=== PATIENT | female | born 1950 | race Caucasian/White ===

== ENCOUNTER 2017-12-12 14:57 | Inpatient (IN) | payer MEDICARE ==
[~2017-12-12] VITALS: Ht 177.8 cm; Wt 127.1 kg
[~2017-12-12 14:57] MED LIST: ACET325 PO; ACYC400 PO; ALBU90OI61 INH; ASPI81CH PO; ASPI81EC PO; Amlodipine Bes2.5 MG PO; CENTRUM MULTIV1 EACH PO; CHOL10002; CITRACAL-VIT D1 EACH PO; Coreg12.5 MG PO; FLUSAL5005 INH; FLUT220OIA INH; FURO40 PO; GABA300 PO; GLUCAGEN IJ; Humalog100 UNIT/1 SC; INSLI100I SC; INSULANPEN SC; LEVOXYL; LEVSOD75 PO; LISHYD2025 PO; MENTAX; METO100 PO; METO100ER PO; MULVIT PO; OLME20; OLME20 PO; OLME5TAB PO; ONDA4 PO; POTCHL10ER PO; PRAV20 PO; PRAVASTATIN SODIUM PO; SIMV40 PO; Zithromax250 MG PO
[2017-12-12 16:00] LABS: BASOPHILS ABSOLUTE AUTO 0.01 K/mm3 (0.00-0.23); BASOPHILS PERCENT AUTO 0 % (0-2); EOSINOPHILS PERCENT AUTO 2 % (0-6); Hematocrit 37.9 % (33.0-51.0); Hemoglobin 11.9 g/dL (11.5-16.0); IMMATURE GRAN ABSOLUTE AUTO 0.02 K/mm3 (0.00-0.10); IMMATURE GRAN PERCENT AUTO 0 % (0-1); LYMPHOCYTES ABSOLUTE AUTO 1.62 K/mm3 (0.84-5.20); LYMPHOCYTES PERCENT AUTO 28 % (21-46); MONOCYTES ABSOLUTE AUTO 0.55 K/mm3 (0.16-1.47); MONOCYTES PERCENT AUTO 9 % (4-13); Mean Corpuscular HGB 28.9 pg (26.0-34.0); Mean Corpuscular HGB Conc 31.4 g/dL (31.5-36.5); Mean Corpuscular Volume 92 fL (80-100); Mean Platelet Volume 10.8 fL (9.1-12.4); NEUTROPHILS ABSOLUTE AUTO 3.58 K/mm3 (1.96-9.15); NEUTROPHILS PERCENT AUTO 61 % (41-73); Platelet Count 150 K/mm3 (150-400); RDW Coefficient Variation 14.5 % (11.7-14.2); RDW Standard Deviation 49.3 fL (35.1-46.3); Red Blood Cell Count 4.12 M/mm3 (3.80-5.20); White Blood Cell Count 5.88 K/mm3 (4.00-11.30)
[2017-12-12 16:17] LABS: Alanine Aminotransfer (ALT/SGP 44 U/L (12-78); Albumin, Blood 3.1 g/dL (3.4-5.0); Albumin/Globulin Ratio 0.8 (0.8-1.8); Alk Phos 158 U/L (50-136); Anion Gap 6 mmol/L (6-16); Aspartate Aminotrans (AST/SGOT 43 U/L (12-37); Bilirubin, Total 0.2 mg/dL (0.1-1.0); Blood Urea Nitrogen 16 mg/dL (8-24); Bun/Creatinine Ratio 21.5 (12.0-20.0); CO2, Blood 27 mmol/L (21-32); Calcium, Blood 7.9 mg/dL (8.5-10.1); Chloride, Blood 106 mmol/L (98-108); Creatinine, Blood 0.74 mg/dL (0.40-1.00); Glomerular Filtration Rate >60 (60-); Glucose, Blood 259 mg/dL (70-99); Potassium, Blood 4.3 mmol/L (3.5-5.5); Sodium, Blood 139 mmol/L (136-145); Total Protein, Blood 7.1 g/dL (6.4-8.2); Troponin I <0.015 ng/mL (0.000-0.040)
[2017-12-12] MEDS ORDERED: FLUT1DIS5 INH (16:21)
[2017-12-12] MEDS ORDERED: ASPI81CH PO (16:33)
[2017-12-12 20:08] LABS: Influenza A Negative (NEGATIVE); Influenza B Negative (NEGATIVE)
[2017-12-13 03:49] LABS: BASOPHILS ABSOLUTE AUTO 0.02 K/mm3 (0.00-0.23); BASOPHILS PERCENT AUTO 0 % (0-2); EOSINOPHILS ABSOLUTE AUTO 0.02 K/mm3 (0.00-0.68); EOSINOPHILS PERCENT AUTO 0 % (0-6); Hematocrit 37.3 % (33.0-51.0); Hemoglobin 11.7 g/dL (11.5-16.0); IMMATURE GRAN ABSOLUTE AUTO 0.03 K/mm3 (0.00-0.10); IMMATURE GRAN PERCENT AUTO 1 % (0-1); LYMPHOCYTES ABSOLUTE AUTO 1.41 K/mm3 (0.84-5.20); LYMPHOCYTES PERCENT AUTO 22 % (21-46); MONOCYTES ABSOLUTE AUTO 0.25 K/mm3 (0.16-1.47); MONOCYTES PERCENT AUTO 4 % (4-13); Mean Corpuscular HGB 28.8 pg (26.0-34.0); Mean Corpuscular HGB Conc 31.4 g/dL (31.5-36.5); Mean Corpuscular Volume 92 fL (80-100); NEUTROPHILS PERCENT AUTO 73 % (41-73); Platelet Count 147 K/mm3 (150-400); RDW Coefficient Variation 14.6 % (11.7-14.2); RDW Standard Deviation 49.8 fL (35.1-46.3); Red Blood Cell Count 4.06 M/mm3 (3.80-5.20); White Blood Cell Count 6.43 K/mm3 (4.00-11.30)
[2017-12-13 04:13] LABS: Anion Gap 8 mmol/L (6-16); Blood Urea Nitrogen 19 mg/dL (8-24); Bun/Creatinine Ratio 27.1 (12.0-20.0); CO2, Blood 25 mmol/L (21-32); Calcium, Blood 8.3 mg/dL (8.5-10.1); Chloride, Blood 104 mmol/L (98-108); Glomerular Filtration Rate >60 (60-); Glucose, Blood 127 mg/dL (70-99); Sodium, Blood 137 mmol/L (136-145)
[2017-12-16] MEDS ORDERED: CARV25 PO (11:19)
[2017-12-16] MEDS ORDERED: ALBU90OI INH (11:21)
[2017-12-16] MEDS ORDERED: BENZ100A PO (11:22)
[2017-12-16] MEDS ORDERED: Q-Tussin100 MG/5 M PO (11:24)
[2017-12-16] MEDS ORDERED: AZIT250 PO (11:25)
[2017-12-16] MEDS ORDERED: PRED10 PO (11:28)
== END 2017-12-16 12:15 | disposition home or self-care (01) | DRG 202 ==
LOC: ER 14:57 → PCU 17:11 → MEDS 12-14 13:49
PROVIDERS: Emergency Medicine; Internal Medicine
DX: J45.901 Unspecified asthma with (acute) exacerbation (principal); I16.1 Hypertensive emergency; E11.40 Type 2 diabetes mellitus with diabetic neuropathy, unspecified; I11.0 Hypertensive heart disease with heart failure; I50.9 Heart failure, unspecified; I25.110 Atherosclerotic heart disease of native coronary artery with unstable angina pectoris; I73.9 Peripheral vascular disease, unspecified; E11.65 Type 2 diabetes mellitus with hyperglycemia; E78.5 Hyperlipidemia, unspecified; G47.33 Obstructive sleep apnea (adult) (pediatric); Z95.2 Presence of prosthetic heart valve; Z79.4 Long term (current) use of insulin; Z79.82 Long term (current) use of aspirin; Z96.41 Presence of insulin pump (external) (internal); Z98.1 Arthrodesis status
CPT/HCPCS: 36415; 71046; 80048; 80053; 82947; 84484; 85025; 87070; 87205; 87804; 93005; 93010; 94640; 94660; 94762; 96374; 96375; 96376; 99285; J0360; J1650; J2920; J2930

== ENCOUNTER 2018-05-13 20:12 | Emergency (ER) | payer MEDICARE ==
[~2018-05-13] VITALS: Ht 180.3 cm; Wt 126.1 kg
[~2018-05-13 20:12] MED LIST changes: +ALBU2.5V5 NEB; +AZIT250 PO; +BENZ100A PO; +CARV25 PO; +FLUT1DIS5 INH; +PRED10 PO; +Q-Tussin100 MG/5 M PO
== END 2018-05-13 22:49 | disposition home or self-care (01) ==
LOC: ER 20:12
DX: E11.649 Type 2 diabetes mellitus with hypoglycemia without coma (principal); R55 Syncope and collapse; T38.3X5A Adverse effect of insulin and oral hypoglycemic [antidiabetic] drugs, initial encounter; I10 Essential (primary) hypertension; Z88.0 Allergy status to penicillin; Z88.2 Allergy status to sulfonamides; Z91.040 Latex allergy status; Z88.5 Allergy status to narcotic agent; Z88.1 Allergy status to other antibiotic agents; Z79.4 Long term (current) use of insulin; Z79.899 Other long term (current) drug therapy; Z79.82 Long term (current) use of aspirin; Z79.2 Long term (current) use of antibiotics
CPT/HCPCS: 36415; 82947; 93005; 93010; 99284-25

== ENCOUNTER 2018-05-29 11:04 | Inpatient (IN) | payer MEDICARE ==
[~2018-05-29] VITALS: Ht 180.3 cm; Wt 121.6 kg
[~2018-05-29 11:04] MED LIST changes: -ALBU2.5V5 NEB; +ALBU90OI INH
[2018-05-29 11:45] LABS: BASOPHILS ABSOLUTE AUTO 0.03 K/mm3 (0.00-0.23); BASOPHILS PERCENT AUTO 0 % (0-2); EOSINOPHILS ABSOLUTE AUTO 0.03 K/mm3 (0.00-0.68); EOSINOPHILS PERCENT AUTO 0 % (0-6); Hematocrit 39.5 % (33.0-51.0); Hemoglobin 13.1 g/dL (11.5-16.0); IMMATURE GRAN ABSOLUTE AUTO 0.02 K/mm3 (0.00-0.10); IMMATURE GRAN PERCENT AUTO 0 % (0-1); LYMPHOCYTES ABSOLUTE AUTO 1.14 K/mm3 (0.84-5.20); LYMPHOCYTES PERCENT AUTO 14 % (21-46); MONOCYTES ABSOLUTE AUTO 0.23 K/mm3 (0.16-1.47); MONOCYTES PERCENT AUTO 3 % (4-13); Mean Corpuscular HGB 29.4 pg (26.0-34.0); Mean Corpuscular HGB Conc 33.2 g/dL (31.5-36.5); Mean Corpuscular Volume 89 fL (80-100); Mean Platelet Volume 11.2 fL (9.1-12.4); NEUTROPHILS ABSOLUTE AUTO 6.45 K/mm3 (1.96-9.15); NEUTROPHILS PERCENT AUTO 82 % (41-73); Platelet Count 177 K/mm3 (150-400); RDW Coefficient Variation 14.3 % (11.7-14.2); RDW Standard Deviation 45.9 fL (35.1-46.3); Red Blood Cell Count 4.45 M/mm3 (3.80-5.20)
[2018-05-29 12:08] LABS: Alanine Aminotransfer (ALT/SGP 25 U/L (12-78); Albumin, Blood 3.4 g/dL (3.4-5.0); Albumin/Globulin Ratio 0.9 (0.8-1.8); Alk Phos 86 U/L (50-136); Anion Gap 25 mmol/L (6-16); Aspartate Aminotrans (AST/SGOT 14 U/L (12-37); Bilirubin, Total 0.5 mg/dL (0.1-1.0); Blood Urea Nitrogen 28 mg/dL (8-24); CO2, Blood 15 mmol/L (21-32); Chloride, Blood 89 mmol/L (98-108); Creatinine, Blood 1.27 mg/dL (0.40-1.00); Globulin, Blood 3.8 g/dL (2.2-4.0); Glomerular Filtration Rate 45 (60-); Glucose, Blood 474 mg/dL (70-99); Potassium, Blood 3.9 mmol/L (3.5-5.5); Sodium, Blood 129 mmol/L (136-145); Total Protein, Blood 7.2 g/dL (6.4-8.2); Troponin I <0.015 ng/mL (0.000-0.040)
[2018-05-29 12:46] LABS: Base Excess Venous -7.1 mmol/L; Bicarbonate Venous 19.1 mmol/L (24.0-30.0); PO2 Venous 98.8 mmHg (38-42)
[2018-05-29 13:32] LABS: Source, Urine Clean Catch
[2018-05-29 13:36] LABS: Bilirubin, Urine Neg (Neg); Blood, Urine Neg (Neg); Glucose Qualitative, Urine 4+ (Neg); Ketones, Urine 4+ (Neg); Leukocyte Esterase, Urine Neg (Neg); Nitrite, Urine Neg (Neg); Protein, Urine Neg (Neg); Urobilinogen, Urine NORM (Normal)
[2018-05-29 13:57] LABS: Appearance, Urine Hazy (Clear); Color, Urine Yellow (P-Yellow)
[2018-05-29 13:59] LABS: Bacteria Few /hpf; Granular Casts 0-2 /lpf (0); Hyaline Casts 0-2 /lpf (0-2); Red Blood Cells, Urine 0-2 /hpf (0-2); Squamous Epithelial Cells Mod /hpf (Few); White Blood Cells, Urine 0-2 /hpf (0-5)
[2018-05-29 14:00] LABS: Epithelial Cell Casts 0-2 /lpf (0)
[2018-05-29] MEDS ORDERED: INSULANPEN SC (14:51)
[2018-05-29] MEDS ORDERED: Humalog100 UNIT/1 SC ×2 (14:57→15:00)
[2018-05-29 15:39] LABS: Bun/Creatinine Ratio 23.4 (12.0-20.0); Calcium, Blood 9.3 mg/dL (8.5-10.1); Creatinine, Blood 1.11 mg/dL (0.40-1.00); Potassium, Blood 3.7 mmol/L (3.5-5.5)
[2018-05-29 19:11] LABS: Bun/Creatinine Ratio 22.6 (12.0-20.0); Calcium, Blood 9.4 mg/dL (8.5-10.1); Creatinine, Blood 1.06 mg/dL (0.40-1.00); Potassium, Blood 3.7 mmol/L (3.5-5.5)
[2018-05-30 06:19] LABS: Anion Gap 10 mmol/L (6-16); Blood Urea Nitrogen 21 mg/dL (8-24); Bun/Creatinine Ratio 22.3 (12.0-20.0); CO2, Blood 25 mmol/L (21-32); Calcium, Blood 8.8 mg/dL (8.5-10.1); Chloride, Blood 99 mmol/L (98-108); Creatinine, Blood 0.94 mg/dL (0.40-1.00); Glomerular Filtration Rate >60 (60-); Glucose, Blood 315 mg/dL (70-99); Potassium, Blood 4.1 mmol/L (3.5-5.5); Sodium, Blood 134 mmol/L (136-145)
[2018-05-30 14:03] LABS: Albumin, Blood 2.8 g/dL (3.4-5.0); Anion Gap 8 mmol/L (6-16); Blood Urea Nitrogen 22 mg/dL (8-24); CO2, Blood 25 mmol/L (21-32); Calcium, Blood 7.9 mg/dL (8.5-10.1); Chloride, Blood 101 mmol/L (98-108); Creatinine, Blood 0.88 mg/dL (0.40-1.00); Glomerular Filtration Rate >60 (60-); Glucose, Blood 388 mg/dL (70-99); Phosphorus, Blood 1.8 mg/dL (2.5-4.9); Potassium, Blood 3.9 mmol/L (3.5-5.5); Sodium, Blood 134 mmol/L (136-145)
[2018-05-31 05:54] LABS: Albumin, Blood 2.9 g/dL (3.4-5.0); Anion Gap 10 mmol/L (6-16); Blood Urea Nitrogen 21 mg/dL (8-24); Bun/Creatinine Ratio 24.6 (12.0-20.0); CO2, Blood 25 mmol/L (21-32); Calcium, Blood 8.5 mg/dL (8.5-10.1); Chloride, Blood 103 mmol/L (98-108); Creatinine, Blood 0.85 mg/dL (0.40-1.00); Glomerular Filtration Rate >60 (60-); Glucose, Blood 212 mg/dL (70-99); Magnesium, Blood 2.1 mg/dL (1.6-2.4); Phosphorus, Blood 2.9 mg/dL (2.5-4.9); Potassium, Blood 4.1 mmol/L (3.5-5.5); Sodium, Blood 138 mmol/L (136-145)
== END 2018-05-31 11:38 | disposition home or self-care (01) | DRG 638 ==
LOC: ER 11:04 → ICUW 13:38 → MEDS 14:20 → ICUW 14:35 → MEDS 05-30 18:51 → ENPENDDIS 05-31 09:38 → MEDS 05-31 11:38
PROVIDERS: Hospitalist; Internal Medicine; Physician Assistant
DX: E10.10 Type 1 diabetes mellitus with ketoacidosis without coma (principal); E87.1 Hypo-osmolality and hyponatremia; E11.65 Type 2 diabetes mellitus with hyperglycemia; E83.39 Other disorders of phosphorus metabolism; E10.40 Type 1 diabetes mellitus with diabetic neuropathy, unspecified; I25.10 Atherosclerotic heart disease of native coronary artery without angina pectoris; E10.51 Type 1 diabetes mellitus with diabetic peripheral angiopathy without gangrene; G47.33 Obstructive sleep apnea (adult) (pediatric); J44.9 Chronic obstructive pulmonary disease, unspecified; E03.9 Hypothyroidism, unspecified; E78.5 Hyperlipidemia, unspecified; I11.0 Hypertensive heart disease with heart failure; E66.9 Obesity, unspecified; Z68.38 Body mass index [BMI] 38.0-38.9, adult; Z95.5 Presence of coronary angioplasty implant and graft; Z99.89 Dependence on other enabling machines and devices; I25.2 Old myocardial infarction; Z88.0 Allergy status to penicillin; Z88.2 Allergy status to sulfonamides; Z88.8 Allergy status to other drugs, medicaments and biological substances; Z88.1 Allergy status to other antibiotic agents; Z91.040 Latex allergy status; Z79.82 Long term (current) use of aspirin; Z79.4 Long term (current) use of insulin; Z79.51 Long term (current) use of inhaled steroids; Z79.52 Long term (current) use of systemic steroids; Z79.899 Other long term (current) drug therapy
CPT/HCPCS: 36415; 71046; 80048; 80053; 80069; 81001; 82010; 82803; 82947; 83690; 83735; 84484; 85025; 93005; 93010; 94640; 94660; 94760; 94762; 96361; 96374; 99285-25; C9113; J1650; J1815; J2405; J7030; J7042; J7060; P9612

== ENCOUNTER 2019-04-08 12:57 | Emergency (ER) | payer MEDICARE ==
[~2019-04-08] VITALS: Ht 180.3 cm; Wt 130.6 kg
[2019-04-08 13:42] LABS: BASOPHILS ABSOLUTE AUTO 0.04 K/mm3 (0.00-0.23); BASOPHILS PERCENT AUTO 1 % (0-2); EOSINOPHILS ABSOLUTE AUTO 0.26 K/mm3 (0.00-0.68); EOSINOPHILS PERCENT AUTO 4 % (0-6); Hematocrit 35.9 % (33.0-51.0); Hemoglobin 11.3 g/dL (11.5-16.0); IMMATURE GRAN ABSOLUTE AUTO 0.02 K/mm3 (0.00-0.10); IMMATURE GRAN PERCENT AUTO 0 % (0-1); LYMPHOCYTES ABSOLUTE AUTO 1.94 K/mm3 (0.84-5.20); LYMPHOCYTES PERCENT AUTO 28 % (21-46); MONOCYTES ABSOLUTE AUTO 0.65 K/mm3 (0.16-1.47); MONOCYTES PERCENT AUTO 9 % (4-13); Mean Corpuscular HGB 29.4 pg (26.0-34.0); Mean Corpuscular HGB Conc 31.5 g/dL (31.5-36.5); Mean Corpuscular Volume 94 fL (80-100); Mean Platelet Volume 10.8 fL (9.1-12.4); NEUTROPHILS ABSOLUTE AUTO 4.03 K/mm3 (1.96-9.15); NEUTROPHILS PERCENT AUTO 58 % (41-73); Platelet Count 193 K/mm3 (150-400); RDW Coefficient Variation 14.8 % (11.7-14.2); RDW Standard Deviation 50.4 fL (35.1-46.3); Red Blood Cell Count 3.84 M/mm3 (3.80-5.20); White Blood Cell Count 6.94 K/mm3 (4.00-11.30)
[2019-04-08 13:54] LABS: Alanine Aminotransfer (ALT/SGP 27 U/L (12-78); Albumin, Blood 3.3 g/dL (3.4-5.0); Albumin/Globulin Ratio 1.2 (0.8-1.8); Alk Phos 85 U/L (50-136); Anion Gap 1 mmol/L (6-16); Aspartate Aminotrans (AST/SGOT 20 U/L (12-37); Bilirubin, Total 0.3 mg/dL (0.1-1.0); Blood Urea Nitrogen 21 mg/dL (8-24); Bun/Creatinine Ratio 23.5 (12.0-20.0); CO2, Blood 34 mmol/L (21-32); Calcium, Blood 8.7 mg/dL (8.5-10.1); Chloride, Blood 106 mmol/L (98-108); Creatinine, Blood 0.89 mg/dL (0.40-1.00); Ethanol (Alcohol), Blood, Med <3 mg/dL; Globulin, Blood 2.8 g/dL (2.2-4.0); Glomerular Filtration Rate >60 (60-); Glucose, Blood 129 mg/dL (70-99); Potassium, Blood 3.9 mmol/L (3.5-5.5); Sodium, Blood 141 mmol/L (136-145); Total Protein, Blood 6.1 g/dL (6.4-8.2)
== END 2019-04-08 16:30 | disposition home or self-care (01) ==
LOC: ER 12:57
PROVIDERS: Emergency Medicine
DX: E11.9 Type 2 diabetes mellitus without complications (principal); Z88.0 Allergy status to penicillin; Z88.2 Allergy status to sulfonamides; Z88.5 Allergy status to narcotic agent; Z91.040 Latex allergy status; Z88.1 Allergy status to other antibiotic agents; Z79.899 Other long term (current) drug therapy; Z79.82 Long term (current) use of aspirin; Z79.4 Long term (current) use of insulin; I11.0 Hypertensive heart disease with heart failure; I50.9 Heart failure, unspecified; J45.909 Unspecified asthma, uncomplicated; E78.5 Hyperlipidemia, unspecified
CPT/HCPCS: 36415; 80053; 85025; 93005; 93010; 99285-25; G0480

== ENCOUNTER 2019-04-21 04:57 | Emergency (ER) | payer MEDICARE ==
[~2019-04-21] VITALS: Ht 180.3 cm; Wt 130.6 kg
[2019-04-21 06:38] LABS: Bun/Creatinine Ratio 29.2 (12.0-20.0); Calcium, Blood 9.4 mg/dL (8.5-10.1); Creatinine, Blood 0.99 mg/dL (0.40-1.00); Potassium, Blood 3.6 mmol/L (3.5-5.5)
== END 2019-04-21 08:52 | disposition home or self-care (01) ==
LOC: ER 04:57
PROVIDERS: Emergency Medicine
DX: E11.649 Type 2 diabetes mellitus with hypoglycemia without coma (principal); T80.89XA Other complications following infusion, transfusion and therapeutic injection, initial encounter; M79.89 Other specified soft tissue disorders; E11.51 Type 2 diabetes mellitus with diabetic peripheral angiopathy without gangrene; I11.0 Hypertensive heart disease with heart failure; I50.9 Heart failure, unspecified; I25.10 Atherosclerotic heart disease of native coronary artery without angina pectoris; Z88.0 Allergy status to penicillin; Z88.2 Allergy status to sulfonamides; Z88.5 Allergy status to narcotic agent; Z91.040 Latex allergy status; Z88.1 Allergy status to other antibiotic agents; Z79.899 Other long term (current) drug therapy; Z79.4 Long term (current) use of insulin
CPT/HCPCS: 36415; 80048; 82947; 99284

== ENCOUNTER 2021-05-04 07:04 | Inpatient (IN) | payer MEDICARE ==
[~2021-05-04] VITALS: Ht 180.3 cm; Wt 127.6 kg
[~2021-05-04 07:04] MED LIST changes: +AMLO5 PO; -Amlodipine Bes2.5 MG PO
[2021-05-04 07:39] LABS: Base Excess Venous 5.6 mmol/L; Bicarbonate Venous 28.2 mmol/L (24.0-30.0); PCO2 Venous 58.9 mmHg (38-42); pH Blood Venous 7.34 (7.34-7.37)
[2021-05-04 07:44] LABS: BASOPHILS ABSOLUTE AUTO 0.05 K/mm3 (0.00-0.23); BASOPHILS PERCENT AUTO 1 % (0-2); EOSINOPHILS ABSOLUTE AUTO 0.07 K/mm3 (0.00-0.68); EOSINOPHILS PERCENT AUTO 1 % (0-6); Hematocrit 36.7 % (33.0-51.0); Hemoglobin 11.5 g/dL (11.5-16.0); IMMATURE GRAN ABSOLUTE AUTO 0.02 K/mm3 (0.00-0.10); IMMATURE GRAN PERCENT AUTO 0 % (0-1); LYMPHOCYTES ABSOLUTE AUTO 0.79 K/mm3 (0.84-5.20); LYMPHOCYTES PERCENT AUTO 9 % (21-46); MONOCYTES ABSOLUTE AUTO 0.74 K/mm3 (0.16-1.47); MONOCYTES PERCENT AUTO 9 % (4-13); Mean Corpuscular HGB 28.7 pg (26.0-34.0); Mean Corpuscular HGB Conc 31.3 g/dL (31.5-36.5); Mean Corpuscular Volume 92 fL (80-100); NEUTROPHILS ABSOLUTE AUTO 7.04 K/mm3 (1.96-9.15); NEUTROPHILS PERCENT AUTO 81 % (41-73); Platelet Count 198 K/mm3 (150-400); RDW Coefficient Variation 14.7 % (11.7-14.2); RDW Standard Deviation 49.3 fL (35.1-46.3); Red Blood Cell Count 4.01 M/mm3 (3.80-5.20); White Blood Cell Count 8.71 K/mm3 (4.00-11.30)
[2021-05-04 07:54] LABS: Alanine Aminotransfer (ALT/SGP 79 U/L (12-78); Albumin, Blood 3.5 g/dL (3.4-5.0); Alk Phos 120 U/L (50-136); Anion Gap 2 mmol/L (6-16); Aspartate Aminotrans (AST/SGOT 39 U/L (12-37); Bilirubin, Total 0.5 mg/dL (0.1-1.0); Blood Urea Nitrogen 20 mg/dL (8-24); Bun/Creatinine Ratio 25.3 (12.0-20.0); CO2, Blood 31 mmol/L (21-32); Calcium, Blood 9.1 mg/dL (8.5-10.1); Chloride, Blood 108 mmol/L (98-108); Creatinine, Blood 0.79 mg/dL (0.40-1.00); Globulin, Blood 3.6 g/dL (2.2-4.0); Glomerular Filtration Rate >60 (60-); Glucose, Blood 208 mg/dL (70-99); Potassium, Blood 4.1 mmol/L (3.5-5.5); Sodium, Blood 141 mmol/L (136-145); Total Protein, Blood 7.1 g/dL (6.4-8.2); Troponin I <0.015 ng/mL (0.000-0.040)
[2021-05-04 08:56] LABS: SARS-Cov-2 (COVID-19) PCR, MMC NEGATIVE (NEGATIVE)
[2021-05-04] MEDS ORDERED: Isosorbide Mono30 MG PO (15:18)
[2021-05-04] MEDS ORDERED: Crestor40 MG PO (15:18)
[2021-05-04] MEDS ORDERED: PROAIR DIGIHAL90 MCG INH (15:19)
[2021-05-04] MEDS ORDERED: FLUT1DIS5 INH (15:19)
[2021-05-04] MEDS ORDERED: LOSA50 PO (15:20)
[2021-05-04] MEDS ORDERED: BUME2 PO (15:22)
[2021-05-04 15:57] LABS: CPK Creatine Kinase 83 U/L (26-193); Troponin I <0.015 ng/mL (0.000-0.040)
[2021-05-04 18:18] LABS: Source, Urine Catheter
--- NOTE | 2021-05-04 18:22 | NUR ---
SHIFT SUMMARY PT ARRIVED TO PCU THIS AFTERNOON. PT HAS A NONPRODUCTIVE COUGH AND HAS BEEN WHEEZING, HER SATURATION IS MAINTAINED ON 5L O2 VIA OXYMIZER. PT ARRIVED TO PCU ON BIPAP 12/6 AND 40%. PT HAS BEEN ABLE TO EAT AND MAINTAIN SATURATION ABOVE 92% WITH THE OXYMIZER. PT RECEIVED 1 DOSE OF PRN APRESOLINE HER BP WAS ELEVATED BUT THAT WAS IMPROVED AT THE RECHECK. PT HAS BEEN VOIDING FREQUENTLY AND A UA WAS SENT TO LAB THIS EVENING. PT IS A SBA TO THE BSC, ALERT AND ORIENTED. PT IS RESTING IN BED WATCHING TV AT THIS TIME
[2021-05-04 18:35] LABS: Appearance, Urine Clear (Clear); Bilirubin, Urine Neg (Neg); Blood, Urine 2+ (Neg); Color, Urine Yellow (P-Yellow); Glucose Qualitative, Urine 3+ (Neg); Ketones, Urine 2+ (Neg); Leukocyte Esterase, Urine Neg (Neg); Nitrite, Urine Neg (Neg); Protein, Urine 3+ (Neg); Urobilinogen, Urine NORM (Normal)
[2021-05-04 18:46] LABS: Bacteria Mod /hpf; Red Blood Cells, Urine 0-2 /hpf (0-2); Squamous Epithelial Cells Rare /hpf (Few); White Blood Cells, Urine 0-2 /hpf (0-5)
[2021-05-04 23:18] LABS: CPK Creatine Kinase 66 U/L (26-193); Troponin I <0.015 ng/mL (0.000-0.040)
[2021-05-05 04:20] LABS: BASOPHILS PERCENT AUTO 0 % (0-2); EOSINOPHILS PERCENT AUTO 0 % (0-6); Hematocrit 35.5 % (33.0-51.0); Hemoglobin 11.1 g/dL (11.5-16.0); IMMATURE GRAN ABSOLUTE AUTO 0.02 K/mm3 (0.00-0.10); IMMATURE GRAN PERCENT AUTO 0 % (0-1); LYMPHOCYTES ABSOLUTE AUTO 0.69 K/mm3 (0.84-5.20); LYMPHOCYTES PERCENT AUTO 10 % (21-46); MONOCYTES ABSOLUTE AUTO 0.57 K/mm3 (0.16-1.47); MONOCYTES PERCENT AUTO 8 % (4-13); Mean Corpuscular HGB 29.1 pg (26.0-34.0); Mean Corpuscular HGB Conc 31.3 g/dL (31.5-36.5); Mean Corpuscular Volume 93 fL (80-100); Mean Platelet Volume 10.8 fL (9.1-12.4); NEUTROPHILS ABSOLUTE AUTO 5.89 K/mm3 (1.96-9.15); NEUTROPHILS PERCENT AUTO 82 % (41-73); Platelet Count 207 K/mm3 (150-400); RDW Coefficient Variation 14.8 % (11.7-14.2); RDW Standard Deviation 50.7 fL (35.1-46.3); Red Blood Cell Count 3.81 M/mm3 (3.80-5.20); White Blood Cell Count 7.17 K/mm3 (4.00-11.30)
[2021-05-05 04:44] LABS: Albumin, Blood 3.1 g/dL (3.4-5.0); Albumin/Globulin Ratio 0.9 (0.8-1.8); Bilirubin, Total 0.4 mg/dL (0.1-1.0); Bun/Creatinine Ratio 27.7 (12.0-20.0); Calcium, Blood 8.8 mg/dL (8.5-10.1); Creatinine, Blood 0.94 mg/dL (0.40-1.00); Globulin, Blood 3.3 g/dL (2.2-4.0); Potassium, Blood 4.1 mmol/L (3.5-5.5); Total Protein, Blood 6.4 g/dL (6.4-8.2)
--- NOTE | 2021-05-05 06:15 | NUR ---
SHIFT SUMMARY PATIENT A&OX4, FORGETFUL WITH GEN WEAKNESS. ON 2-5L NC WHEN AWAKE AND BIPAP MOST OF THE NIGHT. COUGHING SPELLS MADE THIS DIFFICULT AT TIMES AND PRN COUGH SYRUP HELPING WITH THIS. DESATS WITH EXERTION BUT RECOVERS RATEHR QUICKLY. HR STABLE BUT BP ELEVATED THIS AM. GAVE IV APRESOLINE X1 WITH GOOD RELIEF. ALSO GOT PATIENTS HOME MEDS REORDERED SO THOSE SHOULD START HELPING THIS AM. NO PAIN OR DISTRESS NOTED UPON ASSESSMENT. UP WITH ONE ASSIST TO BSC. URINARY FREQUENCY NOTED. TOLERATING ADA DIET. NO ACUTE CONCERNS AT THIS TIME. WILL CONTINUE TO MONITOR UNTIL REPORT GIVEN TO DAYSHIFT RN.
--- NOTE | 2021-05-05 17:20 | NUR ---
SHIFT SUMMARY PT HAS BEEN COUGHING FREQUENTLY TODAY WITH LITTLE TO NO RELIEF WITH THE ROBUTISSIN. PT CONTINUES TO NEED 3-5L VIA OXYMIZER TO MAINTAIN SATURATION ABOVE 90%. PT HAS INCREASED SOB AND WORK OF BREATHING WITH ACTIVITY. PT'S CBG HAVE BEEN ELEVATED SINCE STEROIDS HAVE BEEN STARTED, INSULIN HAS BEEN ADJUSTED. PT IS ABLE TO USE BSC WITH CANE SBA. PT IS RESTING IN BED AT THIS TIME
--- NOTE | 2021-05-06 05:41 | NUR ---
PATIENT IS ALERT AND ORIENTATED, RESTING COMFORTABLY ON 5L OXIMIZER AND/OR BIPAP AT 40% FIO2, AROUND 0500 PATIENT BEGAN COUGHING UNABLE TO CONTROL GAVE PRN ROBITUSSIN AND TESSALON PERILS, BP 206/97 HR 95, HYDRAYLZINE 10ML IVP BP 179/85 HR 98 CALLED NO NEW ORDERS AT THIS TIME. PATIENT IS GETTING SOME RELIEF WITH COUGH MEDICINE COUGHING THIN WHITE LOOSE SPUTUM.
--- NOTE | 2021-05-06 10:30 | NUR ---
PT ALERT AND ORIENTED X4. ON 5L OXYMIZER SATING MID 90'S. USING CPAP WHEN SLEEPING. AT TIMES EXPIRATORY WHEEZE HEARD. TELE SHOWING SINUS TACH AT THIS TIME WITH HR 101. BP ELEVATED THIS AM. MORNING MEDS GIVEN WILL CONTINUE TO REASSESS. BOWEL TONES HEARD. PT USING BSC WITH 1 PERSON SBA. USES CANE AT BASELINE. PUPILS ROUND, EQUAL, AND REACTIVE. BLE 2+ EDEMA WITH REDNESS/DRYNESS TO LOWER CALVES. YUNG HOSE IN PLACE. CALL LIGHT IN REACH. WILL CONTINUE TO MONITOR.
--- NOTE | 2021-05-06 12:27 | NUR ---
BP REMAINS HIGH. PRN MEDS GIVEN. BP TRENDING DOWN. WILL CONTINUE TO MONITOR. PT UP TO BSC WITH CANE. MONITORING URINE OUTPUT. DENIES NEEDS AT THIS TIME. WILL CONTINUE TO MONITOR.
--- NOTE | 2021-05-06 19:19 | NUR ---
SHIFT SUMMARY: NO ACUTE CHANGES, SEE PREVIOUS NOTE. BP TRENDING IN RIGHT DIRECTION. PT DENIES NEEDS AT THIS TIME. DRY COUGH, PRN COUGH MEDS GIVEN. REPORTED OFF TO ONCOMING RN.
[2021-05-07 03:38] LABS: Base Excess Venous 14.1 mmol/L; Bicarbonate Venous 36.4 mmol/L (24.0-30.0); PCO2 Venous 45.7 mmHg (38-42); PO2 Venous 119 mmHg (38-42); pH Blood Venous 7.52 (7.34-7.37)
[2021-05-07 04:16] LABS: BASOPHILS ABSOLUTE AUTO 0.01 K/mm3 (0.00-0.23); BASOPHILS PERCENT AUTO 0 % (0-2); EOSINOPHILS PERCENT AUTO 0 % (0-6); Hematocrit 36.6 % (33.0-51.0); Hemoglobin 11.3 g/dL (11.5-16.0); IMMATURE GRAN ABSOLUTE AUTO 0.02 K/mm3 (0.00-0.10); IMMATURE GRAN PERCENT AUTO 0 % (0-1); LYMPHOCYTES ABSOLUTE AUTO 1.23 K/mm3 (0.84-5.20); LYMPHOCYTES PERCENT AUTO 12 % (21-46); MONOCYTES PERCENT AUTO 11 % (4-13); Mean Corpuscular HGB 28.7 pg (26.0-34.0); Mean Corpuscular HGB Conc 30.9 g/dL (31.5-36.5); Mean Corpuscular Volume 93 fL (80-100); Mean Platelet Volume 10.8 fL (9.1-12.4); NEUTROPHILS ABSOLUTE AUTO 7.68 K/mm3 (1.96-9.15); NEUTROPHILS PERCENT AUTO 76 % (41-73); Platelet Count 219 K/mm3 (150-400); RDW Coefficient Variation 15.1 % (11.7-14.2); RDW Standard Deviation 51.8 fL (35.1-46.3); Red Blood Cell Count 3.94 M/mm3 (3.80-5.20); White Blood Cell Count 10.04 K/mm3 (4.00-11.30)
[2021-05-07 04:35] LABS: Bun/Creatinine Ratio 38.1 (12.0-20.0); Calcium, Blood 8.8 mg/dL (8.5-10.1); Creatinine, Blood 0.94 mg/dL (0.40-1.00); Potassium, Blood 3.8 mmol/L (3.5-5.5)
--- NOTE | 2021-05-07 06:04 | NUR ---
SHIFT SUMMARY PT A&O X4. VSS. MONITOR SHOWING SB-SR, HR 50's-80's. SPO2 > 92% ON 5L OXYMIZER WHILE AWAKE. PT WEARING BIPAP: 09/07 FIO2 35% MAJORITY OF NIGHT FOR SLEEP. PT DENIES JAW PAIN OR ANY OTHER DISCOMFORT. BLE SWOLLEN, PT KEEPING BLE ELEVATED ON PILLOW WHILE IN BED. NO EVENTS OVER NIGHT.
--- NOTE | 2021-05-07 09:43 | NUR ---
ALERT AND ORIENTED X4. NEURO WNL. PUPILS EQUAL, ROUND AND REACTIVE. TITRATED DOWN TO 2L OXYMIZER THIS AM FROM 5L. LUNGS SOUNDING COARSE. DRY, HARSH, HACKING COUGH. PRN COUGH MEDICATIONS GIVEN. BREATHING TREATMENT DONE THIS AM. TELE SHOWING SINUS WITH HR 70-80'S. DENIES CHEST PAIN/PRESSURE. BP ELEVATED THIS AM, MORNING MEDS GIVEN. BOWEL TONES PRESENT. USING BSC WITH SBA. MONITORING OUTPUT. ACHS BLOOD SUGARS IN PLACE. DENIES NEEDS AT THIS TIME. CALL LIGHT IN REACH. WILL CONTINUE TO MONITOR.
[2021-05-07 11:50] LABS: SARS-Cov-2 (COVID-19) PCR, MMC NEGATIVE (NEGATIVE)
[2021-05-07 11:57] LABS: Source, Urine Catheter
[2021-05-07 12:22] LABS: Appearance, Urine Clear (Clear); Bilirubin, Urine Neg (Neg); Blood, Urine Neg (Neg); Glucose Qualitative, Urine Neg (Neg); Ketones, Urine Neg (Neg); Leukocyte Esterase, Urine Neg (Neg); Nitrite, Urine Neg (Neg); Protein, Urine Neg (Neg); Urobilinogen, Urine NORM (Normal)
[2021-05-07 13:23] LABS: Color, Urine Pale Yellow (P-Yellow)
--- NOTE | 2021-05-07 17:33 | NUR ---
SHIFT SUMMARY: NO ACUTE CHANGES. BP STABLE. TELE REMAINS UNCHANGED. DOWN TO 2L OXYMIZER AND SATING MID 90'S. UP TO BSC WITH GOOD OUTPUT. NEW URINE SAMPLE OBTAINED VIA STRAIGHT CATH. CONTINUES TO HAVE DRY COUGH, PRN COUGH MEDS GIVEN. CALL LIGHT IN REACH. EATING DINNER AT THIS TIME. DENIES NEEDS. WILL CONTINUE TO MONITOR AND REPORT OFF.
[2021-05-08 04:56] LABS: Anion Gap 3 mmol/L (6-16); Blood Urea Nitrogen 26 mg/dL (8-24); Bun/Creatinine Ratio 29.3 (12.0-20.0); CO2, Blood 39 mmol/L (21-32); Calcium, Blood 8.8 mg/dL (8.5-10.1); Chloride, Blood 97 mmol/L (98-108); Creatinine, Blood 0.89 mg/dL (0.40-1.00); Glomerular Filtration Rate >60 (60-); Glucose, Blood 112 mg/dL (70-99); Potassium, Blood 3.3 mmol/L (3.5-5.5); Sodium, Blood 139 mmol/L (136-145)
--- NOTE | 2021-05-08 05:32 | NUR ---
SHIFT SUMMARY PT A&O X4. BP REMAINS ELEVATED, TREATED PER EMAR. TELEMETRY READING SR, HR 60'S. SPO2 HAS REMAINED >90% ON 2L OXYMIZER. PT ON BIPAP WITH 2L O2 WHILE SLEEPING, TOLERATED WELL. PT COUGH BECAME PRODUCTIVE DURING NIGHT AND C/O CHEST/AIRWAY PAIN FROM COUGH, PRN MEDS GIVEN FOR COUGH PER EMAR. NO OTHER SIGNIFICANT CHANGES NOTED.
--- NOTE | 2021-05-08 08:05 | NUR ---
PT SLEEPY STATED SHE DOES NOT FEEL WELL THIS MORNING SOB AT REST AND MILD NAUSEA NO EMESIS
--- NOTE | 2021-05-08 11:17 | NUR ---
DR COLE BY TO SEE PT
--- NOTE | 2021-05-08 12:50 | NUR ---
meds given as sched cough prn meds also given pt reported loose stool stated she had some the day before admission
--- NOTE | 2021-05-08 18:46 | NUR ---
report given transport via to [facility]
--- NOTE | 2021-05-09 04:23 | NUR ---
SHIFT SUMMARY ADMITTED FOR HYPOXIC RESPIRATORY FAILURE. FULL CODE. NEW DIAGNOSIS OF CHF. WE ARE DIURESING HER. SHE HAD A LARGE COUGHING FIT THIS SHIFT WHICH CAUSED HER TO VOMIT. PRN COUGHING MEDS GIVEN. SHE IS ON 2 LPM O2. WE ARE USING BIPAP HERE AT [facility], SHE USES CPAP AT HOME. DURING THE DAY SHE IS ON RA @ HOME. SHE IS ACHS CHEMSTICKS. SHE HAS A COURSE AND SEVERE COUGH. SHE IS INDEPENDENT TO C, SHE USES A CANE.
[2021-05-09 05:29] LABS: Base Excess Venous 14.2 mmol/L; PCO2 Venous 52.8 mmHg (38-42); PO2 Venous 149 mmHg (38-42); pH Blood Venous 7.46 (7.34-7.37)
[2021-05-09 06:13] LABS: Anion Gap 2 mmol/L (6-16); Blood Urea Nitrogen 23 mg/dL (8-24); Bun/Creatinine Ratio 25.6 (12.0-20.0); CO2, Blood 37 mmol/L (21-32); Calcium, Blood 8.9 mg/dL (8.5-10.1); Chloride, Blood 97 mmol/L (98-108); Glomerular Filtration Rate >60 (60-); Glucose, Blood 179 mg/dL (70-99); Potassium, Blood 3.4 mmol/L (3.5-5.5); Sodium, Blood 136 mmol/L (136-145)
--- NOTE | 2021-05-09 18:02 | NUR ---
SHIFT SUMMARY. A&OX4, INDEPENDENT TO BSC, PLEASANT AND COOPERATIVE WITH CARE. PT DENIES PAIN, SOB, N/V. LUNGS CLEAR ALTHOUGH DIM. CONTINUES TO REQUIRE 1-2 LPM NC AT REST TO MAINTAIN SPO2 GREATER THAN 90%. NO NEW CHANGES OR CONCERNS.
--- NOTE | 2021-05-10 04:50 | NUR ---
Rn summary: Patient has rested well and heavily this shift. She has gotten up to the BSC independantly using a cane. Pt is on 1 L per NC and O2 sats have been > than 90%. Pt has had a non productive cough this am. Lung sounds are diminished in the upper lobes with expiratory courseness in the bases. Pt has a skin abrasion to left outer godfrey. Pt has trace edema to ankles. Pt has had no c/o pain. Call light is in reach.
--- NOTE | 2021-05-10 05:07 | NUR ---
update on RN summary: Patient has been on 2 liters O2 tonight.
[2021-05-10 06:21] LABS: Bun/Creatinine Ratio 28.9 (12.0-20.0); Calcium, Blood 9.3 mg/dL (8.5-10.1); Creatinine, Blood 1.14 mg/dL (0.40-1.00); Potassium, Blood 3.8 mmol/L (3.5-5.5)
--- NOTE | 2021-05-10 17:40 | NUR ---
SHIFT SUMMARY. A&OX4, INDEPENDNENT TO BSC, PLEASANT AND COOPERATIVE WITH CARE. PT DENIES PAIN, N/V. PT REPORTS MILD SOB WITH EXERTION THAT SUBSIDES QUICKLY WITH REST. LUNGS CLEAR, 2L O2 NC, MILD EDEMA TO BLE. RENAL FUNCTION DECREASED TODAY, DR. COLE NOTIFIED, MEDICATION REGIMEN ADJUSTED BY MD. NO OTHER CHANGES OR CONCERNS.
--- NOTE | 2021-05-11 04:56 | NUR ---
Rn summary: Patient is alert and oriented. She is able to get up to the BSC independantly. Lung sounds continue with expiratory courseness casey bases, no crackles or wheezing noted. Pt remains on 2 liters via NC or Bipap while sleeping. Pt continues to have a loud harsh dry cough. Medicated with tesselon pearls x2 with some relief. Pt has a heart murmur. Call light in reach. No c/o pain or other needs this am.
[2021-05-11 05:01] LABS: BASOPHILS ABSOLUTE AUTO 0.07 K/mm3 (0.00-0.23); BASOPHILS PERCENT AUTO 1 % (0-2); EOSINOPHILS ABSOLUTE AUTO 0.55 K/mm3 (0.00-0.68); EOSINOPHILS PERCENT AUTO 7 % (0-6); Hematocrit 41.8 % (33.0-51.0); Hemoglobin 12.8 g/dL (11.5-16.0); IMMATURE GRAN ABSOLUTE AUTO 0.03 K/mm3 (0.00-0.10); IMMATURE GRAN PERCENT AUTO 0 % (0-1); LYMPHOCYTES ABSOLUTE AUTO 1.75 K/mm3 (0.84-5.20); LYMPHOCYTES PERCENT AUTO 21 % (21-46); MONOCYTES ABSOLUTE AUTO 0.83 K/mm3 (0.16-1.47); MONOCYTES PERCENT AUTO 10 % (4-13); Mean Corpuscular HGB 28.9 pg (26.0-34.0); Mean Corpuscular HGB Conc 30.6 g/dL (31.5-36.5); Mean Corpuscular Volume 94 fL (80-100); Mean Platelet Volume 10.8 fL (9.1-12.4); NEUTROPHILS PERCENT AUTO 61 % (41-73); Platelet Count 166 K/mm3 (150-400); RDW Coefficient Variation 14.4 % (11.7-14.2); RDW Standard Deviation 49.6 fL (35.1-46.3); Red Blood Cell Count 4.43 M/mm3 (3.80-5.20); White Blood Cell Count 8.33 K/mm3 (4.00-11.30)
[2021-05-11 05:14] LABS: Bun/Creatinine Ratio 31.1 (12.0-20.0); Calcium, Blood 9.2 mg/dL (8.5-10.1); Creatinine, Blood 1.06 mg/dL (0.40-1.00); Potassium, Blood 4.1 mmol/L (3.5-5.5)
[2021-05-11] MEDS ORDERED: LASIX20 M2 PO (16:02)
[2021-05-11] MEDS ORDERED: BENZ100A PO (16:07)
[2021-05-11] MEDS ORDERED: HUMULIN R100 UNIT/2 SC (16:09)
[2021-05-11] MEDS ORDERED: METO25 PO (16:12)
[2021-05-11] MEDS ORDERED: IPRAT-ALBUT 0.5-3 ML INH (16:12)
[2021-05-11] MEDS ORDERED: SPIR25 PO (16:14)
--- NOTE | 2021-05-11 16:54 | NUR ---
Mateusz FROM DR. MORELAND TO CANCEL PRESCRIPTION FOR METOPROLOL AND HUMULIN R. RESUME PATIENTS HOME MEDICATIONS OF CARVEDILOL AND HUMALOG KWIKPEN HIGH SLIDING SCALE TID WITH MEALS.
--- NOTE | 2021-05-11 17:54 | NUR ---
PATIENT D/C'D BACK TO [facility]. RX MEDICATIONS FA[facility]ED TO [facility] [place]. AR INSTRUCTIONS AND EDUCATION DISCUSSED WITH PATIENT AND COPY PROVIDED. PATIENT WILL HAVE HOME HEALTH, MESSAGE LEFT WITH BENCH HAND TO F/U WITH PATIENT TOMORROW ABOUT HOME HEALTH PREFERENCE. PATIENT DENIES ANY FURTHER QUESTIONS OR CONCERNS.
== END 2021-05-11 17:50 | disposition home health service (06) | DRG 291 ==
LOC: ER 07:04 → PCU 07:05 → MEDS 05-08 18:48
PROVIDERS: Emergency Medicine; Internal Medicine; ADMIT Internal Medicine
DX: I13.0 Hypertensive heart and chronic kidney disease with heart failure and stage 1 through stage 4 chronic kidney disease, or unspecified chronic kidney disease (principal); J96.01 Acute respiratory failure with hypoxia; I50.31 Acute diastolic (congestive) heart failure; J96.02 Acute respiratory failure with hypercapnia; N17.9 Acute kidney failure, unspecified; E11.22 Type 2 diabetes mellitus with diabetic chronic kidney disease; M19.90 Unspecified osteoarthritis, unspecified site; Z20.822 Contact with and (suspected) exposure to COVID-19; G47.33 Obstructive sleep apnea (adult) (pediatric); E11.65 Type 2 diabetes mellitus with hyperglycemia; E66.01 Morbid (severe) obesity due to excess calories; N18.30 Chronic kidney disease, stage 3 unspecified; I27.20 Pulmonary hypertension, unspecified; E87.6 Hypokalemia; N18.2 Chronic kidney disease, stage 2 (mild); D63.1 Anemia in chronic kidney disease; Z91.040 Latex allergy status; Z99.89 Dependence on other enabling machines and devices; Z98.1 Arthrodesis status; Z90.49 Acquired absence of other specified parts of digestive tract; Z95.5 Presence of coronary angioplasty implant and graft; Z95.2 Presence of prosthetic heart valve; Z88.0 Allergy status to penicillin; Z88.2 Allergy status to sulfonamides; Z88.5 Allergy status to narcotic agent; Z88.6 Allergy status to analgesic agent; Z79.82 Long term (current) use of aspirin; Z79.899 Other long term (current) drug therapy
CPT/HCPCS: 36415; 71045; 80048; 80053; 81001; 81003; 82550; 82803; 82947; 83036; 83880; 84145; 84484; 85025; 87070; 87077; 87086; 87186; 87205; 93005; 93010; 93308; 93321; 94640; 94660; 94664; 94761; 94762; 96374; 96375; 99285-25; A9270; J0360; J1650; J1940; J2930; U0004

== ENCOUNTER 2021-05-26 12:26 | Observation (INO) | payer MEDICARE ==
[~2021-05-26] VITALS: Ht 180.3 cm; Wt 123.2 kg
[~2021-05-26 12:26] MED LIST changes: +BUME2 PO; +Crestor40 MG PO; +HUMULIN R100 UNIT/2 SC; +IPRAT-ALBUT 0.5-3 ML INH; +Isosorbide Mono30 MG PO; +LASIX20 M2 PO; +LOSA50 PO; +METO25 PO; +PROAIR DIGIHAL90 MCG INH; +SPIR25 PO
[2021-05-26 13:21] LABS: BASOPHILS ABSOLUTE AUTO 0.05 K/mm3 (0.00-0.23); BASOPHILS PERCENT AUTO 1 % (0-2); EOSINOPHILS ABSOLUTE AUTO 0.35 K/mm3 (0.00-0.68); EOSINOPHILS PERCENT AUTO 5 % (0-6); Hematocrit 39.6 % (33.0-51.0); Hemoglobin 12.4 g/dL (11.5-16.0); IMMATURE GRAN ABSOLUTE AUTO 0.02 K/mm3 (0.00-0.10); IMMATURE GRAN PERCENT AUTO 0 % (0-1); LYMPHOCYTES ABSOLUTE AUTO 1.58 K/mm3 (0.84-5.20); LYMPHOCYTES PERCENT AUTO 23 % (21-46); MONOCYTES ABSOLUTE AUTO 0.56 K/mm3 (0.16-1.47); MONOCYTES PERCENT AUTO 8 % (4-13); Mean Corpuscular HGB 28.6 pg (26.0-34.0); Mean Corpuscular HGB Conc 31.3 g/dL (31.5-36.5); Mean Corpuscular Volume 91 fL (80-100); Mean Platelet Volume 10.2 fL (9.1-12.4); NEUTROPHILS ABSOLUTE AUTO 4.46 K/mm3 (1.96-9.15); NEUTROPHILS PERCENT AUTO 64 % (41-73); Platelet Count 262 K/mm3 (150-400); RDW Coefficient Variation 14.4 % (11.7-14.2); RDW Standard Deviation 48.5 fL (35.1-46.3); Red Blood Cell Count 4.34 M/mm3 (3.80-5.20); White Blood Cell Count 7.02 K/mm3 (4.00-11.30)
[2021-05-26 13:30] LABS: Alanine Aminotransfer (ALT/SGP 28 U/L (12-78); Albumin, Blood 3.4 g/dL (3.4-5.0); Albumin/Globulin Ratio 0.8 (0.8-1.8); Alk Phos 86 U/L (50-136); Anion Gap 6 mmol/L (6-16); Aspartate Aminotrans (AST/SGOT 16 U/L (12-37); Bilirubin, Total 0.4 mg/dL (0.1-1.0); Blood Urea Nitrogen 36 mg/dL (8-24); Bun/Creatinine Ratio 30.5 (12.0-20.0); CO2, Blood 30 mmol/L (21-32); Calcium, Blood 9.7 mg/dL (8.5-10.1); Chloride, Blood 99 mmol/L (98-108); Creatinine, Blood 1.18 mg/dL (0.40-1.00); Globulin, Blood 4.1 g/dL (2.2-4.0); Glomerular Filtration Rate 45 (60-); Glucose, Blood 365 mg/dL (70-99); Potassium, Blood 5.1 mmol/L (3.5-5.5); Sodium, Blood 135 mmol/L (136-145); Total Protein, Blood 7.5 g/dL (6.4-8.2); Troponin I <0.015 ng/mL (0.000-0.040)
[2021-05-26 16:55] LABS: Prothrombin Time Results 10.8 Sec (9.7-11.5)
--- NOTE | 2021-05-26 19:44 | NUR ---
PT ARRIVED TO ROOM VIA GURNEY FROM ED AT 1800. TRANSFERRED SELF TO BED AND SETTLED IN. ADMISSION COMPLETED AND DINNER SERVED. REPORTED TO ONCOMINNG SHIFT CURRENT CONDITION. HEPARIN DRIP INFUSING.
--- NOTE | 2021-05-27 00:50 | NUR ---
BLOOD GLUCOSE PT BG IN THE 300'S WITH 21O0 CHECK AND THEN AGAIN WITH REPEATED CHECK AT MIDNIGHT. PT DID NOT HAVE HS INSULIN ORDERED AND PT DID NOT RECEIVE ANY INSULIN EARLIER SHE DID NOT REQUIRE COVERAGE PER SCALE PT REPORTS THAT SHE HAD A LARGE PASTA DINNER. DR. YARBROUGH CALLED AND NOTIFIED OF PT BLOOD SUGAR. RECEIVED ORDER TO CHANGE FROM LOW TO MEDIUM SCAE AND TO COVER PER SLDING SCALE NOW.
--- NOTE | 2021-05-27 04:34 | NUR ---
SHIFT SUMMARY NO ACUTE CHANGES OVERNIGHT. PT DENIES CHEST PAIN THIS SHIFT, TROPONIN'S ARE WNL. HEPARIN GTT INFUSING ORDERED. PT SBA TO THE BSC. A/OX4, MAKES NEEDS KNOWN. PT HAS RESTED MOST OF THE NIGHT. BED IN LOWEST POSITION, CALL LIGHT WITHIN REACH.
[2021-05-27 05:11] LABS: Hematocrit 37.5 % (33.0-51.0); Hemoglobin 11.7 g/dL (11.5-16.0); Mean Corpuscular HGB 28.8 pg (26.0-34.0); Mean Corpuscular HGB Conc 31.2 g/dL (31.5-36.5); Mean Corpuscular Volume 92 fL (80-100); Mean Platelet Volume 10.3 fL (9.1-12.4); Platelet Count 232 K/mm3 (150-400); RDW Coefficient Variation 14.3 % (11.7-14.2); RDW Standard Deviation 48.6 fL (35.1-46.3); Red Blood Cell Count 4.06 M/mm3 (3.80-5.20)
[2021-05-27 05:43] LABS: Anion Gap 6 mmol/L (6-16); Blood Urea Nitrogen 28 mg/dL (8-24); Bun/Creatinine Ratio 25.5 (12.0-20.0); CO2, Blood 29 mmol/L (21-32); Calcium, Blood 9.3 mg/dL (8.5-10.1); Chloride, Blood 102 mmol/L (98-108); Glomerular Filtration Rate 49 (60-); Glucose, Blood 279 mg/dL (70-99); Potassium, Blood 4.5 mmol/L (3.5-5.5); Sodium, Blood 137 mmol/L (136-145); Troponin I <0.015 ng/mL (0.000-0.040)
--- NOTE | 2021-05-27 16:00 | NUR ---
SHIFT SUMMARY PATIENT DENIES CHEST PAIN THIS SHIFT. PATIENT DENIES NAUSEA AND SHORTNESS OF BREATH. PATIENT EATING AND DRINKING WELL. PATIENT IS A SBA TO A COMMODE. DR. SCOTT CONSULTED THIS SHIFT. ANGIOGRAM IS SCHEDULED FOR TOMORROW. NEW ORDERS PLACED FOR NPO AFTER MIDNIGHT. HEPERIN DRIP DISCONTINUED PER DR. MARTIN ORDERS. PATIENT IS PLEASANT AND COOPERTIVE WITH CARE.
--- NOTE | 2021-05-28 04:10 | NUR ---
SHIFT SUMMARY PATIENT HAD NO ACUTE CHANGES OBSERVED. AXOX 4 AND SBA TO BR. DENIES CHEST PAIN, SOB, AND N/V. NPO FOR PROCEDURE TODAY. PIV REMAINS INTACT. MOTEL MANAGER REPORTS NSR 85. CBG 328. VSS/AFEBRILE. CALL LIGHT IN REACH. BED IN LOWEST POSITION. WILL CONTINUE TO MONITOR UNTIL DAY SHIFT NURSE ASSUMES CARE.
[2021-05-28 05:48] LABS: Hematocrit 39.8 % (33.0-51.0); Mean Corpuscular HGB 29.2 pg (26.0-34.0); Mean Corpuscular HGB Conc 32.7 g/dL (31.5-36.5); Mean Corpuscular Volume 89 fL (80-100); Mean Platelet Volume 10.3 fL (9.1-12.4); Platelet Count 235 K/mm3 (150-400); RDW Coefficient Variation 14.1 % (11.7-14.2); RDW Standard Deviation 46.9 fL (35.1-46.3); Red Blood Cell Count 4.45 M/mm3 (3.80-5.20); White Blood Cell Count 6.54 K/mm3 (4.00-11.30)
[2021-05-28 06:24] LABS: Bun/Creatinine Ratio 22.3 (12.0-20.0); Calcium, Blood 8.7 mg/dL (8.5-10.1); Creatinine, Blood 0.99 mg/dL (0.40-1.00); Potassium, Blood 4.6 mmol/L (3.5-5.5)
[2021-05-28 08:55] LABS: SARS-Cov-2 (COVID-19) PCR, MMC NEGATIVE (NEGATIVE)
--- NOTE | 2021-05-28 15:11 | NUR ---
PT TO HEART CENTER RECOVERY RM WITH R FEMORAL VEIN ACCESS AND R RADIAL TR BAND IN PLACE. NO BLEEDING OR HEMATOMA AT SITES. NADN. VSS. PT WILL RECOVER IN HEART CENTER AND THEN BE TRANSFERRED BACK TO [facility] RM #[id number]. CALL LIGHT WITHIN REACH. CONTINUOUS MONITORING IN PLACE.
--- NOTE | 2021-05-28 15:40 | NUR ---
DR ARANDA IN ROOM DISCUSSING PLAN OF CARE. VSS. NADN. SITES REMAIN CLEAR. PT BEING CONSENTED FOR PABLO FOR TOMORROW (Tuesday05/31/21)
--- NOTE | 2021-05-28 16:09 | NUR ---
PT TR BAND FULLY DEFLATED. NO BLEEDING OR HEMATOMA NOTED. DOT DRESSING APPLIED WITH SPLINT. PT R FEMORAL SITE REMAINS CLEAR. NO BLEEDING OR HEMATOMA NOTED. VSS. PT EATING LUNCH AT THIS TIME.
--- NOTE | 2021-05-28 16:14 | NUR ---
REPORT GIVEN TO REUBEN HAN [facility] FOR CONTINUATION OF CARE.
--- NOTE | 2021-05-29 03:32 | NUR ---
SHIFT SUMMARY PATIENT HAD NO ACUTE CHANGES OBSERVED. NPO FOR PROCEDURE TODAY. AXOX 3 AND SBA TO BR. PIV REMAINS INTACT. NS INFUSED AT 75mL/HR X ONE BAG COMPLETE. PATIENT ANXIOUS T/O SHIFT. EMERGENCY PREPAREDNESS COORDINATOR REPORTS NSR 73. SPLINT TO RIGHT WRIST IN PLACE FROM ANGIOGRAM. VSS/AFEBRILE. DENIES PAIN, SOB, AND N/V. CALL LIGHT IN REACH. BED IN LOWEST POSITION. WCTM.
--- NOTE | 2021-05-29 18:05 | NUR ---
SHIFT SUMMARY DROWSY POST PABLO. SLEPT WITH NO COMPLAINTS. NO PO INTAKE FOR LUNCH. GOOD INTAKE FOR DINNER. PATIENT STATES, "I NEED TO GET A NEW VALVE IN [place] AND THERE ARE NO BUSES THAT GOT THERE FROM [place]". THIS RN LEFT MESSAGE WITH RN GASTROENTEROLOGY TO ADDRESS TOMORROW.
--- NOTE | 2021-05-30 04:24 | NUR ---
TRUCK TERMINAL MANAGER SUMMARY ADMITTED FOR JAW/CHEST PAIN OBSERVATION. PT IS FULL CODE. PT WAS MEDICATED FOR HEADACHE X1 WITH IMPROVEMENT. PT WAS SINUS IN THE 80S ON TELE. CONTINUES TO SLEEP WITH CPAP AT [facility]. NO OTHER CONCERNS AT THIS TIME. CALL LIGHT WITHIN REACH.
--- NOTE | 2021-05-30 18:21 | NUR ---
PT WAS DISCHARGED ALERT X4 AND ORIENTED WITH BELONGINGS AT SIDE. PT MADE NO COMPLAINTS AT THE TIME OF DC. PT WAS EDUCATED ON FU APPOINTMENTS NEEDED AND WAS ABLE TO VERBALIZE UNDERSTANDING. PT LEFT VIA WHEELCHAIR AND MET AT THE ER EXIT WITH FAMILY.
== END 2021-05-30 16:00 | disposition home or self-care (01) ==
LOC: ER 12:26 → PCU 12:27 → MEDS 12:27
PROVIDERS: Internal Medicine; Pharmacist; Physician Assistant; ADMIT Internal Medicine
DX: I25.110 Atherosclerotic heart disease of native coronary artery with unstable angina pectoris (principal); I13.0 Hypertensive heart and chronic kidney disease with heart failure and stage 1 through stage 4 chronic kidney disease, or unspecified chronic kidney disease; E11.22 Type 2 diabetes mellitus with diabetic chronic kidney disease; N17.9 Acute kidney failure, unspecified; N18.30 Chronic kidney disease, stage 3 unspecified; I50.32 Chronic diastolic (congestive) heart failure; I25.2 Old myocardial infarction; I35.0 Nonrheumatic aortic (valve) stenosis; G47.33 Obstructive sleep apnea (adult) (pediatric); E03.9 Hypothyroidism, unspecified; J44.9 Chronic obstructive pulmonary disease, unspecified; E11.40 Type 2 diabetes mellitus with diabetic neuropathy, unspecified; Z79.4 Long term (current) use of insulin; T82.09XA Other mechanical complication of heart valve prosthesis, initial encounter; Z95.2 Presence of prosthetic heart valve; Z95.5 Presence of coronary angioplasty implant and graft; Z87.891 Personal history of nicotine dependence; Z88.5 Allergy status to narcotic agent; Z88.0 Allergy status to penicillin; Z88.2 Allergy status to sulfonamides; Z88.8 Allergy status to other drugs, medicaments and biological substances; Z88.1 Allergy status to other antibiotic agents; Z91.040 Latex allergy status; Z20.822 Contact with and (suspected) exposure to COVID-19
CPT/HCPCS: 36415; 71046; 76937; 80048; 80053; 82947; 84145; 84484; 85025; 85027; 85347; 85610; 85730; 93005; 93010; 93312; 93325; 93460; 94640; 94660; 94762; 96374; 96375; 99152; 99153; 99285-25; A9270; C1760; C1769; C1894; G0378; J1200; J1644; J1720; J2250; J2405; J3010; J7030; J7050; Q9967; U0004

== ENCOUNTER 2021-07-05 13:02 | Emergency (ER) | payer MEDICARE ==
[~2021-07-05] VITALS: Ht 180.3 cm; Wt 120.7 kg
[~2021-07-05 13:02] MED LIST changes: +Aspir 8181 MG PO
[2021-07-05 13:36] LABS: BASOPHILS ABSOLUTE AUTO 0.04 K/mm3 (0.00-0.23); BASOPHILS PERCENT AUTO 1 % (0-2); EOSINOPHILS ABSOLUTE AUTO 0.08 K/mm3 (0.00-0.68); EOSINOPHILS PERCENT AUTO 1 % (0-6); Hematocrit 35.4 % (33.0-51.0); Hemoglobin 11.2 g/dL (11.5-16.0); IMMATURE GRAN ABSOLUTE AUTO 0.03 K/mm3 (0.00-0.10); IMMATURE GRAN PERCENT AUTO 0 % (0-1); LYMPHOCYTES ABSOLUTE AUTO 1.39 K/mm3 (0.84-5.20); LYMPHOCYTES PERCENT AUTO 17 % (21-46); MONOCYTES ABSOLUTE AUTO 0.62 K/mm3 (0.16-1.47); MONOCYTES PERCENT AUTO 8 % (4-13); Mean Corpuscular HGB 29.3 pg (26.0-34.0); Mean Corpuscular HGB Conc 31.6 g/dL (31.5-36.5); Mean Corpuscular Volume 93 fL (80-100); Mean Platelet Volume 10.7 fL (9.1-12.4); NEUTROPHILS ABSOLUTE AUTO 6.05 K/mm3 (1.96-9.15); NEUTROPHILS PERCENT AUTO 74 % (41-73); Platelet Count 200 K/mm3 (150-400); RDW Coefficient Variation 14.5 % (11.7-14.2); RDW Standard Deviation 48.3 fL (35.1-46.3); Red Blood Cell Count 3.82 M/mm3 (3.80-5.20); White Blood Cell Count 8.21 K/mm3 (4.00-11.30)
[2021-07-05 13:52] LABS: Alanine Aminotransfer (ALT/SGP 25 U/L (12-78); Albumin, Blood 3.3 g/dL (3.4-5.0); Albumin/Globulin Ratio 0.8 (0.8-1.8); Alk Phos 91 U/L (50-136); Anion Gap 14 mmol/L (6-16); Aspartate Aminotrans (AST/SGOT 19 U/L (12-37); Bilirubin, Total 0.5 mg/dL (0.1-1.0); Blood Urea Nitrogen 61 mg/dL (8-24); Bun/Creatinine Ratio 37.9 (12.0-20.0); CO2, Blood 24 mmol/L (21-32); Calcium, Blood 8.3 mg/dL (8.5-10.1); Chloride, Blood 91 mmol/L (98-108); Creatinine, Blood 1.61 mg/dL (0.40-1.00); Glomerular Filtration Rate 32 (60-); Glucose, Blood 583 mg/dL (70-99); Potassium, Blood 5.4 mmol/L (3.5-5.5); Sodium, Blood 129 mmol/L (136-145); Total Protein, Blood 7.3 g/dL (6.4-8.2)
[2021-07-05] MEDS ORDERED: ONDA4ODT MM (17:00)
[2021-07-05] MEDS ORDERED: INSULANI SC (17:00)
[2021-07-08] MEDS ORDERED: BASAGLAR K100 UNIT/3 SC (15:38)
== END 2021-07-05 17:50 | disposition home or self-care (01) ==
LOC: ER 13:02
PROVIDERS: Emergency Medicine
DX: E11.65 Type 2 diabetes mellitus with hyperglycemia (principal); I13.0 Hypertensive heart and chronic kidney disease with heart failure and stage 1 through stage 4 chronic kidney disease, or unspecified chronic kidney disease; E11.22 Type 2 diabetes mellitus with diabetic chronic kidney disease; N18.30 Chronic kidney disease, stage 3 unspecified; I50.31 Acute diastolic (congestive) heart failure; J44.9 Chronic obstructive pulmonary disease, unspecified; E03.9 Hypothyroidism, unspecified; Z88.0 Allergy status to penicillin; Z88.2 Allergy status to sulfonamides; Z88.5 Allergy status to narcotic agent; Z91.040 Latex allergy status; Z91.048 Other nonmedicinal substance allergy status; Z88.1 Allergy status to other antibiotic agents; Z79.82 Long term (current) use of aspirin; Z79.4 Long term (current) use of insulin; Z79.899 Other long term (current) drug therapy
CPT/HCPCS: 36415; 80053; 82947; 83690; 85025; 93005; 93010; 96374; 96376; 99284-25; J1815; J2405; J7030

== ENCOUNTER 2021-07-08 12:05 | Inpatient (IN) | payer MEDICARE ==
[~2021-07-08] VITALS: Ht 180.3 cm; Wt 122.8 kg
[~2021-07-08 12:05] MED LIST changes: +INSULANI SC; +ONDA4ODT MM
[2021-07-08 12:57] LABS: BASOPHILS ABSOLUTE AUTO 0.06 K/mm3 (0.00-0.23); BASOPHILS PERCENT AUTO 1 % (0-2); EOSINOPHILS ABSOLUTE AUTO 0.02 K/mm3 (0.00-0.68); EOSINOPHILS PERCENT AUTO 0 % (0-6); Hematocrit 32.4 % (33.0-51.0); Hemoglobin 10.4 g/dL (11.5-16.0); IMMATURE GRAN ABSOLUTE AUTO 0.12 K/mm3 (0.00-0.10); IMMATURE GRAN PERCENT AUTO 1 % (0-1); LYMPHOCYTES ABSOLUTE AUTO 1.15 K/mm3 (0.84-5.20); LYMPHOCYTES PERCENT AUTO 11 % (21-46); MONOCYTES ABSOLUTE AUTO 0.54 K/mm3 (0.16-1.47); MONOCYTES PERCENT AUTO 5 % (4-13); Mean Corpuscular HGB 29.3 pg (26.0-34.0); Mean Corpuscular HGB Conc 32.1 g/dL (31.5-36.5); Mean Corpuscular Volume 91 fL (80-100); NEUTROPHILS ABSOLUTE AUTO 9.04 K/mm3 (1.96-9.15); NEUTROPHILS PERCENT AUTO 83 % (41-73); NRBC ABSOLUTE 0.04 K/mm3 (0.00-0.02); NRBC Auto 0.4 /100 WBC (0.0-0.2); RDW Coefficient Variation 14.6 % (11.7-14.2); Red Blood Cell Count 3.55 M/mm3 (3.80-5.20); White Blood Cell Count 10.93 K/mm3 (4.00-11.30)
[2021-07-08 12:58] LABS: Albumin/Globulin Ratio 0.8 (0.8-1.8); Bilirubin, Total 0.5 mg/dL (0.1-1.0); Bun/Creatinine Ratio 39.4 (12.0-20.0); Calcium, Blood 7.5 mg/dL (8.5-10.1); Creatinine, Blood 1.65 mg/dL (0.40-1.00); Potassium, Blood 5.2 mmol/L (3.5-5.5)
[2021-07-08 13:19] LABS: Platelet Count 189 K/mm3 (150-400)
[2021-07-08 15:12] LABS: SARS-Cov-2 (COVID-19) PCR, MMC NEGATIVE (NEGATIVE)
[2021-07-08] MEDS ORDERED: FUROSEMIDE20 MG PO (15:38)
[2021-07-08] MEDS ORDERED: BASAGLAR K100 UNIT/6 SC (15:38)
[2021-07-08] MEDS ORDERED: HUMALOG KW100 UNIT/1 SC (15:38)
[2021-07-08] MEDS ORDERED: SPIRONOLACTONE25 MG PO (15:38)
[2021-07-08] MEDS ORDERED: BUME2 PO (15:52)
[2021-07-08] MEDS ORDERED: BENADRYL25 MG PO (15:53)
[2021-07-08] MEDS ORDERED: LOSARTAN POTAS100 M1 PO (15:53)
[2021-07-08] MEDS ORDERED: EZET10 PO (15:53)
[2021-07-08 18:44] LABS: Glucose, Blood 571 mg/dL (70-99)
--- NOTE | 2021-07-08 19:00 | NUR ---
ASSUMED CARE RECEIVED REPORT FROM REUBEN BEE. PT RESTING, IN NAD. NO ACUTE NEEDS ASSESSED AT THIS TIME. CALL LIGHT, POSSESSIONS IN REACH, BED IN LOW AND LOCKED POSITION WITH ALARMS ON.
--- NOTE | 2021-07-08 19:00 | NUR ---
ASSUMED CARE RECEIVED REPORT FROM REUBEN ARNOLD. PT RESTING, IN NAD. NO ACUTE NEEDS ASSESSED AT THIS TIME. CALL LIGHT, POSSESSIONS IN REACH, BED IN LOW AND LOCKED POSITION WITH ALARMS ON.
--- NOTE | 2021-07-08 19:58 | NUR ---
Shift Summery, The patient is A/OX4 to person, place, time and event. She is pleasent and cooperative with her care. She came to this unit around 1700 and she was dry heaving, thursty and urinated multiple times. The patient's blood glucose was >[address] Robert was notified and she gave verbal orders to this nurse to give 12 Humulin R. The patient stated that she does not have good glucose control at home because she does not have enough insulin. The patient denied any sob/chest pain, she was on 4lpm o2 via NC. She had deminished bilat lower lobes. The patient had nausea and was given zofran and she stopped dry heaving and stated the medication helped. The patient was placed on tele and was normal sinus rhythm 84bpm. She is a 1 prsn stand by assist to the C R/T HX OF fall. She needs 3 side rales up becuase she has hx of rolling off the bed. The patient is currenly resting in bed.
[2021-07-08 21:23] LABS: Glucose, Blood 573 mg/dL (70-99)
--- NOTE | 2021-07-08 23:00 | NUR ---
SPOKE TO DR. HERNANDEZ REGARDING PT'S CBG OF 573 AND INSULIN COVERAGE PER CORRECTION SCALE. ORDERS RECEIVED.
--- NOTE | 2021-07-09 04:40 | NUR ---
SHIFT SUMMARY PT ASLEEP, IN NAD. PT APPEARED TO SLEEP WELL OVERNIGHT. CBGS CONTROLLED WITH INSULIN ORDERED, STABILIZING. VS REVIEWED,WNL; O2 SATS STABLE ON 5L/NC. PT DENIES SOB, DYSPNEA. NO ACUTE CONCERNS TO REPORT OVERNIGHT. PT SBA TO BSC; IMPULSIVE. PT DENIES NEEDS AT THIS TIME. CALL LIGHT, POSSESSIONS IN REACH, BED IN LOW AND LOCKED POSITION WITH ALARMS ON. WILL CONTINUE TO PROVIDE CARE NEEDED UNTIL REPORT GIVEN TO ONCOMING RN.
[2021-07-09 05:04] LABS: BASOPHILS ABSOLUTE AUTO 0.04 K/mm3 (0.00-0.23); BASOPHILS PERCENT AUTO 1 % (0-2); EOSINOPHILS ABSOLUTE AUTO 0.15 K/mm3 (0.00-0.68); EOSINOPHILS PERCENT AUTO 2 % (0-6); Hematocrit 28.1 % (33.0-51.0); Hemoglobin 9.5 g/dL (11.5-16.0); IMMATURE GRAN ABSOLUTE AUTO 0.13 K/mm3 (0.00-0.10); IMMATURE GRAN PERCENT AUTO 2 % (0-1); LYMPHOCYTES ABSOLUTE AUTO 1.43 K/mm3 (0.84-5.20); LYMPHOCYTES PERCENT AUTO 17 % (21-46); MONOCYTES ABSOLUTE AUTO 0.87 K/mm3 (0.16-1.47); MONOCYTES PERCENT AUTO 10 % (4-13); Mean Corpuscular HGB 29.5 pg (26.0-34.0); Mean Corpuscular HGB Conc 33.8 g/dL (31.5-36.5); Mean Corpuscular Volume 87 fL (80-100); Mean Platelet Volume 10.7 fL (9.1-12.4); NEUTROPHILS ABSOLUTE AUTO 5.96 K/mm3 (1.96-9.15); NEUTROPHILS PERCENT AUTO 70 % (41-73); NRBC ABSOLUTE 0.08 K/mm3 (0.00-0.02); NRBC Auto 0.9 /100 WBC (0.0-0.2); Platelet Count 152 K/mm3 (150-400); RDW Coefficient Variation 14.6 % (11.7-14.2); RDW Standard Deviation 46.5 fL (35.1-46.3); Red Blood Cell Count 3.22 M/mm3 (3.80-5.20); White Blood Cell Count 8.58 K/mm3 (4.00-11.30)
[2021-07-09 05:16] LABS: Albumin, Blood 2.6 g/dL (3.4-5.0); Albumin/Globulin Ratio 0.7 (0.8-1.8); Bilirubin, Total 0.5 mg/dL (0.1-1.0); Bun/Creatinine Ratio 41.5 (12.0-20.0); Calcium, Blood 7.3 mg/dL (8.5-10.1); Creatinine, Blood 1.47 mg/dL (0.40-1.00); Globulin, Blood 3.5 g/dL (2.2-4.0); Potassium, Blood 4.6 mmol/L (3.5-5.5); Total Protein, Blood 6.1 g/dL (6.4-8.2)
--- NOTE | 2021-07-09 17:45 | NUR ---
PATIENT IS ALERT AND ORIENTED WITH SOME FORGETFULLNESS. SHE WILL STAND UP ON THE SIDE OF THE BED TO TRANSFER TO THE BSC AND SET THE BEDALARM OFF. ON 5L O2 VIA NC. NO C/O PAIN. WILL CONTINUE TO MONITOR
--- NOTE | 2021-07-09 19:00 | NUR ---
ASSUMED CARE RECEIVED REPORT FROM REUBEN AYERS. PT RESTING, IN NAD. NO ACUTE NEEDS ASSESSED AT THIS TIME. CALL LIGHT, POSSESSIONS IN REACH, BED IN LOW AND LOCKED POSITION WITH ALARMS ON.
--- NOTE | 2021-07-10 03:59 | NUR ---
SHIFT SUMMARY PT RESTING, IN NAD. APPEARS TO BE SLEEPING COMFORTABLY. PT VOICED C/O CP X1, RELIEVED BY REPOSITIONING AND 02 AT 5L/NC. MEDICATED X 1 FOR C/O NAUSEA, AND GIVEN PEPPERMINT TEA, WITH GOOD EFFECT. NO OTHER ACUTE CONCERNS TO REPORT OVERNIGHT. NO ACUTE NEEDS ASSESSED AT THIS TIME. CALL LIGHT, POSSESSIONS IN REACH, BED IN LOW AND LOCKED POSITION WITH ALARMS ON. WILL CONTINUE TO PROVIDE CARE UNTIL REPORT GIVEN TO ONCOMING RN.
[2021-07-10 06:02] LABS: BASOPHILS ABSOLUTE AUTO 0.03 K/mm3 (0.00-0.23); BASOPHILS PERCENT AUTO 0 % (0-2); EOSINOPHILS ABSOLUTE AUTO 0.29 K/mm3 (0.00-0.68); EOSINOPHILS PERCENT AUTO 3 % (0-6); Hematocrit 27.2 % (33.0-51.0); Hemoglobin 8.7 g/dL (11.5-16.0); IMMATURE GRAN ABSOLUTE AUTO 0.04 K/mm3 (0.00-0.10); IMMATURE GRAN PERCENT AUTO 1 % (0-1); LYMPHOCYTES ABSOLUTE AUTO 1.31 K/mm3 (0.84-5.20); LYMPHOCYTES PERCENT AUTO 15 % (21-46); MONOCYTES ABSOLUTE AUTO 0.73 K/mm3 (0.16-1.47); MONOCYTES PERCENT AUTO 8 % (4-13); Mean Corpuscular HGB 30.1 pg (26.0-34.0); Mean Platelet Volume 10.1 fL (9.1-12.4); NEUTROPHILS ABSOLUTE AUTO 6.27 K/mm3 (1.96-9.15); NEUTROPHILS PERCENT AUTO 72 % (41-73); NRBC ABSOLUTE 0.04 K/mm3 (0.00-0.02); NRBC Auto 0.5 /100 WBC (0.0-0.2); Platelet Count 196 K/mm3 (150-400); RDW Coefficient Variation 15.1 % (11.7-14.2); RDW Standard Deviation 50.4 fL (35.1-46.3); Red Blood Cell Count 2.89 M/mm3 (3.80-5.20); White Blood Cell Count 8.67 K/mm3 (4.00-11.30)
[2021-07-10 06:08] LABS: Mean Corpuscular Volume 94 fL (80-100)
[2021-07-10 06:26] LABS: Bun/Creatinine Ratio 41.9 (12.0-20.0); Calcium, Blood 7.3 mg/dL (8.5-10.1); Creatinine, Blood 1.24 mg/dL (0.40-1.00); Percent Saturation 15.2 % (15.0-50.0); Potassium, Blood 4.3 mmol/L (3.5-5.5)
--- NOTE | 2021-07-10 18:40 | NUR ---
PATIENT IS ALERT AND ORIENTED AND COOPERATIVE WITH CARE. RT NOTIFIED OF CPAP ORDERED. NO NAUSEA THIS SHIFT. PATIENT HAS GOOD OUTPUT TODAY. IPA TO THE BSC. ON 5L O2 VIA NC. 1,500ML FLUID RESTRICTION. WILL CONTINUE TO MONITOR
--- NOTE | 2021-07-11 04:26 | NUR ---
SHIFT SUMMARY- PT. A&O, NO COMPLAINTS DURING THE NIGHT. ON 4L NC, CPAP @HS. RESTED QUIETLY IN BED T/O THE NIGHT, NO APPARENT DISTRESS NOTED, VSS. CALL LIGHT WITHIN REACH AND SIDE RAILS UPX2. WILL CONT TO MONITOR.
[2021-07-11 06:02] LABS: Bun/Creatinine Ratio 34.2 (12.0-20.0); Calcium, Blood 7.7 mg/dL (8.5-10.1); Creatinine, Blood 1.11 mg/dL (0.40-1.00)
--- NOTE | 2021-07-11 18:39 | NUR ---
SUMM- PT A/O, BEDREST WITH BSC INDEPENDANT. STEADY ON FEET SHORT DISTANCES. GEN DECONDITIONED RELATED TO ILLNESS. TOLERATING FOOD AND FLUID. DIURESING AND KEEPING STRICT I/O. DEBRA CBG'S AND COVERING WITH SSRI. VSS. WILL REPORT TO NOC SHIFT.
[2021-07-12 05:10] LABS: Bun/Creatinine Ratio 30.3 (12.0-20.0); Calcium, Blood 8.5 mg/dL (8.5-10.1); Creatinine, Blood 1.09 mg/dL (0.40-1.00); Potassium, Blood 3.9 mmol/L (3.5-5.5)
--- NOTE | 2021-07-12 05:40 | NUR ---
SHIFT SUMMARY- NO ACUTE EVENTS OVERNIGHT. PT. REMAINS ON 4L NC WHILE AWAKE, CPAP IN PLACE @HS. NO COMPLAINTS T/O THE NIGHT, RESTED QUIETLY. CALL LIGHT WITHIN REACH AND SIDE RAILS UPX2. WILL CONT TO MONITOR.
--- NOTE | 2021-07-12 17:25 | NUR ---
SUMMARY- PT A/O X3-4, FORGETFUL TO SOME DETAILS. CONTINUES TO DIURESIS AND FOLLOWING FLUID RESTRICTION. GET'S UP AND USES BSC TO VOID. AMBULATED TO SHOWER THIS AFTERNOON, TOLERATED ACTIVITY BREIFLY WITHOUT OXYGEN BUT TIRED WITHIN 10 MIN, RECOVERED QUICKLY, SAT UP IN CHAIR THE REST OF THE AFTERNOON THROUTH DINNER. HAS RED PINPOINT RASH ON BACK, WILL DEBRA. VVS, SATS 96% 4L, LUNGS CONT TO HAVE FAINT CX IN BASES AND +1 LE EDEMA, LESS THAN YESTERDAY. HAS LOST CLOSE TO 10 LBS ACCORDING TO BED WEIGHT. WILL REPORT TO NOC'S
[2021-07-13 05:07] LABS: Bun/Creatinine Ratio 24.5 (12.0-20.0); Creatinine, Blood 1.06 mg/dL (0.40-1.00); Potassium, Blood 4.3 mmol/L (3.5-5.5)
--- NOTE | 2021-07-13 05:49 | NUR ---
SHIFT SUMMARY- NO ACUTE EVENTS OVERNIGHT. PT. AMBULATING W/WALKER IN ROOM W/O DIFFICULTY. CONTS ON 4L NC WITH CPAP @HS. NO COMPLAINTS OF PAIN, VSS. PT. ANTICIPATING DISCHARGE. CALL LIGHT WITHIN REACH AND SIDE RAILS UPX. WILL CONT TO MONITOR.
--- NOTE | 2021-07-13 15:24 | NUR ---
PT IS A&O, PLEASANT AND CO-OP. ADMITTED FOR RLL PNM AND CHF EXAC. PT ON STRICT I&O'S AND IS TRYING TO BE VERY COMPLIANT. PT ON RA AT START OF SHIFT. PER REPORT, PT WAS USING 4L O2 WITH CPAP AT HS. PT HAS BEEN INDEPENDENT IN AND TO [facility] EMERGENCY DEPARTMENT. NO C/O. DR HERNANDEZ IN TO SEE PT AND DISCUSS PLAN OF CARE. PT TO BE D/C'D TODAY, BUT F/U WITH CARDIOLOGY OUTPT. PT VERBALIZED UNDERSTANDING. PT'S NOTIFIED OF PT'S D/C. D/C INSTRUCTIONS REVIEWED WITH PT. CALLED PT A TAXI TO BRING HER HOME TO [facility]. PT ASSISTED OUT VIA W/C TO TAXI.
== END 2021-07-13 16:13 | disposition home health service (06) | DRG 291 ==
LOC: ER 12:05 → MEDS 15:27 → ENPENDDIS 07-13 11:33 → MEDS 07-13 16:13
PROVIDERS: Emergency Medicine; Internal Medicine; ADMIT Internal Medicine
DX: I13.0 Hypertensive heart and chronic kidney disease with heart failure and stage 1 through stage 4 chronic kidney disease, or unspecified chronic kidney disease (principal); I50.33 Acute on chronic diastolic (congestive) heart failure; J96.01 Acute respiratory failure with hypoxia; E87.1 Hypo-osmolality and hyponatremia; N17.9 Acute kidney failure, unspecified; Z20.822 Contact with and (suspected) exposure to COVID-19; N18.30 Chronic kidney disease, stage 3 unspecified; E11.42 Type 2 diabetes mellitus with diabetic polyneuropathy; E66.01 Morbid (severe) obesity due to excess calories; Z68.37 Body mass index [BMI] 37.0-37.9, adult; E11.22 Type 2 diabetes mellitus with diabetic chronic kidney disease; I25.10 Atherosclerotic heart disease of native coronary artery without angina pectoris; E11.65 Type 2 diabetes mellitus with hyperglycemia; G47.33 Obstructive sleep apnea (adult) (pediatric); I27.21 Secondary pulmonary arterial hypertension; E06.3 Autoimmune thyroiditis; E04.2 Nontoxic multinodular goiter; D63.1 Anemia in chronic kidney disease; J44.9 Chronic obstructive pulmonary disease, unspecified; Z88.0 Allergy status to penicillin; Z88.2 Allergy status to sulfonamides; Z88.5 Allergy status to narcotic agent; Z88.1 Allergy status to other antibiotic agents; Z91.040 Latex allergy status; Z88.8 Allergy status to other drugs, medicaments and biological substances; Z79.899 Other long term (current) drug therapy; Z79.4 Long term (current) use of insulin; Z95.5 Presence of coronary angioplasty implant and graft; Z79.82 Long term (current) use of aspirin; Z90.49 Acquired absence of other specified parts of digestive tract; Z90.710 Acquired absence of both cervix and uterus; Z95.2 Presence of prosthetic heart valve
CPT/HCPCS: 36415; 71045; 80048; 80053; 82728; 82947; 83540; 83550; 83605; 83880; 85025; 85379; 87040; 87070; 87205; 93005; 93010; 93308; 93321; 94640; 94660; 94664; 94760; 94761; 94762; 96365; 99285-25; A9270; J1650; J1815; J1940; J1956; J2405; J7030; U0004

== ENCOUNTER 2021-07-31 14:15 | Inpatient (IN) | payer MEDICARE ==
[~2021-07-31] VITALS: Ht 180.3 cm; Wt 116.6 kg
[~2021-07-31 14:15] MED LIST changes: +BASAGLAR K100 UNIT/6 SC; +BENADRYL25 MG PO; +EZET10 PO; +FUROSEMIDE20 MG PO; +HUMALOG KW100 UNIT/1 SC; +LOSARTAN POTAS100 M1 PO; +SPIRONOLACTONE25 MG PO
[2021-07-31] MEDS ORDERED: FISH OIL 1,2001 EAC7 PO (14:41)
[2021-07-31] MEDS ORDERED: EUTHYROX88 MCG PO (14:41)
[2021-07-31] MEDS ORDERED: ACET500 PO (14:43)
[2021-07-31] MEDS ORDERED: EZET10 PO (14:43)
[2021-07-31] MEDS ORDERED: LOSA50 PO (14:44)
[2021-07-31] MEDS ORDERED: INSULANI SC (14:44)
[2021-07-31 15:42] LABS: BASOPHILS ABSOLUTE AUTO 0.04 K/mm3 (0.00-0.23); BASOPHILS PERCENT AUTO 1 % (0-2); EOSINOPHILS ABSOLUTE AUTO 0.21 K/mm3 (0.00-0.68); EOSINOPHILS PERCENT AUTO 4 % (0-6); Hematocrit 29.3 % (33.0-51.0); Hemoglobin 8.6 g/dL (11.5-16.0); IMMATURE GRAN ABSOLUTE AUTO 0.02 K/mm3 (0.00-0.10); IMMATURE GRAN PERCENT AUTO 0 % (0-1); LYMPHOCYTES ABSOLUTE AUTO 1.66 K/mm3 (0.84-5.20); LYMPHOCYTES PERCENT AUTO 30 % (21-46); MONOCYTES ABSOLUTE AUTO 0.44 K/mm3 (0.16-1.47); MONOCYTES PERCENT AUTO 8 % (4-13); Mean Corpuscular HGB 27.1 pg (26.0-34.0); Mean Corpuscular HGB Conc 29.4 g/dL (31.5-36.5); Mean Corpuscular Volume 92 fL (80-100); NEUTROPHILS ABSOLUTE AUTO 3.22 K/mm3 (1.96-9.15); NEUTROPHILS PERCENT AUTO 58 % (41-73); Platelet Count 228 K/mm3 (150-400); RDW Coefficient Variation 15.4 % (11.7-14.2); RDW Standard Deviation 51.8 fL (35.1-46.3); Red Blood Cell Count 3.17 M/mm3 (3.80-5.20); White Blood Cell Count 5.59 K/mm3 (4.00-11.30)
[2021-07-31 16:00] LABS: Albumin, Blood 2.8 g/dL (3.4-5.0); Albumin/Globulin Ratio 0.7 (0.8-1.8); Bilirubin, Total 0.3 mg/dL (0.1-1.0); Bun/Creatinine Ratio 22.5 (12.0-20.0); Calcium, Blood 8.2 mg/dL (8.5-10.1); Creatinine, Blood 1.02 mg/dL (0.40-1.00); Globulin, Blood 3.8 g/dL (2.2-4.0); Potassium, Blood 5.8 mmol/L (3.5-5.5); Total Protein, Blood 6.6 g/dL (6.4-8.2); Troponin I 0.134 ng/mL (0.000-0.040)
[2021-07-31] MEDS ORDERED: Aspir 8181 MG PO (21:49)
[2021-07-31] MEDS ORDERED: FURO20 PO (21:59)
--- NOTE | 2021-08-01 04:07 | NUR ---
SUMMARY PT ARRIVED TO FLOOR IN NO DISTRESS. PT HAS SOME SOB W/ EXERTION. PT PROVIDED W/ CPAP. PT CURRENTLY SLEEPING IN NO DISTRESS. CALL LIGHT ON AND BED ALARM ON.
[2021-08-01 05:29] LABS: Hematocrit 29.2 % (33.0-51.0); Hemoglobin 9.1 g/dL (11.5-16.0); Mean Corpuscular HGB 27.5 pg (26.0-34.0); Mean Corpuscular HGB Conc 31.2 g/dL (31.5-36.5); Mean Corpuscular Volume 88 fL (80-100); Mean Platelet Volume 9.9 fL (9.1-12.4); Platelet Count 279 K/mm3 (150-400); RDW Coefficient Variation 15.1 % (11.7-14.2); RDW Standard Deviation 48.5 fL (35.1-46.3); Red Blood Cell Count 3.31 M/mm3 (3.80-5.20); White Blood Cell Count 6.64 K/mm3 (4.00-11.30)
[2021-08-01 05:59] LABS: Ferritin, Serum 19 ng/mL (8-252); Iron Serum 25 ug/dL (50-170); Percent Saturation 5.3 % (15.0-50.0); Total Iron Binding Capacity 470 ug/dL (250-450)
[2021-08-01 06:02] LABS: Anion Gap 3 mmol/L (6-16); Blood Urea Nitrogen 16 mg/dL (8-24); Bun/Creatinine Ratio 17.9 (12.0-20.0); CO2, Blood 29 mmol/L (21-32); Calcium, Blood 8.7 mg/dL (8.5-10.1); Chloride, Blood 105 mmol/L (98-108); Glomerular Filtration Rate >60 (60-); Glucose, Blood 142 mg/dL (70-99); Sodium, Blood 137 mmol/L (136-145)
[2021-08-01 06:17] LABS: Potassium, Blood 3.7 mmol/L (3.5-5.5)
[2021-08-01] MEDS ORDERED: Vitamin D1000 UNI1 PO (11:54)
[2021-08-01] MEDS ORDERED: MIRALAX17 GM PO (11:54)
[2021-08-01] MEDS ORDERED: Acerola C500 MG PO (11:56)
[2021-08-01] MEDS ORDERED: FERSU300 PO (11:57)
--- NOTE | 2021-08-01 15:35 | NUR ---
PT IS A&O, INDEPENDENT IN . HX OF CHF. PT ADMITTED FOR FLUID OVERLOAD D/T NOT TAKING HER DIURETICS AT HOME. ADMITTED ON THE FOR THE SAME THING. LASIX GIVEN, PT IMPROVED. DR MORELAND IN TO SEE PT, DISCUSSED PLAN OF CARE. PT TO D/C'D BACK TO HOME. MEDS FAXED TO PHARMACY, PER PT REQUEST. PT INSTRUCTED TO TAKE LASIX DIRECTED AND NOT TO MISS HER DOSES AT HOME. D/C INSTRUCTIONS REVIEWED WITH PT; VERBALIZED UNDERSTANDING. PT REQUESTED CAB TO BE CALLED TO TAKE HER HOME TO [facility]. PT TAKEN OUT VIA W/C. DENIED FURTHER NEEDS.
== END 2021-08-01 13:35 | disposition home or self-care (01) | DRG 280 ==
LOC: ER 14:15 → MEDS 20:49
PROVIDERS: Emergency Medicine; ADMIT Internal Medicine
DX: I13.0 Hypertensive heart and chronic kidney disease with heart failure and stage 1 through stage 4 chronic kidney disease, or unspecified chronic kidney disease (principal); I50.33 Acute on chronic diastolic (congestive) heart failure; I21.A1 Myocardial infarction type 2; E11.22 Type 2 diabetes mellitus with diabetic chronic kidney disease; N18.30 Chronic kidney disease, stage 3 unspecified; I27.20 Pulmonary hypertension, unspecified; D63.1 Anemia in chronic kidney disease; E03.9 Hypothyroidism, unspecified; I25.10 Atherosclerotic heart disease of native coronary artery without angina pectoris; E66.9 Obesity, unspecified; J44.9 Chronic obstructive pulmonary disease, unspecified; G47.33 Obstructive sleep apnea (adult) (pediatric); E04.2 Nontoxic multinodular goiter; Z88.0 Allergy status to penicillin; Z68.37 Body mass index [BMI] 37.0-37.9, adult; Z88.2 Allergy status to sulfonamides; Z88.5 Allergy status to narcotic agent; Z88.1 Allergy status to other antibiotic agents; Z88.8 Allergy status to other drugs, medicaments and biological substances; Z91.041 Radiographic dye allergy status; Z95.5 Presence of coronary angioplasty implant and graft; Z90.49 Acquired absence of other specified parts of digestive tract; Z98.890 Other specified postprocedural states; Z90.710 Acquired absence of both cervix and uterus; Z79.4 Long term (current) use of insulin; Z98.1 Arthrodesis status; Z95.2 Presence of prosthetic heart valve; Z79.82 Long term (current) use of aspirin; Z79.899 Other long term (current) drug therapy
CPT/HCPCS: 36415; 71045; 80048; 80053; 82728; 82947; 83540; 83550; 83880; 84443; 84484; 85025; 85027; 93005; 93010; 94660; 94760; 94762; 96374; 97110; 97161; 99285-25; A9270; J1815; J1940

== ENCOUNTER 2021-09-03 20:27 | Inpatient (IN) | payer MEDICARE ==
[~2021-09-03] VITALS: Ht 180.3 cm; Wt 115.7 kg
[~2021-09-03 20:27] MED LIST changes: +ACET500 PO; +Acerola C500 MG PO; +EUTHYROX88 MCG PO; +FERSU300 PO; +FISH OIL 1,2001 EAC7 PO; +FURO20 PO; +MIRALAX17 GM PO; +Vitamin D1000 UNI1 PO
[2021-09-03 21:10] LABS: Glucose, Blood 594 mg/dL (70-99)
[2021-09-03 21:39] LABS: BASOPHILS ABSOLUTE AUTO 0.04 K/mm3 (0.00-0.23); BASOPHILS PERCENT AUTO 1 % (0-2); EOSINOPHILS ABSOLUTE AUTO 0.03 K/mm3 (0.00-0.68); EOSINOPHILS PERCENT AUTO 0 % (0-6); Hematocrit 31.2 % (33.0-51.0); IMMATURE GRAN ABSOLUTE AUTO 0.01 K/mm3 (0.00-0.10); IMMATURE GRAN PERCENT AUTO 0 % (0-1); LYMPHOCYTES ABSOLUTE AUTO 1.37 K/mm3 (0.84-5.20); LYMPHOCYTES PERCENT AUTO 19 % (21-46); MONOCYTES ABSOLUTE AUTO 0.47 K/mm3 (0.16-1.47); MONOCYTES PERCENT AUTO 7 % (4-13); Mean Corpuscular HGB 25.6 pg (26.0-34.0); Mean Corpuscular HGB Conc 32.1 g/dL (31.5-36.5); Mean Corpuscular Volume 80 fL (80-100); Mean Platelet Volume 11.3 fL (9.1-12.4); NEUTROPHILS ABSOLUTE AUTO 5.32 K/mm3 (1.96-9.15); NEUTROPHILS PERCENT AUTO 74 % (41-73); Platelet Count 227 K/mm3 (150-400); RDW Coefficient Variation 15.2 % (11.7-14.2); RDW Standard Deviation 44.2 fL (35.1-46.3); White Blood Cell Count 7.24 K/mm3 (4.00-11.30)
[2021-09-03 21:59] LABS: Base Excess Venous 6.1 mmol/L; Bicarbonate Venous 28.6 mmol/L (24.0-30.0); PCO2 Venous 57.5 mmHg (38-42); PO2 Venous 45.5 mmHg (38-42); pH Blood Venous 7.35 (7.34-7.37)
[2021-09-03 22:36] LABS: Albumin, Blood 3.5 g/dL (3.4-5.0); Albumin/Globulin Ratio 0.9 (0.8-1.8); Beta-hydroxybutyrate 32.3 mg/dL (0.2-2.8); Bilirubin, Direct 0.1 mg/dL (0.0-0.3); Bilirubin, Indirect 0.3 mg/dL (0.1-0.7); Bilirubin, Total 0.4 mg/dL (0.1-1.0); Bun/Creatinine Ratio 30.6 (12.0-20.0); Calcium, Blood 8.9 mg/dL (8.5-10.1); Creatinine, Blood 2.19 mg/dL (0.40-1.00); Globulin, Blood 3.7 g/dL (2.2-4.0); Magnesium, Blood 2.6 mg/dL (1.6-2.4); Potassium, Blood 4.3 mmol/L (3.5-5.5); Total Protein, Blood 7.2 g/dL (6.4-8.2)
[2021-09-03 22:44] LABS: Influenza A, PCR NEGATIVE (NEGATIVE); Influenza B, PCR NEGATIVE (NEGATIVE); Resp Syncytial Virus, PCR NEGATIVE (NEGATIVE); SARS-Cov-2 (COVID-19) PCR, MMC NEGATIVE (NEGATIVE)
[2021-09-04 01:16] LABS: Source, Urine Clean Catch
[2021-09-04 01:26] LABS: Bilirubin, Urine Neg (Neg); Blood, Urine Neg (Neg); Glucose Qualitative, Urine 4+ (Neg); Ketones, Urine 1+ (Neg); Leukocyte Esterase, Urine Neg (Neg); Nitrite, Urine Neg (Neg); Protein, Urine 1+ (Neg); Specific Gravity, Urine 1.015 (1.003-1.022); Urobilinogen, Urine NORM (Normal)
[2021-09-04 01:28] LABS: Glucose, Blood 368 mg/dL (70-99)
[2021-09-04 01:31] LABS: Appearance, Urine Clear (Clear); Color, Urine Yellow (P-Yellow)
--- NOTE | 2021-09-04 04:20 | NUR ---
Patients BS 432, notified operational risk consultant hospitalist. Recieved order to dose per sliding scale. Notified MD also of BP 90/41, P 93, sat 93% on 3.5L. Receiving LR 100ml/hr, will continue to monitor.
[2021-09-04 04:51] LABS: BASOPHILS ABSOLUTE AUTO 0.04 K/mm3 (0.00-0.23); BASOPHILS PERCENT AUTO 0 % (0-2); EOSINOPHILS ABSOLUTE AUTO 0.16 K/mm3 (0.00-0.68); EOSINOPHILS PERCENT AUTO 1 % (0-6); Hematocrit 29.9 % (33.0-51.0); Hemoglobin 9.6 g/dL (11.5-16.0); IMMATURE GRAN ABSOLUTE AUTO 0.05 K/mm3 (0.00-0.10); IMMATURE GRAN PERCENT AUTO 1 % (0-1); LYMPHOCYTES ABSOLUTE AUTO 1.83 K/mm3 (0.84-5.20); LYMPHOCYTES PERCENT AUTO 17 % (21-46); MONOCYTES ABSOLUTE AUTO 0.78 K/mm3 (0.16-1.47); MONOCYTES PERCENT AUTO 7 % (4-13); Mean Corpuscular HGB 25.5 pg (26.0-34.0); Mean Corpuscular HGB Conc 32.1 g/dL (31.5-36.5); Mean Corpuscular Volume 79 fL (80-100); Mean Platelet Volume 10.7 fL (9.1-12.4); NEUTROPHILS ABSOLUTE AUTO 8.21 K/mm3 (1.96-9.15); NEUTROPHILS PERCENT AUTO 74 % (41-73); Platelet Count 203 K/mm3 (150-400); RDW Coefficient Variation 15.3 % (11.7-14.2); RDW Standard Deviation 44.1 fL (35.1-46.3); Red Blood Cell Count 3.77 M/mm3 (3.80-5.20); White Blood Cell Count 11.07 K/mm3 (4.00-11.30)
[2021-09-04 05:45] LABS: Albumin, Blood 3.3 g/dL (3.4-5.0); Albumin/Globulin Ratio 1.1 (0.8-1.8); Bilirubin, Total 0.4 mg/dL (0.1-1.0); Bun/Creatinine Ratio 30.3 (12.0-20.0); Calcium, Blood 8.4 mg/dL (8.5-10.1); Creatinine, Blood 2.01 mg/dL (0.40-1.00); Total Protein, Blood 6.3 g/dL (6.4-8.2)
[2021-09-04 10:32] LABS: Bun/Creatinine Ratio 29.8 (12.0-20.0); Calcium, Blood 8.2 mg/dL (8.5-10.1); Creatinine, Blood 1.98 mg/dL (0.40-1.00); Magnesium, Blood 2.7 mg/dL (1.6-2.4); Phosphorus, Blood 3.6 mg/dL (2.5-4.9); Potassium, Blood 4.1 mmol/L (3.5-5.5)
[2021-09-04 14:40] LABS: Bun/Creatinine Ratio 28.4 (12.0-20.0); Calcium, Blood 8.1 mg/dL (8.5-10.1); Creatinine, Blood 1.9 mg/dL (0.40-1.00)
[2021-09-04 19:25] LABS: Bun/Creatinine Ratio 28.1 (12.0-20.0); Calcium, Blood 8.3 mg/dL (8.5-10.1); Creatinine, Blood 1.85 mg/dL (0.40-1.00)
[2021-09-04 23:16] LABS: Bun/Creatinine Ratio 25.9 (12.0-20.0); Calcium, Blood 8.2 mg/dL (8.5-10.1); Creatinine, Blood 1.89 mg/dL (0.40-1.00); Potassium, Blood 4.2 mmol/L (3.5-5.5)
[2021-09-05 03:01] LABS: BASOPHILS ABSOLUTE AUTO 0.05 K/mm3 (0.00-0.23); BASOPHILS PERCENT AUTO 1 % (0-2); EOSINOPHILS ABSOLUTE AUTO 0.34 K/mm3 (0.00-0.68); EOSINOPHILS PERCENT AUTO 4 % (0-6); Hematocrit 31.5 % (33.0-51.0); IMMATURE GRAN ABSOLUTE AUTO 0.01 K/mm3 (0.00-0.10); IMMATURE GRAN PERCENT AUTO 0 % (0-1); LYMPHOCYTES ABSOLUTE AUTO 1.87 K/mm3 (0.84-5.20); LYMPHOCYTES PERCENT AUTO 23 % (21-46); MONOCYTES ABSOLUTE AUTO 0.67 K/mm3 (0.16-1.47); MONOCYTES PERCENT AUTO 8 % (4-13); Mean Corpuscular HGB 25.8 pg (26.0-34.0); Mean Corpuscular HGB Conc 31.7 g/dL (31.5-36.5); Mean Corpuscular Volume 81 fL (80-100); Mean Platelet Volume 10.1 fL (9.1-12.4); NEUTROPHILS ABSOLUTE AUTO 5.13 K/mm3 (1.96-9.15); NEUTROPHILS PERCENT AUTO 64 % (41-73); Platelet Count 182 K/mm3 (150-400); RDW Coefficient Variation 15.4 % (11.7-14.2); RDW Standard Deviation 44.9 fL (35.1-46.3); Red Blood Cell Count 3.88 M/mm3 (3.80-5.20); White Blood Cell Count 8.07 K/mm3 (4.00-11.30)
[2021-09-05 03:26] LABS: Albumin, Blood 3.2 g/dL (3.4-5.0); Albumin/Globulin Ratio 0.9 (0.8-1.8); Bilirubin, Total 0.2 mg/dL (0.1-1.0); Bun/Creatinine Ratio 25.6 (12.0-20.0); C-REACTIVE PROTEIN, EXT RANGE 1.05 mg/dL (0.000-0.300); Calcium, Blood 8.4 mg/dL (8.5-10.1); Creatinine, Blood 1.8 mg/dL (0.40-1.00); Globulin, Blood 3.6 g/dL (2.2-4.0); Magnesium, Blood 2.6 mg/dL (1.6-2.4); Total Protein, Blood 6.8 g/dL (6.4-8.2)
--- NOTE | 2021-09-05 05:53 | NUR ---
ALERT AND ORIENTED X'S 4. COMPLAINS OF SOME DISCOMFORT TO LLE WHEN REPOSITIONS SELF. REFUSED TO WEAR CPAP, STATES SHE FEELS LIKE SHES BEING SUFFICATED. HAD 02@3L. UP THROUGH NIGHT, STATES SHE'S USUALLY UP DURING NIGHT. CONTINUOUS PULSE OX IN PLACE, SATURATION SUSUTAINING ABOUT 93%. MEDICATED DUE TO ELEVATED BS PER SLIDING SCALE. SAFETY MAINTAINED, CALL BEVERLY IN REACH.
[2021-09-05 06:54] LABS: Calcium, Blood 8.5 mg/dL (8.5-10.1); Creatinine, Blood 1.64 mg/dL (0.40-1.00); Potassium, Blood 3.7 mmol/L (3.5-5.5)
--- NOTE | 2021-09-05 14:44 | NUR ---
DISCHARGE PATIENT DISCHARGED IN STABLE CONDITION HOME. DISCHARGE INSTRUCTIONS SIGNED BY PATIENT, PATIENT VERBALIZED UNDERSTANDING OF INSTRUCTIONS. PERIPHERAL IV REMOVED. PATIENT TAKEN TO [facility] VIA WHEELCHAIR WITH CAB AWAITING TO TAKE HOME
--- NOTE | 2021-09-08 09:34 | NUR ---
Received referral from nurse medicare nurse (Karlene Rose) today- 09/08/2021. Patient discharged over the weekend- 09/05/2021 with orders for home health. Per referral today, patient elected [facility]. As patient discharged over the weekend, this newspaper writer did not contact patient at home to confirm the above. All supporting documentation for referral (face sheet, face to face, med list, H&P, discharge summary, and most recent PT notes) was sent to [facility] for review. No further interventions required. Marily Rivera Referral Liaison
== END 2021-09-05 15:07 | disposition home or self-care (01) | DRG 638 ==
LOC: ER 20:27 → MEDS 09-04 01:06 → SURS 09-04 02:20
PROVIDERS: Family Medicine; Student in an Organized Health Care Education/Training Program; ADMIT Internal Medicine
PROC: 5A09357 Assistance with Respiratory Ventilation, Less than 24 Consecutive Hours, Continuous Positive Airway Pressure (ICD-10-PCS; principal; 2021-09-05)
DX: E11.65 Type 2 diabetes mellitus with hyperglycemia (principal); N17.9 Acute kidney failure, unspecified; I50.32 Chronic diastolic (congestive) heart failure; I13.0 Hypertensive heart and chronic kidney disease with heart failure and stage 1 through stage 4 chronic kidney disease, or unspecified chronic kidney disease; N18.30 Chronic kidney disease, stage 3 unspecified; I25.10 Atherosclerotic heart disease of native coronary artery without angina pectoris; E03.9 Hypothyroidism, unspecified; G47.33 Obstructive sleep apnea (adult) (pediatric); Z95.5 Presence of coronary angioplasty implant and graft; Z90.49 Acquired absence of other specified parts of digestive tract; Z90.710 Acquired absence of both cervix and uterus; Z91.14 Patient's other noncompliance with medication regimen; Z88.5 Allergy status to narcotic agent; Z88.0 Allergy status to penicillin; Z88.2 Allergy status to sulfonamides; Z91.040 Latex allergy status; Z95.2 Presence of prosthetic heart valve; Z98.890 Other specified postprocedural states; Z88.8 Allergy status to other drugs, medicaments and biological substances; Z79.899 Other long term (current) drug therapy; E66.9 Obesity, unspecified; Z68.35 Body mass index [BMI] 35.0-35.9, adult
CPT/HCPCS: 0241U; 36415; 51798; 71045; 80048; 80053; 80076; 82010; 82803; 82947; 83605; 83690; 83735; 84100; 84132; 85025; 86140; 93005; 93010; 93971; 94640; 94660; 94664; 94762; 97110; 97161; 99285-25; A9270; J1644; J1815; J1940; J7030; J7120

== ENCOUNTER 2021-10-25 16:08 | Inpatient (IN) | payer MEDICARE ==
[~2021-10-25] VITALS: Ht 180.3 cm; Wt 114.7 kg
[~2021-10-25 16:08] MED LIST changes: -ACET500 PO; -AMLO5 PO; -Aspir 8181 MG PO; -BENADRYL25 MG PO; -CARV25 PO; -Crestor40 MG PO; -FISH OIL 1,2001 EAC7 PO; -FURO20 PO; -HUMALOG KW100 UNIT/1 SC; -Isosorbide Mono30 MG PO; -PROAIR DIGIHAL90 MCG INH; -SPIRONOLACTONE25 MG PO
[2021-10-25 16:46] LABS: BASOPHILS ABSOLUTE AUTO 0.07 K/mm3 (0.00-0.23); BASOPHILS PERCENT AUTO 1 % (0-2); EOSINOPHILS ABSOLUTE AUTO 0.08 K/mm3 (0.00-0.68); EOSINOPHILS PERCENT AUTO 1 % (0-6); Hematocrit 33.3 % (33.0-51.0); Hemoglobin 10.2 g/dL (11.5-16.0); IMMATURE GRAN ABSOLUTE AUTO 0.02 K/mm3 (0.00-0.10); IMMATURE GRAN PERCENT AUTO 0 % (0-1); LYMPHOCYTES ABSOLUTE AUTO 1.53 K/mm3 (0.84-5.20); LYMPHOCYTES PERCENT AUTO 20 % (21-46); MONOCYTES ABSOLUTE AUTO 0.41 K/mm3 (0.16-1.47); MONOCYTES PERCENT AUTO 6 % (4-13); Mean Corpuscular HGB 24.4 pg (26.0-34.0); Mean Corpuscular HGB Conc 30.6 g/dL (31.5-36.5); Mean Corpuscular Volume 80 fL (80-100); Mean Platelet Volume 10.1 fL (9.1-12.4); NEUTROPHILS ABSOLUTE AUTO 5.41 K/mm3 (1.96-9.15); NEUTROPHILS PERCENT AUTO 72 % (41-73); Platelet Count 228 K/mm3 (150-400); RDW Coefficient Variation 16.9 % (11.7-14.2); RDW Standard Deviation 48.4 fL (35.1-46.3); Red Blood Cell Count 4.18 M/mm3 (3.80-5.20); White Blood Cell Count 7.52 K/mm3 (4.00-11.30)
[2021-10-25 17:09] LABS: Alanine Aminotransfer (ALT/SGP 16 U/L (12-78); Albumin, Blood 3.7 g/dL (3.4-5.0); Albumin/Globulin Ratio 1.1 (0.8-1.8); Alk Phos 69 U/L (50-136); Anion Gap 17 mmol/L (6-16); Aspartate Aminotrans (AST/SGOT 11 U/L (12-37); Bilirubin, Total 0.6 mg/dL (0.1-1.0); Blood Urea Nitrogen 51 mg/dL (8-24); Bun/Creatinine Ratio 35.9 (12.0-20.0); CO2, Blood 20 mmol/L (21-32); Calcium, Blood 8.7 mg/dL (8.5-10.1); Chloride, Blood 87 mmol/L (98-108); Creatinine, Blood 1.42 mg/dL (0.40-1.00); Globulin, Blood 3.3 g/dL (2.2-4.0); Glomerular Filtration Rate 37 (60-); Glucose, Blood 664 mg/dL (70-99); Potassium, Blood 5.2 mmol/L (3.5-5.5); Sodium, Blood 124 mmol/L (136-145)
[2021-10-25 17:43] LABS: Source, Urine Clean Catch
[2021-10-25 17:45] LABS: Appearance, Urine Clear (Clear); Bilirubin, Urine Neg (Neg); Blood, Urine Neg (Neg); Color, Urine Yellow (P-Yellow); Glucose Qualitative, Urine 4+ (Neg); Ketones, Urine 2+ (Neg); Leukocyte Esterase, Urine Neg (Neg); Nitrite, Urine Neg (Neg); Protein, Urine Neg (Neg); Specific Gravity, Urine 1.015 (1.003-1.022); Urobilinogen, Urine NORM (Normal)
[2021-10-25 19:05] LABS: Glucose, Blood 599 mg/dL (70-99)
[2021-10-25 19:23] LABS: Base Excess Venous -7.4 mmol/L; Bicarbonate Venous 18.1 mmol/L (24.0-30.0); PCO2 Venous 41.3 mmHg (38-42); PO2 Venous 32.1 mmHg (38-42); pH Blood Venous 7.28 (7.34-7.37)
--- NOTE | 2021-10-25 20:35 | NUR ---
Assumed care. Report received from ELECTRICAL ASSEMBLY TECHNICIAN. Pt arrived to ICU on room air, IV access in R/AC and R/forearm. IV pumps running NS 250 ml/hr, insulin .1 units/kg/hr. Pt alert and oriented, able to transfer self from ER bed to ICU bed with minimal assistance. Pt has cane with her but states she normally uses a walker at home. VS stable at time of transfer, will continue to assess and monitor.
[2021-10-25 23:39] LABS: Bun/Creatinine Ratio 37.8 (12.0-20.0); Calcium, Blood 8.2 mg/dL (8.5-10.1); Creatinine, Blood 1.35 mg/dL (0.40-1.00); Potassium, Blood 4.3 mmol/L (3.5-5.5)
[2021-10-26 05:41] LABS: Bun/Creatinine Ratio 37.3 (12.0-20.0); Creatinine, Blood 1.26 mg/dL (0.40-1.00); Potassium, Blood 3.9 mmol/L (3.5-5.5)
--- NOTE | 2021-10-26 06:36 | NUR ---
Shift summary. Pt rested in bed throughout shift. Alert and oriented, up to bedside commode several times during the night. Insulin currently at 5 units/hr, last BG 130. D5 1/2NS at 150/hr. VS stable throughout shift, see shift assessment for further details. Will continue to monitor and report off to dayshift RN.
--- NOTE | 2021-10-26 08:00 | NUR ---
ASSUMING PT CARE & HOSPITALIST UPDATE. PT RESTING IN BED, WATCHING TV, APPROPRIATELY INTERACTIVE. DENIES N/V. POC CBG 84. INSULIN gtt TITRATED TO 2u/hr. CALLED HOSPITALIST, SHALONDA, UPATED ON MOST RECENT LABS & PT IMPROVEMENT. ORDERS GIVEN TO ALLOW PT TO EAT & AFTERWARDS TO GIVE 1/2 HOME DOSE OF LANTUS. PLAN TO CONTINUE D5 1/2NS & INSULIN gtt FOR NOW & CONTINUE TO CHECK CBG Q1hr.
[2021-10-26] MEDS ORDERED: INSULANI SC (10:57)
[2021-10-26] MEDS ORDERED: FURO80 PO (10:58)
--- NOTE | 2021-10-26 11:09 | NUR ---
UPDATE: ISTRATE ROUNDING. HOSPITALIST @ BEDSIDE FOR INITIAL MORNING ROUNDS. PT IS A&O, DENIES N/V, & WAS ABLE TO EAT 100% OF BREAKFAST. ORDERS RECEIVED TO STOP D5 1/2 NS & INSULIN gtt. PT IS NOW MEDICAL STATUS, NO TELE. ORDERS FOR HOME DOSE OF INSULIN TO BE PLACED SHORTLY.
[2021-10-26] MEDS ORDERED: AMLO5 PO (11:23)
[2021-10-26] MEDS ORDERED: Aspir 8181 MG PO ×2 (11:24)
[2021-10-26] MEDS ORDERED: Crestor40 MG PO (11:25)
[2021-10-26] MEDS ORDERED: EUTHYROX88 MCG PO (11:25)
[2021-10-26] MEDS ORDERED: HUMALOG KW100 UNIT/1 SC (11:26)
[2021-10-26] MEDS ORDERED: SPIRONOLACTONE25 MG PO (11:27)
[2021-10-26] MEDS ORDERED: ACET500 PO (11:28)
[2021-10-26] MEDS ORDERED: BENADRYL25 MG PO (11:28)
[2021-10-26] MEDS ORDERED: PROAIR DIGIHAL90 MCG INH (11:30)
[2021-10-26] MEDS ORDERED: FLUT1DIS5 INH (11:30)
[2021-10-26] MEDS ORDERED: CARV25 PO (11:31)
[2021-10-26] MEDS ORDERED: FISH OIL 1,2001 EAC7 PO (11:31)
[2021-10-26] MEDS ORDERED: LOSA50 PO (11:36)
[2021-10-26] MEDS ORDERED: ACYC400 PO (11:42)
[2021-10-26] MEDS ORDERED: Isosorbide Mono30 MG PO (11:42)
--- NOTE | 2021-10-26 15:27 | NUR ---
Patient is lying in bed and alert. Patient immediately explains the circumstances that were the cause of her not staying current on her insulin and the poor results that followed. Patient then shares about her departure from the [employer] and her resisitance to discussing nondenominational at any level. We then talked at length about her life, her career in health care, her travels and her relationship ups and downs. She also talks about the pains of loosing her freedom and independence. I normalize her experience, remind her of her strengths and abilities to overcome in life and provide therapeutic listening and and gentle vocational rehabilitation counselor. Patient responds well and shows signs of an elevated mood and greater hopes for the future.
--- NOTE | 2021-10-26 15:45 | NUR ---
REPORT GIVEN TO REUBEN AMADOR ON SURGICAL FLOOR. PT TRANSPORTED VIA WC W/OUT INCIDENT.
--- NOTE | 2021-10-26 16:22 | NUR ---
PT ARRIVED TO UNIT AT APROX 1615 FROM ICU. PT A/O, ANSWERS QUESTIONS APPROPRIATLY. TRANSFERED INDEPENDENTLY TO BED FROM . VSS UPON ARRIVAL.
[2021-10-27 04:11] LABS: BASOPHILS ABSOLUTE AUTO 0.06 K/mm3 (0.00-0.23); BASOPHILS PERCENT AUTO 1 % (0-2); EOSINOPHILS ABSOLUTE AUTO 0.25 K/mm3 (0.00-0.68); EOSINOPHILS PERCENT AUTO 4 % (0-6); Hemoglobin 9.5 g/dL (11.5-16.0); IMMATURE GRAN ABSOLUTE AUTO 0.01 K/mm3 (0.00-0.10); IMMATURE GRAN PERCENT AUTO 0 % (0-1); LYMPHOCYTES ABSOLUTE AUTO 1.82 K/mm3 (0.84-5.20); LYMPHOCYTES PERCENT AUTO 30 % (21-46); MONOCYTES ABSOLUTE AUTO 0.53 K/mm3 (0.16-1.47); MONOCYTES PERCENT AUTO 9 % (4-13); Mean Corpuscular HGB 23.9 pg (26.0-34.0); Mean Corpuscular HGB Conc 29.7 g/dL (31.5-36.5); Mean Corpuscular Volume 81 fL (80-100); Mean Platelet Volume 10.7 fL (9.1-12.4); NEUTROPHILS ABSOLUTE AUTO 3.35 K/mm3 (1.96-9.15); NEUTROPHILS PERCENT AUTO 56 % (41-73); Platelet Count 211 K/mm3 (150-400); RDW Standard Deviation 49.9 fL (35.1-46.3); Red Blood Cell Count 3.97 M/mm3 (3.80-5.20); White Blood Cell Count 6.02 K/mm3 (4.00-11.30)
[2021-10-27 04:39] LABS: Magnesium, Blood 2.7 mg/dL (1.6-2.4)
[2021-10-27 04:40] LABS: Albumin, Blood 2.9 g/dL (3.4-5.0); Bilirubin, Total 0.3 mg/dL (0.1-1.0); Bun/Creatinine Ratio 29.4 (12.0-20.0); Calcium, Blood 8.6 mg/dL (8.5-10.1); Creatinine, Blood 1.26 mg/dL (0.40-1.00); Globulin, Blood 2.9 g/dL (2.2-4.0); Phosphorus, Blood 3.5 mg/dL (2.5-4.9); Potassium, Blood 4.8 mmol/L (3.5-5.5); Total Protein, Blood 5.8 g/dL (6.4-8.2)
--- NOTE | 2021-10-27 07:08 | NUR ---
PT VSS T/O NIGHT. CPAP ON WHEN SLEEPING, 2LO2 BLEED IN TO KEEP SATS >90% CBG ELEVATED THIS AM, PT ASYMPTOMATIC. PT UP OOB W/CANE AND SBA.
[2021-10-27 10:56] LABS: Source, Urine Clean Catch
[2021-10-27 11:03] LABS: Appearance, Urine Clear (Clear); Bilirubin, Urine Neg (Neg); Blood, Urine Neg (Neg); Color, Urine Yellow (P-Yellow); Glucose Qualitative, Urine 4+ (Neg); Ketones, Urine Neg (Neg); Leukocyte Esterase, Urine Neg (Neg); Nitrite, Urine Neg (Neg); Protein, Urine Neg (Neg); Urobilinogen, Urine NORM (Normal)
--- NOTE | 2021-10-27 22:34 | NUR ---
HS SNACK: PT COVERED W/LONG ACTING INSULIN PER EMAR. GIVEN 1 STRING CHEESE AND PACK OF CHARLEY CRACKERS FOR SNACK.
[2021-10-28 03:55] LABS: BASOPHILS ABSOLUTE AUTO 0.05 K/mm3 (0.00-0.23); BASOPHILS PERCENT AUTO 1 % (0-2); EOSINOPHILS ABSOLUTE AUTO 0.29 K/mm3 (0.00-0.68); EOSINOPHILS PERCENT AUTO 5 % (0-6); Hematocrit 32.5 % (33.0-51.0); Hemoglobin 9.9 g/dL (11.5-16.0); IMMATURE GRAN ABSOLUTE AUTO 0.01 K/mm3 (0.00-0.10); IMMATURE GRAN PERCENT AUTO 0 % (0-1); LYMPHOCYTES ABSOLUTE AUTO 2.09 K/mm3 (0.84-5.20); LYMPHOCYTES PERCENT AUTO 36 % (21-46); MONOCYTES ABSOLUTE AUTO 0.57 K/mm3 (0.16-1.47); MONOCYTES PERCENT AUTO 10 % (4-13); Mean Corpuscular HGB 24.3 pg (26.0-34.0); Mean Corpuscular HGB Conc 30.5 g/dL (31.5-36.5); Mean Corpuscular Volume 80 fL (80-100); Mean Platelet Volume 10.9 fL (9.1-12.4); NEUTROPHILS ABSOLUTE AUTO 2.87 K/mm3 (1.96-9.15); NEUTROPHILS PERCENT AUTO 49 % (41-73); Platelet Count 217 K/mm3 (150-400); RDW Coefficient Variation 17.2 % (11.7-14.2); Red Blood Cell Count 4.08 M/mm3 (3.80-5.20); White Blood Cell Count 5.88 K/mm3 (4.00-11.30)
[2021-10-28 04:27] LABS: Bun/Creatinine Ratio 31.3 (12.0-20.0); Calcium, Blood 9.2 mg/dL (8.5-10.1); Creatinine, Blood 1.15 mg/dL (0.40-1.00); Potassium, Blood 4.4 mmol/L (3.5-5.5); Thyroid Stimulating Hormone 0.837 uIU/mL (0.360-4.800)
--- NOTE | 2021-10-28 06:23 | NUR ---
MEETA BP MEDS HELD PER PT REQ (STATED HAS BEEN INSTRUCTED TO FOLD FOR <110/50) BP ELEVATED THIS AM, PT ASYMPTOMATIC. SNACK GIVEN W/HS LANTUS. CPAP W/2LO2 BLEED IN ON WHILE SLEEPING. PT REP SATS AND WOB AT BASELINE. PT AMB W/CANE AND SBA, ZARIA WELL.
[2021-10-28] MEDS ORDERED: DEXT40GEL PO (11:13)
--- NOTE | 2021-10-28 11:50 | NUR ---
Patient immediately tells me that she is feeling better and reminds me of the struggle she has each month to pay for her medications. She talks about her relational complications and spiritual distress. I provide therapeutic listening and and spiritual guidance. Patient responds well and shows signs of catharsis.
--- NOTE | 2021-10-28 12:38 | NUR ---
DISCHARGE INSTRUCTIONS DISCUSSED. [facility] CALLED & AWAITING APPROX TIME FOR TRANSPORT 1330.
--- NOTE | 2021-10-28 13:24 | NUR ---
ESCORTED OUT VIA W/C TO [facility] w/ BELONGINGS. CALLED & UPDATED.
== END 2021-10-28 13:25 | disposition home or self-care (01) | DRG 638 ==
LOC: ER 16:08 → ICUE 16:09 → ICUW 16:09 → ICUE 20:33 → SURS 10-26 16:20
PROVIDERS: Emergency Medicine; Family Medicine; Nurse Practitioner Acute Care; ADMIT Internal Medicine
PROC: 5A09357 Assistance with Respiratory Ventilation, Less than 24 Consecutive Hours, Continuous Positive Airway Pressure (ICD-10-PCS; principal; 2021-10-26)
DX: E10.11 Type 1 diabetes mellitus with ketoacidosis with coma (principal); I13.0 Hypertensive heart and chronic kidney disease with heart failure and stage 1 through stage 4 chronic kidney disease, or unspecified chronic kidney disease; I50.32 Chronic diastolic (congestive) heart failure; E10.22 Type 1 diabetes mellitus with diabetic chronic kidney disease; D63.1 Anemia in chronic kidney disease; Z68.38 Body mass index [BMI] 38.0-38.9, adult; E66.01 Morbid (severe) obesity due to excess calories; Z28.21 Immunization not carried out because of patient refusal; Z91.14 Patient's other noncompliance with medication regimen; N18.30 Chronic kidney disease, stage 3 unspecified; I25.10 Atherosclerotic heart disease of native coronary artery without angina pectoris; J44.9 Chronic obstructive pulmonary disease, unspecified; E03.9 Hypothyroidism, unspecified; G47.33 Obstructive sleep apnea (adult) (pediatric); Z88.0 Allergy status to penicillin; Z88.2 Allergy status to sulfonamides; Z79.4 Long term (current) use of insulin; Z95.2 Presence of prosthetic heart valve; Z79.82 Long term (current) use of aspirin; Z88.5 Allergy status to narcotic agent; Z91.040 Latex allergy status; Z88.1 Allergy status to other antibiotic agents; Z88.8 Allergy status to other drugs, medicaments and biological substances; Z79.899 Other long term (current) drug therapy; Z90.49 Acquired absence of other specified parts of digestive tract; Z95.5 Presence of coronary angioplasty implant and graft; Z90.710 Acquired absence of both cervix and uterus; Z98.890 Other specified postprocedural states
CPT/HCPCS: 36415; 71045; 80048; 80053; 81003; 82803; 82947; 83735; 84100; 84145; 84443; 85025; 94640; 94660; 94664; 94762; 96361; 96374; 99285-25; A9270; G0378; J1815; J2405; J7030; J7042; J7120

== ENCOUNTER 2022-06-01 19:38 | Inpatient (IN) | payer MEDICARE ==
[~2022-06-01] VITALS: Ht 180.3 cm; Wt 127.5 kg
[~2022-06-01 19:38] MED LIST changes: +ACET500 PO; +AMLO5 PO; +Aspir 8181 MG PO; +BENADRYL25 MG PO; +CARV25 PO; +Crestor40 MG PO; +DEXT40GEL PO; +FISH OIL 1,2001 EAC7 PO; +FURO80 PO; +HUMALOG KW100 UNIT/1 SC; +Isosorbide Mono30 MG PO; +PROAIR DIGIHAL90 MCG INH; +SPIRONOLACTONE25 MG PO
[2022-06-01 20:15] LABS: BASOPHILS ABSOLUTE AUTO 0.05 K/mm3 (0.00-0.23); BASOPHILS PERCENT AUTO 1 % (0-2); EOSINOPHILS ABSOLUTE AUTO 0.01 K/mm3 (0.00-0.68); EOSINOPHILS PERCENT AUTO 0 % (0-6); Hematocrit 38.1 % (33.0-51.0); Hemoglobin 11.4 g/dL (11.5-16.0); IMMATURE GRAN ABSOLUTE AUTO 0.02 K/mm3 (0.00-0.10); IMMATURE GRAN PERCENT AUTO 0 % (0-1); LYMPHOCYTES PERCENT AUTO 14 % (21-46); MONOCYTES ABSOLUTE AUTO 0.33 K/mm3 (0.16-1.47); MONOCYTES PERCENT AUTO 5 % (4-13); Mean Corpuscular HGB 27.4 pg (26.0-34.0); Mean Corpuscular HGB Conc 29.9 g/dL (31.5-36.5); Mean Corpuscular Volume 92 fL (80-100); Mean Platelet Volume 10.5 fL (9.1-12.4); NEUTROPHILS PERCENT AUTO 81 % (41-73); Platelet Count 185 K/mm3 (150-400); RDW Coefficient Variation 16.7 % (11.7-14.2); Red Blood Cell Count 4.16 M/mm3 (3.80-5.20); White Blood Cell Count 7.31 K/mm3 (4.00-11.30)
[2022-06-01 20:16] LABS: Base Excess Venous -12.1 mmol/L; Bicarbonate Venous 15.6 mmol/L (24.0-30.0); PCO2 Venous 35.4 mmHg (38-42)
[2022-06-01 20:17] LABS: pH Blood Venous 7.24 (7.34-7.37)
[2022-06-01 20:48] LABS: Source, Urine Straight Cath
[2022-06-01 20:57] LABS: Albumin, Blood 3.9 g/dL (3.4-5.0); Albumin/Globulin Ratio 1.1 (0.8-1.8); Beta-hydroxybutyrate 98.1 mg/dL (0.2-2.8); Bilirubin, Total 0.6 mg/dL (0.1-1.0); Bun/Creatinine Ratio 26.8 (12.0-20.0); Creatinine, Blood 1.38 mg/dL (0.40-1.00); Globulin, Blood 3.4 g/dL (2.2-4.0); Potassium, Blood 5.8 mmol/L (3.5-5.5); Total Protein, Blood 7.3 g/dL (6.4-8.2)
[2022-06-01 20:58] LABS: Bilirubin, Urine Neg (Neg); Blood, Urine 1+ (Neg); Glucose Qualitative, Urine 4+ (Neg); Ketones, Urine 2+ (Neg); Leukocyte Esterase, Urine Neg (Neg); Nitrite, Urine Neg (Neg); Protein, Urine 2+ (Neg); Urobilinogen, Urine NORM (Normal)
[2022-06-01 20:59] LABS: Appearance, Urine Clear (Clear); Color, Urine Pale Yellow (P-Yellow)
[2022-06-01 21:07] LABS: Mucus Light (0-Heavy); Squamous Epithelial Cells Many /hpf (Few)
[2022-06-01 21:09] LABS: Bacteria Mod /hpf; Granular Casts 0-2 /lpf (0); Red Blood Cells, Urine 0-2 /hpf (0-2); Renal Epithelial Rare /hpf (0-Rare)
[2022-06-01 23:55] LABS: Glucose, Blood 756 mg/dL (70-99)
[2022-06-02] MEDS ORDERED: Imdur30 MG PO (01:06)
[2022-06-02 01:17] LABS: Glucose, Blood 719 mg/dL (70-99)
[2022-06-02 02:19] LABS: Bun/Creatinine Ratio 25.3 (12.0-20.0); Calcium, Blood 8.6 mg/dL (8.5-10.1); Creatinine, Blood 1.82 mg/dL (0.40-1.00); Potassium, Blood 5.4 mmol/L (3.5-5.5)
[2022-06-02 03:51] LABS: Glucose, Blood 597 mg/dL (70-99)
[2022-06-02 08:12] LABS: BASOPHILS ABSOLUTE AUTO 0.03 K/mm3 (0.00-0.23); BASOPHILS PERCENT AUTO 0 % (0-2); EOSINOPHILS ABSOLUTE AUTO 0.05 K/mm3 (0.00-0.68); EOSINOPHILS PERCENT AUTO 1 % (0-6); Hemoglobin 10.8 g/dL (11.5-16.0); IMMATURE GRAN ABSOLUTE AUTO 0.08 K/mm3 (0.00-0.10); IMMATURE GRAN PERCENT AUTO 1 % (0-1); LYMPHOCYTES ABSOLUTE AUTO 1.38 K/mm3 (0.84-5.20); LYMPHOCYTES PERCENT AUTO 13 % (21-46); MONOCYTES ABSOLUTE AUTO 0.97 K/mm3 (0.16-1.47); MONOCYTES PERCENT AUTO 9 % (4-13); Mean Corpuscular HGB 27.5 pg (26.0-34.0); Mean Corpuscular HGB Conc 30.9 g/dL (31.5-36.5); Mean Corpuscular Volume 89 fL (80-100); Mean Platelet Volume 11.6 fL (9.1-12.4); NEUTROPHILS ABSOLUTE AUTO 7.93 K/mm3 (1.96-9.15); NEUTROPHILS PERCENT AUTO 76 % (41-73); Platelet Count 205 K/mm3 (150-400); RDW Coefficient Variation 16.9 % (11.7-14.2); RDW Standard Deviation 55.4 fL (35.1-46.3); Red Blood Cell Count 3.93 M/mm3 (3.80-5.20); White Blood Cell Count 10.44 K/mm3 (4.00-11.30)
[2022-06-02 08:28] LABS: Albumin, Blood 3.3 g/dL (3.4-5.0); Albumin/Globulin Ratio 1.1 (0.8-1.8); Bilirubin, Total 0.3 mg/dL (0.1-1.0); Bun/Creatinine Ratio 23.9 (12.0-20.0); Calcium, Blood 8.6 mg/dL (8.5-10.1); Creatinine, Blood 2.05 mg/dL (0.40-1.00); Potassium, Blood 4.7 mmol/L (3.5-5.5); Total Protein, Blood 6.3 g/dL (6.4-8.2)
[2022-06-02 09:20] LABS: Source, Urine Foley catheter
[2022-06-02 09:34] LABS: Appearance, Urine Hazy (Clear); Blood, Urine Neg (Neg); Color, Urine Yellow (P-Yellow); Glucose Qualitative, Urine 3+ (Neg); Ketones, Urine 1+ (Neg); Leukocyte Esterase, Urine Neg (Neg); Nitrite, Urine Neg (Neg); Protein, Urine 2+ (Neg); Urobilinogen, Urine 1+ (Normal)
[2022-06-02 10:17] LABS: Bilirubin, Urine 2+ (Neg)
[2022-06-02 10:22] LABS: Bacteria Mod /hpf; Red Blood Cells, Urine 0-2 /hpf (0-2); Squamous Epithelial Cells Many /hpf (Few); White Blood Cells, Urine 0-2 /hpf (0-5)
[2022-06-02 10:24] LABS: Mucus Light (0-Heavy)
[2022-06-02 10:26] LABS: Calcium Oxalate Crystals Rare /hpf
[2022-06-02 12:57] LABS: Albumin, Blood 3.1 g/dL (3.4-5.0); Albumin/Globulin Ratio 1.1 (0.8-1.8); Bilirubin, Total 0.4 mg/dL (0.1-1.0); Calcium, Blood 8.3 mg/dL (8.5-10.1); Creatinine, Blood 2.17 mg/dL (0.40-1.00); Globulin, Blood 2.7 g/dL (2.2-4.0); Potassium, Blood 4.2 mmol/L (3.5-5.5); Total Protein, Blood 5.8 g/dL (6.4-8.2)
[2022-06-02 20:11] LABS: Bun/Creatinine Ratio 23.1 (12.0-20.0); Calcium, Blood 8.2 mg/dL (8.5-10.1); Creatinine, Blood 2.16 mg/dL (0.40-1.00); Potassium, Blood 4.7 mmol/L (3.5-5.5)
[2022-06-03 01:30] LABS: Bun/Creatinine Ratio 25.6 (12.0-20.0); Calcium, Blood 8.2 mg/dL (8.5-10.1); Creatinine, Blood 2.03 mg/dL (0.40-1.00); Potassium, Blood 4.3 mmol/L (3.5-5.5)
[2022-06-04 04:26] LABS: Albumin, Blood 2.9 g/dL (3.4-5.0); Anion Gap 5 mmol/L (6-16); Blood Urea Nitrogen 44 mg/dL (8-24); Bun/Creatinine Ratio 39.3 (12.0-20.0); CO2, Blood 31 mmol/L (21-32); Chloride, Blood 97 mmol/L (98-108); Creatinine, Blood 1.12 mg/dL (0.40-1.00); Glomerular Filtration Rate 53 (60-); Glucose, Blood 288 mg/dL (70-99); Phosphorus, Blood 2.6 mg/dL (2.5-4.9); Potassium, Blood 4.1 mmol/L (3.5-5.5); Sodium, Blood 133 mmol/L (136-145)
[2022-06-05 09:01] LABS: Albumin, Blood 3.3 g/dL (3.4-5.0); Anion Gap 4 mmol/L (6-16); Blood Urea Nitrogen 25 mg/dL (8-24); Bun/Creatinine Ratio 30.9 (12.0-20.0); CO2, Blood 29 mmol/L (21-32); Calcium, Blood 9.1 mg/dL (8.5-10.1); Chloride, Blood 100 mmol/L (98-108); Creatinine, Blood 0.81 mg/dL (0.40-1.00); Glomerular Filtration Rate 78 (60-); Glucose, Blood 263 mg/dL (70-99); Phosphorus, Blood 1.8 mg/dL (2.5-4.9); Potassium, Blood 4.1 mmol/L (3.5-5.5); Sodium, Blood 133 mmol/L (136-145)
[2022-06-06 04:39] LABS: Albumin, Blood 2.5 g/dL (3.4-5.0); Anion Gap 1 mmol/L (6-16); Blood Urea Nitrogen 24 mg/dL (8-24); Bun/Creatinine Ratio 25.3 (12.0-20.0); CO2, Blood 35 mmol/L (21-32); Calcium, Blood 8.8 mg/dL (8.5-10.1); Chloride, Blood 101 mmol/L (98-108); Creatinine, Blood 0.95 mg/dL (0.40-1.00); Glomerular Filtration Rate 64 (60-); Glucose, Blood 172 mg/dL (70-99); Phosphorus, Blood 3.3 mg/dL (2.5-4.9); Potassium, Blood 4.8 mmol/L (3.5-5.5); Sodium, Blood 137 mmol/L (136-145)
[2022-06-06] MEDS ORDERED: ACET325 PO (12:45)
[2022-06-06] MEDS ORDERED: LOSA50 PO (12:55)
[2022-06-06] MEDS ORDERED: POTA10T PO (12:57)
== END 2022-06-06 17:38 | disposition home or self-care (01) | DRG 637 ==
LOC: ER 19:38 → ICUW 21:01 → PCU 06-02 10:51 → ICUW 06-02 10:51 → PCU 06-02 17:42
PROVIDERS: Internal Medicine; Student in an Organized Health Care Education/Training Program; ADMIT Internal Medicine
DX: E11.10 Type 2 diabetes mellitus with ketoacidosis without coma (principal); I50.33 Acute on chronic diastolic (congestive) heart failure; I13.0 Hypertensive heart and chronic kidney disease with heart failure and stage 1 through stage 4 chronic kidney disease, or unspecified chronic kidney disease; N17.9 Acute kidney failure, unspecified; I25.10 Atherosclerotic heart disease of native coronary artery without angina pectoris; E03.9 Hypothyroidism, unspecified; G47.33 Obstructive sleep apnea (adult) (pediatric); Z99.81 Dependence on supplemental oxygen; Z88.5 Allergy status to narcotic agent; Z88.0 Allergy status to penicillin; Z88.2 Allergy status to sulfonamides; Z91.040 Latex allergy status; Z88.8 Allergy status to other drugs, medicaments and biological substances; Z88.7 Allergy status to serum and vaccine; N18.30 Chronic kidney disease, stage 3 unspecified; E66.01 Morbid (severe) obesity due to excess calories; Z90.49 Acquired absence of other specified parts of digestive tract; Z90.710 Acquired absence of both cervix and uterus; Z95.2 Presence of prosthetic heart valve; Z95.5 Presence of coronary angioplasty implant and graft
CPT/HCPCS: 36415; 51702; 51703; 71045; 80048; 80053; 80069; 81001; 82010; 82803; 82947; 83036; 83880; 85025; 87086; 93005; 93010; 94640; 94660; 94664; 94761; 94762; 96361; 96374; 96375; 99285-25; A9270; C1751; G0378; J0360; J1815; J1940; J2405; J2765; J7030; J7042; J7060; J7120

== ENCOUNTER 2022-10-13 03:12 | Emergency (ER) | payer MEDICARE ==
[~2022-10-13] VITALS: Ht 175.3 cm; Wt 127.0 kg
[~2022-10-13 03:12] MED LIST changes: +Imdur30 MG PO; +POTA10T PO
[2022-10-13 03:41] LABS: Source, Urine Clean Catch
[2022-10-13 03:45] LABS: Bilirubin, Urine Neg (Neg); Blood, Urine Neg (Neg); Glucose Qualitative, Urine 4+ (Neg); Ketones, Urine Neg (Neg); Leukocyte Esterase, Urine Neg (Neg); Nitrite, Urine Neg (Neg); Protein, Urine Neg (Neg); Specific Gravity, Urine 1.005 (1.003-1.022); Urobilinogen, Urine NORM (Normal)
[2022-10-13 04:03] LABS: BASOPHILS ABSOLUTE AUTO 0.04 K/mm3 (0.00-0.23); BASOPHILS PERCENT AUTO 1 % (0-2); EOSINOPHILS ABSOLUTE AUTO 0.09 K/mm3 (0.00-0.68); EOSINOPHILS PERCENT AUTO 1 % (0-6); Hematocrit 36.2 % (33.0-51.0); IMMATURE GRAN ABSOLUTE AUTO 0.02 K/mm3 (0.00-0.10); IMMATURE GRAN PERCENT AUTO 0 % (0-1); LYMPHOCYTES ABSOLUTE AUTO 1.14 K/mm3 (0.84-5.20); LYMPHOCYTES PERCENT AUTO 16 % (21-46); MONOCYTES ABSOLUTE AUTO 0.82 K/mm3 (0.16-1.47); MONOCYTES PERCENT AUTO 11 % (4-13); Mean Corpuscular HGB 27.8 pg (26.0-34.0); Mean Corpuscular HGB Conc 33.1 g/dL (31.5-36.5); Mean Corpuscular Volume 84 fL (80-100); Mean Platelet Volume 11.6 fL (9.1-12.4); NEUTROPHILS ABSOLUTE AUTO 5.22 K/mm3 (1.96-9.15); NEUTROPHILS PERCENT AUTO 71 % (41-73); Platelet Count 168 K/mm3 (150-400); RDW Coefficient Variation 15.2 % (11.7-14.2); RDW Standard Deviation 46.9 fL (35.1-46.3); Red Blood Cell Count 4.32 M/mm3 (3.80-5.20); White Blood Cell Count 7.33 K/mm3 (4.00-11.30)
[2022-10-13 04:24] LABS: Albumin, Blood 3.4 g/dL (3.4-5.0); Albumin/Globulin Ratio 0.9 (0.8-1.8); Bilirubin, Total 0.4 mg/dL (0.1-1.0); Bun/Creatinine Ratio 25.7 (12.0-20.0); Calcium, Blood 8.9 mg/dL (8.5-10.1); Creatinine, Blood 1.05 mg/dL (0.40-1.00); Globulin, Blood 3.7 g/dL (2.2-4.0); Potassium, Blood 4.2 mmol/L (3.5-5.5); Total Protein, Blood 7.1 g/dL (6.4-8.2)
[2022-10-13 05:25] LABS: Appearance, Urine Clear (Clear); Color, Urine Pale Yellow (P-Yellow)
== END 2022-10-13 06:30 | disposition home or self-care (01) ==
LOC: ER 03:12
PROVIDERS: Emergency Medicine
DX: E11.65 Type 2 diabetes mellitus with hyperglycemia (principal); I13.0 Hypertensive heart and chronic kidney disease with heart failure and stage 1 through stage 4 chronic kidney disease, or unspecified chronic kidney disease; E11.22 Type 2 diabetes mellitus with diabetic chronic kidney disease; I50.32 Chronic diastolic (congestive) heart failure; N18.30 Chronic kidney disease, stage 3 unspecified; E03.9 Hypothyroidism, unspecified; Z88.0 Allergy status to penicillin; Z88.2 Allergy status to sulfonamides; Z88.5 Allergy status to narcotic agent; Z88.7 Allergy status to serum and vaccine; Z91.040 Latex allergy status; Z79.890 Hormone replacement therapy
CPT/HCPCS: 80053; 81003; 82947; 85025; J1815; J2765; J7030

== ENCOUNTER 2022-10-21 20:51 | Inpatient (IN) | payer MEDICARE ==
[~2022-10-21] VITALS: Ht 180.3 cm; Wt 110.2 kg
[2022-10-21 21:44] LABS: BASOPHILS ABSOLUTE AUTO 0.03 K/mm3 (0.00-0.23); BASOPHILS PERCENT AUTO 0 % (0-2); EOSINOPHILS ABSOLUTE AUTO 0.06 K/mm3 (0.00-0.68); EOSINOPHILS PERCENT AUTO 1 % (0-6); Hematocrit 40.1 % (33.0-51.0); Hemoglobin 13.6 g/dL (11.5-16.0); IMMATURE GRAN ABSOLUTE AUTO 0.08 K/mm3 (0.00-0.10); IMMATURE GRAN PERCENT AUTO 1 % (0-1); LYMPHOCYTES ABSOLUTE AUTO 1.31 K/mm3 (0.84-5.20); LYMPHOCYTES PERCENT AUTO 15 % (21-46); MONOCYTES ABSOLUTE AUTO 0.67 K/mm3 (0.16-1.47); MONOCYTES PERCENT AUTO 8 % (4-13); Mean Corpuscular HGB 27.8 pg (26.0-34.0); Mean Corpuscular HGB Conc 33.9 g/dL (31.5-36.5); Mean Corpuscular Volume 82 fL (80-100); Mean Platelet Volume 10.1 fL (9.1-12.4); NEUTROPHILS ABSOLUTE AUTO 6.75 K/mm3 (1.96-9.15); NEUTROPHILS PERCENT AUTO 76 % (41-73); Platelet Count 288 K/mm3 (150-400); RDW Coefficient Variation 15.3 % (11.7-14.2); RDW Standard Deviation 45.8 fL (35.1-46.3); Red Blood Cell Count 4.89 M/mm3 (3.80-5.20)
[2022-10-21 22:07] LABS: Beta-hydroxybutyrate 40.7 mg/dL (0.2-2.8)
[2022-10-21 22:18] LABS: Albumin, Blood 3.9 g/dL (3.4-5.0); Bilirubin, Total 0.5 mg/dL (0.1-1.0); Bun/Creatinine Ratio 39.6 (12.0-20.0); Creatinine, Blood 1.34 mg/dL (0.40-1.00); Globulin, Blood 3.9 g/dL (2.2-4.0); Potassium, Blood 4.2 mmol/L (3.5-5.5); Total Protein, Blood 7.8 g/dL (6.4-8.2)
[2022-10-21 22:18] LABS: Base Excess Venous 8.4 mmol/L; Bicarbonate Venous 31.2 mmol/L (24.0-30.0); pH Blood Venous 7.46 (7.34-7.37)
[2022-10-21 23:43] LABS: Source, Urine Clean Catch
[2022-10-21 23:50] LABS: Bilirubin, Urine Neg (Neg); Blood, Urine 1+ (Neg); Glucose Qualitative, Urine 4+ (Neg); Ketones, Urine 2+ (Neg); Leukocyte Esterase, Urine Neg (Neg); Nitrite, Urine Neg (Neg); Protein, Urine 2+ (Neg); Urobilinogen, Urine NORM (Normal)
[2022-10-22 00:39] LABS: Appearance, Urine Clear (Clear); Color, Urine Pale Yellow (P-Yellow)
[2022-10-22 00:40] LABS: Bacteria Rare /hpf; Hyaline Casts 0-2 /lpf (0-2); Red Blood Cells, Urine 0-2 /hpf (0-2); Squamous Epithelial Cells Few /hpf (Few); White Blood Cells, Urine 0-2 /hpf (0-5)
[2022-10-22] MEDS ORDERED: BASAGLAR K100 UNIT/3 SC (03:15)
[2022-10-22 04:45] LABS: Albumin, Blood 3.5 g/dL (3.4-5.0); Albumin/Globulin Ratio 0.9 (0.8-1.8); Bilirubin, Total 0.5 mg/dL (0.1-1.0); Bun/Creatinine Ratio 40.9 (12.0-20.0); Creatinine, Blood 1.15 mg/dL (0.40-1.00); Globulin, Blood 3.7 g/dL (2.2-4.0); Potassium, Blood 4.1 mmol/L (3.5-5.5); Thyroid Stimulating Hormone 3.13 uIU/mL (0.360-4.800); Total Protein, Blood 7.2 g/dL (6.4-8.2)
--- NOTE | 2022-10-22 06:51 | NUR ---
TOOL CLERK SUMMARY ADMITTED TODAY FOR NAUSEA AND VOMITING FOR THE PAST EIGHT DAYS. PT REPORTS NO DIARRHEA SINCE BEING IN THE ER. SHE IS ALERT AND ORIENTED X4, FOLLOWS COMMANDS. PT DENIES CHEST PAIN/PRESSURE. SHE BECAME NAUSEOUS ON DRINKING SMALL SIPS OF WATER AND VOMITED CLEAR LIQUID. MEDICATED WITH REGLAN AND PT REPORTS NO NAUSEA. MORNING LEVOTHYROXINE CHANGED TO IV DUE TO PT SENSITIVITY TO FLUIDS AND HER NAUSEA. PT AMBULATES WITH A CANE AT HOME AND IS SBA AND ABLE TO REPOSITION FREELY. SHE HAS BEEN SINUS ON TELE MONITOR SINCE ADMISSION. PT REQUIRED 2L OF OXYGEN BY NC DURING HER VOMITING SPELL BUT HAS BEEN ON CPAP WITHOUT BLEED IN THROUGHOUT THE NIGHT - SATURATIONS REMAIN >92%. HER LUNG SOUNDS ARE DIMINISHED BUT PT HAS HISTORY OF COPD AND ASTHMA. PT HAS BEEN SLEEPING FOR MOST OF THIS SHIFT. AWAITING PT TO GIVE STOOL SAMPLE FOR GI PANEL.
--- NOTE | 2022-10-22 11:06 | NUR ---
UPDATE PT GLUCOSE AT 1054 CAME BACK AT A CRITICAL HIGH >500. DR NOTIFIED AT 1100. STAT BASIC METABOLIC PANEL ORDERED.
[2022-10-22 11:44] LABS: Anion Gap 6 mmol/L (6-16); Blood Urea Nitrogen 47 mg/dL (8-24); Bun/Creatinine Ratio 39.5 (12.0-20.0); CO2, Blood 31 mmol/L (21-32); Calcium, Blood 8.4 mg/dL (8.5-10.1); Chloride, Blood 92 mmol/L (98-108); Creatinine, Blood 1.19 mg/dL (0.40-1.00); Glomerular Filtration Rate 49 (60-); Glucose, Blood 624 mg/dL (70-99); Potassium, Blood 4.3 mmol/L (3.5-5.5); Sodium, Blood 129 mmol/L (136-145)
--- NOTE | 2022-10-22 12:50 | NUR ---
NOTIFIED AT 1149 OF PT CRITICAL GLUCOSE OF 624. INSTRUCTED THIS RN TO GET UPDATED VITALS. NOTIFIED AT 1200 OF PT BP BEING 98/44 ON LEFT ARM AND 98/42 ON RIGHT ARM. INSTRUCTED THIS RN TO MAKE PT NPO, GIVE 1 LITER BOLUS, THEN GIVE 10 UNITS INSULIN R IV, AND RUN NS AT 125 MAINTENANCE. ORDERS PLACED.
--- NOTE | 2022-10-22 13:41 | NUR ---
PT A/OX4, BECAME DROWSY AROUND 1100. BP'S BECAME SOFT AND BLOOD SUGARS ELEVATED, SEE PREVIOUS NOTES. ENOC ALEXIS UPDATED TO TAKE OVER IN CARE.
--- NOTE | 2022-10-22 14:01 | NUR ---
CARE ASSUMPTION PT ALERT, ORIENTED, DROWSY. SP02>90% ON 2L NC. BP 124/54. CBG CHECKED- 456, DOWN FROM PREVIOUS 624. CALL PLACED TO MD GRAHAM. MD GRAHAM W/ ORDERS TO INCREASE NS INFUSION RATE TO 150 MLS/HR AND RECHECK CBG IN 2 HRS. WILL CALL WITH RESULT. PT RESTING IN ROOM.
--- NOTE | 2022-10-22 18:06 | NUR ---
SHIFT SUMMARY PT A&OX4. SP02>90% ON 2L NC. BP SOFT AT BEGINNING OF SHIFT, STABLE NOW. BLOOD SUGARS DECREASING STEADILY, TAKING CBG Q2H AND NOTIFYING MD GRAHAM. MOST RECENT, 383. PT DENIES PAIN. ABLE TO WORK W/ PT, UP TO BATHROOM W/ FWW. PT REMAINS NPO. MD GRAHAM W/ ORDERS FOR PT TO HAVE ADA DIET ONCE BLOOD SUGARS LESS THAN 250, SEE NURSE NOTIFY ORDER. NS INFUSING PER EMAR. PT CURRENLY RESTING IN BED. CALL LIGHT IN REACH.
--- NOTE | 2022-10-22 23:52 | NUR ---
FLUIDS DECREASED TO 100 ML/HR PER DR. GRAHAM'S INSTRUCTIONS.
[2022-10-23 04:12] LABS: BASOPHILS ABSOLUTE AUTO 0.04 K/mm3 (0.00-0.23); BASOPHILS PERCENT AUTO 1 % (0-2); EOSINOPHILS ABSOLUTE AUTO 0.26 K/mm3 (0.00-0.68); EOSINOPHILS PERCENT AUTO 4 % (0-6); Hematocrit 36.2 % (33.0-51.0); Hemoglobin 11.8 g/dL (11.5-16.0); IMMATURE GRAN ABSOLUTE AUTO 0.06 K/mm3 (0.00-0.10); IMMATURE GRAN PERCENT AUTO 1 % (0-1); LYMPHOCYTES ABSOLUTE AUTO 2.04 K/mm3 (0.84-5.20); LYMPHOCYTES PERCENT AUTO 29 % (21-46); MONOCYTES ABSOLUTE AUTO 0.61 K/mm3 (0.16-1.47); MONOCYTES PERCENT AUTO 9 % (4-13); Mean Corpuscular HGB 27.6 pg (26.0-34.0); Mean Corpuscular HGB Conc 32.6 g/dL (31.5-36.5); Mean Corpuscular Volume 85 fL (80-100); Mean Platelet Volume 10.1 fL (9.1-12.4); NEUTROPHILS ABSOLUTE AUTO 4.07 K/mm3 (1.96-9.15); NEUTROPHILS PERCENT AUTO 58 % (41-73); Platelet Count 225 K/mm3 (150-400); RDW Coefficient Variation 15.7 % (11.7-14.2); RDW Standard Deviation 48.5 fL (35.1-46.3); Red Blood Cell Count 4.27 M/mm3 (3.80-5.20); White Blood Cell Count 7.08 K/mm3 (4.00-11.30)
[2022-10-23 04:37] LABS: Albumin, Blood 2.9 g/dL (3.4-5.0); Anion Gap 8 mmol/L (6-16); Blood Urea Nitrogen 40 mg/dL (8-24); Bun/Creatinine Ratio 38.5 (12.0-20.0); CO2, Blood 29 mmol/L (21-32); Calcium, Blood 8.2 mg/dL (8.5-10.1); Chloride, Blood 99 mmol/L (98-108); Creatinine, Blood 1.04 mg/dL (0.40-1.00); Glomerular Filtration Rate 58 (60-); Glucose, Blood 197 mg/dL (70-99); Phosphorus, Blood 2.1 mg/dL (2.5-4.9); Potassium, Blood 3.6 mmol/L (3.5-5.5); Sodium, Blood 136 mmol/L (136-145)
--- NOTE | 2022-10-23 05:09 | NUR ---
SHIFT SUMMARY: PT A&OX4. ABLE TO MAKE NEEDS KNOWN AND FOLLOWS DIRECTIONS. CBG'S TENDING DOWN THROUGHOUT SHIFT. DR. GONZALES INFORMED WHEN CBG > 350, LONG ACTING INSULIN INCREASED FOR PM DOSE. PT CBG < 350 MAJORITY OF SHIFT. REMAINS ASYMPTOMATIC. STARTED ON ADA DIET WHEN CBG < [address] GRAHAM'S ORDERS, DECREASED FLUIDS WELL. PT HAS DENIES ANY SOB OR CHEST PAIN THROUGHOUT NIGHT. TOLERATING RA WITH O2 SATS > 92% OR CPAP WITH 2 LPM BLEED IN, PT REPORTS THIS IS BASLINE O2 USAGE. HR SR IN 80'S. UP TO BATHROOM WITH STAND BY ASSIST X 2 DURING SHIFT TO VOID CLEAR, YELLOW URINE. NO BM DURING THIS SHIFT. CALL LIGHT IN REACH, BED ALARM ON.
--- NOTE | 2022-10-23 18:01 | NUR ---
SHIFT SUMMARY NO ACUTE CHANGES THIS SHIFT. PT A&OX4, SP02>90% ON RA, CPAP WHILE SHE NAPPED. MD CHANGED TO MED NO TELE STATUS THIS SHIFT, VSS. UP TO BATHROOM TO VOID. NO BM THIS SHIFT, REGLAN GIVEN PER EMAR. PT REFUSED ENEMA. CBG'S COVERED W/ INSULIN PER EMAR. MOST RECENT: 186. pT EATING DINNER IN ROOM, CALL LIGHT IN REACH.
--- NOTE | 2022-10-24 04:54 | NUR ---
SHIFT SUMMARY: NO ACUTE CHANGES NOTED DURING THIS SHIFT. A&OX4. DENIES ANY SOB OR CHEST PAIN. 02 SATS > 92% ON RA WHEN AWAKE, ON CPAP WHEN SLEEPING. UP TO BATHROOM WITH STAND BY ASSIST. PT HAD FORMED BM DURING SHIFT.
--- NOTE | 2022-10-24 18:18 | NUR ---
SHIFT SUMMARY NO ACUTE CHANGES THIS SHIFT. PT A&OX4, VSS. PT DENIED PAIN. UP TO BATHROOM INDEPENDENTLY, ONE SMALL BM THIS SHIFT. PT NOT HAPPY WITH BRAT DIET. PT STATES, "IM NOT EATING THIS CRAP". PT DID EAT APPLESAUCE. CBG TAKEN Q4H W/ COVERAGE PER EMAR. CALL LIGHT IN REACH. PT STATES SHE WANTS TO GO HOME IN AM.
--- NOTE | 2022-10-25 04:14 | NUR ---
SHIFT SUMMARY: NOT ACUTE CHANGES DURING THIS SHIFT. PT A&OX4. DENIES ANY COMPLAINTS OF SOB OR CHEST PAIN. O2 SATS MAINTAING > 92% ON RA. CPAP WHEN SLEEPING. DENIES NAUSEA DURING THIS SHIFT. VOIDING WITHOUT DIFFICULTY. CALL LIGHT IN REACH. BED ALARM ON.
--- NOTE | 2022-10-25 07:30 | NUR ---
ASSUMED CARE: PT SITTING UPRIGHT IN BED, TALKING TO STAFF. DENIES NEEDS OR CONCERNS AT THIS TIME. NO ACUTE SIGNS OF DISTRESS.
[2022-10-25] MEDS ORDERED: METO5A PO (11:18)
--- NOTE | 2022-10-25 12:00 | NUR ---
DISCHARGE: PT'S IV DC'D WNL. PT GIVEN DISCHARGE INSTRUCTIONS REGARDING MEDICATION CHANGES AND FOLLOW UP APPOINTMENTS. ESCORTED OUT VIA WHEEL CHAIR AND COLLECTED BY [employer] BACK HOME TO ASSISTED. DENIED FURTHER NEEDS OR CONCERNS.
== END 2022-10-25 11:51 | disposition home or self-care (01) | DRG 74 ==
LOC: ER 20:51 → ERHOLD 10-22 00:15 → PCU 10-22 00:15
PROVIDERS: Family Medicine; Internal Medicine; Student in an Organized Health Care Education/Training Program; ADMIT Internal Medicine
PROC: 5A09357 Assistance with Respiratory Ventilation, Less than 24 Consecutive Hours, Continuous Positive Airway Pressure (ICD-10-PCS; principal; 2022-10-22)
DX: E11.43 Type 2 diabetes mellitus with diabetic autonomic (poly)neuropathy (principal); E87.1 Hypo-osmolality and hyponatremia; N17.9 Acute kidney failure, unspecified; I13.0 Hypertensive heart and chronic kidney disease with heart failure and stage 1 through stage 4 chronic kidney disease, or unspecified chronic kidney disease; I50.32 Chronic diastolic (congestive) heart failure; E11.65 Type 2 diabetes mellitus with hyperglycemia; K31.84 Gastroparesis; N18.30 Chronic kidney disease, stage 3 unspecified; E86.0 Dehydration; E11.22 Type 2 diabetes mellitus with diabetic chronic kidney disease; E03.9 Hypothyroidism, unspecified; G47.33 Obstructive sleep apnea (adult) (pediatric); R77.8 Other specified abnormalities of plasma proteins; I27.20 Pulmonary hypertension, unspecified; E78.5 Hyperlipidemia, unspecified; I25.10 Atherosclerotic heart disease of native coronary artery without angina pectoris; Z95.2 Presence of prosthetic heart valve; I25.2 Old myocardial infarction; Z95.5 Presence of coronary angioplasty implant and graft; Z90.49 Acquired absence of other specified parts of digestive tract; Z90.710 Acquired absence of both cervix and uterus; Z86.79 Personal history of other diseases of the circulatory system; Z99.81 Dependence on supplemental oxygen; Z79.82 Long term (current) use of aspirin; Z98.1 Arthrodesis status; Z79.4 Long term (current) use of insulin; Z79.01 Long term (current) use of anticoagulants; Z79.899 Other long term (current) drug therapy; Z79.51 Long term (current) use of inhaled steroids; Z91.040 Latex allergy status; Z91.041 Radiographic dye allergy status; Z88.1 Allergy status to other antibiotic agents; Z88.0 Allergy status to penicillin; Z88.2 Allergy status to sulfonamides; Z88.8 Allergy status to other drugs, medicaments and biological substances; Z88.5 Allergy status to narcotic agent; Z88.7 Allergy status to serum and vaccine
CPT/HCPCS: 36415; 71045; 80048; 80053; 80069; 81001; 82010; 82803; 82947; 83036; 84443; 84484; 85025; 93005; 93010; 94660; 94762; 96360; 96361; 97110; 97116; 97162; 97530; 99285-25; A9270; J1650; J1815; J2765; J7030

== ENCOUNTER 2022-11-09 09:08 | Inpatient (IN) | payer MEDICARE ==
[~2022-11-09] VITALS: Ht 180.3 cm; Wt 113.8 kg
[~2022-11-09 09:08] MED LIST changes: +BASAGLAR K100 UNIT/3 SC; +METO5A PO
[2022-11-09 09:35] LABS: BASOPHILS ABSOLUTE AUTO 0.08 K/mm3 (0.00-0.23); BASOPHILS PERCENT AUTO 1 % (0-2); EOSINOPHILS ABSOLUTE AUTO 0.08 K/mm3 (0.00-0.68); EOSINOPHILS PERCENT AUTO 1 % (0-6); Hematocrit 42.2 % (33.0-51.0); Hemoglobin 12.8 g/dL (11.5-16.0); IMMATURE GRAN ABSOLUTE AUTO 0.07 K/mm3 (0.00-0.10); IMMATURE GRAN PERCENT AUTO 1 % (0-1); LYMPHOCYTES ABSOLUTE AUTO 1.56 K/mm3 (0.84-5.20); LYMPHOCYTES PERCENT AUTO 19 % (21-46); MONOCYTES ABSOLUTE AUTO 0.31 K/mm3 (0.16-1.47); MONOCYTES PERCENT AUTO 4 % (4-13); Mean Corpuscular HGB 27.5 pg (26.0-34.0); Mean Corpuscular HGB Conc 30.3 g/dL (31.5-36.5); Mean Corpuscular Volume 91 fL (80-100); Mean Platelet Volume 11.4 fL (9.1-12.4); NEUTROPHILS ABSOLUTE AUTO 6.28 K/mm3 (1.96-9.15); NEUTROPHILS PERCENT AUTO 75 % (41-73); Platelet Count 239 K/mm3 (150-400); RDW Coefficient Variation 16.2 % (11.7-14.2); RDW Standard Deviation 53.6 fL (35.1-46.3); Red Blood Cell Count 4.65 M/mm3 (3.80-5.20); White Blood Cell Count 8.38 K/mm3 (4.00-11.30)
[2022-11-09 10:06] LABS: pH Blood Venous 7.24 (7.34-7.37)
[2022-11-09 10:07] LABS: Base Excess Venous -16.4 mmol/L; Bicarbonate Venous 13.1 mmol/L (24.0-30.0); PCO2 Venous 26.2 mmHg (38-42)
[2022-11-09 10:29] LABS: Albumin, Blood 3.1 g/dL (3.4-5.0); Albumin/Globulin Ratio 0.7 (0.8-1.8); Bilirubin, Total 0.6 mg/dL (0.1-1.0); Bun/Creatinine Ratio 42.4 (12.0-20.0); Calcium, Blood 10.2 mg/dL (8.5-10.1); Creatinine, Blood 1.39 mg/dL (0.40-1.00); Globulin, Blood 4.2 g/dL (2.2-4.0); Potassium, Blood 5.7 mmol/L (3.5-5.5); Total Protein, Blood 7.3 g/dL (6.4-8.2)
--- NOTE | 2022-11-09 13:34 | NUR ---
ADMIT PT ARRIVED TO ICU 9 VIA ER BED AT 1305. PT IS SOMNOLENT, BUT AROUSEABLE TO VERBAL STIMULI. PT ANSWERS QUESTIONS APPROPRIATELY, THEN QUICKLY FALLS BACK TO SLEEP. PT ON RA. VITAL SIGNS STABLE. INSULIN INFUSING AT 10 UNITS/HR AND LR BOLUS INFUSING. CBG HI AT THIS TIME. STAT DKA GLUCOSE LABS ORDERED. POWERGLIDE PLACEMENT IN PROGRESS AT THIS TIME. PT DENIES CHEST PAIN AT THIS TIME. PT COMPLAINS OF NEUROPATHY TO BLE'S. WILL CONTINUE TO MONITOR.
[2022-11-09 14:19] LABS: Bun/Creatinine Ratio 41.4 (12.0-20.0); Creatinine, Blood 1.57 mg/dL (0.40-1.00); Glucose, Blood 987 mg/dL (70-99); Potassium, Blood 5.3 mmol/L (3.5-5.5)
[2022-11-09 15:50] LABS: Glucose, Blood 824 mg/dL (70-99)
[2022-11-09 17:06] LABS: Glucose, Blood 747 mg/dL (70-99)
--- NOTE | 2022-11-09 17:13 | NUR ---
SHIFT SUMMARY NO ACUTE CHANGES THIS AFTERNOON. PT REMAINS SOMNOLENT, BUT AROUSEABLE TO VERBAL STIMULI. PT DENIES PAIN OR DISCOMFORT. NAUSEA HAS SUBSIDED AT THIS TIME. LR INFUSING AT 250 ML/HR AND INSULIN GTT AT 10 UNIT/HR. VITAL SIGNS STABLE. PT ON RA. NO FAMILY AT BEDSIDE. WILL CONTINUE TO MONITOR AND REPORT OFF TO ONCOMING RN.
[2022-11-09 18:31] LABS: Bun/Creatinine Ratio 42.8 (12.0-20.0); Creatinine, Blood 1.52 mg/dL (0.40-1.00); Glucose, Blood 661 mg/dL (70-99); Potassium, Blood 4.6 mmol/L (3.5-5.5)
[2022-11-09 18:31] LABS: Source, Urine Foley catheter
[2022-11-09 18:42] LABS: Appearance, Urine Clear (Clear); Bilirubin, Urine Neg (Neg); Blood, Urine Neg (Neg); Color, Urine Yellow (P-Yellow); Glucose Qualitative, Urine 4+ (Neg); Ketones, Urine 3+ (Neg); Leukocyte Esterase, Urine Neg (Neg); Nitrite, Urine Neg (Neg); Protein, Urine Neg (Neg); Specific Gravity, Urine 1.015 (1.003-1.022); Urobilinogen, Urine NORM (Normal)
[2022-11-09 19:20] LABS: Glucose, Blood 591 mg/dL (70-99)
[2022-11-09 22:17] LABS: Bun/Creatinine Ratio 41.3 (12.0-20.0); Calcium, Blood 9.6 mg/dL (8.5-10.1); Creatinine, Blood 1.43 mg/dL (0.40-1.00); Potassium, Blood 4.2 mmol/L (3.5-5.5)
[2022-11-10 01:42] LABS: Albumin, Blood 2.8 g/dL (3.4-5.0); Albumin/Globulin Ratio 0.8 (0.8-1.8); Bilirubin, Total 0.3 mg/dL (0.1-1.0); Calcium, Blood 9.4 mg/dL (8.5-10.1); Creatinine, Blood 1.35 mg/dL (0.40-1.00); Globulin, Blood 3.7 g/dL (2.2-4.0); Magnesium, Blood 2.7 mg/dL (1.6-2.4); Potassium, Blood 3.9 mmol/L (3.5-5.5); Total Protein, Blood 6.5 g/dL (6.4-8.2)
[2022-11-10 03:21] LABS: International Normalized Ratio 0.99; Prothrombin Time Results 10.4 Sec (9.7-11.5)
--- NOTE | 2022-11-10 06:42 | NUR ---
SHIFT SUMMARY: Insulin drip weaned down to 1unit/hr. Fluids running with D5, patient remains NPO. Several episodes of nausea overnight but no emesis. No complaints of chest pain, however troponins increased to over 1400, so heparin drip was started per Dr. Resendiz. Patient is drowsy but arousable and oriented.
[2022-11-10 09:16] LABS: pH Blood Venous 7.32 (7.34-7.37)
[2022-11-10 09:17] LABS: Bicarbonate Venous 29.3 mmol/L (24.0-30.0); PCO2 Venous 66.7 mmHg (38-42)
--- NOTE | 2022-11-10 10:00 | NUR ---
Assumed care for pt at 0700. She is on an insulin gtt @ 1 unit/hr, D5/NS gtt @ 125 ml/hr, and Heparin gtt @ 15 units/kg/hr. A&Ox4, and cooperative w/ care. On 2 lpm o2 via NC< advises she sleeps w/ a CPAP at home. Currently q1hr glucose checks.
--- NOTE | 2022-11-10 11:59 | NUR ---
Mancilla catheter replaced w/ new 16 Kazakh temp mancilla. New UA will be sent shortly to lab.
--- NOTE | 2022-11-10 13:27 | NUR ---
Echocardiogram completed.
--- NOTE | 2022-11-10 19:39 | NUR ---
Pt remains on insulin gtt @ 15 units/hr and D5 NS gtt @ 125 ml/hr. Powerglide removed from right upper arm and mancilla catheter removed earlier today, as it wasnt working.
[2022-11-11 04:58] LABS: BASOPHILS ABSOLUTE AUTO 0.04 K/mm3 (0.00-0.23); BASOPHILS PERCENT AUTO 0 % (0-2); EOSINOPHILS ABSOLUTE AUTO 0.19 K/mm3 (0.00-0.68); EOSINOPHILS PERCENT AUTO 2 % (0-6); Hematocrit 30.8 % (33.0-51.0); IMMATURE GRAN ABSOLUTE AUTO 0.06 K/mm3 (0.00-0.10); IMMATURE GRAN PERCENT AUTO 1 % (0-1); LYMPHOCYTES ABSOLUTE AUTO 1.89 K/mm3 (0.84-5.20); LYMPHOCYTES PERCENT AUTO 20 % (21-46); MONOCYTES ABSOLUTE AUTO 0.77 K/mm3 (0.16-1.47); MONOCYTES PERCENT AUTO 8 % (4-13); Mean Corpuscular HGB Conc 32.5 g/dL (31.5-36.5); Mean Platelet Volume 9.7 fL (9.1-12.4); NEUTROPHILS ABSOLUTE AUTO 6.72 K/mm3 (1.96-9.15); NEUTROPHILS PERCENT AUTO 70 % (41-73); Platelet Count 216 K/mm3 (150-400); RDW Coefficient Variation 16.7 % (11.7-14.2); RDW Standard Deviation 53.1 fL (35.1-46.3); Red Blood Cell Count 3.57 M/mm3 (3.80-5.20); White Blood Cell Count 9.67 K/mm3 (4.00-11.30)
[2022-11-11 05:17] LABS: Mean Corpuscular Volume 86 fL (80-100)
[2022-11-11 05:38] LABS: Bun/Creatinine Ratio 45.7 (12.0-20.0); Calcium, Blood 8.6 mg/dL (8.5-10.1); Creatinine, Blood 1.4 mg/dL (0.40-1.00); Potassium, Blood 3.9 mmol/L (3.5-5.5)
--- NOTE | 2022-11-11 06:14 | NUR ---
SHIFT SUMMARY NO ACUTE CHANGES DURING NOC. SLEPT VERY LITTLE. CONTINUES WITH FREQUENT NPC. ALSO OCCASIONALLY DRY HEAVES AFTER COUGHING. ALERT AND ORIENTED, BUT IS FORGETGUL. COOPERATIVE WITH CARE. MONITOR SHOWS NSR, RATE 70s. BP STABLE. AFEBRILE. 02 2L NC, RESPIRATIONS EVEN AND UNLABORED. USES BEDPAN TO VOID, BUT WAS INCONTINENT X 1. POWERGLIDE PLACED TO MEGAN. INSULIN GTT TITRATED T/O NOC- NOW INFUSING AT 1UNIT/HR. D5NS INFUSING AT 125MLS/HR PER ORDER. HEPARIN GTT NOW AT 16UNITS/KG/HR PER PHARMACY- NEXT PTT AT 1200. TOLERATING SIPS OF WATER. WILL REPORT TO ONCOMING RN WHEN AVAILABLE.
--- NOTE | 2022-11-11 09:44 | NUR ---
Assumed care for pt at 0700. Insulin gtt @ 1 unit/hr, D5NS @ 125 ml/hr and Heparin gtt @ 16 units/kg/hr, repeat PTT @ 1200. SCDs remain in place. Pt has Powerglide left upper arm and peripheral IV right wrist. Pt A&Ox4, and cooperative w/ care. Reports nausea is "not as bad as yesterday."
--- NOTE | 2022-11-11 12:44 | NUR ---
Insulin gtt 6 units/hr after BGL 254.
--- NOTE | 2022-11-11 13:09 | NUR ---
Heparin gtt turned off. Pt being started on Lovenox treatment.
--- NOTE | 2022-11-11 19:26 | NUR ---
Pt remains on Insulin gtt @ 4 units/hr and D5 @ 125 ml/hr. Started transition this morning w/ Lantus and sliding scale. Heparin gtt stopped this afternoon and pt administered Lovenox. Pt remains on 2 lpm o2 via NC. Pt reports decreased nausea after receiving Compazine this afternoon.
--- NOTE | 2022-11-11 21:14 | NUR ---
ASSUMED CARE ASSUMED CARE AT 1900. PT A/O X 4. COOPERATIVE WITH CARE, MAKES NEEDS KNOWN. SR, RATE 70'S. SBP 140'S. VSS. ON 1.5L NC. SPO2 GREATER THAN 90%. INSULIN GTT AND D5 1/2NS INFUSING. SEE FLOWSHEET FOR TITRATIONS. DENIES CHEST PAIN OR SOB. DENIES N/V AT THIS TIME. CBG 160-170S THIS PM. NO SS INSULIN COVERAGE INDICATED. CALL TO HOSP REGARDING POSSIBLE NIGHTTIME LONG ACTING INSULIN TO TRANSITION PT OFF INSULIN GTT AND REPEAT CHEM 8 PANEL. ORDER RECEIVED FOR CHEM 8 PANEL. CALL LIGHT IN REACH.
[2022-11-11 22:37] LABS: Bun/Creatinine Ratio 43.3 (12.0-20.0); Calcium, Blood 8.3 mg/dL (8.5-10.1); Creatinine, Blood 1.27 mg/dL (0.40-1.00); Potassium, Blood 4.6 mmol/L (3.5-5.5)
--- NOTE | 2022-11-12 00:56 | NUR ---
CALL TO MD CALL TO HOSP REGARDING PT CBG, INSULIN GTT, AND D5WNS GTT. CBGS RANGED 170-120 SINCE 1900. ORDER TO D/C INSULIN AND D5WNS GTTS. PLAN TO MONITOR CBG T/O NIGHT AND FOR PT TO GET LONG ACTING INSULIN IN AM W/ SS.
[2022-11-12 03:58] LABS: Albumin, Blood 2.6 g/dL (3.4-5.0); Anion Gap 2 mmol/L (6-16); Blood Urea Nitrogen 52 mg/dL (8-24); Bun/Creatinine Ratio 48.1 (12.0-20.0); CO2, Blood 32 mmol/L (21-32); Calcium, Blood 8.8 mg/dL (8.5-10.1); Chloride, Blood 104 mmol/L (98-108); Creatinine, Blood 1.08 mg/dL (0.40-1.00); Glomerular Filtration Rate 55 (60-); Glucose, Blood 167 mg/dL (70-99); Phosphorus, Blood 2.9 mg/dL (2.5-4.9); Potassium, Blood 4.5 mmol/L (3.5-5.5); Sodium, Blood 138 mmol/L (136-145)
--- NOTE | 2022-11-12 04:16 | NUR ---
CALL TO HOSP CALL TO HOSP REGARDING HTN. SBP 170'S. ORDER TO GIVE 0900 COREG AND 0900 COZAAR EARLY AND HE WILL PUT IN PRN. MEDICATED PER EMAR.
--- NOTE | 2022-11-12 05:54 | NUR ---
SHIFT SUMMARY PT OFF INSULIN AND D5WNS, SEE PREVIOUS NOTES. CBG 170'S THIS AM. SR, RATE 70'S. VSS. SBP NOW 150'S. ON 1.5L NC. PT WORE CPAP APPROX 4 HOURS T/O NIGHT. PT C/O NAUSEA ONCE AND MEDICATED PER EMAR W/ GOOD EFFECTS. PT USING BEDPAN TO VIOD. C/O URGENCY WITH VIODING. CALL LIGHT IN REACH. WILL REPORT OFF TO ONCOMING RN.
[2022-11-12 07:03] LABS: Hematocrit 35.3 % (33.0-51.0)
[2022-11-12 13:52] LABS: Influenza A, PCR NEGATIVE (NEGATIVE); Influenza B, PCR NEGATIVE (NEGATIVE); Resp Syncytial Virus, PCR NEGATIVE (NEGATIVE); SARS-Cov-2 (COVID-19) PCR, MMC NEGATIVE (NEGATIVE)
[2022-11-12] MEDS ORDERED: HUMALOG KW100 UNIT/1 SC (14:06)
[2022-11-12] MEDS ORDERED: ONDA4ODT MM (14:13)
--- NOTE | 2022-11-12 16:33 | NUR ---
DISCHARGE REIVEWED ALL DISCHARGE INFO WITH PT. PT VERBALIZED UNDERSTANDING OF INSTRUCTIONS AND MEDS. PT TO BE TRANSFERED BY EMS TO [facility]. PT LEFT THE ROOM AT 1630 VIA WHEELCHAIR WITH EMS. ALL PT BELONGINGS SENT WITH PT.
== END 2022-11-12 16:30 | DRG 637 ==
LOC: ER 09:08 → ICUW 12:12
PROVIDERS: Family Medicine; Internal Medicine; Nurse Practitioner Acute Care; Physician Assistant; Student in an Organized Health Care Education/Training Program; ADMIT Internal Medicine
PROC: 4A133R1 Monitoring of Arterial Saturation, Peripheral, Percutaneous Approach (ICD-10-PCS; principal; 2022-11-09)
DX: E11.10 Type 2 diabetes mellitus with ketoacidosis without coma (principal); G92.8 Other toxic encephalopathy; I21.A1 Myocardial infarction type 2; I13.0 Hypertensive heart and chronic kidney disease with heart failure and stage 1 through stage 4 chronic kidney disease, or unspecified chronic kidney disease; I50.32 Chronic diastolic (congestive) heart failure; Z91.14 Patient's other noncompliance with medication regimen; I25.10 Atherosclerotic heart disease of native coronary artery without angina pectoris; Z20.822 Contact with and (suspected) exposure to COVID-19; N18.30 Chronic kidney disease, stage 3 unspecified; E11.22 Type 2 diabetes mellitus with diabetic chronic kidney disease; F03.90 Unspecified dementia, unspecified severity, without behavioral disturbance, psychotic disturbance, mood disturbance, and anxiety; G47.33 Obstructive sleep apnea (adult) (pediatric); E03.9 Hypothyroidism, unspecified; I35.0 Nonrheumatic aortic (valve) stenosis; E87.5 Hyperkalemia; E66.01 Morbid (severe) obesity due to excess calories; Z68.30 Body mass index [BMI] 30.0-30.9, adult; Z95.4 Presence of other heart-valve replacement; Z99.89 Dependence on other enabling machines and devices; Z95.5 Presence of coronary angioplasty implant and graft; Z90.49 Acquired absence of other specified parts of digestive tract; Z90.710 Acquired absence of both cervix and uterus; Z98.1 Arthrodesis status; Z88.0 Allergy status to penicillin; Z88.2 Allergy status to sulfonamides; Z88.5 Allergy status to narcotic agent; Z88.7 Allergy status to serum and vaccine; Z88.6 Allergy status to analgesic agent; Z88.1 Allergy status to other antibiotic agents; Z88.8 Allergy status to other drugs, medicaments and biological substances; Z91.040 Latex allergy status; Z79.4 Long term (current) use of insulin; Z79.82 Long term (current) use of aspirin; Z79.899 Other long term (current) drug therapy
CPT/HCPCS: 0241U; 36415; 51702; 71046; 80048; 80053; 80069; 81003; 82010; 82803; 82947; 83735; 83880; 83930; 84100; 84443; 84484; 85014; 85018; 85025; 85610; 85730; 93005; 93010; 93306; 94660; 96374; 96375; 97110; 97162; 97165; 97530; 99285-25; A9270; C1751; J0780; J1644; J1650; J1790; J1815; J2405; J2765; J7030; J7042; J7120

== ENCOUNTER 2022-12-06 20:38 | Inpatient (IN) | payer MEDICARE ==
[~2022-12-06] VITALS: Ht 180.3 cm; Wt 107.0 kg
[2022-12-06 21:06] LABS: BASOPHILS ABSOLUTE AUTO 0.06 K/mm3 (0.00-0.23); BASOPHILS PERCENT AUTO 1 % (0-2); EOSINOPHILS ABSOLUTE AUTO 0.15 K/mm3 (0.00-0.68); EOSINOPHILS PERCENT AUTO 2 % (0-6); Hematocrit 36.4 % (33.0-51.0); Hemoglobin 11.4 g/dL (11.5-16.0); IMMATURE GRAN ABSOLUTE AUTO 0.04 K/mm3 (0.00-0.10); IMMATURE GRAN PERCENT AUTO 0 % (0-1); LYMPHOCYTES ABSOLUTE AUTO 2.04 K/mm3 (0.84-5.20); LYMPHOCYTES PERCENT AUTO 22 % (21-46); MONOCYTES ABSOLUTE AUTO 0.42 K/mm3 (0.16-1.47); MONOCYTES PERCENT AUTO 5 % (4-13); Mean Corpuscular HGB 28.1 pg (26.0-34.0); Mean Corpuscular HGB Conc 31.3 g/dL (31.5-36.5); Mean Corpuscular Volume 90 fL (80-100); NEUTROPHILS PERCENT AUTO 71 % (41-73); Platelet Count 258 K/mm3 (150-400); RDW Coefficient Variation 15.1 % (11.7-14.2); RDW Standard Deviation 48.8 fL (35.1-46.3); Red Blood Cell Count 4.06 M/mm3 (3.80-5.20); White Blood Cell Count 9.31 K/mm3 (4.00-11.30)
[2022-12-06 21:22] LABS: Albumin, Blood 3.1 g/dL (3.4-5.0); Albumin/Globulin Ratio 0.7 (0.8-1.8); Bilirubin, Total 0.6 mg/dL (0.1-1.0); Bun/Creatinine Ratio 37.7 (12.0-20.0); Calcium, Blood 9.5 mg/dL (8.5-10.1); Creatinine, Blood 1.3 mg/dL (0.40-1.00); Globulin, Blood 4.4 g/dL (2.2-4.0); Potassium, Blood 5.2 mmol/L (3.5-5.5); Total Protein, Blood 7.5 g/dL (6.4-8.2)
[2022-12-06 22:15] LABS: Magnesium, Blood 2.5 mg/dL (1.6-2.4)
[2022-12-06 23:15] LABS: Beta-hydroxybutyrate 89.7 mg/dL (0.2-2.8)
[2022-12-07 00:44] LABS: Base Excess Venous -14.5 mmol/L; Bicarbonate Venous 13.9 mmol/L (24.0-30.0); PCO2 Venous 39.4 mmHg (38-42); pH Blood Venous 7.16 (7.34-7.37)
[2022-12-07 01:05] LABS: Glucose, Blood 976 mg/dL (70-99)
[2022-12-07 01:36] LABS: Influenza A, PCR NEGATIVE (NEGATIVE); Influenza B, PCR NEGATIVE (NEGATIVE); Resp Syncytial Virus, PCR NEGATIVE (NEGATIVE); SARS-Cov-2 (COVID-19) PCR, MMC NEGATIVE (NEGATIVE)
--- NOTE | 2022-12-07 02:00 | NUR ---
ADMIT NOTE PT ARRIVED TO ICU 14 VIA STRETCHER FROM ED. SHE IS ALERT AND ORIENTED X3 W/GENERALIZED WEAKNESS. SHE HAS LEVOPHED, NS W/KCL, AND INSULIN GTT INFUSING UPON ARRIVAL. MAP IS STILL LESS THAN 65, WILL TITRATE LEVOPHED TO EFFECT. PT IS ON ROOM AIR AT THIS TIME W/OXYGEN SAT >90%. NO N/V AT THIS TIME. DUE TO MEDICATIONS INFUSING AND POOR VENOUS ACCESS I WILL NOTIFY DR YARBROUGH FOR CVL CONSIDERATION. PT DENIES ACUTE PAIN AT THIS TIME, JUST GENERAL SORENESS. SHE IS AFEBRILE AND IN NO ACUTE CARDIAC OR RESP DISTRESS. SHE CAN REPOSITION HERSELF IN BED. LABS WERE DRAWN AND SENT.
[2022-12-07 02:36] LABS: Bun/Creatinine Ratio 32.5 (12.0-20.0); Calcium, Blood 8.3 mg/dL (8.5-10.1); Creatinine, Blood 1.69 mg/dL (0.40-1.00); Potassium, Blood 4.9 mmol/L (3.5-5.5)
[2022-12-07 03:47] LABS: Glucose, Blood 709 mg/dL (70-99)
[2022-12-07 05:55] LABS: Base Excess Venous -3.7 mmol/L; Bicarbonate Venous 21.2 mmol/L (24.0-30.0); PCO2 Venous 49.9 mmHg (38-42)
[2022-12-07 05:56] LABS: pH Blood Venous 7.27 (7.34-7.37)
[2022-12-07 06:13] LABS: Glucose, Blood 653 mg/dL (70-99)
--- NOTE | 2022-12-07 06:30 | NUR ---
CRITICAL VBG PH CALLED TO DR YARBROUGH. PT IS ALERT AND ORIENTED AND VALUE HAS IMPROVED, INSTRUCTIONS FROM MD TO MONITOR FOR CHANGE IN MENTAL STATUS AND TO NOTIFY ATTENDING PHYSICIAN OF ANY DECLINE. WILL PASS ONTO ONCOMING RN.
--- NOTE | 2022-12-07 06:36 | NUR ---
SHIFT SUMMERY PT IS ALERT AND ORIENTED X3. SHE IS SR ON THE CAE ENGINEER. RIJ CVL WAS PLACED EARLIER IN THE SHIFT BY DR YARBROUGH AND TO THAT LEVOPHED, NS, AND INSULIN GTTS ARE INFUSING. PT IS VOIDING IN THE BEDPAN AND WAS GIVEN TYLENOL FOR COMPLAINTS OF VAGINAL HERPATIC PAIN. SHE IS ON 2LNC WHILE SLEEPING AND WEARS THAT AT HOME AT NIGHT WELL WITH HER CPAP. SHE HAS HAD NO COMPLAINTS OF N/V SINCE COMING TO ICU. SHE HAS TOLERATED ICE WATER WITHOUT ISSUE. LAST BLOOD GLUCOSE WAS 502 VIA ISTAT AT 0638. PT HAS BEEN IN NO ACUTE DISTRESS THIS SHIFT.
[2022-12-07 06:45] LABS: Glucose (ISTAT POC) 502 mg/dL (70-99)
[2022-12-07 07:28] LABS: Bun/Creatinine Ratio 35.3 (12.0-20.0); Calcium, Blood 8.5 mg/dL (8.5-10.1); Creatinine, Blood 1.53 mg/dL (0.40-1.00); Potassium, Blood 4.2 mmol/L (3.5-5.5)
[2022-12-07 11:42] LABS: Bun/Creatinine Ratio 35.6 (12.0-20.0); Calcium, Blood 7.9 mg/dL (8.5-10.1); Creatinine, Blood 1.46 mg/dL (0.40-1.00); Potassium, Blood 3.8 mmol/L (3.5-5.5)
--- NOTE | 2022-12-07 16:59 | NUR ---
Pt. is awake and welcomes my visit. Pt. is unsettled about the prospects of D/C to a SNF. Listen with empathy and a calming presence. Pt. displayed evidence of angagement and awareness. Facilitated a short life review. Though Pt. denies any current popeye commitments, she welcomes prayer. Prayed with Pt. Pt. verbalized gratitude for the spiritual care visit and welcomed this floor representative to return.
--- NOTE | 2022-12-07 17:43 | NUR ---
SUMMARY PT A/O X4. DENIES PAIN. DOES HAVE SOME DISCOMFORT IN VAGINAL AREA. PT STATES SHE HAS A HERPES OUTBREAK AND HAS BEEN OFF ANTIVIRALS. PROVIDED BARRIER CREAM WHICH GAVE RELIEF FROM BURNING AND CALLED DR. SNYDER WHO ORDERED ANTIVIRAL. OFF INSULIN GTT TODAY ANION GAP AND CO2 CORRECTED. TOLERATING MEALS WITHOUT N/V. STILL ON LEVOPHED. ATTEMPTED TO TITRATE OFF BUT MAP DROPS BELOW 60. NO OTHER CHANGES THIS SHIFT, USES CALL LIGHT APPROPRIATELY.
[2022-12-08 05:37] LABS: BASOPHILS ABSOLUTE AUTO 0.05 K/mm3 (0.00-0.23); BASOPHILS PERCENT AUTO 1 % (0-2); EOSINOPHILS ABSOLUTE AUTO 0.68 K/mm3 (0.00-0.68); EOSINOPHILS PERCENT AUTO 6 % (0-6); Hematocrit 32.2 % (33.0-51.0); Hemoglobin 10.5 g/dL (11.5-16.0); IMMATURE GRAN ABSOLUTE AUTO 0.04 K/mm3 (0.00-0.10); IMMATURE GRAN PERCENT AUTO 0 % (0-1); LYMPHOCYTES ABSOLUTE AUTO 2.35 K/mm3 (0.84-5.20); LYMPHOCYTES PERCENT AUTO 21 % (21-46); MONOCYTES ABSOLUTE AUTO 0.69 K/mm3 (0.16-1.47); MONOCYTES PERCENT AUTO 6 % (4-13); Mean Corpuscular HGB 28.2 pg (26.0-34.0); Mean Corpuscular HGB Conc 32.6 g/dL (31.5-36.5); Mean Corpuscular Volume 87 fL (80-100); Mean Platelet Volume 10.3 fL (9.1-12.4); NEUTROPHILS ABSOLUTE AUTO 7.28 K/mm3 (1.96-9.15); NEUTROPHILS PERCENT AUTO 66 % (41-73); Platelet Count 243 K/mm3 (150-400); RDW Coefficient Variation 15.3 % (11.7-14.2); RDW Standard Deviation 48.2 fL (35.1-46.3); Red Blood Cell Count 3.72 M/mm3 (3.80-5.20); White Blood Cell Count 11.09 K/mm3 (4.00-11.30)
--- NOTE | 2022-12-08 06:05 | NUR ---
SHIFT SUMMERY PT IS ALERT AND ORIENTED X4, AFEBRILE. SR ON THE WIRE LATHER. LEVOPHED WAS WEANED OFF OVERNIGHT, PT IS MAINTAINING BP WELL W/OUT SUPPORT. SHE HAS HAD NO COMPLAINTS OTHER THAN DISCOMFORT FOR HERPATIC VAGINAL OUTBREAK THAT SHE WAS STARTED ON ANTI-VIRALS FOR YESTERDAY. SHE VOIDS IN THE BEDPAN, NO BM LAST NIGHT. SHE IS SALINE LOCKED. SHE WEARS 2L NC WHILE SLEEPING. NO ACUTE CHANGES OR EVENTS OVERNIGHT.
[2022-12-08 06:36] LABS: Albumin, Blood 2.5 g/dL (3.4-5.0); Anion Gap 4 mmol/L (6-16); Blood Urea Nitrogen 45 mg/dL (8-24); Bun/Creatinine Ratio 34.6 (12.0-20.0); CO2, Blood 29 mmol/L (21-32); Chloride, Blood 100 mmol/L (98-108); Glomerular Filtration Rate 44 (60-); Glucose, Blood 270 mg/dL (70-99); Magnesium, Blood 2.4 mg/dL (1.6-2.4); Phosphorus, Blood 2.4 mg/dL (2.5-4.9); Potassium, Blood 3.8 mmol/L (3.5-5.5); Sodium, Blood 133 mmol/L (136-145)
--- NOTE | 2022-12-08 11:22 | NUR ---
EVERT SAYS THAT SHE MAY HAVE TRANSPORTATION FOR TOMORROW TO GET TO PHARMACY. OUR KNOT TIER JUST PROVIDED A EVELINA AND TEST STRIPS. SHE BELIEVES SHE HAS ENOUGH INSULIN TO GET THROUGH THE MONTH. ATTEMPTS TO GET PATIENT IN TO DR. WILDE AT [facility]. EVERT IS UP IN THE CHAIR, DOING WELL AND WITHOUT COMPLAINT. SHE IS ABLE TO COMMUNICATE HER NEEDS AND IS TRYING TO MAKE PLANS FOR DISCHARGE.
--- NOTE | 2022-12-08 13:06 | NUR ---
EVERT IS GETTING DRESSED, ASSISTED BY THE PCT. SHE IS EXCITED TO BE GOING HOME. SHE HAS BEEN GIVEN DISCHARGE INSTRUCTIONS AND AN APPT FOR FOLLOW UP ON DECEMBER 22 @ 1030 WITH AT [facility]. SHE IS AWARE OF THIS TIME AND IT IS PRINTED IN HER INSTRUCTIONS. A CAB HAS BEEN ORDERED FOR PICKUP AT 2PM WITH A RIDE TO HER FACILITY, [facility].
--- NOTE | 2022-12-08 14:06 | NUR ---
EVERT WHEELED TO THE FRONT OF THE HOSPITAL IN THE WHEELCHAIR WITH THE CPT. SHE TRANSFERS WELL TO THE CAB AND IS TAKEN TO HER HOME DIRECTED TO THE CAB BY THIS RN. DISCHARGED 1400
== END 2022-12-08 14:00 | disposition home or self-care (01) | DRG 637 ==
LOC: ER 20:38 → ICUW 12-07 01:25
PROVIDERS: Emergency Medicine; Internal Medicine; Student in an Organized Health Care Education/Training Program; ADMIT Internal Medicine
PROC: 3E033XZ Introduction of Vasopressor into Peripheral Vein, Percutaneous Approach (ICD-10-PCS; principal; 2022-12-07)
PROC: 4A133R1 Monitoring of Arterial Saturation, Peripheral, Percutaneous Approach (ICD-10-PCS; 2022-12-07)
PROC: 5A09357 Assistance with Respiratory Ventilation, Less than 24 Consecutive Hours, Continuous Positive Airway Pressure (ICD-10-PCS; 2022-12-07)
DX: E11.10 Type 2 diabetes mellitus with ketoacidosis without coma (principal); R57.1 Hypovolemic shock; I13.0 Hypertensive heart and chronic kidney disease with heart failure and stage 1 through stage 4 chronic kidney disease, or unspecified chronic kidney disease; I50.32 Chronic diastolic (congestive) heart failure; E87.1 Hypo-osmolality and hyponatremia; E78.5 Hyperlipidemia, unspecified; E03.9 Hypothyroidism, unspecified; A60.09 Herpesviral infection of other urogenital tract; N18.30 Chronic kidney disease, stage 3 unspecified; D63.1 Anemia in chronic kidney disease; E11.22 Type 2 diabetes mellitus with diabetic chronic kidney disease; G47.33 Obstructive sleep apnea (adult) (pediatric); D72.829 Elevated white blood cell count, unspecified; E11.65 Type 2 diabetes mellitus with hyperglycemia; I25.10 Atherosclerotic heart disease of native coronary artery without angina pectoris; E11.43 Type 2 diabetes mellitus with diabetic autonomic (poly)neuropathy; K31.84 Gastroparesis; E86.9 Volume depletion, unspecified; E66.01 Morbid (severe) obesity due to excess calories; I27.20 Pulmonary hypertension, unspecified; Z20.822 Contact with and (suspected) exposure to COVID-19; Z95.2 Presence of prosthetic heart valve; Z99.81 Dependence on supplemental oxygen; Z95.5 Presence of coronary angioplasty implant and graft; Z90.49 Acquired absence of other specified parts of digestive tract; Z90.710 Acquired absence of both cervix and uterus; Z98.1 Arthrodesis status; Z88.0 Allergy status to penicillin; Z88.2 Allergy status to sulfonamides; Z88.5 Allergy status to narcotic agent; Z88.7 Allergy status to serum and vaccine; Z88.8 Allergy status to other drugs, medicaments and biological substances; Z91.041 Radiographic dye allergy status; Z91.040 Latex allergy status; Z88.1 Allergy status to other antibiotic agents; Z79.01 Long term (current) use of anticoagulants; Z79.82 Long term (current) use of aspirin; Z79.899 Other long term (current) drug therapy; Z79.51 Long term (current) use of inhaled steroids; Z79.4 Long term (current) use of insulin; Z68.32 Body mass index [BMI] 32.0-32.9, adult; Z91.14 Patient's other noncompliance with medication regimen
CPT/HCPCS: 0241U; 36415; 36556; 71045; 80048; 80053; 80069; 82010; 82803; 82947; 83735; 83930; 84484; 85025; 93005; 93010; 96361; 96365; 96368; 96375; 99285-25; A9270; C1751; J1650; J1815; J2405; J3480; J7030; J7060

== ENCOUNTER 2023-01-28 04:16 | Observation (INO) | payer MEDICARE ==
[~2023-01-28] VITALS: Ht 180.3 cm; Wt 109.8 kg
[2023-01-28 04:50] LABS: BASOPHILS ABSOLUTE AUTO 0.08 K/mm3 (0.00-0.23); BASOPHILS PERCENT AUTO 1 % (0-2); EOSINOPHILS PERCENT AUTO 5 % (0-6); Hematocrit 38.2 % (33.0-51.0); Hemoglobin 11.6 g/dL (11.5-16.0); IMMATURE GRAN ABSOLUTE AUTO 0.02 K/mm3 (0.00-0.10); IMMATURE GRAN PERCENT AUTO 0 % (0-1); LYMPHOCYTES ABSOLUTE AUTO 1.98 K/mm3 (0.84-5.20); LYMPHOCYTES PERCENT AUTO 27 % (21-46); MONOCYTES ABSOLUTE AUTO 0.72 K/mm3 (0.16-1.47); MONOCYTES PERCENT AUTO 10 % (4-13); Mean Corpuscular HGB 26.4 pg (26.0-34.0); Mean Corpuscular HGB Conc 30.4 g/dL (31.5-36.5); Mean Corpuscular Volume 87 fL (80-100); Mean Platelet Volume 10.1 fL (9.1-12.4); NEUTROPHILS ABSOLUTE AUTO 4.27 K/mm3 (1.96-9.15); NEUTROPHILS PERCENT AUTO 57 % (41-73); Platelet Count 278 K/mm3 (150-400); RDW Coefficient Variation 14.5 % (11.7-14.2); RDW Standard Deviation 46.5 fL (35.1-46.3); Red Blood Cell Count 4.39 M/mm3 (3.80-5.20); White Blood Cell Count 7.47 K/mm3 (4.00-11.30)
[2023-01-28 05:12] LABS: Albumin, Blood 3.4 g/dL (3.4-5.0); Albumin/Globulin Ratio 0.9 (0.8-1.8); Bilirubin, Total 0.2 mg/dL (0.1-1.0); Bun/Creatinine Ratio 34.3 (12.0-20.0); Calcium, Blood 8.6 mg/dL (8.5-10.1); Creatinine, Blood 1.08 mg/dL (0.40-1.00); Globulin, Blood 3.6 g/dL (2.2-4.0); Potassium, Blood 3.8 mmol/L (3.5-5.5)
[2023-01-28] MEDS ORDERED: ACYCLOVIR400 MG PO (05:49)
[2023-01-28] MEDS ORDERED: FURO80 PO (05:49)
[2023-01-28] MEDS ORDERED: CARVEDILOL25 M9 PO (05:50)
[2023-01-28 08:17] VITALS: BP 157/55
[2023-01-28 11:03] LABS: Source, Urine Clean Catch
[2023-01-28 11:10] LABS: Appearance, Urine Clear (Clear); Bilirubin, Urine Neg (Neg); Blood, Urine Neg (Neg); Color, Urine Yellow (P-Yellow); Glucose Qualitative, Urine 4+ (Neg); Ketones, Urine Neg (Neg); Leukocyte Esterase, Urine Neg (Neg); Nitrite, Urine Neg (Neg); Protein, Urine Neg (Neg); Specific Gravity, Urine 1.015 (1.003-1.022); Urobilinogen, Urine NORM (Normal)
--- NOTE | 2023-01-28 12:20 | NUR ---
NOTIFIED DR. UPTON OF PT'S BG SINCE ADMITTING TO THE FLOOR. MD SAID SHE WOULD PLACE INSULIN ORDERS SOON.
--- NOTE | 2023-01-28 15:28 | NUR ---
RN NOTIFIED DR. UPTON OF BG = [phone]. SAID SHE WILL PLACE 10 UNITS OF LANTUS A X1 ORDER NOW.
[2023-01-28 16:06] VITALS: BP 123/63
[2023-01-28 16:20] VITALS: BP 130/53
--- NOTE | 2023-01-28 18:33 | NUR ---
SUMMARY- PT'S BLOOD GLUCOSE HAS BEEN IN THE 300-400'S ALL SHIFT. DR. UPTON NOTIFIED AND AWARE. PT HAS BEEN ASYMPTOMATIC. PT TOOK HALF OF COREG ORDERED TONIGHT. PT TAKES 6.25MG BID AND 25MG BID WAS ORDERED AT THE HOSPITAL. DR. UPTON CALLED, BUT NO CALL BACK. PT CALLS APPROPRIATELY. PEYTON Mcgregor/PINA.
[2023-01-28 19:53] VITALS: BP 115/55
--- NOTE | 2023-01-28 21:00 | NUR ---
NOTIFIED DR. VALLES OF PTS BS BEING 455. PER DR. VALLES GIVE PT A ONE TIME DOSE OF 10 UNITS HUMULIN R RATHER THAN HER 5 UNITS BASED OFF HER MEDIUN SLIDING SCALE.
[2023-01-29 03:40] VITALS: BP 119/47
--- NOTE | 2023-01-29 04:55 | NUR ---
SHIFT SUMMARY; NO ACUTE CHANGES OVERNIGHT. THE PT IS AXO X4 AND INDEPENDENT IN THE ROOM. AN ORDER WAS OBTAINED TO HAVE RT SET UP A CPAP FOR THE PT. THE PT USES A CPAP AT HOME WITH 2L BLEED IN, SO THAT IS WHAT WE DID HERE. THE PTS O2 SATS HAVE BEEN >95% WHILE ON THE CPAP WITH 2L BLEED IN. THE PT HAS BEEN SLEEPING IN HER BED FOR THE MAJORITY OF THE NIGHT. THE PT DENIES ANY SOB, CHEST PAIN/PRESSURE, PAIN, OR N/V. CURRENTLY THE PT IS SLEEPING IN BED WITH THE BED IN THE LOWEST POSITION AND THE CALL LIGHT AT BEDSIDE.
[2023-01-29 05:55] LABS: BASOPHILS ABSOLUTE AUTO 0.05 K/mm3 (0.00-0.23); BASOPHILS PERCENT AUTO 1 % (0-2); EOSINOPHILS PERCENT AUTO 6 % (0-6); Hematocrit 34.6 % (33.0-51.0); Hemoglobin 10.7 g/dL (11.5-16.0); IMMATURE GRAN ABSOLUTE AUTO 0.01 K/mm3 (0.00-0.10); IMMATURE GRAN PERCENT AUTO 0 % (0-1); LYMPHOCYTES ABSOLUTE AUTO 2.03 K/mm3 (0.84-5.20); LYMPHOCYTES PERCENT AUTO 37 % (21-46); MONOCYTES ABSOLUTE AUTO 0.56 K/mm3 (0.16-1.47); MONOCYTES PERCENT AUTO 10 % (4-13); Mean Corpuscular HGB 26.6 pg (26.0-34.0); Mean Corpuscular HGB Conc 30.9 g/dL (31.5-36.5); Mean Corpuscular Volume 86 fL (80-100); Mean Platelet Volume 10.7 fL (9.1-12.4); NEUTROPHILS ABSOLUTE AUTO 2.51 K/mm3 (1.96-9.15); NEUTROPHILS PERCENT AUTO 46 % (41-73); Platelet Count 254 K/mm3 (150-400); RDW Coefficient Variation 14.4 % (11.7-14.2); RDW Standard Deviation 45.3 fL (35.1-46.3); Red Blood Cell Count 4.03 M/mm3 (3.80-5.20); White Blood Cell Count 5.46 K/mm3 (4.00-11.30)
[2023-01-29 06:39] LABS: Albumin, Blood 3.1 g/dL (3.4-5.0); Bilirubin, Total 0.4 mg/dL (0.1-1.0); Bun/Creatinine Ratio 37.6 (12.0-20.0); Creatinine, Blood 1.01 mg/dL (0.40-1.00); Total Protein, Blood 6.1 g/dL (6.4-8.2)
[2023-01-29 07:09] VITALS: BP 158/74
[2023-01-29 14:59] VITALS: BP 123/55
--- NOTE | 2023-01-29 16:21 | NUR ---
SHIFT SUMMARY PATIENT IS ALERT AND ORIENTED. PATIENT HAS HAD NO ACUTE EVENTS THIS SHIFT. VITAL SIGNS REVIEWED. PATIENTS BLOOD SUGAR HAS BEEN ELEVATED MOST OF SHIFT. AWARE AND NEW ORDERS ADDED. PATIENT HAS NOT COMPLAINED OF PAIN, NAUSEA, SOB OR VOMITTING. PATIENT HAS BEEN IND IN ROOM ALL SHIFT. BED IN LOCKED AND LOWEST POSITION. CALL LIGHT IN PLACE. WILL MONITOR UNTIL SHIFT CHANGE.
[2023-01-29 20:14] VITALS: BP 128/50
--- NOTE | 2023-01-30 05:04 | NUR ---
A&Ox4. PLEASANT AND COOPERATIVE WITH CARE. CALLS APPROPRIATELY AND IS ABLE TO COMMUNICATE NEEDS EFFECTIVELY. AMBULATES TO BATHROOM, INDEPENDENTLY, WITH THE USE OF HER FRONT-WHEEL WALKER. CPAP w/ 2L/min BLEED-IN. ROUTINE LANTUS ADMINISTERED; COVERAGE WITH NOVOLOG NOT INDICATED. NO ACUTE CONCERNS T/O THE NIGHT. WILL REPORT TO ONCOMING RN.
[2023-01-30 05:49] LABS: Hematocrit 34.6 % (33.0-51.0); Hemoglobin 10.6 g/dL (11.5-16.0); Mean Corpuscular HGB 26.2 pg (26.0-34.0); Mean Corpuscular HGB Conc 30.6 g/dL (31.5-36.5); Mean Corpuscular Volume 86 fL (80-100); Mean Platelet Volume 10.7 fL (9.1-12.4); Platelet Count 252 K/mm3 (150-400); RDW Coefficient Variation 14.3 % (11.7-14.2); RDW Standard Deviation 44.7 fL (35.1-46.3); Red Blood Cell Count 4.04 M/mm3 (3.80-5.20); White Blood Cell Count 5.78 K/mm3 (4.00-11.30)
[2023-01-30 06:18] LABS: Albumin, Blood 3.1 g/dL (3.4-5.0); Bilirubin, Total 0.4 mg/dL (0.1-1.0); Bun/Creatinine Ratio 39.9 (12.0-20.0); Calcium, Blood 9.1 mg/dL (8.5-10.1); Creatinine, Blood 0.93 mg/dL (0.40-1.00); Globulin, Blood 3.2 g/dL (2.2-4.0); Potassium, Blood 4.3 mmol/L (3.5-5.5); Total Protein, Blood 6.3 g/dL (6.4-8.2)
[2023-01-30 06:25] VITALS: BP 175/62
[2023-01-30 07:22] VITALS: BP 155/68
[2023-01-30 15:45] VITALS: BP 145/67
--- NOTE | 2023-01-30 16:05 | NUR ---
SHIFT SUMMARY PATIENT IS ALERT AND ORIENTED. PATIENT HAS HAD NO ACUTE EVENTS THIS SHIFT. VITAL SIGNS REVIEWED. PATIENT HAS NOT COMPLAINED OF PAIN, NAUSEA, SOB OR VOMITTING. PATIENT HAS HAD RELATIVELY STABLE BLOOD SUGAR. INSULIN DOSAGE WAS INCREASED WITH MILD RESULT. BED IN LOCKED AND LOWEST POSITION.
[2023-01-30 20:02] VITALS: BP 122/46
--- NOTE | 2023-01-31 04:03 | NUR ---
SHIFT SUMMARY; NO ACUTE CHANGES OVERNIGHT. THE PT IS AXO X4 AND INDEPENDENT IN THE ROOM. THE PT IS ON RA DURING THE DAY AND USES A CPAP W/ 2L BLEED IN AT NIGHT. CPAP IS PRESENTLY IN PLACE WITH O2 SATS >92%. THE PT DENIES ANY PAIN, SOB, CHEST PAIN/PRESSURE OR N/V THIS SHIFT. THE PT IS EAGER TO HOPEFULLY D/C THIS AM. CURRENTLY THE PT IS RESTING IN BED WITH THE BED IN THE LOWEST POISTION AND THE CALL LIGHT AT BEDSIDE.
[2023-01-31 04:25] VITALS: BP 154/60
[2023-01-31 07:36] VITALS: BP 148/58
--- NOTE | 2023-01-31 11:49 | NUR ---
DISCHARGE SUMMARY PATIENT IS ALERT AND ORIENTED. PATIENT HAS HAD NO ACUTE EVENTS THIS SHIFT. VITAL SIGNS REVIEWED. PATIENTS CBG HAS NOT NEEDED SHORT ACTING INSULIN COVERAGE. PATIENT IS BEING DISCHARGED BACK TO HER HOME WITH THE [employer] TRANSPORTATION TAKING HER BACK. DISCHARGE INFORMATION AND DISCHARGE MEDICATIONS WERE READ AND FAXED TO PHARMACY OF PATIENTS CHOOSING.
== END 2023-01-31 15:55 | disposition home or self-care (01) ==
LOC: ER 04:16 → MEDS 04:17 → ENPENDDIS 01-31 09:40 → MEDS 01-31 15:55
PROVIDERS: Internal Medicine; Student in an Organized Health Care Education/Training Program; ADMIT Internal Medicine
DX: E11.649 Type 2 diabetes mellitus with hypoglycemia without coma (principal); I13.0 Hypertensive heart and chronic kidney disease with heart failure and stage 1 through stage 4 chronic kidney disease, or unspecified chronic kidney disease; E11.22 Type 2 diabetes mellitus with diabetic chronic kidney disease; N18.30 Chronic kidney disease, stage 3 unspecified; I50.30 Unspecified diastolic (congestive) heart failure; E03.9 Hypothyroidism, unspecified; E78.5 Hyperlipidemia, unspecified; I25.10 Atherosclerotic heart disease of native coronary artery without angina pectoris; G47.33 Obstructive sleep apnea (adult) (pediatric); E66.9 Obesity, unspecified; Z88.5 Allergy status to narcotic agent; Z88.0 Allergy status to penicillin; Z88.2 Allergy status to sulfonamides; Z88.1 Allergy status to other antibiotic agents; Z88.7 Allergy status to serum and vaccine; Z79.84 Long term (current) use of oral hypoglycemic drugs; Z79.890 Hormone replacement therapy; Z79.899 Other long term (current) drug therapy
CPT/HCPCS: 36415; 80053; 81003; 82947; 83880; 85025; 85027; 94660; 94762; 96361; 96372; 96374; 99285-25; A9270; G0378; J1610; J1650; J1815

== ENCOUNTER 2023-04-25 11:33 | Emergency (ER) | payer MEDICARE ==
[~2023-04-25] VITALS: Ht 180.3 cm; Wt 111.1 kg
[~2023-04-25 11:33] MED LIST changes: +ACYCLOVIR400 MG PO; +CARVEDILOL25 M9 PO
[2023-04-25 12:52] LABS: Albumin, Blood 3.9 g/dL (3.4-5.0); Bilirubin, Total 0.3 mg/dL (0.1-1.0); Bun/Creatinine Ratio 35.8 (12.0-20.0); Calcium, Blood 10.1 mg/dL (8.5-10.1); Creatinine, Blood 1.2 mg/dL (0.40-1.00); Potassium, Blood 4.8 mmol/L (3.5-5.5); Total Protein, Blood 7.9 g/dL (6.4-8.2)
[2023-04-25 13:00] LABS: BASOPHILS ABSOLUTE AUTO 0.07 K/mm3 (0.00-0.23); BASOPHILS PERCENT AUTO 1 % (0-2); EOSINOPHILS ABSOLUTE AUTO 0.34 K/mm3 (0.00-0.68); EOSINOPHILS PERCENT AUTO 5 % (0-6); Hematocrit 42.3 % (33.0-51.0); Hemoglobin 12.9 g/dL (11.5-16.0); IMMATURE GRAN ABSOLUTE AUTO 0.01 K/mm3 (0.00-0.10); IMMATURE GRAN PERCENT AUTO 0 % (0-1); LYMPHOCYTES ABSOLUTE AUTO 1.59 K/mm3 (0.84-5.20); LYMPHOCYTES PERCENT AUTO 24 % (21-46); MONOCYTES PERCENT AUTO 11 % (4-13); Mean Corpuscular HGB 26.2 pg (26.0-34.0); Mean Corpuscular HGB Conc 30.5 g/dL (31.5-36.5); Mean Corpuscular Volume 86 fL (80-100); NEUTROPHILS ABSOLUTE AUTO 3.84 K/mm3 (1.96-9.15); NEUTROPHILS PERCENT AUTO 59 % (41-73); NRBC ABSOLUTE 0.04 K/mm3 (0.00-0.02); NRBC Auto 0.6 /100 WBC (0.0-0.2); Platelet Count 223 K/mm3 (150-400); RDW Coefficient Variation 18.3 % (11.7-14.2); RDW Standard Deviation 57.3 fL (35.1-46.3); Red Blood Cell Count 4.93 M/mm3 (3.80-5.20); White Blood Cell Count 6.55 K/mm3 (4.00-11.30)
[2023-04-25 14:30] VITALS: BP 155/76
== END 2023-04-25 14:48 | disposition home or self-care (01) ==
LOC: ER 11:33
PROVIDERS: Family Medicine
DX: E10.649 Type 1 diabetes mellitus with hypoglycemia without coma (principal); R06.02 Shortness of breath; R60.0 Localized edema; I11.0 Hypertensive heart disease with heart failure; I50.9 Heart failure, unspecified; J45.909 Unspecified asthma, uncomplicated; Z88.0 Allergy status to penicillin; Z88.2 Allergy status to sulfonamides; Z88.8 Allergy status to other drugs, medicaments and biological substances; Z88.5 Allergy status to narcotic agent; Z88.7 Allergy status to serum and vaccine; Z91.040 Latex allergy status; Z88.1 Allergy status to other antibiotic agents; Z79.4 Long term (current) use of insulin; Z79.899 Other long term (current) drug therapy; Z87.891 Personal history of nicotine dependence
CPT/HCPCS: 80053; 82947; 85025; 99285; A9270

== ENCOUNTER 2023-07-25 16:52 | Emergency (ER) | payer MEDICARE ==
[~2023-07-25] VITALS: Ht 180.3 cm; Wt 115.7 kg
[2023-07-25 20:45] VITALS: BP 187/85
== END 2023-07-25 20:48 | disposition home or self-care (01) ==
LOC: ER 16:52
DX: T38.3X1A Poisoning by insulin and oral hypoglycemic [antidiabetic] drugs, accidental (unintentional), initial encounter (principal); E10.649 Type 1 diabetes mellitus with hypoglycemia without coma; I13.0 Hypertensive heart and chronic kidney disease with heart failure and stage 1 through stage 4 chronic kidney disease, or unspecified chronic kidney disease; E10.22 Type 1 diabetes mellitus with diabetic chronic kidney disease; N18.30 Chronic kidney disease, stage 3 unspecified; I50.32 Chronic diastolic (congestive) heart failure; I25.10 Atherosclerotic heart disease of native coronary artery without angina pectoris; G47.33 Obstructive sleep apnea (adult) (pediatric); E03.9 Hypothyroidism, unspecified; Z88.0 Allergy status to penicillin; Z88.2 Allergy status to sulfonamides; Z88.8 Allergy status to other drugs, medicaments and biological substances; Z88.5 Allergy status to narcotic agent; Z88.7 Allergy status to serum and vaccine; Z88.1 Allergy status to other antibiotic agents; Z91.040 Latex allergy status; Z79.4 Long term (current) use of insulin; Z79.899 Other long term (current) drug therapy
CPT/HCPCS: 82947; 99285; A9270

== ENCOUNTER 2023-08-25 20:18 | Inpatient (IN) | payer MEDICARE ==
[~2023-08-25] VITALS: Ht 170.2 cm; Wt 122.7 kg
[~2023-08-25 20:18] MED LIST changes: -CARVEDILOL25 M9 PO; +CARVEDILOL25 M9 PT
[2023-08-25 20:54] LABS: BASOPHILS ABSOLUTE AUTO 0.05 K/mm3 (0.00-0.23); BASOPHILS PERCENT AUTO 0 % (0-2); EOSINOPHILS ABSOLUTE AUTO 0.01 K/mm3 (0.00-0.68); EOSINOPHILS PERCENT AUTO 0 % (0-6); Hematocrit 32.5 % (33.0-51.0); Hemoglobin 9.6 g/dL (11.5-16.0); IMMATURE GRAN ABSOLUTE AUTO 0.19 K/mm3 (0.00-0.10); IMMATURE GRAN PERCENT AUTO 1 % (0-1); LYMPHOCYTES ABSOLUTE AUTO 1.73 K/mm3 (0.84-5.20); LYMPHOCYTES PERCENT AUTO 10 % (21-46); MONOCYTES ABSOLUTE AUTO 1.16 K/mm3 (0.16-1.47); MONOCYTES PERCENT AUTO 7 % (4-13); Mean Corpuscular HGB 28.5 pg (26.0-34.0); Mean Corpuscular HGB Conc 29.5 g/dL (31.5-36.5); Mean Corpuscular Volume 96 fL (80-100); Mean Platelet Volume 11.6 fL (9.1-12.4); NEUTROPHILS PERCENT AUTO 81 % (41-73); Platelet Count 275 K/mm3 (150-400); RDW Coefficient Variation 13.7 % (11.7-14.2); RDW Standard Deviation 48.2 fL (35.1-46.3); Red Blood Cell Count 3.37 M/mm3 (3.80-5.20); White Blood Cell Count 16.74 K/mm3 (4.00-11.30)
[2023-08-25 20:54] LABS: Source, Urine Voided
[2023-08-25 20:56] LABS: Base Excess Venous -18.5 mmol/L; Bicarbonate Venous 11.5 mmol/L (24.0-30.0)
[2023-08-25 20:59] LABS: pH Blood Venous 7.15 (7.34-7.37)
[2023-08-25 21:05] LABS: Bilirubin, Urine Neg (Neg); Blood, Urine Neg (Neg); Glucose Qualitative, Urine 4+ (Neg); Ketones, Urine 2+ (Neg); Leukocyte Esterase, Urine Neg (Neg); Nitrite, Urine Neg (Neg); Protein, Urine Neg (Neg); Specific Gravity, Urine 1.015 (1.003-1.022); Urobilinogen, Urine NORM (Normal)
[2023-08-25 21:33] LABS: U Amphetamine Screen Not Detected; U Barbituate Screen Not Detected; U Benzodiazapine Screen Not Detected; U Cocaine Screen Not Detected; U Methadone Screen Not Detected; U Methamphetamine Screen Not Detected; U Opiates Screen Not Detected
[2023-08-25 21:34] LABS: Influenza A, PCR NEGATIVE (NEGATIVE); Influenza B, PCR NEGATIVE (NEGATIVE); Resp Syncytial Virus, PCR NEGATIVE (NEGATIVE); SARS-Cov-2 (COVID-19) PCR, MMC NEGATIVE (NEGATIVE); U Buprenorphine Screen Not Detected; U Cannabinoids Screen Not Detected; U Oxycodone Screen Not Detected; U Phencyclidine Screen Not Detected
[2023-08-25 21:40] LABS: Appearance, Urine Clear (Clear); Color, Urine Yellow (P-Yellow)
[2023-08-25 21:49] LABS: International Normalized Ratio 1.05
[2023-08-25 21:56] LABS: Magnesium, Blood 2.9 mg/dL (1.6-2.4)
[2023-08-25 22:26] LABS: Alanine Aminotransfer (ALT/SGP 25 U/L (12-78); Albumin, Blood 3.2 g/dL (3.4-5.0); Albumin/Globulin Ratio 0.9 (0.8-1.8); Alk Phos 90 U/L (50-136); Anion Gap 35 mmol/L (6-16); Aspartate Aminotrans (AST/SGOT 30 U/L (12-37); Bilirubin, Total 0.4 mg/dL (0.1-1.0); Blood Urea Nitrogen 81 mg/dL (8-24); Bun/Creatinine Ratio 31.6 (12.0-20.0); CO2, Blood 12 mmol/L (21-32); Calcium, Blood 8.8 mg/dL (8.5-10.1); Chloride, Blood 75 mmol/L (98-108); Creatinine, Blood 2.56 mg/dL (0.40-1.00); Globulin, Blood 3.4 g/dL (2.2-4.0); Glomerular Filtration Rate 19 (60-); Glucose, Blood 1258 mg/dL (70-99); Potassium, Blood 7.6 mmol/L (3.5-5.5); Sodium, Blood 122 mmol/L (136-145); Total Protein, Blood 6.6 g/dL (6.4-8.2)
[2023-08-25 22:30] LABS: PCO2 Arterial 38.4 mmHg (35-45); PO2 Arterial 240 mmHg (80-100)
[2023-08-25 22:31] LABS: pH Blood Arterial 7.11 (7.35-7.45)
[2023-08-25 22:34] LABS: Beta-hydroxybutyrate >138.0 mg/dL (0.2-2.8)
[2023-08-25 23:01] LABS: BASOPHILS ABSOLUTE AUTO 0.11 K/mm3 (0.00-0.23); BASOPHILS PERCENT AUTO 1 % (0-2); EOSINOPHILS ABSOLUTE AUTO 0.06 K/mm3 (0.00-0.68); EOSINOPHILS PERCENT AUTO 0 % (0-6); Hematocrit 37.1 % (33.0-51.0); Hemoglobin 11.1 g/dL (11.5-16.0); IMMATURE GRAN ABSOLUTE AUTO 0.77 K/mm3 (0.00-0.10); IMMATURE GRAN PERCENT AUTO 4 % (0-1); LYMPHOCYTES PERCENT AUTO 16 % (21-46); MONOCYTES ABSOLUTE AUTO 1.26 K/mm3 (0.16-1.47); MONOCYTES PERCENT AUTO 6 % (4-13); Mean Corpuscular HGB 28.1 pg (26.0-34.0); Mean Corpuscular HGB Conc 29.9 g/dL (31.5-36.5); Mean Corpuscular Volume 94 fL (80-100); Mean Platelet Volume 12.1 fL (9.1-12.4); NEUTROPHILS ABSOLUTE AUTO 16.31 K/mm3 (1.96-9.15); NEUTROPHILS PERCENT AUTO 74 % (41-73); NRBC ABSOLUTE 0.03 K/mm3 (0.00-0.02); NRBC Auto 0.1 /100 WBC (0.0-0.2); Platelet Count 225 K/mm3 (150-400); RDW Coefficient Variation 13.7 % (11.7-14.2); RDW Standard Deviation 47.4 fL (35.1-46.3); Red Blood Cell Count 3.95 M/mm3 (3.80-5.20); White Blood Cell Count 22.11 K/mm3 (4.00-11.30)
[2023-08-25 23:15] LABS: Calcium, Ionized (POC) 1.03 mmol/L (1.10-1.46); Chloride (POC) 111 mmol/L (98-108); Creatinine (POC) 1.2 mg/dL (0.6-1.0); Glucose (ISTAT POC) 609 mg/dL (70-99); Hemoglobin (POC) 6.8 g/dL (12.0-16.0); Potassium (POC) 3.5 mmol/L (3.5-5.5); Sodium (POC) 140 mmol/L (135-148); Total CO2 (POC) 11 mmol/L (21-32)
[2023-08-25 23:15] LABS: Calcium, Ionized (POC) >2.50 mmol/L (1.10-1.46); Chloride (POC) 107 mmol/L (98-108); Creatinine (POC) 2.5 mg/dL (0.6-1.0); Glucose (ISTAT POC) >700 mg/dL (70-99); Hemoglobin (POC) 11.2 g/dL (12.0-16.0); Potassium (POC) 6.8 mmol/L (3.5-5.5); Sodium (POC) 123 mmol/L (135-148); Total CO2 (POC) 19 mmol/L (21-32)
[2023-08-25 23:23] LABS: Alanine Aminotransfer (ALT/SGP 92 U/L (12-78); Albumin, Blood 3.2 g/dL (3.4-5.0); Albumin/Globulin Ratio 0.9 (0.8-1.8); Alk Phos 102 U/L (50-136); Anion Gap 19 mmol/L (6-16); Aspartate Aminotrans (AST/SGOT 182 U/L (12-37); Bilirubin, Total 0.5 mg/dL (0.1-1.0); Blood Urea Nitrogen 76 mg/dL (8-24); CO2, Blood 15 mmol/L (21-32); Chloride, Blood 93 mmol/L (98-108); Globulin, Blood 3.4 g/dL (2.2-4.0); Glomerular Filtration Rate 22 (60-); Glucose, Blood 1105 mg/dL (70-99); Potassium, Blood 7.1 mmol/L (3.5-5.5); Sodium, Blood 127 mmol/L (136-145); Total Protein, Blood 6.6 g/dL (6.4-8.2)
[2023-08-25 23:38] LABS: Calcium, Blood >30.0 mg/dL (8.5-10.1)
[2023-08-26] VITALS (95 sets, daily range): BP systolic 104–188; BP diastolic 35–94
[2023-08-26 01:23] LABS: Base Excess Venous -13.4 mmol/L; Bicarbonate Venous 14.2 mmol/L (24.0-30.0); PCO2 Venous 47.8 mmHg (38-42)
[2023-08-26 01:24] LABS: pH Blood Venous 7.13 (7.34-7.37)
[2023-08-26 02:10] LABS: Anion Gap 26 mmol/L (6-16); Blood Urea Nitrogen 72 mg/dL (8-24); Bun/Creatinine Ratio 31.7 (12.0-20.0); CO2, Blood 18 mmol/L (21-32); Chloride, Blood 86 mmol/L (98-108); Creatinine, Blood 2.27 mg/dL (0.40-1.00); Glomerular Filtration Rate 23 (60-); Glucose, Blood 1041 mg/dL (70-99); Phosphorus, Blood 8.7 mg/dL (2.5-4.9); Sodium, Blood 130 mmol/L (136-145)
[2023-08-26 02:11] LABS: Potassium, Blood 5.1 mmol/L (3.5-5.5)
[2023-08-26 02:12] LABS: Calcium, Blood 9.3 mg/dL (8.5-10.1)
[2023-08-26 03:06] LABS: Glucose, Blood 1005 mg/dL (70-99)
[2023-08-26 03:36] LABS: BASOPHILS ABSOLUTE AUTO 0.07 K/mm3 (0.00-0.23); BASOPHILS PERCENT AUTO 0 % (0-2); EOSINOPHILS ABSOLUTE AUTO 0.04 K/mm3 (0.00-0.68); EOSINOPHILS PERCENT AUTO 0 % (0-6); Hematocrit 35.5 % (33.0-51.0); Hemoglobin 11.4 g/dL (11.5-16.0); IMMATURE GRAN ABSOLUTE AUTO 0.37 K/mm3 (0.00-0.10); IMMATURE GRAN PERCENT AUTO 2 % (0-1); LYMPHOCYTES ABSOLUTE AUTO 2.14 K/mm3 (0.84-5.20); LYMPHOCYTES PERCENT AUTO 9 % (21-46); MONOCYTES PERCENT AUTO 8 % (4-13); Mean Corpuscular HGB 28.1 pg (26.0-34.0); Mean Corpuscular HGB Conc 32.1 g/dL (31.5-36.5); Mean Platelet Volume 11.4 fL (9.1-12.4); NEUTROPHILS ABSOLUTE AUTO 20.35 K/mm3 (1.96-9.15); NEUTROPHILS PERCENT AUTO 81 % (41-73); Platelet Count 266 K/mm3 (150-400); RDW Coefficient Variation 13.4 % (11.7-14.2); RDW Standard Deviation 42.6 fL (35.1-46.3); Red Blood Cell Count 4.06 M/mm3 (3.80-5.20); White Blood Cell Count 24.97 K/mm3 (4.00-11.30)
[2023-08-26 03:39] LABS: Mean Corpuscular Volume 87 fL (80-100)
[2023-08-26 03:50] LABS: Base Excess Venous -6.7 mmol/L; Bicarbonate Venous 18.8 mmol/L (24.0-30.0); PCO2 Venous 48.4 mmHg (38-42); pH Blood Venous 7.24 (7.34-7.37)
[2023-08-26 03:56] LABS: Magnesium, Blood 2.8 mg/dL (1.6-2.4)
[2023-08-26 04:02] LABS: Albumin/Globulin Ratio 0.9 (0.8-1.8); Bilirubin, Total 0.5 mg/dL (0.1-1.0); Bun/Creatinine Ratio 31.4 (12.0-20.0); Calcium, Blood 9.1 mg/dL (8.5-10.1); Creatinine, Blood 2.23 mg/dL (0.40-1.00); Globulin, Blood 3.3 g/dL (2.2-4.0); Phosphorus, Blood 6.6 mg/dL (2.5-4.9); Potassium, Blood 4.9 mmol/L (3.5-5.5); Total Protein, Blood 6.3 g/dL (6.4-8.2)
[2023-08-26 05:52] LABS: Glucose, Blood 939 mg/dL (70-99)
[2023-08-26 06:31] LABS: Glucose, Blood 864 mg/dL (70-99)
--- NOTE | 2023-08-26 06:46 | NUR ---
ER ADMIT TO ICU 6: PT ARRIVED TO THE UNIT AT 0001. PT ADMITTED POST CARDIAC ARREST AND INTUBATED IN THE ER. PT ARRIVED INTUBATED WITH SETTINGS AC/VC 18/400/10/50. PT ON MULTIPLE PRESSERS UPON ARRIVAL: LIBBY @ 30 MCG, DOPAMINE @ 2 MCG AND VASO @ 0.04 UNITS. PT HYPERGLYCEMIC WHEN ARRIVED TO THE ER AND STARTED ON INSULIN DRIP BEFORE ARRIVAL TO THE UNIT; WHEN PT ARRIVED TO UNIT PT ON INSULIN GTT @ 8 UNITS/HR. DR WAGONER AT BEDSIDE WHEN PT ARRIVED TO THE UNIT AND RIJ CENTRAL LINE PLACED; ALL DRIPS TRANSFERRED TO LINE AFTER VERIFICATION FROM CXR. PT INTIATED ON PROPOFOL DURING PROCEDURE FOR VENT COMPLIANCE AND CURRENTLY PROPOFOL GTT @ 30 MCG. PT RESPONSIVE TO PAIN STIMULI BUT WITHDRAWING FROM PAIN STIMULI BUT DOES NOT OPEN EYES OR FOLLOW COMMANDS AT THIS TIME. PT TOLERATING VENT BUT STARTED TO DESAT DOWN TO THE LOW 80'S AROUND 0300 AND RT IN ROOM TO SUCTION PT; MODERATE AMOUNTS OF BLOOD SUCTIONED OUT FROM ETT. AT THIS TIME PT TOLERATING VENT WELL AND OXYGENATION HAS SINCE IMPROVED. OGT UNSUCCEFFULLY PLACED X TWO ATTEMPTS; PT STILL NEEDING OGT PLACEMENT. PRITCHARD PLACED IN ER; PATENT AND DRAINING TO GRAVITY WITH LIGHT YELLOW URINE. SKIN OVERALL INTACT WITH EDEMA NOTED TO EXTREMITIES; SOME SKIN ISSUES OBSERVED, SEE CHART FOR PICTURES. PT'S LIFE PARTNER, [place], CALLED THE UNIT AND UPDATED BY DR WAGONER ON EVENTS THAT TOOK PLACE IN THE ER AND EVERYTHING SINCE ARRIVAL TO THE UNIT. PT'S LIFE PARTNER STATES THAT HE HAS A COLD AND DOES NOT PLAN ON COMING INTO THE HOSPITAL TODAY. PT HAS IO TO L. TIBIA THAT WAS REMOVED BY THIS RN AFTER RIJ CENTRAL LINE PLACEMENT AND CLEAR TEGADERM AND ESTRADA COVERING SITE. PT HAS A R. FEMORAL SINGLE LUMEN CENTRAL LINE IN PLACE THAT FLUSHES AND DRAWS EASILY THAT IS SALINE LOCKED. PIV X 3 TO LEFT AND RIGHT FOREARMS THAT ARE ALL SALINE LOCKED; ALL MEDICATIONS INFUSING THROUGH CENTRAL LINE AT THIS TIME. PT RECEIVED COMPLETE CHG BED BATH AND LINEN CHANGE THIS SHIFT. BEDSIDE REPORT GIVEN TO LEATHA ALEXIS AND SHAHANA ALEXIS.
--- NOTE | 2023-08-26 07:00 | NUR ---
ASSUMPTION OF CARE: PATIENT RESTING IN BED CALMLY. NO SIGNS OF PAIN AND TOLERATING THE VENT AT THIS TIME. VENT SETTINGS: AC/VC 18/400/10/80%. SPO2 98%. VASOPRESSON AND DOPAMINE ON STANDBY. LEVOPHED GTT AT 14 MCG/KG/MIN. INSULIN GTT AT 8 UNITS. PROPOFOL AT 30 MGC/MIN. MAPS IN THE LOW 70S. PRITCHARD IN PLACE AND DRAINING FREELY. LIGHT YELLOW URINE IN THE BAG.
[2023-08-26 08:04] LABS: Glucose, Blood 771 mg/dL (70-99)
[2023-08-26 08:06] LABS: Albumin, Blood 2.9 g/dL (3.4-5.0); Anion Gap 15 mmol/L (6-16); Blood Urea Nitrogen 67 mg/dL (8-24); Bun/Creatinine Ratio 32.8 (12.0-20.0); CO2, Blood 27 mmol/L (21-32); Calcium, Blood 8.9 mg/dL (8.5-10.1); Chloride, Blood 91 mmol/L (98-108); Creatinine, Blood 2.04 mg/dL (0.40-1.00); Glomerular Filtration Rate 26 (60-); Glucose, Blood 774 mg/dL (70-99); Phosphorus, Blood 4.9 mg/dL (2.5-4.9); Potassium, Blood 4.4 mmol/L (3.5-5.5); Sodium, Blood 133 mmol/L (136-145)
[2023-08-26 08:59] LABS: Glucose, Blood 763 mg/dL (70-99)
[2023-08-26 09:41] LABS: Glucose, Blood 669 mg/dL (70-99)
[2023-08-26 11:03] LABS: Glucose, Blood 642 mg/dL (70-99)
[2023-08-26 12:27] LABS: Glucose, Blood 562 mg/dL (70-99)
[2023-08-26 13:00] LABS: Glucose, Blood 493 mg/dL (70-99)
[2023-08-26 15:31] LABS: Albumin, Blood 2.8 g/dL (3.4-5.0); Anion Gap 9 mmol/L (6-16); Blood Urea Nitrogen 64 mg/dL (8-24); Bun/Creatinine Ratio 34.6 (12.0-20.0); CO2, Blood 32 mmol/L (21-32); Calcium, Blood 8.7 mg/dL (8.5-10.1); Chloride, Blood 97 mmol/L (98-108); Creatinine, Blood 1.85 mg/dL (0.40-1.00); Glomerular Filtration Rate 29 (60-); Glucose, Blood 428 mg/dL (70-99); Phosphorus, Blood 3.1 mg/dL (2.5-4.9); Potassium, Blood 3.9 mmol/L (3.5-5.5); Sodium, Blood 138 mmol/L (136-145)
--- NOTE | 2023-08-26 18:28 | NUR ---
SHIFT SUMMARY: NEURO: THROUGHOUT THE SHIFT, INCLUDING DURING SEDATION INTERRUPTION, PATIENT WITHDRAWING FROM NOXIOUS STIMULI IN ALL 4 EXTREMITIES. CORNEAL REFLEX PRESENT. PUPILS EQUAL AND REACTIVE TO LIGHT. NO PURPOSEFUL MOVEMENT NOTED OR FOLLOWING OF DIRECTIONS. PROPOFOL AT 15 MCG/KG/MIN TO PREVENT AGITATION AND INTOLERANCE TO VENT. CORE TEMPERATURE STAYED BELOW 100.0. RESPIRATORY: PATIENT TOLERANT OF THE VENT WITH SEDATION. 7.5 ETT NOTED AT 23.0 CM AT THE TEETH. VENT SETTINGS 18/400/10/50%. SPO2 >98%. CARDIAC: ABLE TO TITRATE LEVOPHED TO 8 MCG/MIN TO MAINTAIN MAPS >65. DOPAMINE AND VASOPRESSON CONTINUE TO BE ON STANDBY. HR STAYED IN THE 60S-70S. CRITICAL TROPONIN TODAY. HEPARIN DRIP INITIATED PER PHARMACY. NORMAL SINUS RHYTHM THROUGHOUT THE SHIFT. GI/: INSULIN GTT TO LOWER BLOOD SUGARS DURING THE SHIFT. PATIENT DOWN TO CBG OF 301. BOWEL SOUNDS ACTIVE. NO BOWEL MOVEMENT. OGT PLACED TODAY- DARK OUTPUT NOTED. PRITCHARD IN PLACE AND DRAINING FREELY. URINE IS YELLOW WITHOUT SEDIMENT NOTED. PSYCHSOCIAL: PATIENT'S SO UPDATED DURING THE SHIFT. HE REPORTED THAT HE IS UNWELL AND DID NOT WANT TO COME IN AND EXPOSE OTHERS TO HIS ILLNESS.
--- NOTE | 2023-08-26 18:41 | NUR ---
PT'S RINGS Two rings removed from right hand and one ring removed from left hand. Rings remove due to edematous fingers and potential for circulation impairment if edema progresses. One ring has clear gem, one ring has blue gem, one ring is in shape of whale. These rings placed in specimen cup and locked in medication box. Plan to send these home with family; pt has not had any visitors today. Spouse reports that he is feeling unwell and will not be visiting as a result.
[2023-08-26 19:24] LABS: Bun/Creatinine Ratio 33.1 (12.0-20.0); Calcium, Blood 8.9 mg/dL (8.5-10.1); Creatinine, Blood 1.78 mg/dL (0.40-1.00); Potassium, Blood 3.6 mmol/L (3.5-5.5)
--- NOTE | 2023-08-26 21:22 | NUR ---
ASSUMPTION OF CARE: RECEIVED REPORT FROM LEATHA RN AND SHAHANA RN. PT INTUBATED AND SEDATED. PROPOFOL TURNED DOWN FOR ASSESSMENT. PT NOT WAKING UP OR FOLLOWING COMMANDS. WITHDRAWS TO PAINFUL STIMULI. APPEARS RESTLESS AND AGGITATED WHEN PROPOFOL TURNED DOWN. PROPOFOL CURRENTLY AT 15 MCG/KG/MIN FOR COMFORT AND VENT COMPLIANCE. DISTANCE LEARNING PROGRAM COORDINATOR IN PLACE, SR WITH RATE 70'S. LEVOPHED DRIP AT 7 MCG/MIN, TITRATED TO MAINTAIN MAP >65. VENT SETTINGS AC/VC 18/400/8/50%. SPO2 >95%. HEPARIN DRIP AT 15 UNITS/KG/HR. CENTRAL LINE TO RIJ, PATENT AND INFUSING. PIV'S C/D/I. PRITCHARD IN PLACE, PATENT AND DRAINING TO GRAVITY. INSULIN DRIP TITRATED TO SB CURRENTLY. TRANSITONED TO [facility] AND HUMALOG PER DR. VALLES. OGT CLAMPED.
[2023-08-27] VITALS (99 sets, daily range): BP systolic 89–169; BP diastolic 36–75
[2023-08-27 05:36] LABS: BASOPHILS ABSOLUTE AUTO 0.03 K/mm3 (0.00-0.23); BASOPHILS PERCENT AUTO 0 % (0-2); EOSINOPHILS PERCENT AUTO 0 % (0-6); Hematocrit 33.4 % (33.0-51.0); Hemoglobin 11.3 g/dL (11.5-16.0); IMMATURE GRAN ABSOLUTE AUTO 0.13 K/mm3 (0.00-0.10); IMMATURE GRAN PERCENT AUTO 1 % (0-1); LYMPHOCYTES ABSOLUTE AUTO 1.17 K/mm3 (0.84-5.20); LYMPHOCYTES PERCENT AUTO 6 % (21-46); MONOCYTES ABSOLUTE AUTO 1.13 K/mm3 (0.16-1.47); MONOCYTES PERCENT AUTO 6 % (4-13); Mean Corpuscular HGB 28.5 pg (26.0-34.0); Mean Corpuscular HGB Conc 33.8 g/dL (31.5-36.5); Mean Corpuscular Volume 84 fL (80-100); Mean Platelet Volume 10.9 fL (9.1-12.4); NEUTROPHILS ABSOLUTE AUTO 15.99 K/mm3 (1.96-9.15); NEUTROPHILS PERCENT AUTO 87 % (41-73); Platelet Count 212 K/mm3 (150-400); RDW Coefficient Variation 13.6 % (11.7-14.2); Red Blood Cell Count 3.97 M/mm3 (3.80-5.20); White Blood Cell Count 18.45 K/mm3 (4.00-11.30)
[2023-08-27 05:58] LABS: International Normalized Ratio 1.12; Prothrombin Time Results 11.7 Sec (9.7-11.5)
--- NOTE | 2023-08-27 06:09 | NUR ---
SHIFT SUMMARY: PT REMAINS INTUBATED AND SEDATED T/O THE SHIFT. PROPOFOL AT 20 MCG/KG/MIN FOR COMFORT AND VENT COMPLIANCE. VENT SETTINGS AC/VC 18/400/8/50%. PT WAKENS TO VERBAL STIMULI, OPENS EYES AND NODS HEAD YES/NO. ABLE TO FOLLOW COMMANDS. BECOMES AGGITATED WITH MOVEMENT. PT SHAKES HEAD YES WHEN ASKED ABOUT PAIN, MEDICATED PER MAR WITH RELIEF. HEPARIN DECREASED TO 14 UNITS/KG/HR PER PHARMACY. LEVOPHED AT 6 MCG/MIN, TITRATED TO MAINTAIN MAP >65. SR WITH HR 70'S. PRITCHARD REMAINS PATENT AND DRAINING TO GRAVITY. NO BM THIS SHIFT. SUCTIONING THICK, [place] SECRETIONS FROM ET [employer]UBE. OGT CLAMPED. BLOOD GLUCOSE LEVELS TRENDING UP, CALL PLACED TO DR. VALLES WITH ORDERS TO RESTART INSULIN DRIP AND START LR AT 100 ML/HR. CENTRAL LINE REMAINS PATENT AND INFUSING. PIV'S INTACT, CLEAN AND DRY.
[2023-08-27 06:18] LABS: Albumin, Blood 2.5 g/dL (3.4-5.0); Albumin/Globulin Ratio 0.8 (0.8-1.8); Bilirubin, Total 0.4 mg/dL (0.1-1.0); Bun/Creatinine Ratio 33.9 (12.0-20.0); Calcium, Blood 8.4 mg/dL (8.5-10.1); Creatinine, Blood 1.68 mg/dL (0.40-1.00); Magnesium, Blood 2.6 mg/dL (1.6-2.4); Phosphorus, Blood 3.7 mg/dL (2.5-4.9); Potassium, Blood 3.8 mmol/L (3.5-5.5); Total Protein, Blood 5.5 g/dL (6.4-8.2)
--- NOTE | 2023-08-27 07:20 | NUR ---
ASSUMPTION OF CARE: ASSUMED CARE OF PATIENT WITH DRISS WALKER COUNTS. PATIENT RESTING IN BED. PATIENT TOLERATING VENT. ETT OF 7.5 CURRENTLY AT 23.0 CM AT THE TEETH. VENT SETTINGS AC/VC 18/400/5/40%. SPO2 98%. LEVOPHED GTT INFUSING AT 5 MCG/MIN. INSULIN RESTARTED AT 5 UNITS/HR. HEPARIN INFUSING AT 14 UNITS/KG/HR. PROPOFOL AT 20 MCG/KG/MIN. PRITCHARD IN PLACE AND DRAINING FREELY. YELLOW URINE WITHOUT SEDIMENT IN THE COLLECTION BAG.
--- NOTE | 2023-08-27 11:38 | NUR ---
BLISTER AND SKIN ALTERATIONS ON LEFT UPPER ARM: NOTED THAT PATIENT'S LEFT ARM IS MORE SWOLLEN THAN THE RIGHT, IN FOREARM AND UPPER ARM. ON THE LEFT UPPER ARM IS A INTACT BLISTER ABOUT 4X5CM SURROUNDING BY A WHITE RING OF TISSUE AND A RED RING OF TISSUE. NOTIFIED DR. WAGONER AND PHARMACY PATIENT DID HAVE AN IV THAT INFILTRATED OVER 24 HOURS AGO. PER BOTH, CONTINUE TO MONITOR. MEPITEL ONE DRESSING IN PLACE. PHOTOS TAKEN AND IN CHART.
--- NOTE | 2023-08-27 12:30 | NUR ---
LEFT AC: upon reviewing code documentation, it appears the epi infiltrated the left AC IV in ED. This was discussed with Dr Fairbanks in pharmacy. Will apply 1inch nitro paste to blanched area and reassess. See photo documentation in chart.
--- NOTE | 2023-08-27 12:54 | NUR ---
SPONTANEOUS BREATHING TRIAL: PLACED ON SPONTANEOUS BREATHING TRIAL PER DR. WAGONER. NOTIFIED RT BLANCA. PATIENT RR 18-20S. SPO2 93-94%. PRESSURES 10/5 WITH FIO2 40%.
[2023-08-27 15:23] LABS: Bun/Creatinine Ratio 32.3 (12.0-20.0); Calcium, Blood 8.2 mg/dL (8.5-10.1); Creatinine, Blood 1.64 mg/dL (0.40-1.00); Potassium, Blood 3.2 mmol/L (3.5-5.5)
[2023-08-27 17:22] LABS: Bun/Creatinine Ratio 32.2 (12.0-20.0); Calcium, Blood 8.1 mg/dL (8.5-10.1); Creatinine, Blood 1.49 mg/dL (0.40-1.00); Potassium, Blood 3.2 mmol/L (3.5-5.5)
--- NOTE | 2023-08-27 18:39 | NUR ---
SHIFT SUMMARY: NEURO: PATIENT NODDING HEAD IN RESPONSE TO SOME QUESTIONS TODAY (SUCH "ARE YOU IN PAIN"). IT SEEMS THAT PATIENT ATTEMPTED TO SQUEEZE HANDS. PATIENT MOVING ALL 4 EXTREMITIES PURPOSEFULLY AND WITHDRAWING FROM PAIN. PATIENT MEDICATED FOR PAIN TWICE (EACH TIME, PATIENT ABLE TO NOD HEAD TO CONFIRM THAT SHE WAS PAINFUL). RESPIRATORY: ATTEMPTED SPONTANEOUS BREATHING TRIAL WITH PATIENT. PATIENT BECAME INCREASINGLY UNCOMFORTABLE, COUGHING WITH THE VENT, AND SHAKING HER HEAD STRONGLY FROM SIDE TO SIDE. OTHERWISE, PATIENT TOLERATED THE VENT TODAY. SPO2 93-98% DURING THE DAY. CARDIAC: LEVOPHED GTT TITRATED DOWN TO 3 MCG/KG/MIN. MAPS >65. SBP IN THE 110S-150S. PATIENT CONTINUES TO HAVE DEPENDENT EDEMA. SINUS RHYTHM THROUGHOUT THE SHIFT. GI/: TUBE FEED PIVOT INITIATED NEAR THE END OF SHIFT AT 10MLS/HR WITH FLUSH. INSULIN GTT THROUGHOUT THE DAY. PATIENT'S ANION GAP CLOSED THIS AFTERNOON AND TRANSITION TO SQ INSULIN STARTED AT 1800. PATIENT HAD A SMALL, FORMED BOWEL MOVEMENT TODAY. PRITCHARD CATHETER IN PLACE AND DRAINING YELLOW URINE FREELY. INTEGUMENTARY: PATIENT NOTED TO HAVE A LARGE BLISTER ON MEGAN. AFTER DISCUSSING WITH DR. WAGONER AND PRECEPTOR, IT WAS DETERMINED TO MOST LIKELY BE RELATED TO INFILTRATED IV. DISCUSSED WITH PHARMACY AND ORDERS PLACED. BLISTER REMAINS INTACT, BUT HAS INCREASED SLIGHTLY IN SIZE. COLOR AROUND THE BLISTER HAS IMPROVED FROM THE BLANCHED SKIN INITIALLY NOTED. PHOTOS IN THE CHART.
[2023-08-27 21:09] LABS: Bun/Creatinine Ratio 32.4 (12.0-20.0); Calcium, Blood 8.2 mg/dL (8.5-10.1); Creatinine, Blood 1.36 mg/dL (0.40-1.00); Potassium, Blood 3.7 mmol/L (3.5-5.5)
--- NOTE | 2023-08-27 21:33 | NUR ---
ASSUMPTION OF CARE: RECEIVED REPORT FROM SHAHANA RN AND DRISS RN. PT INTUBATED AND SEDATED. ABLE TO OPEN EYES TO VERBAL STIMULI AND WITHDRAW FROM PAIN. SHAKES HEAD YES AND NO TO SIMPLE QUESTIONS AND FOLLOWS COMMANDS. PT ENDORSES PAIN, IS RESTLESS AND AGGITATED. MEDICATED PER MAR WITH LITTLE RELIEF. PROPOFOL TITRATED UP TO 50 MCG/KG/MIN FOR VENT COMPLIANCE. VENT SETTINGS AC/VC 18/400/5/40%. SPO2 >95%. SMALL THICK SECRETIONS SUCTIONED FROM ET TUBE. LEVOPHED AT 2 MCG/MIN FOR MAP >65. SR WITH HR 80'S. HEPARIN DRIP AT 14.5 UNITS/KG/HR. TUBE FEED AT 10 ML/HR THROUGH OGT. PRITCHARD PATENT AND DRAINING TO GRAVITY. PIV'S C/D/I. CENTRAL LINE TO RIJ, C/D/I AND INFUSING. Q4 BS CHECKS.
[2023-08-27 22:23] LABS: Anti-Xa UFH, PHA Monitoring 0.75 IU/mL
[2023-08-28] VITALS (94 sets, daily range): BP systolic 85–190; BP diastolic 37–85
[2023-08-28 00:43] LABS: Bun/Creatinine Ratio 32.8 (12.0-20.0); Calcium, Blood 8.2 mg/dL (8.5-10.1); Creatinine, Blood 1.25 mg/dL (0.40-1.00); Potassium, Blood 3.5 mmol/L (3.5-5.5)
[2023-08-28 04:53] LABS: BASOPHILS ABSOLUTE AUTO 0.02 K/mm3 (0.00-0.23); BASOPHILS PERCENT AUTO 0 % (0-2); EOSINOPHILS ABSOLUTE AUTO 0.16 K/mm3 (0.00-0.68); EOSINOPHILS PERCENT AUTO 1 % (0-6); Hematocrit 29.9 % (33.0-51.0); Hemoglobin 9.8 g/dL (11.5-16.0); IMMATURE GRAN ABSOLUTE AUTO 0.09 K/mm3 (0.00-0.10); IMMATURE GRAN PERCENT AUTO 1 % (0-1); LYMPHOCYTES ABSOLUTE AUTO 0.99 K/mm3 (0.84-5.20); LYMPHOCYTES PERCENT AUTO 9 % (21-46); MONOCYTES ABSOLUTE AUTO 0.84 K/mm3 (0.16-1.47); MONOCYTES PERCENT AUTO 7 % (4-13); Mean Corpuscular HGB 28.4 pg (26.0-34.0); Mean Corpuscular HGB Conc 32.8 g/dL (31.5-36.5); Mean Corpuscular Volume 87 fL (80-100); Mean Platelet Volume 11.3 fL (9.1-12.4); NEUTROPHILS ABSOLUTE AUTO 9.22 K/mm3 (1.96-9.15); NEUTROPHILS PERCENT AUTO 82 % (41-73); Platelet Count 159 K/mm3 (150-400); RDW Coefficient Variation 13.9 % (11.7-14.2); RDW Standard Deviation 42.5 fL (35.1-46.3); Red Blood Cell Count 3.45 M/mm3 (3.80-5.20); White Blood Cell Count 11.32 K/mm3 (4.00-11.30)
[2023-08-28 05:16] LABS: Albumin, Blood 2.4 g/dL (3.4-5.0); Albumin/Globulin Ratio 0.9 (0.8-1.8); Bilirubin, Total 0.3 mg/dL (0.1-1.0); Bun/Creatinine Ratio 34.8 (12.0-20.0); Creatinine, Blood 1.15 mg/dL (0.40-1.00); Globulin, Blood 2.8 g/dL (2.2-4.0); Magnesium, Blood 2.5 mg/dL (1.6-2.4); Phosphorus, Blood 2.2 mg/dL (2.5-4.9); Potassium, Blood 3.4 mmol/L (3.5-5.5); Total Protein, Blood 5.2 g/dL (6.4-8.2)
--- NOTE | 2023-08-28 06:10 | NUR ---
SHIFT SUMMARY: NO ACUTE EVENTS T/O THE NIGHT. PT REMAINS INTUBATED AND SEDATED. PROPOFOL TITRATED TO 50 MCG/KG/MIN FOR VENT COMPLIANCE AND RESTLESSNESS/AGGITATION. VENT SETTINGS AC/VC 18/400/5/40%. SPO2 >95%. THICK, JACKSON SECRETIONS SUCTIONED FROM ET TUBE T/O THE SHIFT. LEVOPHED TITRATED TO SB THIS SHIFT. MAP REMAINS >65. REHAB ASSISTANT IN PLACE, SR WITH HR 80'S. HEPARIN DRIP AT 14.5 UNITS/KG/HR. TUBE FEED AT GOAL THROUGH OGT. POTASSIUM 3.4 THIS AM, REPLACED. CENTRAL LINE TO RIJ C/D/I, INFUSING. PIV'S C/D/I, SALINE LOCKED. SMALL BM THIS SHIFT. Q4 BS CHECKS T/O THE SHIFT. PT ABLE TO RESPOND TO VERBAL STIMULI, OPENS EYES, NODS HEAD YES AND NO. FOLLOWS SIMPLE COMMANDS. BED LOW AND LOCKED
--- NOTE | 2023-08-28 07:20 | NUR ---
ASSUMPTION OF CARE: ASSUMED CARE OF PATIENT WITH DIRSS WALKER COUNTS. PATIENT RESTING CALMLY IN BED. NO SIGNS OF PAIN AT THIS TIME. VENT SETTINGS AC/VC 16/400/5/40%. SPO2 AT 94%. THE INSULIN GTT CONTINUED ON STANDBY. LEVOPHED AT 2 MCG/MIN. HEPARIN AT 14.5. PROPOFOL AT 50. MAPS >65. HR IN THE 70S. PRITCHARD IN PLACE AND DRAINING FREELY.
--- NOTE | 2023-08-28 10:07 | NUR ---
FAMILY UPDATE: Pt's SO updated via telephone by Dr Kolb.
[2023-08-28 13:11] LABS: Bun/Creatinine Ratio 32.2 (12.0-20.0); Calcium, Blood 7.8 mg/dL (8.5-10.1); Creatinine, Blood 1.15 mg/dL (0.40-1.00); Potassium, Blood 4.1 mmol/L (3.5-5.5)
--- NOTE | 2023-08-28 16:42 | NUR ---
SEDATION INTERRUPTION AND SBT: PROPOFOL TURNED TO 15 MCG/KG/MIN AT 1540 AND THEN TO 5 MCG/KG/MIN AT 1620 FOR SEDATION INTERRUPTION AND SBT (STARTED AT 1620). PATIENT TOLERATING WELL. PATIENT NODS HEAD THAT SHE HAS PAIN, BUT CLEARLY SHAKES HER HEAD NO WHEN ASKED IF SHE WANTS PAIN MEDICATION. PATIENT MOVING LEGS INDEPENDENTLY AND AGREED WITH RN THAT IT FEELS NICE TO BE ABLE TO MOVE LEGS. SPO2 95-96%. RR 20-25 BREATHS PER MINUTE. PATIENT SQUEEZING THE NURSE'S HAND ON COMMAND AND ABLE TO OPEN EYES ON COMMAND.
--- NOTE | 2023-08-28 19:13 | NUR ---
SHIFT SUMMARY: NEURO: DURING SEDATION INTERRUPTION, PATIENT ABLE TO NOD AND SHAKE HEAD IN RESPONSE TO THE PATIENT'S QUESTIONS. PATIENT ABLE TO OPEN HER EYES ON COMMAND. PATIENT ABLE TO MOVE HER LEGS INDEPENDENTLY. RESPIRATORY: PATIENT TOLERATED HER SPONTANEOUS BREATHING TRIAL WELL TODAY. SHE WAS ON SPONTANEOUS FOR ABOUT 1.5-2 HOURS. VENT SETTINGS STAYED THE SAME BEFORE AND AFTER THE SBP: AC/VC 16/400/5/40%. CARDIAC: ATTEMPTED TO TITRATE PATIENT OFF OF LEVOPHED TWICE TODAY. PATIENT REQUIRED 1 MCG/MIN OF LEVOPHED TO MAINTAIN MAPS >65. HR IN THE 70S-80S. GI/: PATIENT PASSING GAS WITH SMEARS PRESENT . TUBE FEED CONTINUES AT 20MLS/HR WITH H2O FLUSHES. PRITCHARD IN PLACE AND DRAINING FREELY. THE DAY PROGRESSED, PATIENT MOVED TOWARDS PRODUCING 60 MLS EVERY [address] WAGONER. PATIENT RECEIVED A 250ML FLUID CHALLENGE/BOLUS THIS EVENING. PASSED ON TO JEET ALEXIS. PSYCHSOCIAL: DR. WAGONER UPDATED THE PATIENT'S SIGNIFICANT OTHER, [place]. HE REPORTED THAT HE WAS WALKING PNEUMONIA AND PER THE [facility] IS UNABLE TO VISIT UNTIL TUESDAY.
[2023-08-29] VITALS (73 sets, daily range): BP systolic 96–174; BP diastolic 41–73
[2023-08-29 05:18] LABS: BASOPHILS ABSOLUTE AUTO 0.03 K/mm3 (0.00-0.23); BASOPHILS PERCENT AUTO 0 % (0-2); EOSINOPHILS ABSOLUTE AUTO 0.55 K/mm3 (0.00-0.68); EOSINOPHILS PERCENT AUTO 6 % (0-6); Hemoglobin 8.9 g/dL (11.5-16.0); IMMATURE GRAN ABSOLUTE AUTO 0.17 K/mm3 (0.00-0.10); IMMATURE GRAN PERCENT AUTO 2 % (0-1); LYMPHOCYTES ABSOLUTE AUTO 1.59 K/mm3 (0.84-5.20); LYMPHOCYTES PERCENT AUTO 16 % (21-46); MONOCYTES ABSOLUTE AUTO 0.76 K/mm3 (0.16-1.47); MONOCYTES PERCENT AUTO 8 % (4-13); Mean Corpuscular HGB 28.3 pg (26.0-34.0); Mean Corpuscular HGB Conc 31.8 g/dL (31.5-36.5); Mean Corpuscular Volume 89 fL (80-100); Mean Platelet Volume 11.6 fL (9.1-12.4); NEUTROPHILS ABSOLUTE AUTO 6.99 K/mm3 (1.96-9.15); NEUTROPHILS PERCENT AUTO 69 % (41-73); NRBC ABSOLUTE 0.02 K/mm3 (0.00-0.02); NRBC Auto 0.2 /100 WBC (0.0-0.2); Platelet Count 124 K/mm3 (150-400); RDW Coefficient Variation 14.1 % (11.7-14.2); RDW Standard Deviation 45.5 fL (35.1-46.3); Red Blood Cell Count 3.14 M/mm3 (3.80-5.20); White Blood Cell Count 10.09 K/mm3 (4.00-11.30)
[2023-08-29 05:37] LABS: PCO2 Venous 46.6 mmHg (38-42); pH Blood Venous 7.46 (7.34-7.37)
[2023-08-29 05:38] LABS: Base Excess Venous 9.6 mmol/L; Bicarbonate Venous 32.2 mmol/L (24.0-30.0)
[2023-08-29 05:46] LABS: Bun/Creatinine Ratio 32.1 (12.0-20.0); Calcium, Blood 7.7 mg/dL (8.5-10.1); Creatinine, Blood 1.06 mg/dL (0.40-1.00); Magnesium, Blood 2.5 mg/dL (1.6-2.4); Phosphorus, Blood 2.6 mg/dL (2.5-4.9); Potassium, Blood 3.7 mmol/L (3.5-5.5)
--- NOTE | 2023-08-29 06:31 | NUR ---
SHIFT SUMMERY PT IS INTUBATED, ETT INTACT AND PATENT TO THE VENT. OXYGEN SAT >95%. NO ACUTE RESP DISTRESS OVERNIGHT. SR ON THE ELIGIBILITY ANALYST. BP LABILE, LEVOPHED INFUSING AT 1MCG/MIN. PROPOFOL INFUSING FOR SEDATION, SEE FLOWSHEET. HEPARIN GTT INFUSING PER MD ORDER. PRITCHARD INTACT AND DRAINING TO GRAVITY. TF INFUSING VIA OG TUBE. PT HAD NO EPISODES OF ACUTE DISTRESS OR CHANGES OVERNIGHT.
--- NOTE | 2023-08-29 11:40 | NUR ---
DR CABRERA: PROVIDER AT BEDSIDE THIS AM TO EVAL PT. HE HAS ORDERED A CT PE STUDY TO BE COMPLETED & WOULD LIKE THE PT TO REMAIN COMFORTABLY SEDATED W/ GOAL RASS 0/-2 UNTIL THAT TIME. DEPENDING ON TIME CT IS COMPLETED, SBT MAY OCCUR AFTERWARDS. ADY RT, AT BEDSIDE & HAS UPDATED THE PROVIDER ON PT's NEW BLOOD STREAKED SPUTUM THIS AM. HE STS CONTINUE TO MONITOR, MAY DISCONTINUE HEPARIN DRIP DEPENDING ON CT RESULTS. NO OTHER CHANGES AT THIS TIME.
--- NOTE | 2023-08-29 16:00 | NUR ---
TUBE FEEDING: FORMULA & RATE HAVE BEEN ADJUSTED PER DIETARY, SEE ORDERS. VITAL HP NOW INFUSING AT INITIAL RATE OF 25 ML/HR, PT TOLERATING WELL W/ NO S/SX INTOLERANCE NOTED AT THIS TIME.
--- NOTE | 2023-08-29 17:51 | NUR ---
SHIFT SUMMARY: NO ACUTE CHANGES SINCE PRIOR UPDATES. PT REMAINS SEDATED W/ PROPOFOL, INTUBATED & VENTILATED. PALMA, FOLLOWS SIMPLE DIRECTIONS AT TIMES W/ SEDATION LOWERED, OTHERWISE RESTING QUIETLY THIS SHIFT. LS OCCASIONALLY COARSE, RESOLVES W/ ETT SUCTIONING. VENT SETTINGS: AC/VC 16/400/5/40% W/ O2 SATS > 92%. MONITOR SHOWS SR W/ HR 70s, BP STABLE. OGT IN PLACE W/ TUBE FEEDS INFUSING AT INITIAL RATE PER ORDERS, NO S/SX INTOLERANCE NOTED THUS FAR. NO BM THIS SHIFT. PRITCHARD PATENT/ DRAINING YELLOW URINE W/ ADEQUATE OUTPUT - IN PLACE FOR STRICT I&O MONITORING. SKIN CONDITION OVERALL FRAGILE, ECCHYMOTIC. Q2H REPOSITIONING TO MAINTAIN SKIN INTEGRITY. WILL CONTINUE TO MONITOR & REPORT OFF TO ONCOMING RN.
[2023-08-30] VITALS (55 sets, daily range): BP systolic 108–170; BP diastolic 45–112
[2023-08-30 03:37] LABS: BASOPHILS ABSOLUTE AUTO 0.05 K/mm3 (0.00-0.23); BASOPHILS PERCENT AUTO 0 % (0-2); EOSINOPHILS ABSOLUTE AUTO 0.57 K/mm3 (0.00-0.68); EOSINOPHILS PERCENT AUTO 5 % (0-6); Hematocrit 28.4 % (33.0-51.0); Hemoglobin 9.2 g/dL (11.5-16.0); IMMATURE GRAN ABSOLUTE AUTO 0.32 K/mm3 (0.00-0.10); IMMATURE GRAN PERCENT AUTO 3 % (0-1); LYMPHOCYTES ABSOLUTE AUTO 1.56 K/mm3 (0.84-5.20); LYMPHOCYTES PERCENT AUTO 14 % (21-46); MONOCYTES ABSOLUTE AUTO 0.99 K/mm3 (0.16-1.47); MONOCYTES PERCENT AUTO 9 % (4-13); Mean Corpuscular HGB 28.8 pg (26.0-34.0); Mean Corpuscular HGB Conc 32.4 g/dL (31.5-36.5); Mean Corpuscular Volume 89 fL (80-100); Mean Platelet Volume 11.6 fL (9.1-12.4); NEUTROPHILS ABSOLUTE AUTO 8.05 K/mm3 (1.96-9.15); NEUTROPHILS PERCENT AUTO 70 % (41-73); NRBC ABSOLUTE 0.15 K/mm3 (0.00-0.02); NRBC Auto 1.3 /100 WBC (0.0-0.2); Platelet Count 157 K/mm3 (150-400); RDW Coefficient Variation 14.3 % (11.7-14.2); RDW Standard Deviation 45.6 fL (35.1-46.3); Red Blood Cell Count 3.19 M/mm3 (3.80-5.20); White Blood Cell Count 11.54 K/mm3 (4.00-11.30)
[2023-08-30 03:57] LABS: Albumin, Blood 2.1 g/dL (3.4-5.0); Albumin/Globulin Ratio 0.6 (0.8-1.8); Bilirubin, Total 0.3 mg/dL (0.1-1.0); Bun/Creatinine Ratio 31.1 (12.0-20.0); Calcium, Blood 7.6 mg/dL (8.5-10.1); Creatinine, Blood 0.87 mg/dL (0.40-1.00); Globulin, Blood 3.5 g/dL (2.2-4.0); Magnesium, Blood 2.7 mg/dL (1.6-2.4); Phosphorus, Blood 2.6 mg/dL (2.5-4.9); Potassium, Blood 3.6 mmol/L (3.5-5.5); Total Protein, Blood 5.6 g/dL (6.4-8.2)
--- NOTE | 2023-08-30 06:18 | NUR ---
SHIFT SUMMERY PT HAS HAD NO ACUTE CHANAGES OVERNIGHT. HEPARIN GTT INFUSING PER MD ORDER, PROPOFOL FOR SEDATION. VS WNL, INTUBATED. SR ON THE CARDIAC MONTIOR, BP WNL. PRITCHARD INTACT AND DRAINING TO GRAVITY.
--- NOTE | 2023-08-30 08:30 | NUR ---
ASSUMED CARE / SPONTANEOUS BREATHING TRIAL: REPORT RECEIVED FROM MACKENZIE Rivera RN. ASSUMED CARE OF THIS PT AT APPROX 0700. ON ASSESSMENT, THE PT IS RESTING QUIETLY, SEDATED W/ PROPOFOL AT 30 MCG/KG/MIN. LS COARSE, CLEARING SOME W/ ETT SUCTIONING. VENT SETTINGS: AC/VC 16/400/5/40% W/ O2 SATS > 92% ON AVG. MONITOR SHOWS SR W/ HR 70-80s, BP STABLE. OGT IN PLACE W/ TUBE FEEDS INCREASED TO GOAL RATE THIS AM, PT TOLERATING WELL SO FAR W/ NO S/SX INTOLERANCE NOTED. PRITCHARD PATENT/ DRAINING YELLOW URINE - IN PLACE FOR STRICT I&O MONITORING. SKIN OVERALL INTACT, FRAGILE, ECCHYMOTIC. Q2H REPOSITIONING TO MAINTAIN SKIN INTEGRITY. SBT COMPLETED THIS AM FOR APPROX 10 MINS W/ SEDATION TITRATED DOWN NOTED IN FLOWSHEET. THE PT IS UNABLE TO TAKE IN ADEQUATE TIDAL VOLUMES DESPITE INCREASED PRESSURE SUPPORT TO 15, O2 SATS DECREASED TO MID 80s DESPITE INCREASED FIO2 TO 100%. ADY LLOYD, AT BEDSIDE DURING THIS TIME & HAS CHANGED THE PT BACK TO PRIOR AC/VC SETTINGS. DR CABRERA MADE AWARE. WILL CONTINUE TO MONITOR & UPDATE NEEDED.
[2023-08-30 09:09] LABS: Vancomycin, Random 16.6 ug/mL
--- NOTE | 2023-08-30 11:44 | NUR ---
Pt resting in bed, intubated, and sedated. Spoke with Primary RN Hawa, Dr Harmon, and discussed case. Family may benefit from code status discussion. Pt not and lives with a life partner at [facility]. Concerns discussed regarding events leading up to Pt's hospital stay and delay of life partner call EMS. Attempted to call Pt's life partner Grupo. Left message on [employer] with request for a return phone call. Called and spoke with Pt's sister Eri. Eri reports being unaware of Pt being in the hospital. Eri reports living in [place]. Provided update and reviewed plan of care. Eri is unaware if Pt completed an advanced directive. She reports Pt has one living son who has not been involved in Pt's life for years. Both parents are . Engaged in therapeutic discussion regarding Pt's code status. Educated on life sustaining measures including risks and implications to CPR. Eri reports believing Pt would not want to experience CPR again. Eri reports Pt would want to continue current plan of care but does not want CPR. Relayed information to Primary RN Hawa. Hawa will relay this to Dr Harmon. Palliative Care will remain available
--- NOTE | 2023-08-30 17:28 | NUR ---
SHIFT SUMMARY: NO ACUTE CHANGES SINCE PRIOR UPDATES. PT REMAINS LIGHTLY SEDATED W/ PROPOFOL INFUSING AT 15 MCG/KG/MIN. SHE AWAKENS TO VERBAL STIMULI & IS ABLE TO NOD HEAD IN ANSWER TO YES/ NO QUESTIONS. SHE IS FOLLOWING DIRECTIONS WELL & PALMA. LS DIM, VENT SETTINGS: AC/VC 16/400/8/40% W/ O2 SATS > 92%. SMALL AMNT THICK JACKSON SECRETIONS SUCTIONED THROUGH ETT THIS EVENING. MONITOR SHOWS SR W/ HR 80s, BP STABLE. OGT IN PLACE W/ TUBE FEEDS INFUSING AT GOAL RATE, NO S/SX INTOLERANCE NOTED. NO BM THIS SHIFT. PRITCHARD PATENT/ DRAINING YELLOW URINE - IN PLACE FOR STRICT I&O MONITORING. SKIN CONDITION OVERALL INTACT, FRAGILE. Q2H REPOSITIONING TO MAINTAIN SKIN INTEGRITY. DEJA, PICC RNs, AT BEDSIDE TO PLACE PICC LINE CURRENTLY W/ INTENT TO REMOVE RIGHT IJ CENTRAL LINE AFTER NEW ACCESS IS OBTAINED. WILL CONTINUE TO MONITOR & REPORT OFF TO ONCOMING RN.
[2023-08-31] VITALS (45 sets, daily range): BP systolic 107–173; BP diastolic 40–70
[2023-08-31 04:14] LABS: BASOPHILS ABSOLUTE AUTO 0.04 K/mm3 (0.00-0.23); BASOPHILS PERCENT AUTO 0 % (0-2); EOSINOPHILS ABSOLUTE AUTO 0.46 K/mm3 (0.00-0.68); EOSINOPHILS PERCENT AUTO 5 % (0-6); Hematocrit 27.5 % (33.0-51.0); Hemoglobin 8.6 g/dL (11.5-16.0); IMMATURE GRAN ABSOLUTE AUTO 0.29 K/mm3 (0.00-0.10); IMMATURE GRAN PERCENT AUTO 3 % (0-1); LYMPHOCYTES ABSOLUTE AUTO 1.31 K/mm3 (0.84-5.20); LYMPHOCYTES PERCENT AUTO 13 % (21-46); MONOCYTES ABSOLUTE AUTO 0.93 K/mm3 (0.16-1.47); MONOCYTES PERCENT AUTO 9 % (4-13); Mean Corpuscular HGB 28.3 pg (26.0-34.0); Mean Corpuscular HGB Conc 31.3 g/dL (31.5-36.5); Mean Corpuscular Volume 91 fL (80-100); Mean Platelet Volume 11.3 fL (9.1-12.4); NEUTROPHILS ABSOLUTE AUTO 6.99 K/mm3 (1.96-9.15); NEUTROPHILS PERCENT AUTO 70 % (41-73); NRBC ABSOLUTE 0.15 K/mm3 (0.00-0.02); NRBC Auto 1.5 /100 WBC (0.0-0.2); Platelet Count 183 K/mm3 (150-400); RDW Coefficient Variation 14.5 % (11.7-14.2); RDW Standard Deviation 47.4 fL (35.1-46.3); Red Blood Cell Count 3.04 M/mm3 (3.80-5.20); White Blood Cell Count 10.02 K/mm3 (4.00-11.30)
[2023-08-31 04:41] LABS: Anion Gap 4 mmol/L (6-16); Blood Urea Nitrogen 27 mg/dL (8-24); Bun/Creatinine Ratio 33.2 (12.0-20.0); CO2, Blood 31 mmol/L (21-32); Calcium, Blood 7.9 mg/dL (8.5-10.1); Chloride, Blood 105 mmol/L (98-108); Creatinine, Blood 0.81 mg/dL (0.40-1.00); Glomerular Filtration Rate 78 (60-); Glucose, Blood 280 mg/dL (70-99); Magnesium, Blood 3.1 mg/dL (1.6-2.4); Phosphorus, Blood 2.6 mg/dL (2.5-4.9); Potassium, Blood 3.9 mmol/L (3.5-5.5); Sodium, Blood 140 mmol/L (136-145)
--- NOTE | 2023-08-31 06:41 | NUR ---
SHIFT SUMMERY PT CONTINUES TO BE VENTILATED VIA ETT, AC 18/400/40/8. PROPOFOL IS CURRENTLY INFUSING AT 15 VIA ANTONIO PICC. PRITCHARD INTACT PATENT AND DRAINING TO GRAVITY. TF INFUSING AT CURRENT GOAL W/OUT DIFFICULTY. PT HAS BEEN SR ON THE CARDIAC MONTIOR. NO ACUTE CHANGES/DISTRESS OVERNIGHT.
--- NOTE | 2023-08-31 07:15 | NUR ---
ASSUMPTION OF CARE: ASSUMED CARE OF PATIENT WITH DRISS WALKER COUNTS. PATIENT RESTING CALMLY IN THE BED. TOLERATING VENTILATOR. SETTINGS AC/VC 18/400/8/40%. SPO2 80-100%. HR IN THE 80S. MAPS >65. PROPOFOL GTT AT 15 MCG/KG/MIN. PATIENT OPENING EYES WHEN CUED. ABLE TO GRASP HAND AND MOVE FEET WHEN REQUESTED. PRITCHARD IN PLACE AND DRAINING DARK YELLOW URINE.
[2023-08-31 08:34] LABS: Vancomycin, Trough 17.8 ug/mL (5.0-10.0)
--- NOTE | 2023-08-31 10:28 | NUR ---
Spiritual Care Visit. Pt. is intubated and mostly not respnsive. SO is present and welcomes my visit. Faciliatted a short life review of Pt. Listened with empathy and a calming presence. Prayed for Pt. and SO. SO verbalized gratitude for the spiritual care visit. Will remain available to Pt. and SO.
--- NOTE | 2023-08-31 11:15 | NUR ---
SPONTANEOUS BREATHING TRIAL: SPONTANEOUS BREATHING TRIAL INITATED AROUND 10:15 THIS MORNING. PATIENT TOLERATING WITHOUT AGITATION. RESPIRATIONS ARE 28-30. SPO2 92-94%. VOLUMES IN LOW 300S AND RESPIRATIONS 25-30. PATIENT TOLERATED WELL FOR ABOUT AN HOUR. ETCO2 INCREASED TO 44. THIS DID NOT RESOLVE WITH INCREASED PRESSURE SUPPORT BY RT. PATIENT TRANSITIONED BACK TO AC/VC 18/400/8/35%.
--- NOTE | 2023-08-31 18:19 | NUR ---
SHIFT SUMMARY: NEURO: PATIENT NODDING HEAD APPROPRIATELY TO YES AND NO QUESTIONS. PATIENT ABLE TO FOLLOW COMMANDS. PATIENT ABLE TO PARTICIPATE IN SOME ROM (ABLE TO POINT TOES AND BEND KNEES). PATIENT FULLY OPENING EYES TO CUES AND TRACKING RN. PROPROFOL AT 10 MCG/KG/MIN. RESPIRATORY: PATIENT TOLERATED SPONTANEOUS BREATHING TRIAL FOR ABOUT ONE HOUR THIS MORNING. PATIENT NEEDED TO GO BACK TO AC/VC 18/400/8/35% RELATED TO INCREASED RR (HIGH 30S), INCREASED ETCO2 (46), AND DECREASED TIDAL VOLUMES (200-250). PATIENT UP TO THE CHAIR FOR ABOUT 3 HOURS. DURING THIS TIME, PATIENT RECEIVED CPT - TOLERATED FOR ABOUT 10 MINUTES. SPO2 94-98%. CARDIAC: BLOOD PRESSURES STABLE THROUGHOUT THE DAY. HR IN THE 70S-80S. SBPS IN THE 120-160S. GI/: PATIENT CONTINUES TO TOLERATE TUBE FEED. TF RUNNING AT GOAL OF 45 MLS/HR. PRN BOWEL CARE GIVEN. PRITCHARD IN PLACE AND DRAINING FREELY DARK, YELLOW URINE. SOME SEDIMENT/CLOUDINESS NOTED. INTEGUMENTARY/MUSCULOSKELETAL: DECREASED REDNESS SURROUNDING BLISTER IN LEFT UPPER ARM. DECREASED SWELLING IN LEFT ARM. RIGHT FEMORAL DRESSING CHANGED. THIS CONTINUES TO LEAK SEROSANGINOUS DRAINAGE. LARGE CLOT FORMED AT THE INCISION SITE. PATIENT UP TO CHAIR FOR ABOUT 3 HOURS THIS AFTERNOON USING THE LIFT. REPOSITIONED Q2HR.
--- NOTE | 2023-08-31 21:00 | NUR ---
ASSUMED CARE AT 1900 PT INTUBATED AND SEDATED AT SHIFT CHANGE. SHE IS MINIMALLY SEDATED WITH PORPOFOL INFUSING AT 10MCG/KG/MIN; SHE IS ABLE TO NOD TO Y/N QUESTIONS AND FOLLOW DIRECTIONS; DENIES PAIN AT THIS TIME. VENT SETTINGS AC/VC 18/400/8/35%; SMALL AMOUNT OF RED SPUTUM FROM ETT. AFEBRILE. HR 80'S. SBP 100-110; MAP 65-70. VHP INFUSING VIA OG AT 45ML/HR (GOAL) WITH 30ML FLUSHES Q4HR. PRITCHARD IN PLACE AND DRAINING TO GRAVITY. PICC TO RUE PATENT AND DRAWING. SEE SHIFT ASSESSMENT FOR FULL ASSESSMENT.
[2023-09-01] VITALS (46 sets, daily range): BP systolic 101–162; BP diastolic 33–93
[2023-09-01 03:57] LABS: BASOPHILS ABSOLUTE AUTO 0.03 K/mm3 (0.00-0.23); BASOPHILS PERCENT AUTO 0 % (0-2); EOSINOPHILS ABSOLUTE AUTO 0.44 K/mm3 (0.00-0.68); EOSINOPHILS PERCENT AUTO 5 % (0-6); Hematocrit 27.5 % (33.0-51.0); Hemoglobin 8.4 g/dL (11.5-16.0); IMMATURE GRAN PERCENT AUTO 5 % (0-1); LYMPHOCYTES ABSOLUTE AUTO 1.53 K/mm3 (0.84-5.20); LYMPHOCYTES PERCENT AUTO 17 % (21-46); MONOCYTES PERCENT AUTO 11 % (4-13); Mean Corpuscular HGB 27.6 pg (26.0-34.0); Mean Corpuscular HGB Conc 30.5 g/dL (31.5-36.5); Mean Corpuscular Volume 91 fL (80-100); Mean Platelet Volume 10.9 fL (9.1-12.4); NEUTROPHILS ABSOLUTE AUTO 5.38 K/mm3 (1.96-9.15); NEUTROPHILS PERCENT AUTO 61 % (41-73); NRBC ABSOLUTE 0.08 K/mm3 (0.00-0.02); NRBC Auto 0.9 /100 WBC (0.0-0.2); Platelet Count 231 K/mm3 (150-400); RDW Coefficient Variation 14.8 % (11.7-14.2); RDW Standard Deviation 47.8 fL (35.1-46.3); Red Blood Cell Count 3.04 M/mm3 (3.80-5.20); White Blood Cell Count 8.78 K/mm3 (4.00-11.30)
[2023-09-01 04:12] LABS: Albumin, Blood 2.1 g/dL (3.4-5.0); Anion Gap 3 mmol/L (6-16); Blood Urea Nitrogen 32 mg/dL (8-24); Bun/Creatinine Ratio 41.8 (12.0-20.0); CO2, Blood 32 mmol/L (21-32); Calcium, Blood 7.9 mg/dL (8.5-10.1); Chloride, Blood 107 mmol/L (98-108); Creatinine, Blood 0.77 mg/dL (0.40-1.00); Glomerular Filtration Rate 82 (60-); Glucose, Blood 321 mg/dL (70-99); Magnesium, Blood 3.2 mg/dL (1.6-2.4); Potassium, Blood 3.8 mmol/L (3.5-5.5); Sodium, Blood 142 mmol/L (136-145)
--- NOTE | 2023-09-01 06:36 | NUR ---
END OF SHIFT SUMMARY NO ACUTE EVENTS OVERNIGHT. PT CONT TO BE INTUBATED WITH VENT SETTINGS AC/VC 18/400/8/45%; SMALL TO MODERATE AMOUNT OF RED ETT SECREATIONS NOTED T/O THE SHIFT. PT CONT TO BE ABLE TO FOLLOW DIRECTIONS AND ANSWER Y/N QUESTIONS; RASS 0 MOST OF THE SHIFT WITH PROPOFOL INFUSING AT 10MCG/KG/MIN; RASS UP TO +1 SO PROPOFOL TITRATED UP TO 15MCG/KG/MIN. MAX TEMP 100.6; FAN PLACED AND BLANKETS REMOVED HELPED BRING TEMP BACK DOWN. HR 80-90'S. SBP 100-140'S. VHP INFUSING AT GOAL VIA OG; NO BM THIS SHIFT. PRITCHARD IN PLACE AND DRAINING TO GRAVITY. PICC IN RUE PATENT; PHOS BEING REPLACED THIS AM. WILL REPORT TO AM RN WHEN AVAILABLE.
--- NOTE | 2023-09-01 07:00 | NUR ---
ASSUMPTION OF CARE: ASSUMED CARE OF PATIENT WITH DRISS WALKER COUNTS. PATIENT RESTING QUIETLY IN BED. PATIENT OPENS EYES TO VERBAL CUES. VENT SETTINGS AC/VC 18/400/8/45%. SPO2 >94%. PATIENT APPEARS COMFORTABLE. HR IN THE 70S-80S. MAPS >65. PRITCHARD CATHETER IN PLACE AND DRAINING FREELY. TUBE FEED INFUSING AT GOAL OF 45 ML/HR. PROPOFOL AT 15 MCG/KG/MIN.
--- NOTE | 2023-09-01 12:02 | NUR ---
SPONTANTEOUS BREATHING TRIAL: PATIENT STARTED SPONTANEOUS BREATHING TRIAL AT 09:45 THIS MORNING. PRESSURE SUPPORT OF 10/5. PATIENT TOLERATED WELL. SBT FINISHED AT 12:00 RELATED TO DECREASED TIDAL VOLUMES. PATIENT DENIED PAIN OR DISCOMFORT THROUGHOUT THE TRIAL. SPO2 >92% DURING THE TRIAL. PATIENT BACK TO PRIOR SETTINGS OF AC/VC 19/400/8/40%.
--- NOTE | 2023-09-01 19:30 | NUR ---
SHIFT SUMMARY: NEURO: PATIENT CONTINUES TO ANSWER YES/NO QUESTIONS BY NODDING AND SHAKING HER HEAD. PATIENT DENIED PAIN DURING THE SHIFT. PATIENT FOLLOWING DIRECTIONS. PATIENT OPENING EYES SPONTANEOUSLY WHEN STAFF IS IN THE ROOM. PATIENT MOVING ALL EXTREMITIES INDEPENDENTLY. PATIENT UP TO THE CHAIR FOR ABOUT 2 HOURS THIS AFTERNOON. RESPIRATORY: PATIENT CONTINUES TO BE ON AC/VC 18/400/8/40%. SPO2 >94%. PATIENT TOLERATED A SBT FROM 9:45-12:00. TRIAL ENDED DUE TO LOW TIDAL VOLUMES. CARDIAC: HR IN THE 70-80S. BLOOD PRESSURES STABLE. MAPS >65. SINUS RHYTHM DURING THE SHIFT. GI/: BOWEL CARE CONTINUES. PATIENT DENIES FEELING CONSTIPATED. TUBE FEED CONTINUES AT GOAL OF 45ML/HR. PRITCHARD IN PLACE AND CONTINUES TO DRAIN DARK YELLOW URINE. PSYCHSOCIAL: PATIENT'S SIGNIFICANT OTHER [place] AT THE BEDSIDE THIS MORNING. REPORTED THAT HE WOULD BE ABLE TO WAIT FOR CARE MANAGEMENT TO ROUND ON HIM. PATIENT LEFT BEFORE THEY WERE ABLE TO. UPDATED PATIENT'S SISTER AMAYA ON HER STATUS.
--- NOTE | 2023-09-01 22:43 | NUR ---
ASSUMTPION OF CARE PT RESTING IN BED, RESPONSIVE TO VERBAL STIMULI, FOLLOWS COMMANDS. PT ABLE TO SHAKE/NOD HEAD TO ANSWER SIMPLE QUESTIONS. INTUBATED AND SEDATED. HR 70-80'S NSR, MAP >65. VENT SETTINGS AC/VC 18/400/8/40%, OXYGEN SATURATION >95%. OG TUBE IN PLACE WITH VHP INFUSING AT GOAL RATE OF 45MLS/HR WITH 30ML FLUSH Q4. PRITCHARD IN PLACE PATENT DRAINING TO GRAVITY. PROPOFOL INFUSING AT 20MCG/KG/MIN, NS INFUSING TKO. BED IN LOWEST POSITION. CARE CONTINUES.
[2023-09-02] VITALS (30 sets, daily range): BP systolic 120–169; BP diastolic 49–99
[2023-09-02 03:59] LABS: BASOPHILS ABSOLUTE AUTO 0.03 K/mm3 (0.00-0.23); BASOPHILS PERCENT AUTO 0 % (0-2); EOSINOPHILS ABSOLUTE AUTO 0.49 K/mm3 (0.00-0.68); EOSINOPHILS PERCENT AUTO 7 % (0-6); Hematocrit 26.2 % (33.0-51.0); IMMATURE GRAN ABSOLUTE AUTO 0.25 K/mm3 (0.00-0.10); IMMATURE GRAN PERCENT AUTO 3 % (0-1); LYMPHOCYTES PERCENT AUTO 15 % (21-46); MONOCYTES ABSOLUTE AUTO 1.07 K/mm3 (0.16-1.47); MONOCYTES PERCENT AUTO 15 % (4-13); Mean Corpuscular HGB 27.8 pg (26.0-34.0); Mean Corpuscular HGB Conc 30.5 g/dL (31.5-36.5); Mean Corpuscular Volume 91 fL (80-100); Mean Platelet Volume 10.6 fL (9.1-12.4); NEUTROPHILS ABSOLUTE AUTO 4.37 K/mm3 (1.96-9.15); NEUTROPHILS PERCENT AUTO 60 % (41-73); NRBC ABSOLUTE 0.07 K/mm3 (0.00-0.02); Platelet Count 258 K/mm3 (150-400); RDW Coefficient Variation 14.8 % (11.7-14.2); RDW Standard Deviation 48.4 fL (35.1-46.3); Red Blood Cell Count 2.88 M/mm3 (3.80-5.20); White Blood Cell Count 7.31 K/mm3 (4.00-11.30)
[2023-09-02 04:17] LABS: Albumin, Blood 1.9 g/dL (3.4-5.0); Anion Gap 3 mmol/L (6-16); Blood Urea Nitrogen 34 mg/dL (8-24); Bun/Creatinine Ratio 41.7 (12.0-20.0); CO2, Blood 32 mmol/L (21-32); Chloride, Blood 107 mmol/L (98-108); Creatinine, Blood 0.82 mg/dL (0.40-1.00); Glomerular Filtration Rate 76 (60-); Glucose, Blood 223 mg/dL (70-99); Phosphorus, Blood 2.7 mg/dL (2.5-4.9); Sodium, Blood 142 mmol/L (136-145)
--- NOTE | 2023-09-02 06:01 | NUR ---
SHIFT SUMMARY PT RESTING IN BED, CONTINUES TO BE INTUBATED AND SEDATED. PT OPENS EYES TO VERBAL STIMULI AND FOLLOWS COMMANDS. HR 80'S NSR, MAP >65. VENT SETTINGS AC/VC 18/400/8/35%, OXYGEN SATURATION >95%. OG TUBE IN PLACE WITH VITAL HP INFUSING AT GOAL RATE OF 45MLS/HR WITH 30ML Q4 FLUSHES. PRITCHARD PATENT DRAINING TO GRACITY. PICC LINE IN PLACE TO ANTONIO. NS INFUISNG TKO, PROPFOL INFUSING AT 20MCG/KG/MIN. PT DENIES PAIN THIS SHIFT. BED IN LWOEST POSITION, CARE CONINTUES.
--- NOTE | 2023-09-02 17:10 | NUR ---
SHIFT SUMMARY NO ACUTE CHANGES THIS SHIFT. PT REMAINS INTUBATED. PROPOFOL REMAINS ON STANDBY SINCE THIS AM. PT HAS REMAINED CALM, FOLLOWS DIRECTIONS, AND NODS HEAD APPROPRIATELY TO QUESTIONS THROUGHOUT THE SHIFT. PT HAS DENIED PAIN OR DISCOMFORT AT REST. PT WITH SHORT SBT THIS AM. PT BECAME TACHYPNIC AND COMPLAINED OF SOB ON PRESSURE SUPPORT OF 15/8. PT HAS SINCE REMAINED ON AC 18, TV 400, PEEP 8, FIO2 35%. PT WITH MINIMAL ETT SECRETIONS THIS SHIFT. OGT REMAINS IN PLACE WITH TF INFUSING AT GOAL RATE. PICC TO ANTONIO REMAINS C/D/I WITH NS INFUSING TKO. PRITCHARD REMAINS IN PLACE WITH YELLOW URINE OUTPUT NOTED. PT WITH SMALL BM THIS SHIFT. VITAL SIGNS HAVE REMAINED STABLE. SBW RESTRAINTS REMAIN IN PLACE. PT SIGNIFICANT OTHER AT BEDSIDE FOR SHORT TIME THIS AFTERNOON. PT WOUNDS REMAIN UNCHANGED. WILL CONTINUE TO MONITOR AND REPORT OFF TO ONCOMING RN.
--- NOTE | 2023-09-02 20:53 | NUR ---
ASSUMED CARE AT 1900 PT LAYING IN BED INTUBATED AT SHIFT CHANGE. SHE IS NOT SEDATED BUT ALERT, CALM, AND COOPERATIVE; SHE QUICKLY FORGETS HER LIMITATIONS AND WILL REACH FOR THE ETT WHEN NOT IN RESTRAINTS; SHE FOLLOWS DIRECTIONS AND ANSWERS Y/N QUESTIONS APPROPRIATLY. ON VENT WITH SETTINGS AC/VC 18/400/8/35%; SMALL AMOUTN OF THICK JACKSON SECREATIONS FROM ETT. AFEBRILE. HR 80'S NSR. SBP 140'S; MAP >65. VHP INFUSING VIA OG AT 55ML/HR (GOAL) WITH 30ML WATER FLUSHES Q4HR. PRITCHARD IN PLACE AND DRAINING TO GRAVITY. PICC TO RUE PATENT AND INFUSING TKO. SEE SHIFT ASSESSMENT FOR FULL ASSESSMENT.
[2023-09-03] VITALS (24 sets, daily range): BP systolic 118–209; BP diastolic 50–121
[2023-09-03 04:49] LABS: BASOPHILS ABSOLUTE AUTO 0.03 K/mm3 (0.00-0.23); BASOPHILS PERCENT AUTO 0 % (0-2); EOSINOPHILS ABSOLUTE AUTO 0.41 K/mm3 (0.00-0.68); EOSINOPHILS PERCENT AUTO 5 % (0-6); Hematocrit 26.6 % (33.0-51.0); IMMATURE GRAN ABSOLUTE AUTO 0.18 K/mm3 (0.00-0.10); IMMATURE GRAN PERCENT AUTO 2 % (0-1); LYMPHOCYTES ABSOLUTE AUTO 1.16 K/mm3 (0.84-5.20); LYMPHOCYTES PERCENT AUTO 13 % (21-46); MONOCYTES ABSOLUTE AUTO 1.43 K/mm3 (0.16-1.47); MONOCYTES PERCENT AUTO 17 % (4-13); Mean Corpuscular HGB 27.6 pg (26.0-34.0); Mean Corpuscular HGB Conc 30.1 g/dL (31.5-36.5); Mean Corpuscular Volume 92 fL (80-100); Mean Platelet Volume 10.3 fL (9.1-12.4); NEUTROPHILS ABSOLUTE AUTO 5.47 K/mm3 (1.96-9.15); NEUTROPHILS PERCENT AUTO 63 % (41-73); NRBC ABSOLUTE 0.07 K/mm3 (0.00-0.02); NRBC Auto 0.8 /100 WBC (0.0-0.2); Platelet Count 302 K/mm3 (150-400); RDW Coefficient Variation 14.6 % (11.7-14.2); RDW Standard Deviation 49.1 fL (35.1-46.3); White Blood Cell Count 8.68 K/mm3 (4.00-11.30)
[2023-09-03 05:43] LABS: Creatinine, Blood 0.91 mg/dL (0.40-1.00); Magnesium, Blood 3.3 mg/dL (1.6-2.4); Potassium, Blood 3.9 mmol/L (3.5-5.5)
--- NOTE | 2023-09-03 06:52 | NUR ---
END OF SHIFT SUMMARY NO ACUTE EVENTS OVERNIGHT. PT DID NOT SLEEP LAST NIGHT. SHE CONT TO BE ABLE TO FOLLOW DIRECTIONS AND ANSWER Y/N QUESTIONS APPROPRIATLY. VENT SETTINGS AC/VC 18/400/8/35%; MODERATE AMOUNT OF THICK SECREATIONS FROM ETT. HR 80-90'S. SBP 120-150'S. VHP INFUSING AT GOAL VIA OG. PRITCHARD IN PLACE AND DRAINING TO GRAVITY. PICC TO RUE PATENT AND INFUSING. WILL REPORT TO AM RN WHEN AVAILABLE.
[2023-09-03 08:59] LABS: Vancomycin, Trough 24.1 ug/mL (5.0-10.0)
--- NOTE | 2023-09-03 16:12 | NUR ---
SHIFT SUMMARY PT REMAINS INTUBATED AND NOT SEDATED. PT HAS REMAINED ON PRESSURE SUPPORT 15/8, FIO2 35% THROUGHOUT THE SHIFT. PT WITH THICK BLOODY/JACKSON ETT SECRETIONS WITH SUCTION. PT REMAINS AWAKE, ALERT, AND ABLE TO FOLLOW SIMPLE COMMANDS. PT NODS HEAD TO QUESTIONS APPROPRIATELY. PT DENIES SOB. PT DENIES PAIN WHEN ASKED, BUT IS RESTLESS AND GRIMMACES WITH TURNS/CARE. OGT REMAINS IN PLACE WITH TF INFUSING AT GOAL RATE. PICC TO ANTONIO REMAINS C/D/I WITH NS INFUSING TKO. PRITCHARD REMAINS IN PLACE WITH YELLOW URINE OUTPUT NOTED. WOUNDS REMAIN UNCHANGED. SBW RESTRAINTS IN PLACE. VITAL SIGNS STABLE. PT SIGNIFICANT OTHER AT BEDSIDE THIS AFTERNOON. WILL CONTINUE TO MONITOR AND REPORT OFF TO ONCOMING RN.
[2023-09-04] VITALS (23 sets, daily range): BP systolic 123–182; BP diastolic 49–127
[2023-09-04 03:45] LABS: BASOPHILS ABSOLUTE AUTO 0.04 K/mm3 (0.00-0.23); BASOPHILS PERCENT AUTO 0 % (0-2); EOSINOPHILS ABSOLUTE AUTO 0.43 K/mm3 (0.00-0.68); EOSINOPHILS PERCENT AUTO 5 % (0-6); Hematocrit 25.7 % (33.0-51.0); Hemoglobin 7.9 g/dL (11.5-16.0); IMMATURE GRAN ABSOLUTE AUTO 0.16 K/mm3 (0.00-0.10); IMMATURE GRAN PERCENT AUTO 2 % (0-1); LYMPHOCYTES ABSOLUTE AUTO 1.16 K/mm3 (0.84-5.20); LYMPHOCYTES PERCENT AUTO 12 % (21-46); MONOCYTES ABSOLUTE AUTO 1.32 K/mm3 (0.16-1.47); MONOCYTES PERCENT AUTO 14 % (4-13); Mean Corpuscular HGB 28.1 pg (26.0-34.0); Mean Corpuscular HGB Conc 30.7 g/dL (31.5-36.5); Mean Corpuscular Volume 92 fL (80-100); Mean Platelet Volume 9.9 fL (9.1-12.4); NEUTROPHILS ABSOLUTE AUTO 6.37 K/mm3 (1.96-9.15); NEUTROPHILS PERCENT AUTO 67 % (41-73); NRBC ABSOLUTE 0.05 K/mm3 (0.00-0.02); NRBC Auto 0.5 /100 WBC (0.0-0.2); Platelet Count 299 K/mm3 (150-400); RDW Coefficient Variation 14.6 % (11.7-14.2); RDW Standard Deviation 49.2 fL (35.1-46.3); Red Blood Cell Count 2.81 M/mm3 (3.80-5.20); White Blood Cell Count 9.48 K/mm3 (4.00-11.30)
[2023-09-04 04:22] LABS: Anion Gap 4 mmol/L (6-16); Blood Urea Nitrogen 44 mg/dL (8-24); Bun/Creatinine Ratio 42.3 (12.0-20.0); CO2, Blood 31 mmol/L (21-32); Calcium, Blood 8.1 mg/dL (8.5-10.1); Chloride, Blood 107 mmol/L (98-108); Creatinine, Blood 1.04 mg/dL (0.40-1.00); Glomerular Filtration Rate 57 (60-); Glucose, Blood 206 mg/dL (70-99); Magnesium, Blood 3.2 mg/dL (1.6-2.4); Phosphorus, Blood 2.7 mg/dL (2.5-4.9); Potassium, Blood 3.7 mmol/L (3.5-5.5); Sodium, Blood 142 mmol/L (136-145); Vancomycin, Random 16.1 ug/mL
[2023-09-04 14:14] LABS: Potassium, Blood 3.9 mmol/L (3.5-5.5)
--- NOTE | 2023-09-04 16:51 | NUR ---
SHIFT SUMMARY PT WITH SMALL IMPROVEMENT TO RESPIRATORY STATUS THIS SHIFT. PT HAS REMAINED AWAKE, ALERT, AND FOLLOWING DIRECTIONS APPROPRIATELY. PT HAS BEEN ON PRESSURE SUPPORT SINCE THIS MORNING, WITH SLOW DECREASES IN PRESSURES BY RT. VENT SETTINGS CURRENTLY PS 12/8, FIO2 35%. PT CONTINUES TO HAVE THICK, BLOODY/JACKSON SECRETIONS WITH ETT SUCTION. PT HAS DENIED PAIN OR DISCOMFORT. PT ABLE TO NOD HEAD APPROPRIATELY TO QUESTIONS. OGT REMAINS IN PLACE WITH TF INFUSING AT GOAL RATE. PICC TO ANTONIO REMAINS C/D/I WITH NS INFUSING TKO. PRITCHARD REMAINS IN PLACE WITH YELLOW URINE OUTPUT NOTED. SBW RESTRAINTS REMAIN IN PLACE. VITAL SIGNS REMAIN STABLE. PT WITH SHORT RUN OF VTACH THIS AFTERNOON, DR WAGONER NOTIFIED, ELECTROLYTES REPEATED. PT SIGNIFICANT OTHER AT BEDSIDE MOST OF THIS SHIFT. WOUNDS REMAIN UNCHANGED FROM START OF SHIFT. WILL CONTINUE TO MONITOR AND REPORT OFF TO ONCOMING RN.
[2023-09-05] VITALS (37 sets, daily range): BP systolic 110–180; BP diastolic 47–98
[2023-09-05 04:00] LABS: BASOPHILS ABSOLUTE AUTO 0.07 K/mm3 (0.00-0.23); BASOPHILS PERCENT AUTO 1 % (0-2); EOSINOPHILS ABSOLUTE AUTO 0.48 K/mm3 (0.00-0.68); EOSINOPHILS PERCENT AUTO 5 % (0-6); Hematocrit 27.6 % (33.0-51.0); Hemoglobin 8.3 g/dL (11.5-16.0); IMMATURE GRAN ABSOLUTE AUTO 0.14 K/mm3 (0.00-0.10); IMMATURE GRAN PERCENT AUTO 1 % (0-1); LYMPHOCYTES ABSOLUTE AUTO 1.43 K/mm3 (0.84-5.20); LYMPHOCYTES PERCENT AUTO 14 % (21-46); MONOCYTES ABSOLUTE AUTO 1.24 K/mm3 (0.16-1.47); MONOCYTES PERCENT AUTO 12 % (4-13); Mean Corpuscular HGB 27.6 pg (26.0-34.0); Mean Corpuscular HGB Conc 30.1 g/dL (31.5-36.5); Mean Corpuscular Volume 92 fL (80-100); Mean Platelet Volume 10.1 fL (9.1-12.4); NEUTROPHILS ABSOLUTE AUTO 6.74 K/mm3 (1.96-9.15); NEUTROPHILS PERCENT AUTO 67 % (41-73); NRBC ABSOLUTE 0.04 K/mm3 (0.00-0.02); NRBC Auto 0.4 /100 WBC (0.0-0.2); Platelet Count 303 K/mm3 (150-400); RDW Coefficient Variation 14.8 % (11.7-14.2); RDW Standard Deviation 49.3 fL (35.1-46.3); Red Blood Cell Count 3.01 M/mm3 (3.80-5.20)
[2023-09-05 04:21] LABS: Calcium, Blood 8.5 mg/dL (8.5-10.1); Creatinine, Blood 1.02 mg/dL (0.40-1.00); Magnesium, Blood 3.3 mg/dL (1.6-2.4); Potassium, Blood 3.9 mmol/L (3.5-5.5)
--- NOTE | 2023-09-05 07:00 | NUR ---
ASSUMPTION OF CARE: ASSUMED CARE OF PATIENT WITH CALLIE VITALE. PATIENT UP IN CHAIR. PATIENT APPEARS CALM AND COMFORTABLE. 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 TF CONTINUES AT 55 MLS/HR. PRITCHARD IN PLACE AND DRAINING FREELY. RT MARCUS AT BEDSIDE ADJUSTING SETTINGS OF VENT. PATIENT ON PRESSURE SUPPORT 07/10/35%. TIDAL VOLUMES HIGH 200S TO LOW 300S. RR 26-32. SPO2 92-94%. PATIENT DOES NOT APPEAR TO BE IN ANY DISTRESS. MAPS >65.
--- NOTE | 2023-09-05 10:20 | NUR ---
PATIENT CPAP: CALLED PATIENTEz ALEJANDRA TO UPDATE ON POTENTIAL FOR EXTUBATION AND TO REQUEST THAT HE BRING IN HER CPAP MACHINE. HE REPORTED THAT THE CAB IS PICKING HIM UP AT 1 AND THAT HE WILL BE HERE FOR THE AFTERNOON.
--- NOTE | 2023-09-05 11:25 | NUR ---
EXTUBATION: PATIENT EXTUBATED AT 11:00. PATIENT INITIALLY TRANSITIONED TO NASAL CANNULA AT 3L O2. PATIENT REPORTED FEELING SHORT OF BREATH AND UNCOMFORTABLE. TRANSITIONED TO NIV BIPAP 102/7/35%. TIDAL VOLUMES ARE IN THE LOW 400S. RR IN THE HIGH 20S AND MINUTE VOLUMES 11-13L. SPO2 94-95%. ADY RT AWARE.
--- NOTE | 2023-09-05 18:44 | NUR ---
SHIFT SUMMARY: NEURO: PATIENT FOLLOWING DIRECTIONS THROUGHOUT THE SHIFT. PATIENT IS WEAK IN HER MOVEMENTS AND HER ABILITY TO HELP IS LIMITED. ONCE EXTUBATED, PATIENT HAD A WEAK AND MINIMAL VOICE. CONTINUED TO COMMUNICATE WITH NODDING AND SHAKING OF HER HEAD. PATIENT MOVING ALL 4 LIMBS INDEPENDENTLY. RESPIRATORY: PATIENT EXTUBATED TODAY AT 11:00. PATIENT INITIALLY EXTUBATED TO 4L VIA NC. PATIENT REPORTED SOB AND TRANSITIONED TO NIV BIPAP 12/7/35%. PATIENT TOLERATED A TRIAL ON 4L VIA NC LATER IN THE AFTERNOON. PATIENT TOLERATED FOR ABOUT 1.5-2 HOURS BEFORE REPORTING FATIGUE. PLACED BACK ON NIV BIPAP. PATIENT CONTINUED TO HAVE RR IN THE 30S AND INCREASING MINUTE VOLUMES. NOTIFIED DR. MARTIN. NEW ORDERS PLACED AND PATIENT ENDED THE SHIFT WITH PRESSURE SUPPORT OF 16/10. GIVEN ONE TIME ORDER OF IV LASIX. GI/: PRITCHARD IN PLACE AND DRAINING FREELY. BOWEL SOUNDS HYPOACTIVE. PATIENT DENIES FEELING CONSTIPATED. TUBE FEED DISCONTINUED WITH PULLING OF OGT. SWALLOW EVALUATION ORDER PLACED. PATIENT TOO FATIGUED AT THIS TIME TO SWALLOW SAFELY. PSYCHSOCIAL: PATIENT'S SO [place] AT BEDSIDE THIS AFTERNOON. HE WAS CALM AT THE BEDSIDE. HE WAS ABLE TO SPEAK WITH DR. MARTIN. HE REPORTS THAT HE WILL BE BACK TOMORROW AT 09:00. HE REPORTS APPRECIATION OF THE CARE PROVIDED.
[2023-09-05 18:56] LABS: PCO2 Arterial 50.7 mmHg (35-45); PO2 Arterial 60.9 mmHg (80-100); pH Blood Arterial 7.41 (7.35-7.45)
[2023-09-05 20:58] LABS: Vancomycin, Trough 22.5 ug/mL (5.0-10.0)
--- NOTE | 2023-09-05 21:23 | NUR ---
SHIFT ASSESSMENT: ASSUMED CARE OF PT. PT WILL OPEN EYES TO VERBAL STIMULI, BUT WILL NOT ANSWER QUESTIONS. [place] BILAT AT 4MM. LS COARSE T/O WITH BIOX 97% ON BIPAP 16/10 WITH FIO2 35%. HEART SOUNDS WITH MURMUR AUSCULTATED WITH MONITOR SHOWING SR WITH PVC WITH HR 83. SKIN PALE, WARM AND DRY. WOUND TO LEFT UPPER ARM PICTURED AND REDRESSED WITH PETROLEUM GAUZE DRESSING. PICC ANTONIO TRIPLE LUMEN WITH 0CM EXPOSED WHICH CONFORMS TO INSERTION RECORD. ALL CAPS CHANGED AND FLUSHED. ABD R/O WITH HYPO BTX4. PRITCHARD DRAINING CLEAR YELLOW URINE.
[2023-09-06] VITALS (39 sets, daily range): BP systolic 107–194; BP diastolic 45–88
[2023-09-06 04:01] LABS: BASOPHILS ABSOLUTE AUTO 0.05 K/mm3 (0.00-0.23); BASOPHILS PERCENT AUTO 1 % (0-2); EOSINOPHILS ABSOLUTE AUTO 0.53 K/mm3 (0.00-0.68); EOSINOPHILS PERCENT AUTO 6 % (0-6); Hematocrit 26.4 % (33.0-51.0); Hemoglobin 7.9 g/dL (11.5-16.0); IMMATURE GRAN ABSOLUTE AUTO 0.08 K/mm3 (0.00-0.10); IMMATURE GRAN PERCENT AUTO 1 % (0-1); LYMPHOCYTES ABSOLUTE AUTO 1.36 K/mm3 (0.84-5.20); LYMPHOCYTES PERCENT AUTO 15 % (21-46); MONOCYTES ABSOLUTE AUTO 1.04 K/mm3 (0.16-1.47); MONOCYTES PERCENT AUTO 12 % (4-13); Mean Corpuscular HGB 27.5 pg (26.0-34.0); Mean Corpuscular HGB Conc 29.9 g/dL (31.5-36.5); Mean Corpuscular Volume 92 fL (80-100); Mean Platelet Volume 9.6 fL (9.1-12.4); NEUTROPHILS ABSOLUTE AUTO 5.75 K/mm3 (1.96-9.15); NEUTROPHILS PERCENT AUTO 65 % (41-73); NRBC ABSOLUTE 0.02 K/mm3 (0.00-0.02); NRBC Auto 0.2 /100 WBC (0.0-0.2); Platelet Count 334 K/mm3 (150-400); RDW Coefficient Variation 14.7 % (11.7-14.2); RDW Standard Deviation 49.3 fL (35.1-46.3); Red Blood Cell Count 2.87 M/mm3 (3.80-5.20); White Blood Cell Count 8.81 K/mm3 (4.00-11.30)
[2023-09-06 04:19] LABS: Magnesium, Blood 3.1 mg/dL (1.6-2.4)
[2023-09-06 04:20] LABS: Albumin/Globulin Ratio 0.5 (0.8-1.8); Bilirubin, Total 0.5 mg/dL (0.1-1.0); Bun/Creatinine Ratio 47.5 (12.0-20.0); Calcium, Blood 8.3 mg/dL (8.5-10.1); Creatinine, Blood 1.01 mg/dL (0.40-1.00); Globulin, Blood 4.2 g/dL (2.2-4.0); Phosphorus, Blood 3.8 mg/dL (2.5-4.9); Potassium, Blood 3.7 mmol/L (3.5-5.5); Total Protein, Blood 6.2 g/dL (6.4-8.2)
--- NOTE | 2023-09-06 05:52 | NUR ---
SHIFT SUMMARY: PT HAS REMAINED ON BIPAP 16/10 FIO2 30% ALL NIGHT. LS COARSE WITH WHEEZES FROM TIME TO TIME THAT CLEARS UP WITH A WEAK COUGH. PT IS VERY WEAK BUT HAS HAD SLIGHT PROGRESSION THROUGH THE NIGHT; PT ABLE TO MOVE ARMS OFF BED AND ATTEMPT TO HELP WITH TURNS. PT TO HAVE A SWALLOW EVAL TODAY PT HAS BEEN NPO SINCE EXTUBATION YESTERDAY.
--- NOTE | 2023-09-06 09:45 | NUR ---
SHIFT ASSESSMENT ASSUMED CARE OF PT @ 0700, BEDSIDE REPORT RECEIVED FROM YANIV ALEXIS. PT A&OX3, FOLLOWING COMMANDS, WEAKLY PALMA. ON BIPAP 16/10 @ 30% C SATS>90%, GIVING BREAKS FROM BIPAP c 4LPM O2 VIA NC. PT BECOMING SOB RATHER QUICKLY WHILE OFF THE THE BIPAP. LIFT USED TO MOVE PT TO RECLINER, TOLERATED WELL. OT EVALUATED, PT TOO WEAK TO COMPLETE EXERCISES. SPEACH/ SWALLOW EVAL, PT FAILED, WILL REMAIN NPO. PT REPORTS ISSUES SWALLOWING AT HOME. PRITCHARD CATH PATENT, DRAINING STEPHANIE URINE.
--- NOTE | 2023-09-06 17:42 | NUR ---
SHIFT SUMMARY PT REMAINS A&O, FOLLOWING COMMANDS, PALMA. BIPAP ON FOR MOST OF THE DAY AT PREVIOUS SETTINGS. TITRATED NC UP TO 6LPM DURING BIPAP BREAKS. PT BECOMING HYPERTENSIVE THIS AFTERNOON, NEW ORDERS FOR PRN LABETOLOL. PT ALSO C/O GENERALIZED PAIN, MEDICATED c PRN FENTANYL, BP WNL & PAIN CONTROLLED AFTER ADMIN. PTS STRENGTH SLIGHTLY IMPROVING, MOVING MUCH MORE IN BED, STILL NOT ABLE TO HELP MUCH WITH TURNS. PRITCHARD CATH REMAINS PATENT, DRAINING STEPHANIE URINE. NO BM TODAY. NO OTHER ACUTE CHANGES.
[2023-09-07] VITALS (29 sets, daily range): BP systolic 104–196; BP diastolic 58–117
[2023-09-07 05:17] LABS: BASOPHILS ABSOLUTE AUTO 0.06 K/mm3 (0.00-0.23); BASOPHILS PERCENT AUTO 1 % (0-2); EOSINOPHILS ABSOLUTE AUTO 0.43 K/mm3 (0.00-0.68); EOSINOPHILS PERCENT AUTO 5 % (0-6); Hematocrit 26.6 % (33.0-51.0); IMMATURE GRAN ABSOLUTE AUTO 0.09 K/mm3 (0.00-0.10); IMMATURE GRAN PERCENT AUTO 1 % (0-1); LYMPHOCYTES ABSOLUTE AUTO 1.12 K/mm3 (0.84-5.20); LYMPHOCYTES PERCENT AUTO 14 % (21-46); MONOCYTES PERCENT AUTO 10 % (4-13); Mean Corpuscular HGB 27.4 pg (26.0-34.0); Mean Corpuscular HGB Conc 30.1 g/dL (31.5-36.5); Mean Corpuscular Volume 91 fL (80-100); Mean Platelet Volume 9.9 fL (9.1-12.4); NEUTROPHILS ABSOLUTE AUTO 5.79 K/mm3 (1.96-9.15); NEUTROPHILS PERCENT AUTO 70 % (41-73); Platelet Count 348 K/mm3 (150-400); RDW Coefficient Variation 14.6 % (11.7-14.2); Red Blood Cell Count 2.92 M/mm3 (3.80-5.20); White Blood Cell Count 8.29 K/mm3 (4.00-11.30)
--- NOTE | 2023-09-07 05:39 | NUR ---
SHIFT SUMMERY PT IS ALERT AND ORIENTED, ABLE TO MAKE NEEDS KNOWN. SHE HAS BEEN RESTLESS MOST OF THE NIGHT AND WAS ONLY ABLE TO TOLERATE A BREAK FROM BIPAP FOR ABOUT 5 MINUTES BEFORE ASKING TO BE PUT BACK ON BIPAP. SHE HAS COMPLAINED OF SORENESS/PAIN FROM CPR AND MEDICATED PER EMAR. SHE IS VERY WEAK W/A WEAK COUGH EFFORT. SHE IS ABLE TO PALMA. NO ACUTE CHANGES OVERNIGHT.
[2023-09-07 05:51] LABS: Albumin/Globulin Ratio 0.5 (0.8-1.8); Bilirubin, Total 0.5 mg/dL (0.1-1.0); Calcium, Blood 8.1 mg/dL (8.5-10.1); Creatinine, Blood 1.05 mg/dL (0.40-1.00); Globulin, Blood 4.3 g/dL (2.2-4.0); Phosphorus, Blood 3.4 mg/dL (2.5-4.9); Total Protein, Blood 6.3 g/dL (6.4-8.2)
--- NOTE | 2023-09-07 11:08 | NUR ---
Spiritual Care Visit. "Things We Care to Know" Pt. is awake and on Bi-pap, SO Grupo is at bedside. Rapport is re-established and Pt. agreed to respond to our Things We Care to Know survey. A News Agent will be made and posted in the Pts. room. Things We Care to KNow is a Spiritual Care fuel pilot engineer program designed to personalize the Pt./Staff relationship, particularly for the Pt. who has difficulty communicating for themselves.
--- NOTE | 2023-09-07 13:43 | NUR ---
WOUND CARE 5x5.2x0.2 EXTRAVASATION INJURY TO ANTERIOR LUE. PARTIAL TO FULL THICKNESS TISSUE LOSS NOTED. NEW PHOTO AND ASSESSMENT IN HARD CHART, WOUND CATRE ORDERS IN [facility]. DAIRY BACTERIOLOGIST WILL RETURN TUESDAY TO REASSESS AND CHANGE DRESSING.
--- NOTE | 2023-09-07 15:41 | NUR ---
UPDATE PROGRESS PATIENT WAS UP IN CHAIR FROM [phone]- [phone] TODAY. SHE RECIEVED A TYLENOL SUPP FOR PAIN IN HER CHEST TODAY. SHE STATED SHE DID NOT THINK IT WAS VERY HELPFUL ABOUT ANY HOUR POST GIVING IT. PATIENT IS ABLE TO DO SOME WHISPER TALKING. SHE IS GETTING STRONGER LIFTING HER LEGS AND ARMS ABOUT. SHE WAS UPSET AND SNAPPED APART HER BIPAP SHE HAD ON AFTER SHE WAS BACK TO BED. SHE SNAPPED " i HAVE TO POOP" SHE WAS PUT ON A BEDPAN. SHE WAS DID DESATURATED WHEN SHE DID THAT DOWN TO 78%... SHE HOWEVER DID RECOVER ONCE BIPAP WAS BACK ON, SAO2 UP O 96%. HER PICC LINE DRESSING WAS CHANGED ALONG WITH THE CAPS THIS AFTERNOON. SHE CONTINUES TO BE AFEBRILE TODAY.
--- NOTE | 2023-09-07 18:48 | NUR ---
END OF SHIFT REPORT PT HAS BEEN AWAKE ALL DAY TODAY. SHE HAS BEEN UP IN THE CHAIR FROM [phone] THEN BACK TO BED WITH BIPAP BACK ON. SHE DID HAVE 2 HR OF NC 6 L AND DID WELL ON IT BUT ONCE BACK TO BED SHE BECAME MORE ANXIOUS AND FRUSTRATED WITH THE BIPAP, ONCE EVEN RIPPING IT OFF. BUT ONCE PUT BACK ON SHE RECOVERED AND SETTLED DOWN A BIT. SHE STATED SHE NEEDS TO HAVE A BM BUT WHEN PUT ON THE BEDPAN SHE DID NOT GO. SHE GOT TYLENOL SUPP. TODAY AND AT END OF DAY SOME ATIVAN 1MG FOR ANXIETY. WHEN ASKED IF SHE WAS ANXIOUS OR HAD PAIN .. THUMBS UP FOR PAIN OR HAND FLAT FOR ANXIOUSNESS SHE DID HAND FLAT. SHE IS COMPREHENDING COMMUNICATION AND DOES HAVE A SOFT VOICE WHEN ABLE TO TALK OFF BIPAP. SHE HAS A COURSE COUGH BUT NONPRODUCTIVE. SHE HAS BEEN DOING HER OWN ORAL SWABBING WITH SPONGE... SHE FIGHTS US LESS THAT WAY. AND GETTING GEL FOR HER MOUTH. SHE HAD MODERATE OUTPUT FROM PRITCHARD TODAY, NOW DIURETICS WERE GIVEN TODAY. SHE IS STILL ON VANCOMYCIN IV HOWEVER. GOAL IS TO TRY SWALLOW EVAL TOMORROW IN HOPES SHE WILL BE STRONG ENOUGH TO PASS AND EAT TOMORROW. WILL CONTINUE CARE AND GIVE REPORT TO NEXT SHIFT TO RESUME CARE THUS AFTER.
[2023-09-07 21:06] LABS: Vancomycin, Trough 17.6 ug/mL (5.0-10.0)
--- NOTE | 2023-09-07 22:25 | NUR ---
PT WAS GIVEN A BREAK OFF OF BIPAP W/NC. SHE BECAME TACHYPNIC W/INCREASED WORK OF BREATHING NOTED ALMOST IMMEDIATLY. HER OXYGEN SAT DROPPED INTO THE 80S. PT WAS PLACED BACK ON BIPAP AT SAME SETTINGS. SHE CONTINUES TO HAVE A VERY WEAK, CONGESTED COUGH W/OUT BEING ABLE TO COUGH UP SECRETIONS AT THIS TIME. PT REPOSITIONED FOR COMFORT, STATED SHE WAS HAVING SOME ANXIETY AT THE CURRENT TIME. EARLIER IN THE SHIFT PT ALSO BECAME QUITE HYPERTENSIVE, W/SYSTOLIC IN THE 190S. PT WAS MEDICATED W/LABETOLOL PER EMAR. BP HAS RETURNED TO WNL AT THIS TIME.
[2023-09-08] VITALS (35 sets, daily range): BP systolic 117–186; BP diastolic 53–134
[2023-09-08 04:51] LABS: BASOPHILS PERCENT AUTO 1 % (0-2); EOSINOPHILS ABSOLUTE AUTO 0.31 K/mm3 (0.00-0.68); EOSINOPHILS PERCENT AUTO 3 % (0-6); Hematocrit 28.3 % (33.0-51.0); Hemoglobin 8.3 g/dL (11.5-16.0); IMMATURE GRAN ABSOLUTE AUTO 0.09 K/mm3 (0.00-0.10); IMMATURE GRAN PERCENT AUTO 1 % (0-1); LYMPHOCYTES ABSOLUTE AUTO 1.21 K/mm3 (0.84-5.20); LYMPHOCYTES PERCENT AUTO 12 % (21-46); MONOCYTES ABSOLUTE AUTO 0.66 K/mm3 (0.16-1.47); MONOCYTES PERCENT AUTO 7 % (4-13); Mean Corpuscular HGB 27.5 pg (26.0-34.0); Mean Corpuscular HGB Conc 29.3 g/dL (31.5-36.5); Mean Corpuscular Volume 94 fL (80-100); Mean Platelet Volume 9.9 fL (9.1-12.4); NEUTROPHILS ABSOLUTE AUTO 7.83 K/mm3 (1.96-9.15); NEUTROPHILS PERCENT AUTO 77 % (41-73); Platelet Count 365 K/mm3 (150-400); RDW Coefficient Variation 14.8 % (11.7-14.2); Red Blood Cell Count 3.02 M/mm3 (3.80-5.20)
[2023-09-08 05:47] LABS: Albumin, Blood 2.2 g/dL (3.4-5.0); Albumin/Globulin Ratio 0.5 (0.8-1.8); Bilirubin, Total 0.5 mg/dL (0.1-1.0); Bun/Creatinine Ratio 43.1 (12.0-20.0); Calcium, Blood 8.1 mg/dL (8.5-10.1); Creatinine, Blood 1.02 mg/dL (0.40-1.00); Globulin, Blood 4.4 g/dL (2.2-4.0); Phosphorus, Blood 3.8 mg/dL (2.5-4.9); Potassium, Blood 4.2 mmol/L (3.5-5.5); Total Protein, Blood 6.6 g/dL (6.4-8.2)
--- NOTE | 2023-09-08 06:17 | NUR ---
SHIFT SUMMERY PT HAS REQUIRED MEDICATION FOR PAIN,ANXIETY AND HYPERTENSION THROUGHOUT THE NIGHT-SEE EMAR. SHE WAS GIVEN TWO BREAKS OFF OF THE BIPAP TO NE AND DID NOT TOLERATE EITHER WELL. SHE HAS REQUIRED AN INCREASE IN FIO2 FROM 40 TO 60% DUE TO DECREASED OXYGEN SATURATION. SHE IS ABLE TO COMMUNICATE NEEDS AND FOLLOW COMMANDS. GENERALIZED WEAKNESS BUT PALMA. CONTINUED WEAK COUGH EFFORT. NPO DUE TO FAILED SWALLOW STUDY.
--- NOTE | 2023-09-08 10:43 | NUR ---
Assumed care of pt at 0700. Report received from Sera ALEXIS. Pt wearing BiPAP 16/10 and 40% FiO2. Awakens to gentle verbal stimulus but does not maintain alertness for very long. Able to follow directions and move all extremities on command. Provided 5 minute break from BiPAP to perform oral care. RR increased from 30s to 40s and sats decreased from high 90s to low 90s. Placed back on BiPAP and transferred to chair with ceiling lift. Remains in chair at this time.
--- NOTE | 2023-09-08 19:20 | NUR ---
SUMMARY Neuro/Musc/ADLs: A&O x 2. Answers questions, follows commands, verbalizes needs, however pt is slow to respond. Lethargic today. Discussed with Dr Calixto. Provider DCd fentanyl and ativan IV. Worked with OT, however could not maintain alertness. Up in chair for 8 hours today. Moves all ext with instruction, however is total care for all ADLs. Oral care Q4, repositioned Q2, and CHG bath done. Resp: Lungs coarse t/o. BiPAP 16/10 and 40% FiO2. RR 30s. Tolerates breaks for up to 25 minutes with 3 LPM NC. Cardiac: SR per monitor. Received one dose of labetalol PRN. GI: NPO. No BM. Per report, last BM 09/04. Discussed with Dr Calixto. No changes to plan of care. Discussed dobhoff for nutrition during interdisciplinary rounds. Plan to hold off and proceed with ST eval first thing tomorrow morning. Skin: Dr Velázquez consulted for extravastation injury to L AC. Changed dressing orders. Notified business insurance agent of changes made by surgeon. Psychosocial: Flat affect. Update given to pt's sister.
--- NOTE | 2023-09-08 19:30 | NUR ---
ASSUMPTION OF CARE BEDSIDE SHIFT REPORT RECEIVED FROM ABIMBOLA RN. PT RESTLESS IN BED, ALERT. PT ABLE TO FOLLOW SOME COMMANDS AND ANSWER SIMPLE QUESTIONS. PT ATTEMPTS TO GRAB AT AND REMOVE BIPAP MASK, EASILY REDIRECTABLE. PT MOVES ALL EXTREMITIES EQUALLY BILATERALLY. HR 90-100'S SINUS, MAP >65. PT ON BIPAP 16/10 40%, OXYGEN SATURATION >90%. PICC LINE IN PLACE TO ANTONIO INFUSING NS TKO. PRITCHARD IN PLACE PATENT DRAINING TO GRAVITY. BED IN LOWEST POSITION, CALL LIGHT WITHIN REACH. CARE CONTINUES.
--- NOTE | 2023-09-08 22:00 | NUR ---
PT UPDATE PT DESAT DOWN TO 60 WITH GOOD PLETH, THIS RN TO PT BEDSIDE. BIPAP MASK IN PLACE, 100% OXYGEN GIVEN. INSTRUCTED PT TO COUGH TO ATTEMPT TO MOVE SECRETIONS. PT HAS WEAK COUGH AND IS UNABLE TO MOVE SECRETIONS. RT CALLED. RT TO BEDSIDE TO EVALUATE PT. PT OXYGEN SATURATION INCREASED TO 90'S. SHORTLY AFTER PT DESATTED AGAIN DOWN TO 70'S. RT ATTEMPTED NT SUCTION WITH NO OUTPUT. PT DESATTED DOWN TO THE 40'S, BIPAP MASK REPLACED, 100% OXYGEN RESTARTED. BIPAP SETTING INCREASED FROM 16/10 40% TO 22/14 100%. PT CONTINUED TO SAT IN THE 70-80'S. STAT CHEST X-RAY ORDERED AND COMPLETED. CALL PLACED TO DR. MARTIN TO EVALUATE THE PT.
[2023-09-08 22:55] LABS: pH Blood Venous 7.37 (7.34-7.37)
[2023-09-08 22:56] LABS: Bicarbonate Venous 26.7 mmol/L (24.0-30.0); PCO2 Venous 49.9 mmHg (38-42)
[2023-09-08 22:57] LABS: Base Excess Venous 3.5 mmol/L
--- NOTE | 2023-09-08 23:31 | NUR ---
PT UPDATE PT BOOSTED IN BED. PT RECOVERED. DR. MARTIN TO PT BEDSIDE. DR. MARTIN ADJUSTED PT MASK, BIPAP SETTINGS CHANGED TO 22/14 40%, INSTRUCTED PT TO COUGH AND DEEP BREATH. PT OXYGEN SATURATION >95%. VBG COMPLETED. PT COLOR AND MENTATION HAS IMPROVED SINCE THE BEGINNING OF THIS SHIFT. MARIO BRASHER STATES THAT HER MENTATION IS WORSE THAN IT WAS WHEN HE SAW HER THIS AM. CARE CONTINUES.
[2023-09-09] VITALS (43 sets, daily range): BP systolic 126–183; BP diastolic 55–105
[2023-09-09 04:44] LABS: BASOPHILS ABSOLUTE AUTO 0.08 K/mm3 (0.00-0.23); BASOPHILS PERCENT AUTO 1 % (0-2); EOSINOPHILS ABSOLUTE AUTO 0.19 K/mm3 (0.00-0.68); EOSINOPHILS PERCENT AUTO 2 % (0-6); Hemoglobin 7.8 g/dL (11.5-16.0); IMMATURE GRAN ABSOLUTE AUTO 0.04 K/mm3 (0.00-0.10); IMMATURE GRAN PERCENT AUTO 1 % (0-1); LYMPHOCYTES ABSOLUTE AUTO 0.96 K/mm3 (0.84-5.20); LYMPHOCYTES PERCENT AUTO 11 % (21-46); MONOCYTES ABSOLUTE AUTO 0.52 K/mm3 (0.16-1.47); MONOCYTES PERCENT AUTO 6 % (4-13); Mean Corpuscular HGB 27.9 pg (26.0-34.0); Mean Corpuscular Volume 93 fL (80-100); Mean Platelet Volume 9.9 fL (9.1-12.4); NEUTROPHILS ABSOLUTE AUTO 7.03 K/mm3 (1.96-9.15); NEUTROPHILS PERCENT AUTO 80 % (41-73); Platelet Count 360 K/mm3 (150-400); RDW Coefficient Variation 14.6 % (11.7-14.2); RDW Standard Deviation 50.1 fL (35.1-46.3); White Blood Cell Count 8.82 K/mm3 (4.00-11.30)
[2023-09-09 05:12] LABS: Magnesium, Blood 3.2 mg/dL (1.6-2.4)
[2023-09-09 05:13] LABS: Bun/Creatinine Ratio 42.7 (12.0-20.0); Calcium, Blood 7.9 mg/dL (8.5-10.1); Creatinine, Blood 1.03 mg/dL (0.40-1.00); Phosphorus, Blood 2.9 mg/dL (2.5-4.9); Potassium, Blood 3.9 mmol/L (3.5-5.5)
--- NOTE | 2023-09-09 06:19 | NUR ---
SHIFT SUMMARY PT RESTING IN BED, ALERT. PT ABLE TO ASNWER QUESTIONS AND FOLLOW SOME COMMANDS. PT DOES ATTEMPT TO REPOSITION MASKS/ TRY TO REMOVE IT AT TIMES. EASILY REDIRECTABLE. PT MOVES ALL EXTREMITIES EQUALLY BILATERALLY. HR 70'S NSR, MAP >65, SBP 120'S. PT RECEIVED ONE DOSE OF LABETALOL THIS SHIFT PER EMAR. PT ON BIPAP MASK, SETTINGS 22/14 35%. PT DOES NOT TOLERATE BREAKS FROM THE VENT FOR MORE THAN A FEW MINUTES. OXYGEN SATURATION >90%. PRITCHARD PATENT DRAINING TO GRAVITY. PICC LINE TO ANTONIO INFUSING NS TKO. SITTER AT BEDSIDE TO HELP REDIRECT PATIENT. BED IN LOWEST POSITION, CARE CONTINUES.
--- NOTE | 2023-09-09 08:36 | NUR ---
Assumed care of pt at 0700. Bedside report received from Pia ALEXIS. Pt on BIPAP and 45% FiO2. SpO2 90% or greater. Pt in room, reaching for BiPAP mask 2x per minute. Clinical sitter at bedside, redirecting patient. Pt receptive to redirection. Asked pt if she would like to get up to chair and she nods head indicating yes. Lifted to recliner, pt cooperative and tolerated well. Much less restless once she was in the chair. Break from BiPAP started at 0740, placed on 6 LPM NC and pt remains off BiPAP at this time. Pt able to wash face with washcloth. Attempted to comb hair but could only gently comb front portions. Able to sit foward in recliner on instruction and hold this pose so this RN could comb her hair. Talking much more than she was yesterday. States she is in "[place]" and "hospital" when asked where she is. She also states "23" when asked the year. Does not know current month or season.
--- NOTE | 2023-09-09 18:46 | NUR ---
SUMMARY Neuro/Musc/ADLS: Pt A&O to self, place, and year. Pleasant and cooperative with care. Clinical sitter at bedside because pt requires frequent redirection for protection of support devices and anxiety management. 3 mm pupils, PERRL. Moves all extremities with equal range of motion. LUE subtly more weak what RUE per DOMESTIC MAID who worked with patient today. Lifted into recliner this AM and pt remained in recliner for 10 hours. Pt assisted with repositioning but was also noted to be adjusting hips forwards and backwards in chair. Pt sitting forward in chair, often appearing interested in standing but unable to move hips off of chair. Resp: Lungs coarse t/o. Loose, moist, weak, nonproductive cough persists. Cough does sound stronger than previous days per assessment of this RN and speech therapist. Pt on BiPAP 18/10 and 40% FiO2 for approx half of day. Alternatively has been on 6 LPM per NC or oxymask and has been tolerating breaks several hours long in duration. Switched from NC to oxymask when dobhoff placed as she was experiencing nare irration and was persistently removing NC despite verbal redirection. Cardiac: SR per monitor. BP high/normal. Required one dose of labetalol for hypertension earlier in shift. Hypertension later in shift was resolved with Coreg administered per dobhoff. GI: Dobhoff placed, pt tolerated well. Pt has been reaching for it, attempting to pull since placement, however. : Good urine output from mancilla catheter. Skin: Unchanged from initial assessment. Psychosocial: Pt's spouse in to visit today. Update provided.
[2023-09-09 20:46] LABS: Vancomycin, Trough 19.4 ug/mL (5.0-10.0)
--- NOTE | 2023-09-09 22:58 | NUR ---
ASSUMED CARE AT 1900 PT LAYING IN BED AT SHIFT CHANGE WATCHING TV. SHE IS MORE ALERT THAN PREVIOUS NIGHT; SHE IS ABLE TO ANSWER ORIENTATION QUESTIONS APPROPRIATLY BUT CONT TO EASILY FORGET LIMITATIONS; SHE NEEDS FREQUENT VERBAL REMINDERS TO NOT PULL AT BIPAP AND OTHER LINES, SITTER AT BEDSIDE. SHE STARTED OUT ON THE OXY MASK AT 13L; WHEN SHE WAS READY TO SLEEP, BIPAP MASK PLACED; QUICKLY DURING REPOSITIONING SHE DESAT DOWN INTO THE 70'S AND RECOVERED VERY SLOWLY; DURING THIS TIME BIPAP SETTINGS CHANGED BY RT, SETTINGS NOW , FIO2 100%; CONT TO HAVE VERY WEAK, MOIST, NONPRODUCTIVE COUGH. AFEBRILE. HR 70-80'S. SBP 140'S. DOBHOFF IN PLACE WITH JEVITY TF INFUSING AT 25ML/HR WITH 75ML WATER FLUSHES Q4RH; NO BM SINCE 09/04/23, BM MEDS GIVEN THIS PM. PRITCHARD IN PLACE AND DRAINING TO GRAVITY. DRESSING TO LUE C/D/I. PICC TO RUE PATENT AND INFUSING TKO. SEE SHIFT ASSESSMENT FOR FULL ASSESSMENT.
[2023-09-10] VITALS (43 sets, daily range): BP systolic 110–166; BP diastolic 40–141
--- NOTE | 2023-09-10 06:36 | NUR ---
END OF SHIFT SUMMARY PT DID NOT SLEEP FOR LONGER THAN ONE HOUR THREE TIMES T/O THE NIGHT; THE NIGHT WENT ON SHE WAS GETTING MORE FRUSTRATED WITH STAFF REMINDING HER TO NOT REMOVE HER BIPAP MASK; SITTER AT BEDSIDE CONSTANTLY GIVING REMINDERS TO NOT REMOVE BIPAP MASK. SHE WAS NOT ABLE TO TOLERATE BREAKS OFF OF BIPAP AFTER 0000, BIPAP SETTINGS ENDING THE SHIFT AT 22/14, FIO2 50%; CONT TO HAVE WEAK, MOIST, NONPRODUCTIVE COUGH. AFEBRILE. HR 80'S. SBP 130-150'S. DOBHOFF IN PLACE WITH JEVITY INFUSING AT GOAL (55ML/HR); NO BM THIS SHIFT. PRITCHARD IN PLACE WITH URINE OUTPUT DECREASING. DRESSING TO LUE C/D/I. PICC TO RUE PATENT AND INFUSING TKO. WILL REPORT TO AM RN WHEN AVAILABLE.
--- NOTE | 2023-09-10 07:00 | NUR ---
ASSUMPTION OF CARE BEDSIDE REPORT RECEIVED FROM RAHEEM ALEXIS. PT IS AWAKE, PARTICIPATES IN CONVERSATION AND CARE. SHE IS A&OX3 BUT FORGETFUL AND REQUIRES FREQUENT REDIRECTION. PT REPEATEDLY REACHING FOR BIPAP MASK. BIPAP SETTINGS /50%. PT HAS A WEAK/MOIST COUGH. NSR ON MONITOR WITH RATE IN 70S. SBP 150S. DOBHOFF IN PLACE WITH TUBE FEEDING INFUSING. BOWEL TONES ACTIVE, ABDOMEN SOFT. PRITCHARD PATENT AND DRAINING TO GRAVITY. SITTER AT BEDSIDE.
[2023-09-10 08:36] LABS: BASOPHILS PERCENT AUTO 1 % (0-2); EOSINOPHILS ABSOLUTE AUTO 0.43 K/mm3 (0.00-0.68); EOSINOPHILS PERCENT AUTO 5 % (0-6); Hematocrit 27.6 % (33.0-51.0); Hemoglobin 7.9 g/dL (11.5-16.0); IMMATURE GRAN ABSOLUTE AUTO 0.07 K/mm3 (0.00-0.10); IMMATURE GRAN PERCENT AUTO 1 % (0-1); LYMPHOCYTES ABSOLUTE AUTO 1.04 K/mm3 (0.84-5.20); LYMPHOCYTES PERCENT AUTO 13 % (21-46); MONOCYTES ABSOLUTE AUTO 0.61 K/mm3 (0.16-1.47); MONOCYTES PERCENT AUTO 8 % (4-13); Mean Corpuscular HGB 27.3 pg (26.0-34.0); Mean Corpuscular HGB Conc 28.6 g/dL (31.5-36.5); Mean Corpuscular Volume 96 fL (80-100); NEUTROPHILS ABSOLUTE AUTO 5.64 K/mm3 (1.96-9.15); NEUTROPHILS PERCENT AUTO 72 % (41-73); Platelet Count 364 K/mm3 (150-400); RDW Coefficient Variation 15.2 % (11.7-14.2); RDW Standard Deviation 52.6 fL (35.1-46.3); Red Blood Cell Count 2.89 M/mm3 (3.80-5.20); White Blood Cell Count 7.89 K/mm3 (4.00-11.30)
[2023-09-10 08:45] LABS: Bun/Creatinine Ratio 40.7 (12.0-20.0); Creatinine, Blood 1.08 mg/dL (0.40-1.00); Potassium, Blood 4.2 mmol/L (3.5-5.5)
--- NOTE | 2023-09-10 09:22 | NUR ---
UPDATE RT AT BEDSIDE. TRIALED BREAK FROM BIPAP WITH OXYMASK WITH 9L IN PLACE. PT TRANSFERRED TO CHAIR VIA CEILING LIFT. PT ENCOURAGED TO COUGH BUT CONTINUES TO HAVE WEAK, NONPRODUCTIVE COUGH. SPO2 FLUCTUATING 80S-90S AND PT APPEARS RESTLESS. BIPAP BACK IN PLACE WITH SETTINGS 22/14/45%. PT REMAINS IN RECLINER, SITTER AT BEDSIDE.
--- NOTE | 2023-09-10 13:41 | NUR ---
UPDATE PT CONTINUOUSLY FIGITING WITH BIPAP MASK. RT AT BEDSIDE AND TRANSITIONED PT TO AIRVO 60L/60%. PT TOLERATING WELL, SPO2 >90%. PT APPEARS MORE COMFORTABLE, NODS HEAD "YES" WHEN ASKED IF AIRVO MASK WAS MORE COMFORTABLE. PT TOLERATED WELL FOR ABOUT AN HOUR, THEN RAPIDLY BEGAN TO DESAT TO 50S-60S. ENCOURAGED PT TO COUGH BUT PT UNABLE TO PRODUCE A STRONG COUGH. BIPAP MASK BACK IN PLACE WITH 100% FIO2 AND RT NOTIFIED. SPO2 INCREASING AND MAINTAINING >95%, FIO2 ABLE TO BE TITRATED TO 50%.
--- NOTE | 2023-09-10 17:52 | NUR ---
SHIFT SUMMARY PT IS A&OX2-3, REQUIRES FREQUENT VERBAL REMINDERS TO NOT PULL AT MASK AND DOBHOFF. PT ANSWERS QUESTIONS VERBALLY BUT OCCASIONALLY JUST NODS/SHAKES HEAD TO ANSWER. THROUGHOUT THE DAY SHE HAS BEEN PULLING AT MASK DUE TO IT BEING UNCOMFORTABLE. SHE HAS HAD MULTIPLE BREAKS BY WEARING THE AIRVO MASK. SHE IS CURRENTLY ON BIPAP //50%. ENCOURAGED DEEP BREATHING AND STRONG COUGH BUT PT HAS DIFFICULTY TAKING DEEP BREATH AND UNABLE TO EXPELL MUCOUS. LUNGS ARE COARSE, DIMINISHED IN BASES. DOBHOFF INFUSING TUBE FEEDING AT GOAL RATE. BOWEL TONES ACTIVE. PT ATTEMPTED TO SIT ON BEDPAN TWICE THIS SHIFT BUT ONLY HAD GAS. DENIED SUPPOSITORY. PRITCHARD PATENT AND DRAINING CLOUDY YELLOW URINE TO GRAVITY. 300ML URINE OUTPUT THIS SHIFT. SUPERVISOR RESEARCH [employer] AWARE, ONE TIME DOSE OF LASIX GIVEN PER EMAR. SITTER REMAINS IN PLACE. AT BEDSIDE THIS AFTERNOON AND UPDATED.
[2023-09-11] VITALS (30 sets, daily range): BP systolic 121–197; BP diastolic 52–96
[2023-09-11 03:38] LABS: BASOPHILS ABSOLUTE AUTO 0.09 K/mm3 (0.00-0.23); BASOPHILS PERCENT AUTO 1 % (0-2); EOSINOPHILS ABSOLUTE AUTO 0.62 K/mm3 (0.00-0.68); EOSINOPHILS PERCENT AUTO 8 % (0-6); Hematocrit 26.9 % (33.0-51.0); Hemoglobin 7.8 g/dL (11.5-16.0); IMMATURE GRAN ABSOLUTE AUTO 0.04 K/mm3 (0.00-0.10); IMMATURE GRAN PERCENT AUTO 1 % (0-1); LYMPHOCYTES PERCENT AUTO 16 % (21-46); MONOCYTES ABSOLUTE AUTO 0.58 K/mm3 (0.16-1.47); MONOCYTES PERCENT AUTO 8 % (4-13); Mean Corpuscular HGB 27.7 pg (26.0-34.0); Mean Corpuscular Volume 95 fL (80-100); Mean Platelet Volume 10.4 fL (9.1-12.4); NEUTROPHILS ABSOLUTE AUTO 4.92 K/mm3 (1.96-9.15); NEUTROPHILS PERCENT AUTO 66 % (41-73); Platelet Count 366 K/mm3 (150-400); RDW Coefficient Variation 15.3 % (11.7-14.2); RDW Standard Deviation 51.8 fL (35.1-46.3); Red Blood Cell Count 2.82 M/mm3 (3.80-5.20); White Blood Cell Count 7.45 K/mm3 (4.00-11.30)
[2023-09-11 04:09] LABS: Albumin, Blood 2.3 g/dL (3.4-5.0); Anion Gap 0 mmol/L (6-16); Blood Urea Nitrogen 43 mg/dL (8-24); Bun/Creatinine Ratio 38.1 (12.0-20.0); CO2, Blood 34 mmol/L (21-32); Calcium, Blood 8.2 mg/dL (8.5-10.1); Chloride, Blood 116 mmol/L (98-108); Creatinine, Blood 1.13 mg/dL (0.40-1.00); Glomerular Filtration Rate 52 (60-); Glucose, Blood 272 mg/dL (70-99); Magnesium, Blood 3.6 mg/dL (1.6-2.4); Potassium, Blood 4.1 mmol/L (3.5-5.5); Sodium, Blood 150 mmol/L (136-145)
--- NOTE | 2023-09-11 07:15 | NUR ---
ASSUMPTION OF CARE: ASSUMED CARE OF PATIENT WITH DRISS WALKER COUNTS. PATIENT RESTING IN BED. PATIENT FOLLOWING COMMANDS (SQUEEZING HAND AND TRACKING WITH HIS EYES). GAGGING NOTED ON THE ETT. PRECEDEX INCREASED FOR SEDATION/COMFORT. MAPS >65, SBPS IN 80S. AMIO GTT AT 1MG/MIN, LEVOPHED AT 1 MCG/MIN, EPI AT 2 MCG/MIN, AND FENTANYL AT [address] VENT AC/VC 18/500/8/30%. SPO2 98%.
--- NOTE | 2023-09-11 10:00 | NUR ---
ASSUMED CARE: REPORT RECIEVED FROM REUBEN HARKINS. PT CURRENTLY ON AIRVO AT 50L, 85% FIO2. DOBHOFF IN PLACE WITH TF AT GOAL. PT C/O NEEDING BM AFTER USING LIFT TO GET INTO CHAIR. USED LIFT TO GET BACK TO BED. BM STARTED BUT STOOL HARD. STOOL SOFTENERS ORDERED. SITTER AT BEDSIDE. AWAITING [facility] FOR [facility] ORDERS.
[2023-09-11 10:21] LABS: Vancomycin, Trough 21.5 ug/mL (5.0-10.0)
--- NOTE | 2023-09-11 16:00 | NUR ---
PT SATTING AT 88% ON AIRVO AND UNABLE TO RECOVER TO ABOVE 90S%. RT NOTIFIED AND PLACED PT ON BIPAP. SETTINGS 14/8 AND 60% FIO2. RT AT BEDSIDE AT THIS TIME
--- NOTE | 2023-09-11 17:09 | NUR ---
PT BECOMING INCREASINGLY AGITATED SINCE BIPAP MASK PLACED. SITTER AT BEDSIDE ASSISTING TO PREVENT REMOVAL. CALL TO DR ELLIS FOR MEDICATION TO ASSIST WITH AGITATION. SEE NEW ORDERS.
--- NOTE | 2023-09-11 17:58 | NUR ---
SHIFT SUMMARY: PT ON BIPAP WITH SETTINGS 14/8 AND 85% FIO2. AGITATED AT TIMES AND ONE DOSE OF XANAX REQUIRED. TF PER NEW ORDERS FROM GROUP THERAPIST. PRITCHARD CATH IN PLACE, 1 DOSE OF DIURETIC GIVEN THIS SHIFT. UP IN CHAIR UNTIL BM NEEDED. STOOL SOFTENER ADMINSITERED TO ASSIST FURTHER. CLINICAL SITTER AT BEDSIDE DUE TO TRYING TO PULL MASK AND LINES WITH AGITATION AND CONFUSION. DESATURATES AND HAS DIFFICULTY RECOVERING WITH AGITATION AND ACTIVITY.
[2023-09-11 23:02] LABS: pH Blood Arterial 7.48 (7.35-7.45)
[2023-09-11 23:03] LABS: PO2 Arterial 50.7 mmHg (80-100)
--- NOTE | 2023-09-11 23:08 | NUR ---
CARE ASSUMPTION/INTUBATION DURING BEDSIDE SHIFT REPORT Meche LORD RN THE PT WAS SITTING IN BED W BIPAP MASK ON ATTEMPTING TO PULL IT OFF. BIPAP 14/8 W 85% FIO2. PT'S MONITOR SHOWING SR 80'S. PT NODDING HEAD TO ANSWER YES OR NO QUESTIONS BUT IS NOT USING WORDS TO MAKE HER NEEDS KNOWN. 1 ON 1 SITTER AT BEDSIDE KEEPING THE PT FROM REMOVING HER MASK. TF RUNNING AT GOAL RATE 40ML/HR W FREE WATER FLUSH OF 200ML/ Q4H. INTUBATION AFTER PT ATTEMPTING TO PULL OFF HER MASK NUMEROUS TIMES SHE WAS FINALLY AT REST WHEN HER SPO2 RAPIDLY DECLINED INTO THE 50'S. PT WAS SAT UPRIGHT AND PROMPTED TO COUGH SEVERAL TIMES W NO IMPROVEMENT TO SPO2. RT ROSS INTO THE ROOM AT THIS TIME CHANGING BIPAP SEETTINGS AND STILL NO IMPROVEMENT TO SPO2. DR. MONAE CALLED AND CAME TO ROOM INTUBATING THE PT FOLLOWED BY A BRONCHOSCOPY. PT INTUBATED AT 2200 W 7.5 24CM TO HER TEETH. VENT 18/400/8.0 W 60% FIO2.
[2023-09-12] VITALS (81 sets, daily range): BP systolic 95–171; BP diastolic 47–108
[2023-09-12 05:37] LABS: BASOPHILS ABSOLUTE AUTO 0.07 K/mm3 (0.00-0.23); BASOPHILS PERCENT AUTO 1 % (0-2); EOSINOPHILS ABSOLUTE AUTO 0.58 K/mm3 (0.00-0.68); EOSINOPHILS PERCENT AUTO 8 % (0-6); Hematocrit 26.5 % (33.0-51.0); Hemoglobin 7.7 g/dL (11.5-16.0); IMMATURE GRAN ABSOLUTE AUTO 0.07 K/mm3 (0.00-0.10); IMMATURE GRAN PERCENT AUTO 1 % (0-1); LYMPHOCYTES ABSOLUTE AUTO 1.39 K/mm3 (0.84-5.20); LYMPHOCYTES PERCENT AUTO 20 % (21-46); MONOCYTES ABSOLUTE AUTO 0.43 K/mm3 (0.16-1.47); MONOCYTES PERCENT AUTO 6 % (4-13); Mean Corpuscular HGB 27.5 pg (26.0-34.0); Mean Corpuscular HGB Conc 29.1 g/dL (31.5-36.5); Mean Corpuscular Volume 95 fL (80-100); Mean Platelet Volume 10.4 fL (9.1-12.4); NEUTROPHILS ABSOLUTE AUTO 4.36 K/mm3 (1.96-9.15); NEUTROPHILS PERCENT AUTO 63 % (41-73); Platelet Count 369 K/mm3 (150-400); RDW Coefficient Variation 15.5 % (11.7-14.2); RDW Standard Deviation 52.2 fL (35.1-46.3)
[2023-09-12 05:54] LABS: Calcium, Blood 8.2 mg/dL (8.5-10.1); Phosphorus, Blood 3.2 mg/dL (2.5-4.9); Potassium, Blood 4.2 mmol/L (3.5-5.5)
--- NOTE | 2023-09-12 06:21 | NUR ---
PAPERHANGER APPRENTICE SUMMARY PT WAS INTUBATED THIS SHIFT AFTER HER SPO2 DROPPED INTO THE 50'S AND DID NOT FULLY RECOVER. AFTER BEING INTUBATED THE PT REMAINED ON PROPOFOL GTT AT 30MCG/KG/HR AND TOLERATED THE VENTILATOR WELL. AFETR INTUBATED THIS RN WAS ABLE TO SUCTION LARGE MUCOUS PLUGS OUT OF HER THROAT. PT HAVING MODERATE AMOUNT OF SECRETIONS FROM ET TUBE HOWEVER SHE HAS HAD COPIOUS AMOUNT OF ORAL SECRETIONS. PT HAS 7.5 ET TUBE 24CM TO HER TEETH. VENT AT 18/380/10.0 W 60% FIO2. PT'S BP ELEVATED THIS SHIFT W SBP 150'S-170'S, PT RECIEVED ONE DOSE OF LABETOLOL THIS SHIFT. MONITOR SHOWING SR 60'S THIS SHIFT. TF RUNNING ALL SHIFT AT GOAL RATE OF 40ML/HR. WILL REPORT TO ONCOMING RN.
--- NOTE | 2023-09-12 18:32 | NUR ---
SHIFT SUMMARY: PT REMAINS INTUBATED AND SEDATED WITH PROPOFOL AT 25MCG/KG. VENT SETTINGS 18/480/10/50%. TF AT GOAL. S.O. AT BEDSIDE TODAY AND SPOKE WITH HUMERA. PLAN IS TO HAVE TRACH AND PEG PLACED BY SURGEON IN NEXT FEW DAYS. BILATERAL WRIST RESTRAINTS. NO ACUTE NEEDS OR CONCERNS AT THIS TIME.
--- NOTE | 2023-09-12 18:43 | NUR ---
SHIFT SUMMARY: PT HAS BEEN MEDICATED WITH MULTIPLE MEDS FOR ANXIETY AND AIR HUNGER. FAMILY AT BEDSIDE. IT WAS DECIDED TO KEEP HIM IN ICU UNTIL PASSING DUE TO IMMINENSE OF CONDITION. RECENTLY MEDICATED WITH ROXINOL FOR AGONAL BREATHING. FAMILY DENIES FURTHER NEEDS AT THIS TIME.
--- NOTE | 2023-09-12 19:00 | NUR ---
CARE ASSUMPTION DURING BEDSIDE SHIFT REPORT Meche LORD RN THE PT IS SLEEPING IN BED INTUBATED ON THE VENTILATOR. PT'S ET TUBE IS 7.5 24CM TO HER TEETH CONFIRMED AT BEDSIDE. PROPOFOL GTT RUNNING AT 25MCG/KG/MIN W PT'S RASS BETWEEN -3 AND -4 SO THIS RN TURNING IT DOWN TO 15 MCG/KG/MIN AND PT NOW HAS RASS -2. VENT SETTINGS 18/380/10.0 W 50% FIO2. TF RUNNING AT GOAL RATE OF 40ML/HR W 200ML Q4H FLUSH. D5 GTT RUNNING AT 10ML/HR. NO FAMILY AT BEDSIDE AT THIS TIME.
[2023-09-13] VITALS (94 sets, daily range): BP systolic 99–192; BP diastolic 49–90
[2023-09-13 04:31] LABS: BASOPHILS ABSOLUTE AUTO 0.05 K/mm3 (0.00-0.23); BASOPHILS PERCENT AUTO 1 % (0-2); EOSINOPHILS ABSOLUTE AUTO 0.58 K/mm3 (0.00-0.68); EOSINOPHILS PERCENT AUTO 9 % (0-6); Hematocrit 26.1 % (33.0-51.0); Hemoglobin 7.8 g/dL (11.5-16.0); IMMATURE GRAN ABSOLUTE AUTO 0.03 K/mm3 (0.00-0.10); IMMATURE GRAN PERCENT AUTO 1 % (0-1); LYMPHOCYTES ABSOLUTE AUTO 1.09 K/mm3 (0.84-5.20); LYMPHOCYTES PERCENT AUTO 16 % (21-46); MONOCYTES ABSOLUTE AUTO 0.45 K/mm3 (0.16-1.47); MONOCYTES PERCENT AUTO 7 % (4-13); Mean Corpuscular HGB 27.6 pg (26.0-34.0); Mean Corpuscular HGB Conc 29.9 g/dL (31.5-36.5); Mean Corpuscular Volume 92 fL (80-100); Mean Platelet Volume 10.4 fL (9.1-12.4); NEUTROPHILS ABSOLUTE AUTO 4.46 K/mm3 (1.96-9.15); NEUTROPHILS PERCENT AUTO 67 % (41-73); NRBC ABSOLUTE 0.02 K/mm3 (0.00-0.02); NRBC Auto 0.3 /100 WBC (0.0-0.2); Platelet Count 394 K/mm3 (150-400); RDW Coefficient Variation 15.9 % (11.7-14.2); RDW Standard Deviation 50.8 fL (35.1-46.3); Red Blood Cell Count 2.83 M/mm3 (3.80-5.20); White Blood Cell Count 6.66 K/mm3 (4.00-11.30)
[2023-09-13 04:50] LABS: Albumin, Blood 2.1 g/dL (3.4-5.0); Anion Gap 2 mmol/L (6-16); Blood Urea Nitrogen 35 mg/dL (8-24); Bun/Creatinine Ratio 33.3 (12.0-20.0); CO2, Blood 34 mmol/L (21-32); Calcium, Blood 8.1 mg/dL (8.5-10.1); Chloride, Blood 110 mmol/L (98-108); Creatinine, Blood 1.05 mg/dL (0.40-1.00); Glomerular Filtration Rate 57 (60-); Glucose, Blood 213 mg/dL (70-99); Phosphorus, Blood 3.8 mg/dL (2.5-4.9); Potassium, Blood 4.5 mmol/L (3.5-5.5); Sodium, Blood 146 mmol/L (136-145)
--- NOTE | 2023-09-13 05:42 | NUR ---
INSULATION PROFESSIONAL SUMMARY PT BEGAN SHIFT W PROPOFOL AT 25MCG/KG/MIN HOWEVER SHE WAS ALMOST UNRESPONSIVE SO THE PROPOFOL WAS TITRATED DOWN TO 15MCG/KG/MIN AND THE PT BECAME MORE RESPONSIVE BUT SHE REFUSES TO OPEN HER EYES AND FIGHTS HAVING ORAL CARE. PT'S VENT SETTINGS UNCHANGED 18/380/10.0 W 50% FIO2. ET TUBE REMAINS IN PLACE W 7.5 TUBE 24CM AT HER TEETH. TF RUNNING AT GOAL RATE OF 40ML/HR THROUGH THE PT'S ZHANNA. PT'S BP ELEVATED THIS SHIFT REQUIRING TWO DIFFERENT DOSES OF LABETOLOL. MONITOR SHOWING SR 60'S THIS SHIFT. CBG'S TRENDING DOWN THIS SHIFT REUIRING INSULIN COVERAGE BOTH AT 0000 AND AT 0600. SECRETIONS ARE THICK BUT MINIMAL THIS SHIFT. PT'S PRITCHARD DRAINING 400ML OF DARK STEPHANIE URINE THIS SHIFT. PT CURRENTLY RESTING COMFORTABLY W PROPOFOL AT 15MCG/KG/MIN AND D5 AT 10ML/HR. WILL REPORT TO [facility]
--- NOTE | 2023-09-13 17:35 | NUR ---
SHIFT SUMMARY NO ACUTE CHANGES THIS SHIFT. PT REMAINS INTUBATED AND SEDATED. VENT SETTINGS REMAIN AC 18, TV 380, PEEP 10, FIO2 45%. PT WITH OCCASIONAL COUGHING FITS WITH MODERATE THICK ETT SECRETIONS NOTED. PT WITH CONTINUOUS ORAL SECRETIONS THROUGHOUT THE SHIFT. PT REMAINS SEDATED WITH PROPOFOL AT 25 MCG/KG/MIN. PT WITHDRAWS TO NOXIOUS STIMULI, BUT DOES NOT FOLLOW COMMANDS. PT IS RESTLESS AND THRASHES HEAD WITH ORAL CARE AND REPOSITIONING. DOBHOFF REMAINS IN PLACE WITH TF INFUSING AT GOAL RATE. PICC TO ANTONIO C/D/I WITH NS INFUSING TKO. PRITCHARD REMAINS IN PLACE WITH CLEAR YELLOW OUTPUT WITH SEDIMENT NOTED. WOUND TO LEFT AC REMAINS UNCHANGED FROM START OF SHIFT WITH DRESSING C/D/I. PT SIGNIFICANT OTHER AT BEDSIDE FOR SHORT TIME THIS MORNING. VITAL SIGNS HAVE REMAINED STABLE. SBW RESTRAINTS REMAIN IN PLACE. WILL CONTINUE TO MONITOR AND REPORT OFF TO ONCOMING RN.
[2023-09-14] VITALS (95 sets, daily range): BP systolic 85–183; BP diastolic 41–134
[2023-09-14 04:47] LABS: BASOPHILS ABSOLUTE AUTO 0.06 K/mm3 (0.00-0.23); BASOPHILS PERCENT AUTO 1 % (0-2); EOSINOPHILS ABSOLUTE AUTO 0.53 K/mm3 (0.00-0.68); EOSINOPHILS PERCENT AUTO 8 % (0-6); Hematocrit 24.7 % (33.0-51.0); Hemoglobin 7.5 g/dL (11.5-16.0); IMMATURE GRAN ABSOLUTE AUTO 0.04 K/mm3 (0.00-0.10); IMMATURE GRAN PERCENT AUTO 1 % (0-1); LYMPHOCYTES PERCENT AUTO 16 % (21-46); MONOCYTES ABSOLUTE AUTO 0.46 K/mm3 (0.16-1.47); MONOCYTES PERCENT AUTO 7 % (4-13); Mean Corpuscular HGB 27.6 pg (26.0-34.0); Mean Corpuscular HGB Conc 30.4 g/dL (31.5-36.5); Mean Corpuscular Volume 91 fL (80-100); Mean Platelet Volume 9.9 fL (9.1-12.4); NEUTROPHILS ABSOLUTE AUTO 4.21 K/mm3 (1.96-9.15); NEUTROPHILS PERCENT AUTO 67 % (41-73); Platelet Count 378 K/mm3 (150-400); RDW Coefficient Variation 16.1 % (11.7-14.2); Red Blood Cell Count 2.72 M/mm3 (3.80-5.20)
[2023-09-14 05:02] LABS: Albumin, Blood 1.9 g/dL (3.4-5.0); Anion Gap 4 mmol/L (6-16); Blood Urea Nitrogen 29 mg/dL (8-24); Bun/Creatinine Ratio 27.1 (12.0-20.0); CO2, Blood 34 mmol/L (21-32); Calcium, Blood 7.8 mg/dL (8.5-10.1); Chloride, Blood 107 mmol/L (98-108); Creatinine, Blood 1.07 mg/dL (0.40-1.00); Glomerular Filtration Rate 56 (60-); Glucose, Blood 218 mg/dL (70-99); Potassium, Blood 4.4 mmol/L (3.5-5.5); Sodium, Blood 145 mmol/L (136-145)
--- NOTE | 2023-09-14 06:31 | NUR ---
PANTOGRAPH ENGRAVER SUMMARY PT HAD AN UNEVENTFUL NIGHT SLEEPING COMFORTABLY IN BED INTUBATED ON THE VENTILATOR. VENT SETTINGS UNCHANGED 18/380/10 W 45% FIO2. PT HAVING MORE COUGHING FITS THIS SHIFT REQUIRING INCREASE IN PROPOFOL TO 35MCG/KG/MIN. PT'S BP MUCH BETTER THIS SHIFT W SBP'S IN THE 120'S AFTER NITRO PASTE APPLIED PER EMAR. MONITOR SHOWING SR 60'S-70'S THIS SHIFT. PT'S TUBE FEEDS DC'D AT 2330 THIS SHIFT PER ORDER FOR POSSIBLE TRACHEOSTOMY LATER TODAY. PT'S PRITCHARD PATENT AND DRAINING 900 ML CLEAR YELLOW URINE THIS SHIFT. WILL REPORT TO ONCOMING RN.
--- NOTE | 2023-09-14 07:00 | NUR ---
ASSUMPTION OF CARE PT RECEIVING PROPOFOL 35MCG/KG/MIN AND NS TKO. SHE REMAINS INTUBATED WITH VENT SETTINGS AC/VC 16/380/10/60%. SHE GRIMACES AND MOVES HEAD SIDE TO SIDE WITH NOXIOUS STIMULI. COUGH/GAG INTACT. DOBHOFF CLAMPED. PRITCHARD PATENT AND DRAINING TO GRAVITY. PLAN FOR TRACH TODAY. TUBE FEEDING OFF SINCE MIDNIGHT, HOLDING AM LOVENOX.
--- NOTE | 2023-09-14 12:39 | NUR ---
TRACH PLAN FOR TRACH TOMORROW 09/15 AT 11:[address] DIAZ
--- NOTE | 2023-09-14 18:16 | NUR ---
SHIFT SUMMARY PT RECEIVING PROPOFOL 20MCG/KG/MIN. SHE REMAINS INTUBATED WITH VENT SETTINGS AC/VC 16/380/10/45%. COUGH/GAG INTACT. PT MOVES HEAD SIDE TO SIDE TO NOXIOUS STIMULI. SHE HAS COPIOUS AMOUNTS OF ORAL SECRETIONS. TUBE FEEDING INFUSING AT GOAL RATE VIA DOBHOFF. SINUS RHYTHM ON MONITOR WITH RATE IN 70S. BP STABLE THROUGHOUT THE DAY. PRITCHARD PATENT AND DRAINING CLOUDY YELLOW URINE WITH SEDIMENT. PLAN FOR TRACH TOMORROW AT 11:00. PER DR DIAZ, STOP TUBE FEEDING AT 0300 AND HOLD AM LOVENOX. SPOUSE AND SISTER NOTIFIED OF PLAN.
--- NOTE | 2023-09-14 19:30 | NUR ---
ASSESSMENT/ASSUMED CARE PT INTUBATED AND ON [facility] VENT. OPENS EYES TO VERBAL STIMULI. NOT FOLLOWING INSTRUCTIONS. MOVES HEAD SIDE TO SIDE WITH ORAL CARE. LUNGS CLEAR BUT DECREASED. VENT SETTINGS AC/VC+ 18/380/10/45%. RT SUCTIONED SMALL AMT VIA ET TUBE. LARGE AMT CLEAR SECRECTIONS SUCTIONED ORALLY. HEART RATE REGULAR IN THE 60-70'S. BP STABLE. NTG PASTE TO CHEST WALL. BT+ ABD SOFT AND NONTENDER. TF JEVITY AT GOAL RATE 40 ML/HR, WATER 200 ML Q4HR. WILL STOP TUBE FEED AT 0300 FOR POSSIBLE TRACH PLACEMENT IN AM. SMEAR BROWN STOOL. CHELSIE CARE DONE. PICC LINE TO RIGHT UPPER ARM, DRSG INTACT. PROPOFOL AT 20 MCQ/KG/MIN FOR SEDATION AND NS AT 10 ML/HR FOR ANTIBIOTICS. PRITCHARD CATH PATENT DRAINING YELLOW URINE. ORAL CARE AND REPOSITIONED. LEFT UPPER ARM WITH DRSG INTACT. BILAT SOFT WRIST RESTRAINTS ON.
[2023-09-15] VITALS (98 sets, daily range): BP systolic 86–165; BP diastolic 43–94
[2023-09-15 03:20] LABS: BASOPHILS ABSOLUTE AUTO 0.04 K/mm3 (0.00-0.23); BASOPHILS PERCENT AUTO 1 % (0-2); EOSINOPHILS ABSOLUTE AUTO 0.47 K/mm3 (0.00-0.68); EOSINOPHILS PERCENT AUTO 8 % (0-6); Hematocrit 24.6 % (33.0-51.0); Hemoglobin 7.4 g/dL (11.5-16.0); IMMATURE GRAN ABSOLUTE AUTO 0.04 K/mm3 (0.00-0.10); IMMATURE GRAN PERCENT AUTO 1 % (0-1); LYMPHOCYTES ABSOLUTE AUTO 1.04 K/mm3 (0.84-5.20); LYMPHOCYTES PERCENT AUTO 17 % (21-46); MONOCYTES ABSOLUTE AUTO 0.55 K/mm3 (0.16-1.47); MONOCYTES PERCENT AUTO 9 % (4-13); Mean Corpuscular HGB 27.4 pg (26.0-34.0); Mean Corpuscular HGB Conc 30.1 g/dL (31.5-36.5); Mean Corpuscular Volume 91 fL (80-100); Mean Platelet Volume 9.9 fL (9.1-12.4); NEUTROPHILS ABSOLUTE AUTO 4.08 K/mm3 (1.96-9.15); NEUTROPHILS PERCENT AUTO 66 % (41-73); Platelet Count 366 K/mm3 (150-400); RDW Coefficient Variation 16.2 % (11.7-14.2); RDW Standard Deviation 52.3 fL (35.1-46.3); White Blood Cell Count 6.22 K/mm3 (4.00-11.30)
[2023-09-15 03:34] LABS: Albumin, Blood 1.8 g/dL (3.4-5.0); Anion Gap 3 mmol/L (6-16); Blood Urea Nitrogen 27 mg/dL (8-24); Bun/Creatinine Ratio 23.3 (12.0-20.0); CO2, Blood 35 mmol/L (21-32); Calcium, Blood 7.4 mg/dL (8.5-10.1); Chloride, Blood 106 mmol/L (98-108); Creatinine, Blood 1.16 mg/dL (0.40-1.00); Glomerular Filtration Rate 50 (60-); Glucose, Blood 176 mg/dL (70-99); Phosphorus, Blood 3.7 mg/dL (2.5-4.9); Potassium, Blood 4.3 mmol/L (3.5-5.5); Sodium, Blood 144 mmol/L (136-145)
--- NOTE | 2023-09-15 05:40 | NUR ---
SHIFT SUMMARY PT CONT INTUBATED AND ON [facility] VENT. PT SEDATED WITH PROPOFOL AT 20 MCQ/KG/MIN. PT OPENS EYES TO VERBAL STIMULI. TURNS HEAD SIDE TO SIDE, FOLLOWS SOME INSTRUCTIONS AT TIMES. LUNGS CLEAR BUT DECREASED. VENT SETTINGS AC/VC+ 18/380/10 AND FIO2 DECREASED TO 40% FROM 45%. PT HAVING LARGE AMOUNTS CLEAR ORAL SECRECTIONS. HEART RATE REULAR IN THE 70'S. BP STABLE. PT WITH NTG PASTE TO CHEST WALL. DOBHOFF CLAMPED AND FEEDING STOPPED AT 0300 THIS MORNING FOR TRACH PLACEMENT TODAY. PICC LINE TO RIGHT UPPER ARM WITH PROPOFOL AND NS INFUSING. PRITCHARD CATH PATENT DRAINING YELLOW URINE. TURNED Q2HR. BILAT SOFT WRIST RESTRAINTS ON. REPORT TO ON COMING NURSE
--- NOTE | 2023-09-15 07:00 | NUR ---
ASSUMPTION OF CARE PT RECEIVING PROPOFOL 20MCG/KG/MIN. SHE REMAINS INTUBATED WITH VENT SETTINGS AC/VC 16/380/10/40%. PT OPENS EYES TO SPONTANEOUSLY AND FOLLOWS SIMPLE COMMANDS. LUNGS ARE CLEAR AND DIMINISHED IN BASES. SINUS RHYTHM ON MONITOR WITH RATE IN 70S. BP STABLE. BOWEL TONES ACTIVE, ABDOMEN SOFT. PRITCHARD PATENT AND DRAINING CLOUDY YELLOW URINE WITH SEDIMENT TO GRAVITY. DISCUSSED PLAN FOR TRACH TODAY WITH PT. PROVIDED EDUCATION REGARDING TRACH AND PT NODS HEAD "YES" WHEN ASKED IF SHE UNDERSTANDS. WHEN ASKED IF SHE WOULD LIKE TO PURSUE THE PLAN TO PLACE TRACH TODAY SHE NODS HEAD "YES". SPOUSE AT BEDSIDE PROVIDING SUPPORT.
--- NOTE | 2023-09-15 12:30 | NUR ---
TRACH PLACEMENT 11:20 DR DIAZ, DR MARTIN AND TELLO RT AT BEDSIDE PREPARING FOR TRACH PLACEMENT MED ADMINISTRATION: 11:30- 40MG PROPOFOL 11:31- 100MCG FENTANYL 11:32- 2MG VERSED 11:36- 50MG SANKET 11:37- 2MG VERSED 11:41- TRACH PLACEMENT COMPLETE. VENT SETTINGS AC/VC 16/380/10/60%. CHEST XRAY COMPLETED.
--- NOTE | 2023-09-15 13:48 | NUR ---
Spiritual Care Support Visit. Pt. is resting after having been recently trached. SO is at bedide and welcomes my visit and updates me on the Pts. condition. SO verbalizes that he has been updating Pts. out of state sisiter, and verbalizes gratitude for the spiritual Care support. Will remain available to Pt. and bedside family.
--- NOTE | 2023-09-15 18:31 | NUR ---
SHIFT SUMMARY PT RECEIVING PROPOFOL 30MCG/KG/MIN. TRACH PLACED TODAY AND SHE REMAINS ON THE VENT WITH SETTINGS AC/VC 16/380/10/60%. SHE GRIMACES/SHAKES HEAD TO NOXIOUS STIMULI AND OCCASIONALLY OPENS EYES. TUBE FEEDING RESTARTED VIA DOBHOFF AT 1500. RATE STARTED AT 20ML/HR WITH GOAL OF 40ML/HR. NSR ON MONITOR WITH RATE IN 70S. BP STABLE THROUGHOUT THE DAY WITH MAP >65. PRITCHARD PATENT AND DRAINING CLOUDY/YELLOW URINE WITH SEDIMENT.
--- NOTE | 2023-09-15 21:50 | NUR ---
ASSUMPTION OF CARE REPORT RECEIVED FROM ABIMBOLA RN. PT RESTING IN BED, INTUBATED AND SEDATED. PROPOFOL INFUSING AT 30MCG/KG/MIN. PROPOFOL TITRATED DOWN TO 15MCG/KG/MIN DURING ASSESSMENT. PT OPENS EYES TO VERBAL STIMULI BUT DOES NOT FOLLOW COMMANDS. HR 70'S NSR, MAP >65. TRACH IN PLACE, SECURED, CONNECTED TO VENT, VENT SETTINGS AC/VC 16/380/10/60, OXYGEN SATURATION >95%. DOBHOFF IN PLACE INFUISNG JEVITY 1.2 AT 20MLS/HR WITH 200ML Q4 FLUSH. PRITCHARD PATENT DRAINING TO GRAVITY. PICC LINE IN PLACE TO ANTONIO INFUSING NS TKO. BED IN LOWEST POSITION, CARE CONTINUES.
[2023-09-16] VITALS (75 sets, daily range): BP systolic 105–195; BP diastolic 40–122
[2023-09-16 04:07] LABS: BASOPHILS ABSOLUTE AUTO 0.03 K/mm3 (0.00-0.23); BASOPHILS PERCENT AUTO 0 % (0-2); EOSINOPHILS ABSOLUTE AUTO 0.46 K/mm3 (0.00-0.68); EOSINOPHILS PERCENT AUTO 7 % (0-6); Hematocrit 24.7 % (33.0-51.0); Hemoglobin 7.5 g/dL (11.5-16.0); IMMATURE GRAN ABSOLUTE AUTO 0.03 K/mm3 (0.00-0.10); IMMATURE GRAN PERCENT AUTO 0 % (0-1); LYMPHOCYTES ABSOLUTE AUTO 1.05 K/mm3 (0.84-5.20); LYMPHOCYTES PERCENT AUTO 16 % (21-46); MONOCYTES ABSOLUTE AUTO 0.69 K/mm3 (0.16-1.47); MONOCYTES PERCENT AUTO 10 % (4-13); Mean Corpuscular HGB 27.7 pg (26.0-34.0); Mean Corpuscular HGB Conc 30.4 g/dL (31.5-36.5); Mean Corpuscular Volume 91 fL (80-100); NEUTROPHILS ABSOLUTE AUTO 4.42 K/mm3 (1.96-9.15); NEUTROPHILS PERCENT AUTO 66 % (41-73); Platelet Count 354 K/mm3 (150-400); RDW Coefficient Variation 15.9 % (11.7-14.2); RDW Standard Deviation 51.5 fL (35.1-46.3); Red Blood Cell Count 2.71 M/mm3 (3.80-5.20); White Blood Cell Count 6.68 K/mm3 (4.00-11.30)
[2023-09-16 04:27] LABS: Bun/Creatinine Ratio 20.1 (12.0-20.0); Calcium, Blood 7.1 mg/dL (8.5-10.1); Creatinine, Blood 1.34 mg/dL (0.40-1.00); Magnesium, Blood 2.9 mg/dL (1.6-2.4); Phosphorus, Blood 3.8 mg/dL (2.5-4.9)
--- NOTE | 2023-09-16 05:55 | NUR ---
SHIFT SUMMARY PT RESTING IN BED, PT REMAINS ON MENCHANICAL VENTILATION AND SEDATION. PROPOFOL INFUSING AT 25MCG/KG/MIN. PT RESPONSIVE TO NOXIOUS STIMULI. HR 70'S NSR, MAP >65. PT HAS TRACH IN PLACE CONNECTED TO VENTILATOR. VENT SETTINGS AC/VC 16/380/10/60%, OXYGEN SATURATION >95%. DOBHOFF IN PLACE WITH JEVITY 1.2 INFUSING AT 30MLS/HR GOAL RATE IS 40MLS/HR, WITH Q4 200ML FLUSHES. NO BM THIS SHIFT. PRITCHARD PATENT DRAINING TO GRAVITY. PICC LINE IN PLACE TO ANTONIO INFUSING. BED IN LOWEST POSITION, CALL LIGHT WITHIN REACH. CARE CONTINUES.
--- NOTE | 2023-09-16 18:14 | NUR ---
SUMMARY PT ON VENT VIA TRACH. PT WAS ON SEDATION VACATION FOR ALMOST 7 HRS AND SWITCHED TO PS VENT SETTINGS. WHILE OFF SEDATION PT ANSWERS QUESTIONS BY NODDING YES OR NO AND FOLLOWS COMMANDS. MOVES ARMS AND LEGS SPONT. DENIES PAIN, DENIES SOB. THIS AFTERNOON WAS GOING TO GET PT TO RECLINER BUT PT'S RESP RATE INCREASED, BP INCREASED, SHE WAS THRASHING HEAD SIDE TO SIDE, AND SPO2 WAS DROPPING 86-88%. DR. MARTIN AT BEDSIDE SWITCHED PT BACK TO AC SETTINGS ON VENT AND PROPOFOL WAS RESTARTED. TUBE FEED UP TO GOAL OF 40ML/HR AND H20 FLUSH CHANGED TO 100ML/Q4HR. DRESSING TO MEGAN CHANGED TODAY AND LOOKS IMPROVED SINCE WOUND PHOTOS. NO OTHER CHANGES THIS SHIFT.
--- NOTE | 2023-09-16 21:15 | NUR ---
ASSUMPTION OF CARE BEDSIDE SHIFT REPORT RECEIVED FROM ABIMBOLA RN. PT RESTING IN BED, CONTINUES TO BE ON MECHANICAL VENTILATION AND SEDATION. PROPOFOL INFUSING AT 20MCG/KG/MIN AT THE BEGINNING OF THE SHIFT, INCREASED TO 25MCG/KG/MIN DUE TO RESTLESSNESS. PT ABLE TO FOLLOW SIMPLE COMMANDS, AND NOD YES/NO TO ANSWER QUESTIONS. HR 70'S NSR, MAP >65. PT HAS NEW TRACH IN PLACE CONNECTED TO VENT. VENT SETTINGS 18/380/10/60%, OXYGEN SATURATION >95%, PT COUGHS OCCASIONALLY BUT TOLERATING VENT. DOBHOFF IN PLACE WITH JEVITY 1.2 INFUSING AT GOAL RATE OF 40MLS/HR WITH 100ML FLUSH Q4. TEMP PRITCHARD PATENT DRAINING TO GRAVITY, SEDIMENT NOTED. PICC LINE IN PLACE TO ANTONIO INFUSING PROPOFOL AND NS TKO. BED IN LOWEST POSITION, CARE CONTINUES.
[2023-09-17] VITALS (55 sets, daily range): BP systolic 73–186; BP diastolic 41–96
[2023-09-17 05:12] LABS: BASOPHILS ABSOLUTE AUTO 0.05 K/mm3 (0.00-0.23); BASOPHILS PERCENT AUTO 1 % (0-2); EOSINOPHILS ABSOLUTE AUTO 0.49 K/mm3 (0.00-0.68); EOSINOPHILS PERCENT AUTO 9 % (0-6); Hematocrit 24.6 % (33.0-51.0); Hemoglobin 7.1 g/dL (11.5-16.0); IMMATURE GRAN ABSOLUTE AUTO 0.03 K/mm3 (0.00-0.10); IMMATURE GRAN PERCENT AUTO 1 % (0-1); LYMPHOCYTES PERCENT AUTO 20 % (21-46); MONOCYTES ABSOLUTE AUTO 0.74 K/mm3 (0.16-1.47); MONOCYTES PERCENT AUTO 14 % (4-13); Mean Corpuscular HGB 26.8 pg (26.0-34.0); Mean Corpuscular HGB Conc 28.9 g/dL (31.5-36.5); Mean Corpuscular Volume 93 fL (80-100); Mean Platelet Volume 10.1 fL (9.1-12.4); NEUTROPHILS ABSOLUTE AUTO 3.08 K/mm3 (1.96-9.15); NEUTROPHILS PERCENT AUTO 56 % (41-73); Platelet Count 321 K/mm3 (150-400); RDW Coefficient Variation 15.8 % (11.7-14.2); RDW Standard Deviation 52.5 fL (35.1-46.3); Red Blood Cell Count 2.65 M/mm3 (3.80-5.20); White Blood Cell Count 5.49 K/mm3 (4.00-11.30)
--- NOTE | 2023-09-17 05:30 | NUR ---
SHIFT [facility] PT RESTING IN BED. PT CONTINUES TO BE MECHANICALLY VENTILATED AND SEDATED. PROPOFOL INFUSING AT 30MCG/KG/MIN FOR VENT COMPLAIANCE. PT RESPONSIVE TO NOXIOUS STIMULI, MOVES EXTREMITIES PERIODICALLY. HR 70'S NSR, MAP >65. NEW TRACH CONNECTED TO VENT, VENT SETTINGS AC/VC 16/380/10/60%, OXYGEN SATURATION >95%. DOBHOFF IN PLACE WITH JEVITY 1.2 INFUSING AT GOAL RATE OF 40MLS/HR WITH 100ML FLUSH Q4. PICC LINE TO ANTONIO INFUSING PROPOFOL AND NS TKO. PRITCHARD PATENT DRAINING TO GRAVITY. BED IN LOWEST POSITION, CARE CONTINUES.
[2023-09-17 06:08] LABS: Bun/Creatinine Ratio 21.9 (12.0-20.0); Calcium, Blood 7.1 mg/dL (8.5-10.1); Creatinine, Blood 1.28 mg/dL (0.40-1.00); Magnesium, Blood 2.7 mg/dL (1.6-2.4); Phosphorus, Blood 3.8 mg/dL (2.5-4.9); Potassium, Blood 3.8 mmol/L (3.5-5.5)
--- NOTE | 2023-09-17 08:14 | NUR ---
AM NOTE... ASSUMED CARE OF PT AT 0700. PT WAS ON PROPOFOL RUNNING AT 30MCG/KG WITH A RASS OF -1. THIS WAS DECREASED DOWN TO 10MCG/KG, PT'S RASS IS CURRENTLY 0, SHE IS ABLE TO FOLLOW COMMANDS AND NOD/SHAKE HER HEAD APPROPRIATELY TO QUESTIONS. PT'S TRACH IS STABLE, SITE IS C/D/I AT THE TIME OF THIS ASSESSMENT. VENT SETTINGS ARE AC/VC:18/360/10/60% WITH O2 SATS>92%. L/S CLEAR T/O THE UPPER AND MID LOBES COARSE TO THE LLL. SHE IS IN SR IN THE 70'S BP IS STABLE WITH MAPS >65. DOBHOFF IS 70 AT THE LEFT NARES. TUBE FEED IS RUNNING PER ORDERS AT 40MLS/HR WITH 100MLS Q4 HR H2O FLUSHES. BT PRESENT AND HYPOACTIVE, ABD HAD MODERATE DISTENTION AND IS NONTENDER TO PALPATION. PRITCHARD IS PATENT AND DRAINING TO GRAVITY. PLAN FOR A SEDATION VACATION THIS SHIFT. WILL CONTINUE TO MONITOR
--- NOTE | 2023-09-17 18:13 | NUR ---
SHIFT SUMMARY.... NO ACUTE NEGATIVE CHANGES NOTED THIS SHIFT. SHE HAS BEEN OFF OF SEDATION MOST OF THIS SHIFT AND PRESSURE SUPPORT OF 15/10 AND 45%. AT 1100 THE LIFT WAS USED TO GET HER INTO THE RECLINER CHAIR, THE PT TOLERATED THE TRANSFER WELL. SHE HAS DENIED PAIN THIS SHIFT. PT WAS MEDICATED WITH XANAX ONCE THIS SHIFT WITH GOOD RESULTS. THE PT HAD A LARGE BROWN BM THIS AM. PT'S PRITCHARD IS PATENT AND DRAINING TO GRAVITY. THE PT IS CURRENTLY REFUSING TO GO BACK TO BED FROM THE RECLINER CHAIR. WILL CONTINUE TO MONITOR UNTIL REPORT IS GIVEN TO ONCOMING RN.
--- NOTE | 2023-09-17 20:40 | NUR ---
ASSUMPTION OF CARE BEDSIDE SHIFT REPORT RECEIVED FROM ABIMBOLA RN. PT RESITNG IN BEDSIDE RECLINER. ALERT, ABLE TO ANSWER SIMPLE QUESTIONS BY NODDING YES/NO. PT FOLLOWS SIMPLE COMMANDS SUCH SQUEEZING HANDS AND WIGGLING TOES. PT MOVES ALL EXTREMITIES EQUALLY BILATERALLY. HR 80'S NSR, MAP >65, SBP 140'S. NEW TRACH IN PLACE CONNECTED TO VENTILATOR. VENT SETTINGS SPONTANEOUS 15/10 45%, OXYGEN SATURATION >90%. PT NODS HEAD NO TO PAIN. DOBHOFF IN PLACE, JEVITY 1.2 INFUSING AT GOAL RATE OF 40MLS/HR WITH 100ML FLUSH Q4. PRITCHARD PATENT DRAINING TO GRAVITY, SEDIMENT NOTED. PICC LINE IN PLACE TO ANTONIO INFUSING NS TKO. CARE CONTINUES.
--- NOTE | 2023-09-17 22:55 | NUR ---
PT UPDATE PT PLACED BACK ON AC VENT SETTINGS, AC 18/380/10/45% DUE TO INCREASED RESPIRATORY RATE AND INCREASED WORK OF BREATHING. PT ALSO APPEARED TO BE MORE UNCOMFORTABLE. PROPOFOL RESTARTED AT 25MCG/KG/MIN FOR VENT COMPLIANCE.
[2023-09-18] VITALS (44 sets, daily range): BP systolic 120–182; BP diastolic 48–118
[2023-09-18 04:42] LABS: BASOPHILS ABSOLUTE AUTO 0.03 K/mm3 (0.00-0.23); BASOPHILS PERCENT AUTO 1 % (0-2); EOSINOPHILS PERCENT AUTO 8 % (0-6); Hematocrit 22.6 % (33.0-51.0); Hemoglobin 6.6 g/dL (11.5-16.0); IMMATURE GRAN ABSOLUTE AUTO 0.02 K/mm3 (0.00-0.10); IMMATURE GRAN PERCENT AUTO 0 % (0-1); LYMPHOCYTES ABSOLUTE AUTO 0.99 K/mm3 (0.84-5.20); LYMPHOCYTES PERCENT AUTO 17 % (21-46); MONOCYTES ABSOLUTE AUTO 0.94 K/mm3 (0.16-1.47); MONOCYTES PERCENT AUTO 16 % (4-13); Mean Corpuscular HGB 26.9 pg (26.0-34.0); Mean Corpuscular HGB Conc 29.2 g/dL (31.5-36.5); Mean Corpuscular Volume 92 fL (80-100); Mean Platelet Volume 10.1 fL (9.1-12.4); NEUTROPHILS ABSOLUTE AUTO 3.44 K/mm3 (1.96-9.15); NEUTROPHILS PERCENT AUTO 58 % (41-73); Platelet Count 298 K/mm3 (150-400); RDW Coefficient Variation 15.5 % (11.7-14.2); RDW Standard Deviation 51.8 fL (35.1-46.3); Red Blood Cell Count 2.45 M/mm3 (3.80-5.20); White Blood Cell Count 5.92 K/mm3 (4.00-11.30)
--- NOTE | 2023-09-18 05:21 | NUR ---
SHIFT SUMMARY PT CONTINUES TO BE MECHANICALLY VENTILATED AND SEDATED. PROPOFOL INFUSING AT 20MCG/KG/MIN FOR VENT COMPLIANCE. PT RESPONSIVE TO NOXIOUS STIMULI. HR 70'S NSR, MAP >65, SBP 120-140'S. NEW TRACH CONNECTED TO VENT. VENT SETTINGS AC 18/380/10/40%, OXYGEN SATURATION >95%. DOBHOFF IN PLACE WITH JEVITY 1.2 INFUSING AT GOAL RATE OF 40MLS/HR WITH 100ML Q4 FLUSH. PRITCHARD PATENT DRAINING TO GRAVITY. PICC LINE IN PLACE TO ANTONIO INFUSING. BED IN LOWEST POSIITON, CARE CONTINUES.
[2023-09-18 05:32] LABS: Albumin, Blood 1.8 g/dL (3.4-5.0); Anion Gap 3 mmol/L (6-16); Blood Urea Nitrogen 26 mg/dL (8-24); CO2, Blood 33 mmol/L (21-32); Calcium, Blood 7.1 mg/dL (8.5-10.1); Chloride, Blood 105 mmol/L (98-108); Creatinine, Blood 1.13 mg/dL (0.40-1.00); Ferritin, Serum 86 ng/mL (8-252); Glomerular Filtration Rate 52 (60-); Glucose, Blood 152 mg/dL (70-99); Iron Serum 20 ug/dL (50-170); Percent Saturation 7.6 % (15.0-50.0); Potassium, Blood 3.5 mmol/L (3.5-5.5); Sodium, Blood 141 mmol/L (136-145); Total Iron Binding Capacity 264 ug/dL (250-450)
--- NOTE | 2023-09-18 05:40 | NUR ---
PT UPDATE CALL PLACED TO DR. MARTIN REGARDING PT HGB AND DECREASED URINE OUTPUT. NO ORDERS RECEIVED AT THIS TIME. CARE CONTINUES.
--- NOTE | 2023-09-18 08:51 | NUR ---
AM NOTE... ASSUMED CARE OF PT AT 0700, PT IS ON THE VENT WITH TRACH AT 16/380/10/45% WITH O2 SATS>90%. L/S CLEAR T/O SLIGHTLY COARSE IN THE LLL. SHE IS IN THE 80'S. BP IS STABLE TIHE MAPS>65. DOBHOFF IS IN PLACE AT THE [address] RIGHT NARES, TUBE FEEDS RUNNING PER ORDERS AT 40MLS/HR. BT PRESENT AND NORMOACTIVE. PRITCHARD IS PATENT AND DRAINING TO GRAVITY. PROPOFOL WAS STOPPED AT 0800. WILL CONTINUE TO MONITOR
--- NOTE | 2023-09-18 18:05 | NUR ---
SHIFT SUMMARY.... NO ACUTE NEGATIVE CHANGES NOTED THIS SHIFT. THE PT HAS BEEN ON PRESSURE SUPPORT MOST OF THIS SHIFT, SHE WAS UP IN THE CHAIR SINCE APROX 1100 AND TOLERATED THIS WELL. SHE HAS BEEN HYPERTENSIVE AND MEDICATED PER EMAR WITH GOOD RESULTS. 1 UNIT OF PRBCs WAS TRANSFUSED PER ORDERS. PT HAS NOT HAD A BM THIS SHIFT. CALL LIGHT IN REACH WILL CONTINUE TO MONITOR UNTIL REPORT IS GIVEN TO ONCOMING RN.
--- NOTE | 2023-09-18 18:13 | NUR ---
PT UPDATE.... THIS RN SPOKE WITH DOT FROM [facility]3] AT [phone], SHE WAS REQUESTING AN UPDATE ON THE PT'S CURRENT CONDITION. PER DOT [facility] STAFF IS HOPING TO HAVE A BED AVAILABLE IN THE NEXT DAY OR TWO. WILL CONTINUE TO MONITOR.
--- NOTE | 2023-09-18 19:54 | NUR ---
ASSUMED CARE PT IS RESTING QUIETLY IN CHAIR. FOLLOWING COMMANDS APPROPRIATELY AND COMMUNICATES WELL W/ NODDING/SHAKING OF HEAD. PT WISHES TO REMAIN IN CHAIR AT THIS TIME.
--- NOTE | 2023-09-18 21:09 | NUR ---
UPDATE PT OUT OF CHAIR INTO BED. PT BACK ON AC/VC. 18/%.
[2023-09-19] VITALS (25 sets, daily range): BP systolic 123–165; BP diastolic 45–100
[2023-09-19 03:43] LABS: BASOPHILS ABSOLUTE AUTO 0.05 K/mm3 (0.00-0.23); BASOPHILS PERCENT AUTO 1 % (0-2); EOSINOPHILS ABSOLUTE AUTO 0.44 K/mm3 (0.00-0.68); EOSINOPHILS PERCENT AUTO 6 % (0-6); Hematocrit 25.9 % (33.0-51.0); Hemoglobin 7.7 g/dL (11.5-16.0); IMMATURE GRAN ABSOLUTE AUTO 0.06 K/mm3 (0.00-0.10); IMMATURE GRAN PERCENT AUTO 1 % (0-1); LYMPHOCYTES ABSOLUTE AUTO 1.13 K/mm3 (0.84-5.20); LYMPHOCYTES PERCENT AUTO 14 % (21-46); MONOCYTES ABSOLUTE AUTO 1.31 K/mm3 (0.16-1.47); MONOCYTES PERCENT AUTO 16 % (4-13); Mean Corpuscular HGB 26.6 pg (26.0-34.0); Mean Corpuscular HGB Conc 29.7 g/dL (31.5-36.5); Mean Corpuscular Volume 89 fL (80-100); Mean Platelet Volume 10.1 fL (9.1-12.4); NEUTROPHILS ABSOLUTE AUTO 5.02 K/mm3 (1.96-9.15); NEUTROPHILS PERCENT AUTO 63 % (41-73); Platelet Count 300 K/mm3 (150-400); RDW Coefficient Variation 16.6 % (11.7-14.2); RDW Standard Deviation 54.3 fL (35.1-46.3); White Blood Cell Count 8.01 K/mm3 (4.00-11.30)
[2023-09-19 04:00] LABS: Anion Gap 2 mmol/L (6-16); Blood Urea Nitrogen 28 mg/dL (8-24); Bun/Creatinine Ratio 27.2 (12.0-20.0); CO2, Blood 34 mmol/L (21-32); Chloride, Blood 104 mmol/L (98-108); Creatinine, Blood 1.03 mg/dL (0.40-1.00); Glomerular Filtration Rate 58 (60-); Glucose, Blood 219 mg/dL (70-99); Phosphorus, Blood 2.4 mg/dL (2.5-4.9); Potassium, Blood 3.7 mmol/L (3.5-5.5); Sodium, Blood 140 mmol/L (136-145)
--- NOTE | 2023-09-19 06:15 | NUR ---
SHIFT SUMMARY PT APPEARS TO BE A&O TO SELF, SURROUNDINGS, AND PLACE. APPEARS TO CONTINUE TO COMMUNICATE APPROPRIATELY W/ NODDING/SHAKING HEAD. CURRENTLY ON AC/PC PEEP OF 10/50% FIO2; SPO2 >92%. MAP >65; NSR IN THE 70'S. PT RESTED QUIETLY T/O MOST OF NIGHT W/ INTERMITTENT EPISODES OF AGITATION; PT APPEARS TO BE IN PAIN, DENIES, BUT BECOMES AGITATED, SQUIRMS IN BED, AND APPEARS TO ATTEMPT TO REPOSITION SELF IN BED. MEDICATED W/ FENTANYL PER ORDER AND PT NODDED WHEN ASKED IF THE MEDICATION HELPED. PRITCHARD CATHETER PATENT AND DRAINING TO GRAVITY. TUBE FEED AT GOAL RATE. NO OTHER ACUTE EVENTS THIS EVENING.
--- NOTE | 2023-09-19 08:20 | NUR ---
ASSUMED CARE: REPORT RECEIVED FROM ELENA Navarro RN. ASSUMED CARE OF THIS PT AT APPROX 0700. ON ASSESSMENT, THE PT IS AWAKE, ORIENTED TO SELF & FOLLOWING SOME BASIC COMMANDS. ANSWERS YES/ NO QUESTIONS BY NODDING HEAD. GENERALIZED WEAKNESS, PALMA. LS RHONCHORUS ON RIGHT SIDE, DIM T/O. PT ON VENT W/ SETTINGS: PS 14, PEEP 10 & 50% FIO2. O2 SATS > 92%. MONITOR SHOWS SR W/ HR 70-80s, BP STABLE. DOBHOFF IN PLACE TO LEFT NARE, TUBE FEEDS INFUSING AT GOAL RATE, NO S/SX INTOLERANCE NOTED. PRITCHARD PATENT/ DRAINING YELLOW URINE - IN PLACE FOR STRICT I&O MONITORING. SKIN CONDITION OVERALL FRAGILE, INTACT. Q2H REPOSITIONING TO MAINTAIN SKIN INTEGRITY. PLAN TO CHANGE DRESSING ON LEFT AC FOSSA AT SOME POINT DURING THIS SHIFT. WILL CONTINUE TO MONITOR & UPDATE NEEDED.
--- NOTE | 2023-09-19 12:15 | NUR ---
DOBHOFF REMOVAL: THIS RN TO BEDSIDE AT 1215 AFTER NOTING THAT PT IS COUGHING SLIGHTLY. THIS RN NOTED THAT THE PT's DOBHOFF IS NO LONGER SECURED TO HER NOSE & HAS MOSTLY BEEN REMOVED BY THE PT. TUBE FEEDINGS IMMEDIATELY STOPPED & DOBHOFF REMOVED COMPLETELY. DOBHOFF COMPLETELY REMOVED EXCEPT APPROX 6 CM STILL IN NARE. THIS RN HAS COMPLETED DEEP INLINE SUCTION THROUGH TRACH & THERE IS NO CHANGE TO CONSISTENCY OR COLORING OF SPUTUM NOTED IN TUBING. RICCI Peña, RT, HAS BEEN NOTIFIED OF THIS INCIDENT & COMPLETED NT SUCTIONING TO ENSURE THERE IS NO TUBE FEEDING FORMULA AT BACK OF THROAT. DR CABRERA HAS BEEN MADE AWARE & STS TO ORDER A SPEECH THERAPY EVAL PRIOR TO PLACING A NEW DOBHOFF TUBE. THERE HAS BEEN NO CHANGE TO THE PT's OXYGENATION OR MENTATION DURING THIS TIME.
--- NOTE | 2023-09-19 16:30 | NUR ---
DOBHOFF PLACEMENT: NEW DOBHOFF PLACED BY THIS RN & PLACEMENT VERIFIED VIA CHEST XR W/ PROVIDER, COLIN JI FOR USE. PLACED AT 75 CM DEPTH. AFTER SPEAKING W/ FUAD Smith SPEECH THERAPIST, IT IS DETERMINED THAT PLACING A NEW DOBHOFF WILL BE NECESSARY THE SOONEST SHE WOULD BE ABLE TO EVALUATE THE PT WOULD BE TOMORROW. PLAN IS FOR PT TO D/C TO [facility] TOMORROW W/ EXACT TIME UNKNOWN, DOBHOFF REPLACED TO RESUME ENTERAL FEEDINGS & MEDICATION ADMINISTRATION.
--- NOTE | 2023-09-19 18:00 | NUR ---
SHIFT SUMMARY: NO ACUTE CHANGES THIS SHIFT, PT REMAINS A&O, ANSWERING YES/ NO QUESTIONS BY NODDING HER HEAD. LS DIM T/O, COARSE ON RIGHT SIDE, WHEEZING NOTED TO LEFT SIDE, IMPROVED W/ TRACH SUCTIONING. VENT SETTINGS: SPONTANEOUS W/ PS 14, PEEP 10 & 50% FIO2. MONITOR SHOWS SR W/ HR 80s, BP STABLE. INCREASED HTN W/ INCREASED STIMULUS, IMPROVED AT REST. TUBE FEEDS INFUSING AT GOAL RATE THROUGH DOBHOFF PLACED TO RIGHT NARE, NO S/SX INTOLERANCE NOTED. SMALL HARD BM THIS EVENING DURING CHG BATH, PT DENIES NEED TO PASS FURTHER STLS. PRITCHARD PATENT/ DRAINING YELLOW URINE W/ DIURESIS PER EMAR - IN PLACE FOR STRICT I&O MONITORING. SKIN CONDITION OVERALL INTACT, DRESSING TO LEFT AC FOSSA CHANGED THIS EVENING, PT TOLERATED WELL & SITE OVERALL APPEARS TO BE IMPROVING. WILL CONTINUE TO MONITOR & REPORT OFF TO ONCOMING RN.
--- NOTE | 2023-09-19 19:29 | NUR ---
ASSUMED CARE PT IS RESTING QUIETLY. SPO2 >92% ON PC OF 14, PEEP 10, FIO2 50%. DOBHOFF AND TUBE FEED CONTINUE. HR IN 80'S, MAP >65.
--- NOTE | 2023-09-19 19:41 | NUR ---
UPDATE PT FOLLOWS COMMANDS AND APPEARS TO COMMUNICATE WELL W/ NODDING/SHAKING HEAD. APPEARS TO BE ORIENTED TO SELF. DISCERNED ORIENTATION THROUGH ELIMINATION QUESTIONS (E.G., ARE YOU IN [place]? ARE YOU IN [place]? ETC.). PT SHAKES HEAD TO [place], [place], AND HOSPITAL; NODS HEAD TO [place] AND HOME. PT ALSO SHAKES HEAD WHEN ASKED IF PT IS IN PAIN; FREQUENTLY REPOSITIONS SELF. WILL ASSIST WITH REPOSITIONING TO HELP RELIEVE POSSIBLE PAIN. WILL CONTINUE TO MONITOR NEURO STATUS.
[2023-09-20] VITALS (13 sets, daily range): BP systolic 122–154; BP diastolic 45–74
[2023-09-20 04:50] LABS: BASOPHILS ABSOLUTE AUTO 0.02 K/mm3 (0.00-0.23); BASOPHILS PERCENT AUTO 0 % (0-2); EOSINOPHILS ABSOLUTE AUTO 0.58 K/mm3 (0.00-0.68); EOSINOPHILS PERCENT AUTO 8 % (0-6); Hematocrit 24.5 % (33.0-51.0); Hemoglobin 7.3 g/dL (11.5-16.0); IMMATURE GRAN ABSOLUTE AUTO 0.02 K/mm3 (0.00-0.10); IMMATURE GRAN PERCENT AUTO 0 % (0-1); LYMPHOCYTES ABSOLUTE AUTO 1.17 K/mm3 (0.84-5.20); LYMPHOCYTES PERCENT AUTO 16 % (21-46); MONOCYTES ABSOLUTE AUTO 1.01 K/mm3 (0.16-1.47); MONOCYTES PERCENT AUTO 14 % (4-13); Mean Corpuscular HGB 26.6 pg (26.0-34.0); Mean Corpuscular HGB Conc 29.8 g/dL (31.5-36.5); Mean Corpuscular Volume 89 fL (80-100); Mean Platelet Volume 10.1 fL (9.1-12.4); NEUTROPHILS ABSOLUTE AUTO 4.37 K/mm3 (1.96-9.15); NEUTROPHILS PERCENT AUTO 61 % (41-73); Platelet Count 307 K/mm3 (150-400); RDW Coefficient Variation 16.2 % (11.7-14.2); Red Blood Cell Count 2.74 M/mm3 (3.80-5.20); White Blood Cell Count 7.17 K/mm3 (4.00-11.30)
[2023-09-20 05:06] LABS: Anion Gap 3 mmol/L (6-16); Blood Urea Nitrogen 26 mg/dL (8-24); Bun/Creatinine Ratio 25.2 (12.0-20.0); CO2, Blood 33 mmol/L (21-32); Chloride, Blood 103 mmol/L (98-108); Creatinine, Blood 1.03 mg/dL (0.40-1.00); Glomerular Filtration Rate 58 (60-); Glucose, Blood 190 mg/dL (70-99); Phosphorus, Blood 2.4 mg/dL (2.5-4.9); Potassium, Blood 4.3 mmol/L (3.5-5.5); Sodium, Blood 139 mmol/L (136-145)
--- NOTE | 2023-09-20 06:37 | NUR ---
SHIFT SUMMARY PT APPEARS MORE ALERT AND ORIENTED THIS AM. PT NODDING/SHAKING HEAD APPROPRIATELY. SHAKES HEAD WHEN ASKED IF AT HOME, [place], [place]. NODS HEAD WHEN ASKED IF IN [facility]. PT NODS HEAD AND SMILES WHEN ASKED IF SHE KNOW'S SHE'S GOING TO [facility]. VENT SETTINGS ARE CURRENTLY [facility] 18/380/10/50%; SPO2 >92%. MAP >65; HR IN 70'S. PT BECAME AGITATED THIS MORNING, TACHYPNEIC W/ RATE IN THE 40'S. PT NODDED HEAD WHEN ASKED IF SHE WAS ANXIOUS/PAINFUL. TREATED PER EMAR AND PT CONTINUED TO APPEAR UNCOMFORTABLE (E.G., CONSTANTLY MOVING AROUND IN BED). PT WAS THEN PUT UP IN CHAIR AND IS NOW RESTING QUIETLY.
--- NOTE | 2023-09-20 08:00 | NUR ---
INITIAL ASSESSMENT PATIENT IN CHAIR WATCHING TV UPON ENTERING ROOM. PATIENT ABLE TO COMMUNICATE WITH NODDING AND SHAKING HEAD TO YES AND NO QUESTIONS. PATIENT ORIENTED TO SELF, TOWN AND HOSPITAL. PATIENT SLOW TO RESPOND. PATIENT DENIES PAIN. PATIENT AFEBRILE. EXTREMITIES WEAK. L ARM AND L HAND MORE WEAK THAN OTHER EXTREMITIES. EDEMA NOTED TO L ARM AND BLES. PATIENT SATTING 90% AND GREATER ON SPONTANEOUS PRESSURE SUPPORT 14/10 AND 45% FIO2. LUNGS DIMINISHED THROUGHOUT. SCANT AMOUNT OF THIN, PINK SECRECTIONS SUCTIONED FROM TRACH. PATIENT IN SR, HR IN THE 80S. SBP IN THE 130S. DOBHOFF TO L NARE INFUSING TF AT GOAL RATE. LAST BM DOCUMENTED YESTERDAY. PRITCHARD IN PLACE DRAINING YELLOW COLORED URINE WITH SEDIMENT NOTED. L AC WARM AND RED; PAST IV INFILTRATION. SKIN PALE. SCATTERED SCABS NOTED. SKIN TEAR TO R FEM. BURN TO STERNUM. L GROIN REDDENED. CALL LIGHT IN REACH. CARE CONTINUES.
[2023-09-20] MEDS ORDERED: LOSA50 PO (10:26)
[2023-09-20] MEDS ORDERED: EZET10 PO (11:27)
--- NOTE | 2023-09-20 11:37 | NUR ---
DR. GRAHAM CALLED AND INFORMED THAT PATIENT MED REC UPDATED. INFORMED THAT PRELIMINARY L ARM ULTRASOUND REPORT CAME BACK NEGATIVE FOR BLOOD CLOT. NO ORDERS RECEIVED AT THIS TIME.
[2023-09-20] MEDS ORDERED: ALPR.5 PT (12:53)
[2023-09-20] MEDS ORDERED: ALBU2.5V5 INH (12:53)
[2023-09-20] MEDS ORDERED: ASPI81CH PT (12:54)
[2023-09-20] MEDS ORDERED: BISA10S PR (12:55)
[2023-09-20] MEDS ORDERED: HYDROCODONE-AC118 M5 PO (12:57)
[2023-09-20] MEDS ORDERED: HUMULIN R100 UNIT/2 SC (13:01)
[2023-09-20] MEDS ORDERED: IPRAT-ALBUT 0.5-3 ML INH (13:02)
[2023-09-20] MEDS ORDERED: VISBIOME 112.51 EACH PT (13:04)
[2023-09-20] MEDS ORDERED: PANT40 PO (13:05)
[2023-09-20] MEDS ORDERED: B-1100 M2 PT (13:05)
--- NOTE | 2023-09-20 13:45 | NUR ---
SHIFT SUMMARY PATIENT REMAINED ORIENTED TO SELF, TOWN AND HOSPITAL. PATIENT REMAINED CALM AND COOPERATIVE. PATIENT REMAINED AFEBRILE. PATIENT DID NOT HAVE ANY COMPLAINTS OF PAIN THIS SHIFT. PATIENT REMAINED WEAK TO ALL EXTREMITIES BUT EVEN MORE SO TO LEFT ARM AND HAND. LUNGS REMAINED DIMINISHED. PATIENT REMAINED ON SPONTANEOUS PRESSURE SUPPORT OF 14/10 AND 45% FIO2. HR 70S TO 80S. SBP 130S TO 150S. NO BM THIS SHIFT. PATIENT REMAINED ON TF AT GOAL UNTIL CLAMPED AT TRANSFER. PRITCHARD DRAINED ADEQUATE AMOUNT OF YELLOW URINE WITH SEDIMENT NOTED. NO CHANGES TO SKIN NOTED. PATIENT HAD COMPLETE BED BATH. PATIENT RECEIVED NEUTRA-PHOS FOR PHOSPHORUS OF 2.4 THIS AM. BLOOD SUGAR 193 THIS SHIFT. REPORT GIVEN TO ASSUMING NURSE AT [facility] AT 1250 AT [phone]. [facility] JUST LEFT WITH PATIENT TO TAKE TO [facility] IN [place]. ALL PATIENT BELONGINGS SENT WITH PATIENT INCLUDING 3 RINGS. TRANSFER COMPLETE.
== END 2023-09-20 13:45 | DRG 3 ==
LOC: ER 20:18 → ICUE 23:31
PROVIDERS: Emergency Medicine; Family Medicine; Internal Medicine; Internal Medicine Critical Care Medicine; Student in an Organized Health Care Education/Training Program; ADMIT Student in an Organized Health Care Education/Training Program
PROC: 5A12012 Performance of Cardiac Output, Single, Manual (ICD-10-PCS; principal; 2023-08-25)
PROC: 4A133R1 Monitoring of Arterial Saturation, Peripheral, Percutaneous Approach (ICD-10-PCS; 2023-08-25)
PROC: 3E033XZ Introduction of Vasopressor into Peripheral Vein, Percutaneous Approach (ICD-10-PCS; 2023-08-25)
PROC: 3E043XZ Introduction of Vasopressor into Central Vein, Percutaneous Approach (ICD-10-PCS; 2023-08-25)
PROC: 06HY33Z Insertion of Infusion Device into Lower Vein, Percutaneous Approach (ICD-10-PCS; 2023-08-25)
PROC: 5A2204Z Restoration of Cardiac Rhythm, Single (ICD-10-PCS; 2023-08-25)
PROC: 5A1955Z Respiratory Ventilation, Greater than 96 Consecutive Hours (ICD-10-PCS; 2023-08-25)
PROC: 02HV33Z Insertion of Infusion Device into Superior Vena Cava, Percutaneous Approach (ICD-10-PCS; 2023-08-26)
PROC: 30233N1 Transfusion of Nonautologous Red Blood Cells into Peripheral Vein, Percutaneous Approach (ICD-10-PCS; 2023-08-26)
PROC: 02HV33Z Insertion of Infusion Device into Superior Vena Cava, Percutaneous Approach (ICD-10-PCS; 2023-08-30)
PROC: 5A09357 Assistance with Respiratory Ventilation, Less than 24 Consecutive Hours, Continuous Positive Airway Pressure (ICD-10-PCS; 2023-09-05)
PROC: 5A0935A Assistance with Respiratory Ventilation, Less than 24 Consecutive Hours, High Flow/Velocity Cannula (ICD-10-PCS; 2023-09-11)
PROC: 0BH17EZ Insertion of Endotracheal Airway into Trachea, Via Natural or Artificial Opening (ICD-10-PCS; 2023-09-11)
PROC: 5A1955Z Respiratory Ventilation, Greater than 96 Consecutive Hours (ICD-10-PCS; 2023-09-11)
PROC: 0WCQ8ZZ Extirpation of Matter from Respiratory Tract, Via Natural or Artificial Opening Endoscopic (ICD-10-PCS; 2023-09-11)
PROC: 0B9H8ZX Drainage of Lung Lingula, Via Natural or Artificial Opening Endoscopic, Diagnostic (ICD-10-PCS; 2023-09-11)
PROC: 0B9G8ZX Drainage of Left Upper Lung Lobe, Via Natural or Artificial Opening Endoscopic, Diagnostic (ICD-10-PCS; 2023-09-11)
PROC: 0B113F4 Bypass Trachea to Cutaneous with Tracheostomy Device, Percutaneous Approach (ICD-10-PCS; 2023-09-15)
PROC: 0BJ08ZZ Inspection of Tracheobronchial Tree, Via Natural or Artificial Opening Endoscopic (ICD-10-PCS; 2023-09-15)
DX: A41.02 Sepsis due to Methicillin resistant Staphylococcus aureus (principal); E11.10 Type 2 diabetes mellitus with ketoacidosis without coma; J96.01 Acute respiratory failure with hypoxia; I46.9 Cardiac arrest, cause unspecified; J15.212 Pneumonia due to Methicillin resistant Staphylococcus aureus; I50.33 Acute on chronic diastolic (congestive) heart failure; J96.02 Acute respiratory failure with hypercapnia; I49.01 Ventricular fibrillation; G92.8 Other toxic encephalopathy; N17.9 Acute kidney failure, unspecified; G62.81 Critical illness polyneuropathy; M96.A3 Multiple fractures of ribs associated with chest compression and cardiopulmonary resuscitation; M96.A1 Fracture of sternum associated with chest compression and cardiopulmonary resuscitation; I13.0 Hypertensive heart and chronic kidney disease with heart failure and stage 1 through stage 4 chronic kidney disease, or unspecified chronic kidney disease; I47.20 Ventricular tachycardia, unspecified; J98.11 Atelectasis; R57.9 Shock, unspecified; Z99.11 Dependence on respirator [ventilator] status; E11.22 Type 2 diabetes mellitus with diabetic chronic kidney disease; D63.1 Anemia in chronic kidney disease; I27.20 Pulmonary hypertension, unspecified; E87.5 Hyperkalemia; E83.39 Other disorders of phosphorus metabolism; N18.30 Chronic kidney disease, stage 3 unspecified; G47.33 Obstructive sleep apnea (adult) (pediatric); E86.0 Dehydration; R77.8 Other specified abnormalities of plasma proteins; B96.3 Hemophilus influenzae [H. influenzae] as the cause of diseases classified elsewhere; E66.01 Morbid (severe) obesity due to excess calories; I25.10 Atherosclerotic heart disease of native coronary artery without angina pectoris; E03.9 Hypothyroidism, unspecified; E87.6 Hypokalemia; T80.89XA Other complications following infusion, transfusion and therapeutic injection, initial encounter; R13.10 Dysphagia, unspecified; Z88.0 Allergy status to penicillin; Z95.2 Presence of prosthetic heart valve; Z88.2 Allergy status to sulfonamides; Z88.5 Allergy status to narcotic agent; Z88.7 Allergy status to serum and vaccine; Z88.1 Allergy status to other antibiotic agents; Z91.040 Latex allergy status; Z88.8 Allergy status to other drugs, medicaments and biological substances; Z79.4 Long term (current) use of insulin; Z79.890 Hormone replacement therapy; Z95.5 Presence of coronary angioplasty implant and graft; Z98.1 Arthrodesis status; Z11.52 Encounter for screening for COVID-19; Z68.38 Body mass index [BMI] 38.0-38.9, adult; Z78.1 Physical restraint status
CPT/HCPCS: 0241U; 31500; 31720; 36415; 36430; 36556; 36569; 36600; 36680; 51702; 70450; 71045; 71260; 80047; 80048; 80053; 80069; 80202; 81003; 82010; 82550; 82607; 82728; 82746; 82803; 82947; 83540; 83550; 83605; 83690; 83735; 83880; 84100; 84132; 84145; 84484; 85014; 85025; 85520; 85610; 85730; 86850; 86900; 86901; 86923; 87040; 87070; 87077; 87147; 87185; 87186; 87205; 92526; 92610; 92950; 93005; 93010; 93306; 93971; 94002; 94003; 94640; 94660; 94664; 94667; 94668; 94760; 94762; 96361-59; 96365-59; 96368; 96375-59; 97110; 97162; 97165; 97530; 99291-25; A9270; C1751; C9113; J0360; J0692; J0696; J1644; J1650; J1815; J1885; J1940; J2060; J2250; J2371; J2405; J2704; J2997; J3010; J3370; J3480; J7030; J7042; J7050; J7060; J7070; J7120; J7799; P9016; Q9967